=== PATIENT | male | born 1945 | race Hispanic/Latino ===

== ENCOUNTER 2020-10-09 15:27 | Observation (INO) | payer MEDICARE, OTHER ==
--- OUTSIDE RECORDS SUMMARY | 2020-10-09 15:30 | XMS REPORT | Continuity of Care Document ---
:1945 Author Organization [facility] t Address [address] [place] [address] Care Team Providers Name Role Phone Unavailable Unavailable Unavailable Problems This patient has no known problems. Allergies, Adverse Reactions, Alerts Allergy Allergy Status Severity Reaction(s) Onset Inactive Treating Comm ents Source Name Type Date Date Clinician Lisinopr Adverse Active Info Not [facility] Medications Ordered Filled Start Stop Current Ordering Indication Dosage Frequency Signature Comments Components Source Medication Medication Date Date Medication? Clinician (SIG) Name Name Pepcid Pepcid 2019-0 Yes Leandra [address] [facility] 9-04 [facility]: [facility] 00 [facility] Albuterol Albuterol 2019-0 Yes Leandra [address] [facility] Sulfate HFA Sulfate HFA 9-04 Millender needed [facility] - 00:[facility]: [facility] 00 [facility] Trulicity Trulicity 2019-0 2020- No Leandra one [facility] 9-04 01-02 Millender injection Luke s - 00:00: 00:00 Memoria 00 :00 [facility] Blood Blood 2020-0 Yes Leandra as [facility] Glucose Glucose 7-22 Millender directed [facility] - Monitor Monitor 00:00: [facility]oria System System [address] [facility] Lancets Lancets 2019-0 Yes Leandra as [facility] 7[facility]22 [facility]ender directed [facility] - 00:[facility]: [facility] 00 [facility] Glucose Glucose 2020-0 Yes Leandra as [facility] testing testing 4-23 Millender directed [facility] - strips strips 00:00: (dispense Mainor gracy 00 testing l strips for Outpati Contour ent Next) Clinics Contour Contour 2018-0 Yes Leandra n/s [facility] next next 9-27 [facility] - testing testing 00:00: Memoria strips strips 00 l Outpati ent Clinics Sertraline Sertraline Yes Leandra [address] [facility] HCl HCl [facility] Contour Contour Yes Leandra as [facility] Next Test Next Test [facility]ender directed [facility] Losartan Losartan Yes Leandra [address] Potassium Potassium [facility] Loratadine Loratadine Yes Leandra [address] [facility] Pantoprazol Pantoprazol Yes Leandra TOME ALEX [facility] e Sodium e Sodium Millender TABLETA [facility] Lyrica Lyrica Yes Leandra [facility] [address] [facility] Fluticasone Fluticasone Yes Leandra [address] [facility] Propionate Propionate Millender in each [facility] Lovastatin Lovastatin Yes Leandra [address] [facility] Millender with a [facility] Metformin Metformin Yes Leandra [address] [facility] HCl HCl Millender with a [facility] Flomax Flomax Yes Le[facility] Xanax Xanax Yes Leandra [address] [facility] Furosemide Furosemide Yes Leandra [address] [facility] Aspirin Aspirin Yes Leandra tome alex [facility] Millender tableta [facility] Fluticasone Fluticasone Yes Leandra [address] [facility] Propionate Propionate Millender each [facility] Aspirin 81 Aspirin 81 Yes Leandra [address] [facility]ender [facility] Aspirin Low Aspirin Low 2020- No Leandra [address] [facility] Dose Dose 06 Millender [facility] l [facility] ent [facility] Jardiance Jardiance 2020- No Leandra [address] [facility] 01-10 [facility] Anoro Anoro 2020- No Leandra [address] [facility] Ellipta Ellipta 01-10 Millender Madelyn es - 00:00 Memoria :00 l Outpati ent Clinics Immunizations Ordered Filled Immunization Date Status Comments [facility] e Immunization Name Name PCV13 PCV13 2018-03-[address] [facility]00 [facility] Procedures This patient has no known procedures. Encounters Start End Encounter Admission Attending Care Care Encounter Source Date/Time Date/Time Type Type Clinicians Facility Department ID 2020-08-03 2020-08-03 Outpatient [facility] [id number] 2020-07-26 2020-07-26 [facility] [id number] [facility] 2020-07-26 2020-07-26 [facility] [id number] [facility] 2020-07-12 2020-07-12 [facility] [id number] [facility] 2020-06-27 2020-06-27 Outpatient [facility] [id number] [facility] 2020-05-11 2020-05-11 Out[facility] [id number] [facility] 2020-04-18 2020-04-18 Outpatient [facility] [id number] [facility] 2020-04-14 2020-04-14 [facility] [id number] [facility] 10:20:00 10:20:00 [facility] Outpati ent Clinics 2020-04-08 2020-04-08 [facility] [id number] [facility] 16:38:00 16:38:00 t [employer] - Drive [facility] Outpati ent Clinics 2020-04-08 2020-04-08 [facility] [id number] [address] 16:36:00 16:36:00 t [employer] Drive [facility] Medicine Outpati ent Clinics 2020-04-08 2020-04-08 [facility] [id number] 10:50:00 10:50:00 t [facility] [employer] [facility] Medicine Outpati ent Clinics 2020-03-07 2020-03-07 [facility] [id number] [address] 14:47:00 14:47:00 t [facility] [employer] [place] [facility] Medicine Outpati ent Clinics 2020-01-26 2020-01-26 [facility] [id number] 14:20:00 14:20:00 t Specialty/U L[facility] kes - Specialty rology [facility] /Urology Clinic l Clinic Outpati ent Clinics 2020-01-19 2020-01-19 [facility] [id number] [address] 14:00:00 14:00:00 t Specialty/U [facility]ore[facility] kes - Specialty rology Mem[facility] a /Urology Clinic l Clinic Outpati ent Clinics 2020-01-18 2020-01-18 [facility] [id number] [address] 14:30:00 14:30:00 t Specialty/U Lorena kes - Specialty rology [facility] /Urology Clinic l Clinic Outpati ent Clinics 2020-01-11 2020-01-11 [facility] [id number] [address] 16:46:00 16:46:[address] [facility] Medicine Outpati ent Clinics 2019-12-28 2019-12-28 [facility] [id number] [facility] 14:00:00 14:00:00 t Specialty/U Lorena kes - Specialty rology Mem[facility] a /Urology Clinic l Clinic Outpati ent Clinics 2019-12-24 2019-12-24 [facility] [id number] [address] 15:13:00 15:13:00 t Specialty/U Lorena kes - Specialty rology [facility] a /Urology Clinic l Clinic Outpati ent Clinics 2019-12-14 2019-12-14 [facility] [id number] [address] 16:13:00 16:13:00 t [facility] Medicine Outpati ent Clinics 2019-12-03 2019-12-03 [facility] [id number] [address] 15:15:00 15:15:[address] [facility] Medicine Outpati ent Clinics 2019-09-11 2019-09-11 [facility] [id number] [facility] 17[facility]26:00 17:26:[address] [facility] Medicine Outpati ent Clinics 2019-08-11 2019-08-11 [facility] [id number] [address] 09:48:00 09:48:[address] [facility] Medicine Outpati ent Clinics 2019-07-02 2019-07-02 [facility] [id number] 15:20:00 15:20:[address] [facility] Medicine Outpati ent Clinics 2019-06-26 2019-06-26 [facility] [id number] [facility] 16:42:00 16:42:[address] [facility] Medicine Outpati ent Clinics 2019-06-23 2019-06-23 [facility] [id number] [facility] 09:21:00 09:21:[address] [facility] Medicine Outpati ent Clinics 2019-06-11 2019-06-11 [facility] [id number] 14:59:00 14:59:[address] [facility] Medicine Outpati ent Clinics 2019-06-08 2019-06-08 [facility] [id number] [facility] 16:45:00 16:45:[address] [facility] Medicine Outpati ent Clinics 2019-05-25 2019-05-25 [facility] [id number] [facility] 15:30:00 15:30:00 t Specialty/U Lorena kes - Specialty rology Memori a /Urology Clinic l Clinic Outpati ent Clinics 2019-05-06 2019-05-06 [facility] [id number] [facility] 13:24:00 13:24:[address] [facility] Medicine Outpati ent Clinics 2019-01-29 2019-01-29 [facility] [id number] [facility] 13:15:00 13:15:00 t Specialty/U Lorena kes - Specialty rology Memori a /Urology Clinic l Clinic Outpati ent Clinics 2019-01-16 2019-01-16 [facility] [id number] [address] 10:05:00 10:05:00 [facility] Outpati ent Clinics 2019-01-02 2019-01-02 Out[facility] [id number] 14:10:00 14:10:00 t [facility] Outpati ent Clinics 2018-11-07 2018-11-07 [facility] [id number] 10:27:00 10:27:00 t [facility] Outpati ent Clinics 2018-11-04 2018-11-04 [facility] [id number] [facility] 15:55:00 15:55:00 t Specialty/U Lorena kes - Specialty rology Memori a /Urology Clinic l Clinic Outpati ent Clinics 2018-11-04 2018-11-04 [facility] [id number] 14:15:00 14:15:00 t Specialty/U Lorena kes - Specialty rology Mem[facility] a /Urology Clinic l Clinic Outpati ent Clinics 2018-09-30 2018-09-30 [facility] [id number] [address] 15:30:00 15:30:00 t [facility] Outpati ent Clinics 2018-09-04 2018-09-04 [facility] [id number] 17:02:00 17:02:00 t [facility] Medicine Medicine Outpati ent Clinics 2018-09-03 2018-09-03 [facility] [id number] [address] 10:12:00 10:12:[address] [facility] Medicine Outpati ent Clinics 2018-08-15 2018-08-15 [facility] [id number] [facility] 14:31:00 14:31:00 t [facility] Medicine Medicine Outpati ent Clinics 2018-08-11 2018-08-11 [facility] [id number] [facility] 09:42:00 09:42:[address] [facility] Medicine Outpati ent Clinics 2018-07-23 2018-07-23 [facility] [id number] [address] 11:42:00 11:42:[address] [facility] Medicine Outpati ent Clinics 2018-05-29 2018-05-29 [facility] [id number] [facility] 12:09:00 12:09:00 t [facility] Medicine Medicine Outpati ent Clinics 2018-05-08 2018-05-08 [facility] [id number] [facility] 10:57:00 10:57:[address] [facility] Medicine Outpati ent Clinics 2018-04-01 2018-04-01 [facility] [id number] 15:34:00 15:34:00 t [facility] Medicine Medicine Outpati ent Clinics 2018-03-17 2018-03-17 [facility] [id number] 15:30:00 15:30:[address] [facility] Medicine Outpati ent Clinics 2018-01-30 2018-01-30 [facility] [id number] [facility] [address] 15:00:00 15:00:[address] [facility] Medicine Outpati ent Clinics 2018-01-22 2018-01-22 [facility] [id number] 10:00:00 10:00:00 t Specialty/U Lorena pinedas - Specialty rology Memori a /Urology Clinic l Clinic Outpati ent Clinics Results This patient has no known results.
[2020-10-09] MEDS ORDERED: NA CHLORIDE 0.9% 1,000 ML ONE (16:06)
[2020-10-09 16:42] LABS: Absolute Lymphocytes (CBC) 0.5 K/uL (0.7-4.9); Basophils % 0.4 % (0-1.3); Hematocrit 41.9 % (39.6-49.0); Lymphocytes % 8.4 % (15.3-44.8); MPV 8.3 fL (7.6-11.3); RBC Red Blood Cell Count 4.97 M/uL (4.33-5.43)
--- NOTE | 2020-10-09 16:42 | RAD REPORT ---
EXAM DESCRIPTION: Andrea Single View10/09/2020 4:35 pm CLINICAL HISTORY: Cough COMPARISON: 2016 FINDINGS: [id number] bilateral pulmonary opacities. The heart is normal size IMPRESSION: Mild to moderate bilateral pulmonary opacities probably pneumonia
[2020-10-09 16:44] LABS: Protime INR 1.02
[2020-10-09 16:59] LABS: ALT/SGPT 21 U/L (12-78); AST/SGOT 35 U/L (15-37); Albumin 2.9 g/dL (3.4-5.0); Alkaline Phosphatase 78 U/L (45-117); BUN Blood Urea Nitrogen 16 mg/dL (7-18); Bicarbonate 23 mmol/L (21-32); Bilirubin Direct 0.3 mg/dL (0-0.2); Bilirubin Total 0.7 mg/dL (0.2-1.0); Glucose Level 184 mg/dL (74-106); Lipase 293 U/L (73-393); Magnesium 1.8 mg/dL (1.8-2.4); NT PRO-BNP 479 pg/mL (<125); Potassium 4.4 mmol/L (3.5-5.1); Sodium Level 122 mmol/L (136-145); Troponin (Emerg Dept Use Only) < 0.02 ng/mL (0.0-0.045)
--- NOTE | 2020-10-09 17:13 | ER ---
Nurse's Notes [facility] Name: Chito Chavira Jr Age: 75 yrs Sex: Male : 1945 Arrival Date: 10/09/2020 Time: 15:29 Bed 20 Private MD: Diagnosis: Weakness;Hypo-osmolality and hyponatremia;Pneumonia, unspecified organism-bilateral . Covid 19 Positive;Dementia in other diseases classified elsewhere Presentation: 10/09 15:28 Chief complaint: EMS states: Generalized weakness, decreased appetite, fever, and body hb aches x 3 days. Coronavirus screen:. Ebola Screen: No symptoms or risks identified at this time. Initial Sepsis Screen: Does the patient meet any 2 criteria? No. Patient's initial sepsis screen is negative. Does the patient have a suspected source of infection? No. Patient's initial sepsis screen is negative. 15:28 Method Of Arrival: EMS: [facility] 15:28 Risk Assessment: Do you want to hurt yourself or someone else? Patient reports no hb desire to harm self or others. Onset of symptoms was October 06, 2020. 15:28 Acuity: TROY 3 hb Historical: - Allergies: 15:31 Seroquel; sv - PMHx: 15:31 High Cholesterol; Hypertension; Asthma; Dementia; Diabetes - NIDDM; GERD; indwelling sv catheter; - PSHx: 15:31 Knee surgery; Appendectomy; neck fusion; hip; left ear; sv - Immunization history:: Adult Immunizations up to date. - Social history:: Smoking status: Patient denies any tobacco usage or history of. Screenin:38 Abuse screen: Denies threats or abuse. Denies injuries from another. Nutritional hb screening: No deficits noted. Tuberculosis screening: No symptoms or risk factors identified. Fall Risk Total Aparicio Fall Scale indicates Low Risk Score (25-44 pts). Fall prevention measures have been instituted. Side Rails Up X 2 Placed close to Nursing Station Frequent Obs/Assesments occuring As available Patient and Family Educated on Fall Prevention Program and strategies. Assessment: 15:38 General: Appears in no apparent distress. Behavior is calm, cooperative. Pain: Pain hb currently is 5 out of 10 on a pain scale. Neuro: Level of Consciousness is awake, alert, obeys commands, Oriented to person, place, situation. Cardiovascular: Capillary refill < 3 seconds Patient's skin is warm and dry. Respiratory: Respiratory effort is even, unlabored, Respiratory pattern is regular, symmetrical. GI: Reports anorexia. : No signs and/or symptoms were reported regarding the genitourinary system. EENT: No signs and/or symptoms were reported regarding the EENT system. Derm: Skin is pink, warm \T\ dry. Musculoskeletal: Reports body aches. 16:51 Reassessment: Patient appears in no apparent distress at this time. Patient and/or hb family updated on plan of care and expected duration. Pain level reassessed. Patient is alert, oriented x 3, equal unlabored respirations, skin warm/dry/pink. 17:25 Reassessment: Pt to CT. hb 18:00 Reassessment: Pt returned from CT. NAD. VSS. hb 18:35 Reassessment: Patient appears in no apparent distress at this time. Patient and/or hb family updated on plan of care and expected duration. Pain level reassessed. Patient is alert, oriented x 3, equal unlabored respirations, skin warm/dry/pink. 19:15 Reassessment: Patient appears in no apparent distress at this time. Patient and/or jb4 family updated on plan of care and expected duration. Pain level reassessed. Patient is alert, oriented x 3, equal unlabored respirations, skin warm/dry/pink. Vital Signs: 15:30 BP 112 / 65; Pulse 64; Resp 16; Temp 97.7(O); Pulse Ox 97% on R/A; Pain 5/10; hb 16:45 BP 151 / 67; Pulse 76; Resp 16; Pulse Ox 95% on R/A; hb 18:00 BP 133 / 65; Pulse 67; Resp 17; Pulse Ox 95% on R/A; hb 19:00 BP 120 / 63; Pulse 61; Resp 16; Pulse Ox 93% on R/A; jb4 ED Course: 15:29 Patient arrived in ED. ds1 15:31 Arm band placed on. sv 15:31 Patient has correct armband on for positive identification. Bed in low position. Call sv light in reach. Side rails up X2. Pulse ox on. NIBP on. 15:35 Shelby Obrien, RN is Primary Nurse. hb 15:37 Triage completed. hb 15:38 Justin Altman MD is Attending Physician. nataly 16:26 Inserted saline lock: 22 gauge in left forearm, using aseptic technique. Blood hb collected. 16:35 XRAY Chest (1 view) In Process Unspecified. EDMS 16:54 Basic Metabolic Panel Sent. hb 16:54 CBC with Diff Sent. hb 16:54 Flu Sent. hb 17:10 Aki Redman MD is Hospitalizing Provider. nataly 17:39 CT Chest For PE Angio In Process Unspecified. EDMS 17:39 CT Abd/Pelvis - IV Contrast Only In Process Unspecified. EDMS 17:56 by ut, sent to lab. jp3 17:57 Osmolality, Serum Sent. jp3 17:59 Urine Dipstick--Ancillary (enter results) Sent. hb 19:00 No provider procedures requiring assistance completed. Patient admitted, IV remains in jb4 place. Administered Medications: 16:22 Drug: NS 0.9% 500 ml Route: IV; Rate: bolus; Site: left forearm; hb 16:51 Follow up: Response: No adverse reaction; IV Status: Completed infusion; IV Intake: hb 500ml 16:53 Drug: NS 0.9% 1000 ml Route: IV; Rate: 125 ml/hr; Site: left forearm; hb 17:59 Drug: Zosyn 3.375 grams Route: IVPB; Infused Over: 60 mins; Site: left forearm; hb 17:59 Drug: Pepcid 20 mg Route: IVP; Site: left forearm; hb 18:33 Follow up: Response: No adverse reaction hb 18:32 Drug: Decadron - Dexamethasone 10 mg Route: IVP; Site: right antecubital; hb 18:32 Drug: Lovenox 40 mg Route: Sub-Q; Site: abdomen; hb 18:32 Drug: Aspirin Chewable Tablet 162 mg Route: PO; hb Intake: 16:51 IV: 500ml; Total: 500ml. hb Outcome: 17:12 Decision to Hospitalize by Provider. [facility] 19:00 Admitted to Tele accompanied by [facility], via stretcher, room 404, with chart. jb4 19:00 Condition: stable 19:00 Discharge instructions given to patient, Instructed on the need for admit, Demonstrated understanding of instructions. 19:31 Patient left the ED. jb4 Signatures: Dispatcher [employer] Shani Pak RN Justin Tomas MD MD cha Sanford, Demi ds1 Shelby Obrien RN RN hb Thanh Santos RN RN jb4 Nestor Carney jp3 Corrections: (The following items were deleted from the chart) 15:37 15:30 Temp 97.7F Oral; kiley gale
--- NOTE | 2020-10-09 17:13 | EDPHYS ---
Physician Documentation [facility] Name: Chito Chavira Jr Age: 75 yrs Sex: Male : 1945 Arrival Date: 10/09/2020 Time: 15:29 Bed 20 Private MD: SOHAIL Physician Justin Altman HPI: 10/09 17:05 This 75 yrs old Male presents to ER via EMS with complaints of General nataly Weakness. 17:05 The patient presents with abdominal pain. Onset: The symptoms/episode began/occurred 4 nataly day(s) ago. The patient or guardian reports cough, difficulty breathing. Modifying factors: The symptoms are alleviated by nothing. the symptoms are aggravated by nothing. weakness, cough , abd pain. Associated signs and symptoms: Pertinent positives: nausea. Onset: The symptoms/episode began/occurred 3 day(s) ago. The symptoms do not radiate. Associated signs and symptoms: Pertinent positives: anorexia, fever, nausea, shortness of breath. Historical: - Allergies: 15:31 Seroquel; sv - PMHx: 15:31 High Cholesterol; Hypertension; Asthma; Dementia; Diabetes - NIDDM; GERD; indwelling sv catheter; - PSHx: 15:31 Knee surgery; Appendectomy; neck fusion; hip; left ear; sv - Immunization history:: Adult Immunizations up to date. - Social history:: Smoking status: Patient denies any tobacco usage or history of. ROS: 17:06 Eyes: Negative for injury, pain, redness, and discharge, ENT: Negative for injury, nataly pain, and discharge, Neck: Negative for injury, pain, and swelling, Cardiovascular: Negative for chest pain, palpitations, and edema, Back: Negative for injury and pain, : Negative for injury, bleeding, discharge, and swelling, MS/Extremity: Negative for injury and deformity, Skin: Negative for injury, rash, and discoloration, Neuro: Negative for headache, weakness, numbness, tingling, and seizure, Psych: Negative for depression, anxiety, suicide ideation, homicidal ideation, and hallucinations, Allergy/Immunology: Negative for hives, rash, and allergies, Endocrine: Negative for neck swelling, polydipsia, polyuria, polyphagia, and marked weight changes, Hematologic/Lymphatic: Negative for swollen nodes, abnormal bleeding, and unusual bruising. 17:06 Constitutional: Positive for body aches, chills, fatigue, fever, poor PO intake. 17:06 Respiratory: Positive for cough, with no reported sputum, shortness of breath. 17:06 Abdomen/GI: Positive for abdominal pain, anorexia, of the right upper quadrant, left upper quadrant, right lower quadrant and left lower quadrant. Exam: 17:06 Constitutional: This is a well developed, well nourished patient who is awake, alert, nataly and in no acute distress. Head/Face: Normocephalic, atraumatic. Eyes: Pupils equal round and reactive to light, extra-ocular motions intact. Lids and lashes normal. Conjunctiva and sclera are non-icteric and not injected. Cornea within normal limits. Periorbital areas with no swelling, redness, or edema. ENT: Nares patent. No nasal discharge, no septal abnormalities noted. Tympanic membranes are normal and external auditory canals are clear. Oropharynx with no redness, swelling, or masses, exudates, or evidence of obstruction, uvula midline. Mucous membranes moist. Neck: Trachea midline, no thyromegaly or masses palpated, and no cervical lymphadenopathy. Supple, full range of motion without nuchal rigidity, or vertebral point tenderness. No Meningismus. Chest/axilla: Normal chest wall appearance and motion. Nontender with no deformity. No lesions are appreciated. Cardiovascular: Regular rate and rhythm with a normal S1 and S2. No gallops, murmurs, or rubs. Normal PMI, no JVD. No pulse deficits. Back: No spinal tenderness. No costovertebral tenderness. Full range of motion. Male : Normal genitalia with no discharge or lesions. Skin: Warm, dry with normal turgor. Normal color with no rashes, no lesions, and no evidence of cellulitis. MS/ Extremity: Pulses equal, no cyanosis. Neurovascular intact. Full, normal range of motion. Neuro: Awake and alert, GCS 15, oriented to person, place, time, and situation. Cranial nerves II-XII grossly intact. Motor strength 5/5 in all extremities. Sensory grossly intact. Cerebellar exam normal. Normal gait. Psych: Awake, alert, with orientation to person, place and time. Behavior, mood, and affect are within normal limits. 17:06 Respiratory: the patient does not display signs of respiratory distress, Respirations: normal, Breath sounds: bronchial sounds, decreased breath sounds, rhonchi, that are moderate, are scattered, Respiratory rate: 16 17:09 ECG was reviewed by the Attending Physician. [facility] Vital Signs: 15:30 BP 112 / 65; Pulse 64; Resp 16; Temp 97.7(O); Pulse Ox 97% on R/A; Pain 5/10; hb 16:45 BP 151 / 67; Pulse 76; Resp 16; Pulse Ox 95% on R/A; hb 18:00 BP 133 / 65; Pulse 67; Resp 17; Pulse Ox 95% on R/A; hb 19:00 BP 120 / 63; Pulse 61; Resp 16; Pulse Ox 93% on R/A; jb4 MDM: 15:38 Patient medically screened. [facility] 17:08 Differential diagnosis: bronchitis, flu, bowel obstruction, coronary artery disease, nataly cholecystitis, Cholelithiasis, diverticulitis, gastritis, Hepatitis, Peptic Ulcer Disease, Peritonitis, Ureterolithiasis, urinary tract infection. Antibiotic administration: zithromax, zosyn. Differential Diagnosis sepsis. Data reviewed: vital signs, nurses notes, lab test result(s), EKG, radiologic studies, CT scan, plain films. Data interpreted: monitoring tech: rate is 76 beats/min, rhythm is regular, Pulse oximetry: on room air is 95 %. Test interpretation: by ED physician or midlevel provider: ECG, plain radiologic studies. Counseling: I had a detailed discussion with the patient and/or guardian regarding: the historical points, exam findings, and any diagnostic results supporting the discharge/admit diagnosis, lab results, radiology results, the need for further work-up and treatment in the hospital. 10/09 15:43 Order name: Basic Metabolic Panel [facility] 10/09 15:43 Order name: CBC with Diff [facility] 10/09 15:43 Order name: LFT's; Complete Time: 17:01 [facility] 10/09 15:43 Order name: Magnesium; Complete Time: 17:01 [facility] 10/09 15:43 Order name: NT PRO-BNP; Complete Time: 17: [facility] 10/09 15:43 Order name: PT-INR; Complete Time: 16:54 [facility] 10/09 15:43 Order name: Troponin (emerg Dept Use Only); Complete Time: 17:01 [facility] 10/09 15:43 Order name: Lipase; Complete Time: 17:01 [facility] 10/09 15:43 Order name: Blood Culture Adult (2) [facility] 10/09 15:43 Order name: Urine Culture [facility] 10/09 15:43 Order name: Lactate; Complete Time: 17:01 [facility] 10/09 15:43 Order name: Basic Metabolic Panel; Complete Time: 17:01 [facility] 10/09 15:43 Order name: CBC with Automated Diff; Complete Time: 16:54 [facility] 10/09 16:18 Order name: Flu 10/09 15:43 Order name: XRAY Chest (1 view); Complete Time: 16:54 [facility] 10/09 16:19 Order name: Influenza Screen (A [facility] 10/09 16:56 Order name: Urine Dipstick--Ancillary (enter results) 10/09 16:57 Order name: Urine Dipstick-Ancillary [facility] 10/09 16:59 Order name: CT Chest For PE Angio; Complete Time: 18:09 [facility] 10/09 17:01 Order name: CT Abd/Pelvis - IV Contrast Only; Complete Time: 18:09 [facility] 10/09 17:03 Order name: Osmolality, Serum [facility] 10/09 17:03 Order name: Urine Osmolality [facility] 10/09 17:03 Order name: Urine Sodium Random [facility] 10/09 17:03 Order name: Osmolality, Serum [facility] 10/09 17:03 Order name: Osmolality, Urine [facility] 10/09 17:03 Order name: UR SODIUM [facility] 10/09 18:08 Order name: COVID-19/FLU A+B; Complete Time: 18:09 [facility] 10/09 15:43 Order name: EKG; Complete Time: 15:44 [facility] 10/09 15:43 Order name: Cardiac monitoring; Complete Time: 16:53 [facility] 10/09 15:43 Order name: EKG - Nurse/Tech; Complete Time: 18:35 [facility] 10/09 15:43 Order name: IV Saline Lock; Complete Time: 16:54 [facility] 10/09 15:43 Order name: Labs collected and sent; Complete Time: 16:54 [facility] 10/09 15:43 Order name: O2 Per Protocol; Complete Time: 18:35 [facility] 10/09 15:43 Order name: O2 Sat Monitoring; Complete Time: 16:54 [facility] 10/09 15:43 Order name: Urine Dipstick-Ancillary (obtain specimen); Complete Time: 16:53 [facility] 10/09 18:07 Order name: CONS Physician Consult EDMS 10/09 18:07 Order name: Heart Healthy EDMS EC:09 Rate is 65 beats/min. Rhythm is regular. QRS [place] is Normal. MD interval is normal. QRS nataly interval is normal. QT interval is normal. No Q waves. T waves are Normal. No ST changes noted. Clinical impression: NSR w/ Non-specific ST/T Changes and No evidence of ischemia. Interpreted by me. Reviewed by me. Administered Medications: 16:22 Drug: NS 0.9% 500 ml Route: IV; Rate: bolus; Site: left forearm; hb 16:51 Follow up: Response: No adverse reaction; IV Status: Completed infusion; IV Intake: hb 500ml 16:53 Drug: NS 0.9% 1000 ml Route: IV; Rate: 125 ml/hr; Site: left forearm; hb 17:59 Drug: Zosyn 3.375 grams Route: IVPB; Infused Over: 60 mins; Site: left forearm; hb 17:59 Drug: Pepcid 20 mg Route: IVP; Site: left forearm; hb 18:33 Follow up: Response: No adverse reaction hb 18:32 Drug: Decadron - Dexamethasone 10 mg Route: IVP; Site: right antecubital; hb 18:32 Drug: Lovenox 40 mg Route: Sub-Q; Site: abdomen; hb 18:32 Drug: Aspirin Chewable Tablet 162 mg Route: PO; hb Disposition: 10/09/20 17:12 Hospitalization ordered by Aki Redman for Inpatient Admission. Preliminary diagnosis are Weakness, Hypo-osmolality and hyponatremia, Pneumonia, unspecified organism - bilateral . Covid 19 Positive, Dementia in other diseases classified elsewhere. - Bed requested for Telemetry/MedSurg (Inpatient). - Status is Inpatient Admission. jb4 - Condition is Fair. - Problem is new. - Symptoms have improved. Signatures: Dispatcher [employer] EDIL Shani Melton, Jsutin Tomas RN, MD MD cha Baxter, Heather, RN RN hb Bryson, James, RN RN jb4 Argelia Guerrero Corrections: (The following items were deleted from the chart) 17:11 16:19 CORONAVIRUS+MR.LAB.BRZ ordered. EDIL EDMS 18:10 17:12 Hospitalization Ordered by Aki Redman MD for Inpatient Admission. Preliminary nataly diagnosis is Weakness; Hypo-osmolality and hyponatremia; Pneumonia, unspecified organism - bilateral; Dementia in other diseases classified elsewhere. Bed requested for Telemetry/MedSurg (Inpatient). Status is Inpatient Admission. Condition is Fair. Problem is new. Symptoms have improved. nataly 18:25 18:10 10/09/2020 17:12 Hospitalization Ordered by Aki Redman MD for Inpatient eb Admission. Preliminary diagnosis is Weakness; Hypo-osmolality and hyponatremia; Pneumonia, unspecified organism - bilateral . Covid 19 Positive; Dementia in other diseases classified elsewhere. Bed requested for Telemetry/MedSurg (Inpatient). Status is Inpatient Admission. Condition is Fair. Problem is new. Symptoms have improved. nataly 19:31 18:25 10/09/2020 17:12 Hospitalization Ordered by Aki Redman MD for Inpatient jb4 Admission. Preliminary diagnosis is Weakness; Hypo-osmolality and hyponatremia; Pneumonia, unspecified organism - bilateral . Covid 19 Positive; Dementia in other diseases classified elsewhere. Bed requested for Telemetry/MedSurg (Inpatient). Status is Inpatient Admission. Condition is Fair. Problem is new. Symptoms have improved. eb
[2020-10-09] MEDS ORDERED: FAMOTIDINE 20 MG/2 ML VIAL IV ONE (17:32)
[2020-10-09] MEDS ORDERED: PIPER/TAZO/NS 3.375gm 3.375 GM/100 ML BAG ONE (17:32)
--- NOTE | 2020-10-09 17:57 | RAD REPORT ---
EXAM DESCRIPTION: CT - Chest For Pe Angio - 10/09/2020 5:39 pm CLINICAL HISTORY: cough COMPARISON: None. TECHNIQUE: Dynamically enhanced axial 3 mm thick images of the chest were obtained during administra tion of <100> mL Isovue 370 IV contrast. Coronal and oblique reconstruction images were generated and reviewed. Exam utilizes a protocol for optimal evaluation of pulmonary arterial tree. Maximum intensity projections 3D imaging was utilized All CT scans are performed using dose optimization technique as appropriate and may include automated exposure control or mA/KV adjustment according to patient size. FINDINGS: A pulmonary embolus is not seen. A thoracic aortic aneurysm is not noted. A pleural effusion is not seen. A pericardial effusion is not seen. Moderate right and [id number] left alveolar opacities IMPRESSION: Negative for a pulmonary embolism. Moderate right and [id number] left alveolar opacities likely pneumonia
[2020-10-09] MEDS ORDERED: ALBUTEROL 2.5 MG/3 ML NEB SOL NEB PRN (18:04)
[2020-10-09] MEDS ORDERED: IPRATROPIUM BROM 0.5MG/2.5ML NEB PRN (18:04)
[2020-10-09] MEDS ORDERED: ONDANSETRON 4 MG/2 ML VIAL IV PRN (18:04)
--- NOTE | 2020-10-09 18:07 | RAD REPORT ---
EXAM DESCRIPTION: CT - Abdomen Pelvis W Contrast - 10/09/2020 5:39 pm CLINICAL HISTORY: Abdominal pain COMPARISON: 2012 TECHNIQUE: Computed axial tomography of the abdomen pelvis was obtained. 100 cc Isovue-300 was admin istered intravenously. Oral contrast was not requested which limits evaluation of bowel. All CT scans are performed using dose optimization technique as appropriate and may include automated exposure control or mA/KV adjustment according to patient size. FINDINGS: Small splenic lesion unchanged is benign Small left renal cyst. Liver, pancreas, adrenals and right kidney appears unremarkable There is no evidence of diverticulitis. A Miller catheter has the balloon within the prostate gland Spondylolysis L5. Mild anterior subluxation L5 on S1 IMPRESSION: A Miller catheter has the balloon within the prostate gland .
[2020-10-09 18:08] LABS: SARS-COV-2 RT PCR POSITIVE (NEGATIVE)
[2020-10-09] MEDS ORDERED: ENOXAPARIN 40 MG/0.4 ML SQ ONE (18:42)
[2020-10-09] MEDS ORDERED: dexAMETHasone 10 MG/ML VIAL ONE (18:42)
[2020-10-09] MEDS ORDERED: ASPIRIN 81 MG CHEWABLE TABLET ONE (18:42)
[2020-10-09 20:14] LABS: Urine Blood 3+ (NEG); Urine Glucose NEGATIVE (NEG); Urine Protein 2+ (NEG); Urine Specific Gravity 1.015 (1.005-1.030)
[2020-10-09] MEDS: CEFTRIAXONE/SWI 1gm 1 GM/10 ML SYR IV SCH (20:47)
[2020-10-09] MEDS: NA CHLORIDE 0.9% 1,000 ML IV SCH (20:48)
[2020-10-09 20:50] VITALS: BMI 27.8
[2020-10-09] MEDS ORDERED: CEFTRIAXONE 1 GM/NS 50 ML 1 GM/50 ML BAG IV SCH (21:00)
[2020-10-10] MEDS: METHYLPREDNISOLONE 125 MG INJ IV SCH ×2 (00:48→06:08)
--- NOTE | 2020-10-10 00:49 | P.HP ---
Certification for Inpatient Patient admitted to: Inpatient With expected LOS: >2 Midnights Patient will require the following post-hospital care: None Practitioner: I am a practitioner with admitting privileges, knowledge of patient current condition, hospital course, and medical plan of care. Services: Services provided to patient in accordance with Admission requirements found in Title 42 Section 412.3 of the Code of Federal Regulations Patient History Date of Service: 10/09/20 Reason for admission: Hyponatremia and COVID-19 pneumonia History of Present Illness: Patient is a 75-year-old gentleman who has been having some cough and congestion for the last few days. Patient has not been feeling well and has been having fevers shakes and chills. He came into the emergency room for further evaluation where he was found to have a sodium of 122. At that time, it was decided to admit the patient to the hospital for further evaluation. Further studies revealed patient had bilateral pneumonia and patients COVID -19 test came back positive. Patient will be admitted to the hospital for further evaluation. We will start with IV steroids and cough medication as needed. Allergies quetiapine [From Seroquel] Allergy (Verified 10/10/20 00:30) Unknown Home Medications: ALPRAZolam [Xanax*] 0.5 mg PO TID PRN 10/14/13 Dexlansoprazole [Dexilant] 60 mg PO DAILY 10/14/13 Fluticasone [Flonase 50MCG Nasal [place]*] 1 puff BIJAN DAILY 10/14/13 Fluticasone/Salmeterol [Advair 250/50 Diskus*] 1 puff IH BID 10/14/13 Losartan Potassium [Cozaar*] 50 mg PO DAILY 10/14/13 Lovastatin 10 mg PO DAILY 10/14/13 Metformin HCl [Glucophage] 1,000 mg PO BID 10/14/13 Tiotropium [place] [Spiriva] 1 spray IH DAILY 10/14/13 Tramadol HCl [Ultram] 50 mg PO Q8HR PRN 10/14/13 - Past Medical/Surgical History Has patient received pneumonia vaccine in the past: Yes Diabetic: Yes -: HTN -: Hyperlipidemia -: Neurogenic bladder -: DDD/DJD of the spine -: Cervical spine stenosis -: COPD -: Allergic rhinitis -: GERD -: Anxiety -: Neck sx w/fusion 2007 - Family History Father Family History: Reviewed- Non-Contributory - Social History Smoking Status: Former smoker Alcohol use: No CD- Drugs: No Caffeine use: No Review of Systems 10-point ROS is otherwise unremarkable Physical Examination - Vital Signs Temperature: 97.8 F Blood Pressure: 164/74 Pulse: 76 Respirations: 16 Pulse Ox (%): 95 - Physical Exam General: Alert, In no apparent distress, Oriented x3 HEENT: Atraumatic, PERRLA, Mucous membr. moist/pink, EOMI, Sclerae nonicteric Neck: Supple, 2+ carotid pulse no bruit, No LAD, Without JVD or thyroid abnormality Respiratory: Clear to auscultation bilaterally, Normal air movement Cardiovascular: Regular rate/rhythm, Normal S1 S2, No murmurs Gastrointestinal: Normal bowel sounds, Soft and benign, Non-distended, No tenderness, No rebound, No guarding Musculoskeletal: No swelling, No tenderness Integumentary: No rashes Neurological: Normal speech, Normal strength at 5/5 x4 extr, Normal tone, Sensation intact, Cranial nerves 3-12 intact, Normal affect Lymphatics: No axilla or inguinal lymphadenopathy - Studies Laboratory Data (last 24 hrs) 10/09/20 16:28: PT 11.7, INR 1.02 10/09/20 16:28: WBC 5.90, Hgb 14.2, Hct 41.9, Plt Count 119 L 10/09/20 16:28: Sodium 122 L, Potassium 4.4, BUN 16, Creatinine 1.08, Glucose 184 H, Magnesium 1.8, Total Bilirubin 0.7, AST 35, ALT 21, Alkaline Phosphatase 78, Lipase 293 Assessment & Plan - Problems (Diagnosis) (1) Pneumonia due to COVID-19 virus Current Visit: Yes Status: Acute (2) Diabetes mellitus Current Visit: No Status: Acute (3) Hyperlipidemia Current Visit: No Status: Acute (4) Hypertensive disorder, systemic arterial Current Visit: No Status: Acute - Plan Plan: 1. IV steroids and IV antibiotic therapy; prone positioning 2. Repeat labs including ferritin, D-dimer, LDH, and CRP levels every 48 hours 3. Cough medication as needed 4. Respiratory isolation including droplet precautions 5. Albuterol inhaler therapy as needed 6. Anticoagulation 7. Repeat chest x-ray as needed 8. Monitor volume status 9. O2 per protocol including high flow oxygen if necessary. If BiPAP needed than place a negative pressure room 10. GI prophylaxis Discharge Plan: Home Plan to discharge in: Greater than 2 days - Advance Directives Does patient have a Living Will: No Does patient have a Durable POA for Healthcare: No - Code Status/Comfort Care Code Status Assessed: Yes Code Status: Full Code Critical Care: No Time Spent Managing PTS Care (In Minutes): 45
[2020-10-10 04:01] LABS: Absolute Lymphocytes (CBC) 0.3 K/uL (0.7-4.9); Basophils % 0.2 % (0-1.3); Hematocrit 42.3 % (39.6-49.0); Lymphocytes % 9.4 % (15.3-44.8); RBC Red Blood Cell Count 5.07 M/uL (4.33-5.43)
[2020-10-10 04:27] LABS: Albumin 2.9 g/dL (3.4-5.0); Bilirubin Total 0.5 mg/dL (0.2-1.0); Magnesium 2.3 mg/dL (1.8-2.4); Phosphorus 3.1 mg/dL (2.5-4.9); Protein, Total 7.3 g/dL (6.4-8.2)
[2020-10-10 05:54] LABS: Blood Morphology Comment NOTED (NOT SEEN); Burr Cells 2+; Platelet Estimate ADEQ
[2020-10-10] MEDS: NA CHLORIDE 0.9% 1,000 ML IV SCH (08:20)
[2020-10-10] MEDS: CEFTRIAXONE/SWI 1gm 1 GM/10 ML SYR IV SCH (08:54)
[2020-10-10] MEDS ORDERED: predniSONE 10 MG TAB PO SCH (09:00)
[2020-10-10] MEDS ORDERED: VITAMIN D 1000 UNIT TAB PO SCH (09:00)
[2020-10-10] MEDS ORDERED: ENOXAPARIN 40 MG/0.4 ML SQ SCH (09:00)
[2020-10-10] MEDS ORDERED: ZINC SULFATE 220 MG CAP PO SCH (09:00)
[2020-10-10] MEDS ORDERED: AZITHROMYCIN IV 500 MG in NA CHLORIDE 0.9% 250 ML IVPB SCH (09:00)
[2020-10-10] MEDS ORDERED: THIAMINE HCL 100 MG TABLET PO SCH (09:00)
[2020-10-10] MEDS ORDERED: INFLUENZA VACCINE (for 3y+) 0.5 ML DOSE IMVAC ONE (09:00)
[2020-10-10] MEDS: ASCORBIC ACID 500 MG TABLET PO SCH ×2 (09:02→14:00)
--- NOTE | 2020-10-10 11:46 | P.DS ---
Admission Date: 10/09/20 Discharge Date: 10/10/20 Primary Care Provider: unknown Disposition: ROUTINE DISCHARGE Reason for Admission: Hyponatremia and COVID-19 pneumonia Consultations: none Procedures: COVID: Positive CT Scan abdomen: FINDINGS: Small splenic lesion unchanged is benign Small left renal cyst. Liver, pancreas, adrenals and right kidney appears unremarkable There is no evidence of diverticulitis. A Dominguez catheter has the balloon within the prostate gland Spondylolysis L5. Mild anterior subluxation L5 on S1 IMPRESSION: A Dominguez catheter has the balloon within the prostate gland CT chest: FINDINGS: A pulmonary embolus is not seen. A thoracic aortic aneurysm is not noted. A pleural effusion is not seen. A pericardial effusion is not seen. Moderate right and [id number] left alveolar opacities IMPRESSION: Negative for a pulmonary embolism. Moderate right and [id number]-[id number] left alveolar opacities likely pneumonia Medical problem list: Hyponatremia likely hypovolemic Bilateral COVID 19 pneumonia Neurogenic bladder with Chronic dominguez catheter/BPH HTN DM Type 2 non insulin dependent Depression Brief History of Present Illness: 75-year-old male with history of COPD, hypertension, neurogenic bladder, and diabetes. Patient presented with cough, congestion over the past several days. He came to the ER for further evaluation. Sodium level was 122. Patient also found to be positive for COVID 19. Patient admitted for treatment. Hospital Course: Patient presented with cough, shortness of breath. Patient was found to have bilateral COVID [address] scan revealed no pulmonary embolism. Room-air saturations within normal range. Patient also found to be hypernatremic with a sodium level of 122. Patient was given IV fluids with improvement. Sodium level now 131. Patient without significant chest pain or shortness of breath. At discharge patient will continue with prednisone 10 mg 1 pill twice daily for 7 days then 1 pill once daily for 7 days. The patient will also continue with supplementation including vitamin-C 500 mg 3 times a day, vitamin-D 2000 units daily, thiamine 100 mg 1 pill twice daily, zinc 220 mg daily, and melatonin 3 mg at bedtime. Patient will follow up with PCP in 1 week to follow up this hospitalization. Recommend to monitor his oxygen level closely with pulse oximeter. Maintain oxygen above 93%. Recommend to recheck lab-BMP in 1 week to monitor his progress. Education on COVID 19 isolation and education will be provided. Patient will need to remain isolated for at least 10 days. Recommend to continue incentive spirometer. Patient with diabetes mellitus type 2. Patient will continue with metformin 1000 mg 1 pill twice daily. Recommend to maintain blood sugar less than 140 fasting and less than 200 after meals. Further adjustment in medication may be required. This can be done with the help of his PCP. Patient with hypertension. At discharge patient may continue with losartan 50 mg daily. Recommend to maintain blood pressure less than 130/80. Further adjustment can be done by his PCP. Patient with history of neurogenic bladder with chronic Dominguez catheter and BPH. Patient will continue with Dominguez catheter. New catheter will be placed. Recommend home health to change catheter every 30 days. Patient with COPD. At discharge patient will continue with Advair 1 puff twice daily. Recommend to continue ProAir 2 puffs 3 times a day as needed for shortness of breath. Patient with depression. At discharge patient will continue with Zoloft 50 mg daily. Vital Signs/Physical Exam: Temp Pulse Resp BP Pulse Ox 98.2 F 81 24 H 182/86 H 94 10/10/20 08:00 10/10/20 08:00 10/10/20 08:00 10/10/20 08:00 10/10/20 08:00 General: Alert, In no apparent distress, Oriented x3, Cooperative HEENT: Atraumatic Neck: Supple Respiratory: Clear to auscultation bilaterally, Normal air movement Cardiovascular: Normal pulses, Regular rate/rhythm Gastrointestinal: Normal bowel sounds, Soft and benign, Non-distended, No masses, No rebound, No guarding Neurological: Normal speech, Normal strength at 5/5 x4 extr, Normal tone, Normal affect Laboratory Data at Discharge: WBC 3.40 K/uL (4.3-10.9) L D 10/10/20 03:28 Hgb 14.7 g/dL (13.6-17.9) 10/10/20 03:28 Hct 42.3 % (39.6-49.0) 10/10/20 03:28 Plt Count 126 K/uL (152-406) L 10/10/20 03:28 PT 11.7 SECONDS (9.5-12.5) 10/09/20 16:28 INR 1.02 10/09/20 16:28 Sodium 131 mmol/L (136-145) L 10/10/20 03:28 Potassium 5.0 mmol/L (3.5-5.1) 10/10/20 03:28 BUN 13 mg/dL (7-18) 10/10/20 03:28 Creatinine 0.84 mg/dL (0.55-1.3) 10/10/20 03:28 Glucose 231 mg/dL (74-106) H 10/10/20 03:28 Phosphorus 3.1 mg/dL (2.5-4.9) 10/10/20 03:28 Magnesium 2.3 mg/dL (1.8-2.4) D 10/10/20 03:28 Total Bilirubin 0.5 mg/dL (0.2-1.0) 10/10/20 03:28 AST 34 U/L (15-37) 10/10/20 03:28 ALT 23 U/L (12-78) 10/10/20 03:28 Alkaline Phosphatase 78 U/L (45-117) 10/10/20 03:28 Triglycerides 141 mg/dL (<150) 10/10/20 03:28 Cholesterol 157 mg/dL (<200) 10/10/20 03:28 HDL Cholesterol 33 mg/dL (40-60) L 10/10/20 03:28 Cholesterol/HDL Ratio 4.76 10/10/20 03:28 Lipase 293 U/L (73-393) 10/09/20 16:28 Home Medications: Fluticasone/Salmeterol [Advair 250/50 Diskus*] 1 puff IH BID 10/14/13 Losartan Potassium [Cozaar*] 50 mg PO DAILY 10/14/13 Metformin HCl [Glucophage] 1,000 mg PO BID 10/14/13 Ascorbic Acid [Vitamin C*] 500 mg PO TID #90 tablet 10/10/20 Cholecalciferol (Vitamin D3) [Vitamin D 1000 Iu Tab*] 2,000 unit PO DAILY #60 tab 10/10/20 Melatonin [Melatonin*] 3 mg PO BEDTIME #30 tablet 10/10/20 Sertraline [Zoloft*] 50 mg PO DAILY 10/10/20 Thiamine HCl [Vitamin B-1*] 100 mg PO BID #60 tablet 10/10/20 Zinc Sulfate [Zinc Sulfate*] 220 mg PO DAILY #30 cap 10/10/20 predniSONE [Deltasone*] 10 mg PO SEECOM #21 tab 10/10/20 New Medications: predniSONE [Deltasone*] 10 mg PO SEECOM #21 tab Melatonin [Melatonin*] 3 mg PO BEDTIME #30 tablet Thiamine HCl [Vitamin B-1*] 100 mg PO BID #60 tablet Ascorbic Acid [Vitamin C*] 500 mg PO TID #90 tablet Cholecalciferol (Vitamin D3) [Vitamin D 1000 Iu Tab*] 2,000 unit PO DAILY #60 tab Zinc Sulfate [Zinc Sulfate*] 220 mg PO DAILY #30 cap Physician Discharge Instructions: Patient presented with cough, shortness of breath. Patient was found to have bilateral COVID [address] scan revealed no pulmonary embolism. Room-air saturations within normal range. Patient also found to be hypernatremic with a sodium level of 122. Patient was given IV fluids with improvement. Sodium level now 131. Patient without significant chest pain or shortness of breath. At discharge patient will continue with prednisone 10 mg 1 pill twice daily for 7 days then 1 pill once daily for 7 days. The patient will also continue with supplementation including vitamin-C 500 mg 3 times a day, vitamin-D 2000 units daily, thiamine 100 mg 1 pill twice daily, zinc 220 mg daily, and melatonin 3 mg at bedtime. Patient will follow up with PCP in 1 week to follow up this hospitalization. Recommend to monitor his oxygen level closely with pulse oximeter. Maintain oxygen above 93%. Recommend to recheck lab-BMP in 1 week to monitor his progress. Education on COVID 19 isolation and education will be provided. Patient will need to remain isolated for at least 10 days. Recommend to continue incentive spirometer. Patient with diabetes mellitus type 2. Patient will continue with metformin 1000 mg 1 pill twice daily. Recommend to maintain blood sugar less than 140 fasting and less than 200 after meals. Further adjustment in medication may be required. This can be done with the help of his PCP. Patient with hypertension. At discharge patient may continue with losartan 50 mg daily. Recommend to maintain blood pressure less than 130/80. Further adjustment can be done by his PCP. Patient with history of neurogenic bladder with chronic Dominguez catheter and BPH. Patient will continue with Dominguez catheter. New catheter will be placed. Recommend home health to change catheter every 30 days. Patient with COPD. At discharge patient will continue with Advair 1 puff twice daily. Recommend to continue ProAir 2 puffs 3 times a day as needed for shortness of breath. Patient with depression. At discharge patient will continue with Zoloft 50 mg daily. Diet: AHA Activity: Ad bernie Followup: FAISAL MALONE [Primary Care Provider] - Time spent managing pt's care (in minutes): 55
[2020-10-10 16:25] VITALS: BP 176/81; TEMP 97.6
[2020-10-10] MEDS ORDERED: METFORMIN HCL 500 MG TAB PO SCH (17:00)
--- NOTE | 2020-10-10 17:11 | EKG ---
Test Date: 2020-10-09 Test Time: 16:55:33 Manager Learning: BHARATHI MEASUREMENT RESULTS: Intervals: Rate: 65 LA: 156 QRSD: 82 QT: 420 QTc: 436 [place]: P: 50 LA: 156 QRS: 32 T: 59 INTERPRETIVE STATEMENTS: Normal sinus rhythm Normal ECG Compared to ECG 03/25/2012 17:25:49 No significant changes Electronically Signed On 10-10-20 17:06:25 [employer] by Ethan Guerra
[2020-10-10 18:09] VITALS: O2SAT 90
[2020-10-10] MEDS ORDERED: MELATONIN 3 MG TABLET PO SCH (21:00)
[2020-10-10] MEDS ORDERED: DISK DISK IH SCH (21:00)
[2020-10-10] MEDS ORDERED: FLUTICASONE IH SCH (21:00)
[2020-10-10] MEDS ORDERED: SALMETEROL IH SCH (21:00)
[2020-10-11] MEDS ORDERED: LOSARTAN POTASSIUM 50 MG TABLET PO SCH (09:00)
[2020-10-11] MEDS ORDERED: SERTRALINE HCL 50 MG TAB PO SCH (09:00)
== END 2020-10-10 18:37 | disposition home health service (06) ==
LOC: ER 15:27 → ERHOLD 18:11 → INTOOBSV 18:11 → 4TH 19:08
PROVIDERS: ADMIT Hospitalist; ATTEND Family Medicine
DX: U07.1 COVID-19 (principal); J12.82 Pneumonia due to coronavirus disease 2019; E87.1 Hypo-osmolality and hyponatremia; N31.9 Neuromuscular dysfunction of bladder, unspecified; N40.0 Benign prostatic hyperplasia without lower urinary tract symptoms; E11.9 Type 2 diabetes mellitus without complications; I10 Essential (primary) hypertension; R53.1 Weakness; J44.9 Chronic obstructive pulmonary disease, unspecified; J45.909 Unspecified asthma, uncomplicated; E78.5 Hyperlipidemia, unspecified; E78.00 Pure hypercholesterolemia, unspecified; K21.9 Gastro-esophageal reflux disease without esophagitis; F41.9 Anxiety disorder, unspecified; M48.02 Spinal stenosis, cervical region; M47.9 Spondylosis, unspecified; J30.9 Allergic rhinitis, unspecified; F03.90 Unspecified dementia, unspecified severity, without behavioral disturbance, psychotic disturbance, mood disturbance, and anxiety; F32.9 Major depressive disorder, single episode, unspecified; Z88.8 Allergy status to other drugs, medicaments and biological substances; Z87.891 Personal history of nicotine dependence
CPT/HCPCS: 93005; 87040 ×2; 87088; 85025 ×2; 87086; 80048; 36415; 83735 ×2; 84100; 85610; 80061; 82947 ×3; 80076; 83605; 87077 ×2; 87186 ×2; 81003; 84484; 83690; 80053; 83880 ×2; 0240U; 83930; 71275; 74177; 71045; 94010; 94760 ×3; 96372; 99285; Q9967; J0456; J1650 ×2; J2543; J1100; J0696 ×2; J7050; J7030 ×2; J2930 ×2; G0378; J7512

== ENCOUNTER 2021-03-02 17:08 | Emergency (ER) | payer MEDICARE ==
--- OUTSIDE RECORDS SUMMARY | 2021-03-02 17:12 | XMS REPORT | Continuity of Care Document ---
:1945 Author Organization [facility] t Address [address] [place] [address] Care Team Providers Name Role Phone Unavailable Unavailable Unavailable Problems This patient has no known problems. Allergies, Adverse Reactions, Alerts Allergy Allergy Status Severity Reaction(s) Onset Inactive Treating Comm ents Source Name Type Date Date Clinician Lisinopr Adverse Active Info Not [facility] Medications Ordered Filled Start Stop Current Ordering Indication Dosage Frequency Signature Comments Components Source Medication Medication Date Date Medication? Clinician (SIG) Name Name Pepcid Pepcid 0 Yes Leandra [address] [facility] 9[facility]04 [facility] Albuterol Albuterol 2019-0 Yes Leandra [address] [facility] Sulfate HFA Sulfate HFA 9-04 Millender needed [facility] Trulicity Trulicity 2019-0 2020- No Leandra one [facility] 9-04 01-02 Millender injection [facility] s - 00:00: 00:00 [facility] 00 :00 [facility] Blood Blood 2019-0 Yes Leandra as [facility] Glucose Glucose 7-22 Millender directed [facility] - Monitor Monitor 00:00: [facility] System System 00 l [facility] Lancets Lancets 2019-0 Yes Leandra as [facility]ender directed [facility] Glucose Glucose 2020-0 Yes Leandra as [facility] testing testing 4-23 Millender directed [facility] - strips strips 00:00: (dispense Mainor gracy 00 testing l strips for Outpati Contour ent Next) Clinics Contour Contour Yes Leandra n/s [facility] next next [...] St e Sodium e Sodium Millender TABLETA [facility] - TOS LOS Memoria D? l Outpati ent Clinics [...] Outpati ent Clinics Aspirin Low Aspirin Low 2021- No Leandra [address] [facility] Dose Dose 01-10 Millender [facility] Clinics Jardiance Jardiance Leandra [address] [facility] 01-10 [facility] ent [facility]ics Anoro Anoro Leandra [address] [facility] Ellipta Ellipta 01-10 Millender Madelyn es - 00:00 [facility] :00 l Outpati ent Clinics Immunizations Ordered Filled Immunization Date Status Comments [facility] Immunization Name Name PCV13 PCV13 2018-03-[address] [facility]00 [facility] Procedures This patient has no known procedures. Encounters Start End Encounter Admission Attending Care Care Encounter Source Date/Time Date/Time Type Type Clinicians Facility Department ID 2021-02-23 2021-02-23 Out[facility] [id number] [facility] 2021-01-25 2021-01-25 [facility] [id number] [facility] 2021-01-25 2021-01-25 [facility] [id number] [facility] 2021-01-05 2021-01-05 [facility] [id number] [facility] 2020-12-01 2020-12-01 [facility] [id number] [facility] 2020-10-31 2020-10-31 [facility] [id number] [facility] 2020-10-19 2020-10-19 [facility] [id number] [facility] 2020-08-03 2020-08-03 [facility] [id number] [facility] 2020-07-26 2020-07-26 Out[facility] [id number] [facility] 2020-07-26 2020-07-26 Out[facility] [id number] [facility] 2020-07-12 2020-07-12 Out[facility] [id number] [facility] 2020-06-27 2020-06-27 [facility] [id number] [facility] 2020-05-11 2020-05-11 Outpatient [facility] [id number] [facility] 2020-04-18 2020-04-18 [facility] [id number] [facility] 2020-04-14 2020-04-14 [facility] [id number] [facility] 10:20:00 10:20:00 t [facility] Medicine Outpati ent Clinics 2020-04-08 2020-04-08 [facility] [id number] [facility] 16:38:00 16:38:00 t [employer] [facility] Medicine Medicine Outpati ent Clinics 2020-04-08 2020-04-08 [facility] [id number] [facility] 16:36:00 16:36:00 t [employer] [facility] Medicine l Medicine Outpati ent Clinics 2020-04-08 2020-04-08 [facility] [id number] [facility] 10[facility]50:00 10:50:00 t [facility] Medicine Outpati ent Clinics 2020-03-07 2020-03-07 [facility] [id number] 14[facility]47:00 14:47:00 t [facility] Medicine l Medicine Outpati ent Clinics 2020-01-26 2020-01-26 [facility] [id number] 14:20:00 14:20:00 t Specialty/U L[facility] kes - Specialty rology [facility] /Urology Clinic l Clinic Outpati ent Clinics 2020-01-19 2020-01-19 [facility] [id number] [address] 14:00:00 14:00:00 t Specialty/U [facility] kes - Specialty rology [facility]Urology Clinic l Clinic Outpati ent Clinics 2020-01-18 2020-01-18 [facility] [id number] [address] 14:30:00 14:30:00 t Specialty/U [facility] kes - Specialty rology [facility]Urology Clinic l Clinic Outpati ent Clinics 2020-01-11 2020-01-11 [facility] [id number] 16:46:00 16:46:00 t [facility] Medicine l Medicine Outpati ent Clinics 2019-12-28 2019-12-28 [facility] [id number] 14:00:00 14:00:00 t Specialty/U [facility] kes - Specialty rology [facility] /Urology Clinic l Clinic Outpati ent Clinics 2019-12-24 2019-12-24 [facility] [id number] 15:13:00 15:13:00 t Specialty/U Lorena kes - Specialty rology [facility] /Urology Clinic l Clinic Outpati ent Clinics 2019-12-14 2019-12-14 [facility] [id number] 16:13:00 16:13:00 t [facility] Medicine Medicine Outpati ent Clinics 2019-12-03 2019-12-03 [facility] [id number] [facility] 15:15:00 15:15:00 [facility] Medicine Outpati ent Clinics 2019-09-11 2019-09-11 [facility] [id number] [facility] 17:26:00 17:26:00 t [facility] Medicine Outpati ent Clinics 2019-08-11 2019-08-11 [facility] [id number] [facility] 09:48:00 09:48:00 t [facility] Medicine Outpati ent Clinics 2019-07-02 2019-07-02 [facility] [id number] 15:20:00 15:20:00 t [facility] Medicine Outpati ent Clinics 2019-06-26 2019-06-26 [facility] [id number] 16:42:00 16:42:00 t [facility] Medicine Outpati ent Clinics 2019-06-23 2019-06-23 [facility] [id number] [facility] 09:21:00 09:21:00 t [facility] Medicine Outpati ent Clinics 2019-06-11 2019-06-11 Out[facility] [id number] 14:59:00 14:59:00 t [facility] Medicine Outpati ent Clinics 2019-06-08 2019-06-08 [facility] [id number] [facility] 16:45:00 16:45:00 t [facility] Medicine Outpati ent Clinics 2019-05-25 2019-05-25 [facility] [id number] [facility] 15:30:00 15:30:00 t Specialty/U Lorena kes - Specialty rology [facility] /Urology Clinic l Clinic Outpati ent Clinics 2019-05-06 2019-05-06 [facility] [id number] 13:24:00 13:24:00 t [facility] Medicine Outpati ent Clinics 2019-01-29 2019-01-29 [facility] [id number] [facility] 13:15:00 13:15:00 t Specialty/U Lorena kes - Specialty rology [facility] /Urology Clinic l Clinic Outpati ent Clinics 2019-01-16 2019-01-16 [facility] [id number] 10:05:00 10:05:00 t [facility] Medicine Medicine Outpati ent Clinics 2019-01-02 2019-01-02 [facility] [id number] [facility] 14:10:00 14:10:00 t [facility] Medicine Outpati ent Clinics 2018-11-07 2018-11-07 [facility] [id number] 10:27:00 10:27:00 t [facility] Medicine Medicine Outpati ent Clinics 2018-11-04 2018-11-04 [facility] [id number] [facility] 15:55:00 15:55:00 t Specialty/U Lorena kes - Specialty rology [facility] /Urology Clinic l Clinic Outpati ent Clinics 2018-11-04 2018-11-04 [facility] [id number] [facility] 14:15:00 14:15:00 t Specialty/U Lorena kes - Specialty rology [facility] /Urology Clinic l Clinic Outpati ent Clinics 2018-09-30 2018-09-30 [facility] [id number] [facility] 15:30:00 15:30:00 t [facility] Medicine Outpati ent Clinics 2018-09-04 2018-09-04 [facility] [id number] [facility] 17:02:00 17:02:00 t [facility] Medicine Outpati ent Clinics 2018-09-03 2018-09-03 [facility] [id number] [facility] 10:12:00 10:12:00 t [facility] Medicine l Medicine Outpati ent Clinics 2018-08-15 2018-08-15 [facility] [id number] [facility] 14:31:00 14:31:00 t [facility] Medicine Outpati ent Clinics 2018-08-11 2018-08-11 [facility] [id number] 09:42:00 09:42:00 t [facility] Medicine l Medicine Outpati ent Clinics 2018-07-23 2018-07-23 [facility] [id number] 11:42:00 11:42:00 t [facility] Medicine Outpati ent Clinics 2018-05-29 2018-05-29 [facility] [id number] 12:09:00 12:09:00 t [facility] Medicine Outpati ent Clinics 2018-05-08 2018-05-08 [facility] [id number] [facility] 10:57:00 10:57:00 t [facility] Medicine Outpati ent Clinics 2018-04-01 2018-04-01 [facility] [id number] [facility] 15:34:00 15:34:00 t [facility] Medicine Outpati ent Clinics 2018-03-17 2018-03-17 [facility] [id number] 15:30:00 15:30:00 t [facility] Medicine Outpati ent Clinics 2018-01-30 2018-01-30 [facility] [id number] [facility] 15:00:00 15:00:00 t [facility] Medicine Outpati ent Clinics 2018-01-22 2018-01-22 [facility] [id number] 10:00:00 10:00:00 t Specialty/U Lorena kes - Specialty rology [facility] a /Urology Clinic l Clinic Outpati ent Clinics Results This patient has no known results.
[2021-03-02 17:49] LABS: Absolute Lymphocytes (CBC) 1.8 K/uL (0.7-4.9); Basophils % 0.9 % (0-1.3); Hematocrit 41.7 % (39.6-49.0); Lymphocytes % 25.4 % (15.3-44.8); MPV 7.8 fL (7.6-11.3); RBC Red Blood Cell Count 4.81 M/uL (4.33-5.43)
--- NOTE | 2021-03-02 18:24 | RAD REPORT ---
EXAM DESCRIPTION: Andrea Single View03/02/2021 6:14 pm CLINICAL HISTORY: Chest pain COMPARISON: September 2020 FINDINGS: The lungs appear clear of acute infiltrate. The heart is normal size IMPRESSION: No acute abnormalities displayed
--- NOTE | 2021-03-02 18:27 | RAD REPORT ---
EXAM DESCRIPTION: RAD - Hip Right 2 View - 03/02/2021 6:14 pm CLINICAL HISTORY: Right hip pain FINDINGS: Pins and intramedullary satya affix an old right femoral fracture. Old right inferior pubic ramus fracture. Bones are osteoporotic. No acute fracture or dislocation seen
--- NOTE | 2021-03-02 18:29 | RAD REPORT ---
EXAM DESCRIPTION: RAD - Knee Right 3 View - 03/02/2021 6:14 pm CLINICAL HISTORY: Right knee pain status post injury FINDINGS: Intramedullary satya has been placed into the right femur. Screws and plate have been placed into proximal tibia. Bones are osteoporotic. No acute fracture or dislocation is seen
[2021-03-02 19:26] LABS: ALT/SGPT 18 U/L (12-78); AST/SGOT 11 U/L (15-37); Albumin 3.6 g/dL (3.4-5.0); Alkaline Phosphatase 74 U/L (45-117); BUN Blood Urea Nitrogen 19 mg/dL (7-18); Bicarbonate 24 mmol/L (21-32); Bilirubin Direct 0.1 mg/dL (0-0.2); Bilirubin Total 0.6 mg/dL (0.2-1.0); Glucose Level 131 mg/dL (74-106); Magnesium 2.3 mg/dL (1.8-2.4); NT PRO-BNP 180 pg/mL (<125); Potassium 4.2 mmol/L (3.5-5.1); Protein, Total 7.4 g/dL (6.4-8.2); Sodium Level 133 mmol/L (136-145); Troponin (Emerg Dept Use Only) < 0.02 ng/mL (0.0-0.045)
--- NOTE | 2021-03-02 20:05 | RAD REPORT ---
EXAM DESCRIPTION: CT - Head C Spine Mpr Wo Con - 03/02/2021 7:49 pm CLINICAL HISTORY: Head and neck injury status post fall. Head and neck pain COMPARISON: 2012 TECHNIQUE: Computed axial tomography of the head and cervical spine was obtained. Sagittal and coronal reconstruction was performed. All CT scans are performed using dose optimization technique as appropriate and may include automated exposure control or mA/KV adjustment according to patient size. FINDINGS: Plate and screws have been placed into occipital bone. Artifact from the hardware obscures evaluation portions of the posterior fossa. An intracranial bleed is not seen. The ventricles are normal in caliber. An extra-axial fluid collect ion is not noted.Fluid within the visualized sinuses and mastoids is not seen. Chronic opacification left mastoids. Fusion involves of the cervical spine. A kyphotic deformity involves the proximal to mid cervical spi ne which is unchanged from the prior exam. Extensive hardware throughout the cervical spine is unchan ged in appearance. No fracture is seen. No dislocation noted. Chronic widening of the predental space which measures 5 m illimeters. IMPRESSION: No acute intracranial abnormality is seen. A cervical fracture is not visualized.
--- NOTE | 2021-03-02 20:31 | EDPHYS ---
Physician Documentation [facility] Name: Chito Chavira Jr Age: 75 yrs Sex: Male : 1945 Arrival Date: 03/02/2021 Time: 17:20 Bed 8 Private MD: ED Physician Waylon Rivera HPI: 03/02 19:23 This 75 yrs old Male presents to ER via EMS with complaints of Hip Pain, Knee pkl Pain, Headache, Dizziness. 19:23 Details of fall: The patient fell from an upright position, while standing, while pkl walking, Fell using walker. Onset: The symptoms/episode began/occurred yesterday. 19:23 Associated injuries: The patient sustained injury to the head, neck injury, right hip, pkl right knee, contusion, painful injury. Historical: - Allergies: 17: Seroquel; sv - PMHx: 17:22 Dementia; GERD; Diabetes - NIDDM; High Cholesterol; Asthma; indwelling catheter; sv Hypertension; Arthritis; Anxiety; Chronic obstructive lung disease; prostate cancer; - Immunization history:: Client reports having NOT received the Covid vaccine. - Social history:: Smoking status: . ROS: 19:23 Eyes: Negative for injury, pain, redness, and discharge, ENT: Negative for injury, pkl pain, and discharge, Neck: Negative for injury, pain, and swelling, Cardiovascular: Negative for chest pain, palpitations, and edema, Respiratory: Negative for shortness of breath, cough, wheezing, and pleuritic chest pain, Abdomen/GI: Negative for abdominal pain, nausea, vomiting, diarrhea, and constipation, Back: Negative for injury and pain, : Negative for injury, bleeding, discharge, and swelling. 19:23 MS/extremity: Positive for pain, of the right knee and right hip. 19:23 Skin: Negative for rash. 19:23 Neuro: Positive for dizziness, headache. Exam: 19:23 Eyes: Pupils equal round and reactive to light, extra-ocular motions intact. Lids and pkl lashes normal. Conjunctiva and sclera are non-icteric and not injected. Cornea within normal limits. Periorbital areas with no swelling, redness, or edema. 19:23 Head/face: Noted is contusion, of the left parietal region. 19:23 ENT: Exam is negative for acute changes. 19:23 Neck: ROM/movement: pain, that is moderate, with any movement. 19:23 Chest/axilla: Exam negative for acute changes. 19:23 Cardiovascular: Rate: normal, Rhythm: regular. 19:23 Respiratory: the patient does not display signs of respiratory distress, Respirations: normal, Breath sounds: are clear throughout. 19:23 Abdomen/GI: Bowel sounds: normal, Palpation: abdomen is soft and non-tender, in all quadrants. 19:23 Back: Exam negative for acute changes. 19:23 : Exam negative for acute changes. 19:23 Musculoskeletal/extremity: Extremities: grossly normal except: noted in the right hip: pain, tenderness, noted in the right knee: contusion, pain, swelling, tenderness. 19:23 Skin: Exam negative for rash. 19:23 Neuro: Orientation: is normal, Mentation: is normal, Cranial nerves: grossly normal, Motor: moves all fours. Vital Signs: 17:20 BP 155 / 70; Pulse 63; Resp 16; Temp 97.3; Pulse Ox 96% ; sv 18:22 BP 145 / 64; Pulse 63; Pulse Ox 99% ; ll1 19:34 BP 125 / 60; Pulse 57; Resp 18; Pulse Ox 97% ; ea 20:20 BP 141 / 68; Pulse 59; Resp 18; Pulse Ox 98% ; ea MDM: 19:12 Patient medically screened. pkl 20:26 Data reviewed: vital signs, nurses notes, lab test result(s), EKG, radiologic studies, pkl CT scan, plain films. ED course: Discussed lab, EKG and imaging studies with patient. Advised to follow up with PCP in 1 to 2 days Patient understood instructions. Tylenol for pain. 03/02 17:28 Order name: Basic Metabolic Panel 03/02 17:28 Order name: CBC with Diff; Complete Time: 19:20 03/02 17:28 Order name: LFT's; Complete Time: 20:19 03/02 17:28 Order name: Magnesium; Complete Time: 20:19 03/02 17:28 Order name: NT PRO-BNP; Complete Time: 20:19 03/02 17:28 Order name: PT-INR; Complete Time: 19:20 03/02 17:28 Order name: Troponin (emerg Dept Use Only); Complete Time: 20:19 03/02 17:28 Order name: XRAY Chest (1 view); Complete Time: 19:20 ss 03/02 17:28 Order name: EKG; Complete Time: 17:29 ss 03/02 17:28 Order name: Basic Metabolic Panel; Complete Time: 20:19 EDMS 03/02 17:40 Order name: Knee Right 3 View XRAY; Complete Time: 19:20 sv 03/02 17:40 Order name: Hip Right 2 View XRAY; Complete Time: 19:20 sv 03/02 19:19 Order name: CT Head C Spine; Complete Time: 20:19 pkl 03/02 17:28 Order name: Cardiac monitoring; Complete Time: 17:36 ss 03/02 17:28 Order name: EKG - Nurse/Tech; Complete Time: 17:36 ss 03/02 17:28 Order name: IV Saline Lock; Complete Time: 17:36 ss 03/02 17:28 Order name: Labs collected and sent; Complete Time: 17:36 ss 03/02 17:28 Order name: O2 Per Protocol; Complete Time: 17:36 ss 03/02 17:28 Order name: O2 Sat Monitoring; Complete Time: 17:36 ss Administered Medications: 20:35 Drug: Tylenol 650 mg Route: PO; ea 20:36 Follow up: Response: Medication administered at discharge. ea Disposition Summary: 03/02/21 20:30 Discharge Ordered Location: Home pkl Problem: new pkl Symptoms: have improved pkl Condition: Stable pkl Diagnosis - Head injury. Neck strain. Contusions right hip and right knee pkl Followup: pkl - With: Private Physician - When: 1 - 2 days - Reason: Re-evaluation by your physician Forms: - Medication Reconciliation Form pkl - Thank You Letter pkl - Antibiotic Education pkl - Prescription Opioid Use pkl Signatures: Dispatcher [employer] Shani Pak RN RN sv Lam, Pin, MD MD pkl Viki Spann RN RN ss Antunez, Elena, RN RN ea
--- NOTE | 2021-03-02 20:31 | ER ---
Nurse's Notes [facility] Name: Chito Chavira Jr Age: 75 yrs Sex: Male : 1945 Arrival Date: 03/02/2021 Time: 17:20 Bed 8 Private MD: Diagnosis: Head injury. Neck strain. Contusions right hip and right knee Presentation: 03/02 17:20 Chief complaint: EMS states: s/p fall yesterday while walking with his walker, hit the sv left parietal side of head, right hip and right knee. c/o diffuse head pain, R knee pain/swelling, R hip pain, and dizziness since yesterday. BP 143/77 HR-62 97% RA 98.2 BS-130. Coronavirus screen: Client denies travel out of the [place] in the last 14 days. At this time, the client does not indicate any symptoms associated with coronavirus-19. Ebola Screen: No symptoms or risks identified at this time. Initial Sepsis Screen: Does the patient meet any 2 criteria? No. Patient's initial sepsis screen is negative. Does the patient have a suspected source of infection? No. Patient's initial sepsis screen is negative. Risk Assessment: Do you want to hurt yourself or someone else? Patient reports no desire to harm self or others. Onset of symptoms was March 01, 2021. 17:20 Method Of Arrival: EMS: [facility] 17:20 Acuity: TROY 3 sv Triage Assessment: 17:23 Headache History: The patient has had previous headaches. General: Appears in no sv apparent distress. uncomfortable, well developed, Behavior is calm, cooperative, appropriate for age. Pain: Complains of pain in face, scalp, right hip and right knee Pain currently is 5 out of 10 on a pain scale. Quality of pain is described as throbbing, Pain began 1 day ago. Is intermittent, Also complains of inability to perform activities of daily living. Neuro: Level of Consciousness is awake, alert, obeys commands, Oriented to person, place, time, situation, Moves all extremities. Full function Speech is normal, Reports dizziness, headache in entire. Cardiovascular: Rhythm is sinus rhythm. Respiratory: Airway is patent Respiratory effort is even, unlabored, Respiratory pattern is regular, symmetrical. : Miller in place to gravity drainage. Derm: Skin is normal. Musculoskeletal: Range of motion: limited in right knee Swelling present in right knee. Historical: - Allergies: 17:22 Seroquel; sv - PMHx: 17:22 Dementia; GERD; Diabetes - NIDDM; High Cholesterol; Asthma; indwelling catheter; sv Hypertension; Arthritis; Anxiety; Chronic obstructive lung disease; prostate cancer; - Immunization history:: Client reports having NOT received the Covid vaccine. - Social history:: Smoking status: . Screenin:25 Abuse screen: Denies threats or abuse. Denies injuries from another. Nutritional sv screening: No deficits noted. Tuberculosis screening: No symptoms or risk factors identified. Fall Risk Fall in past 12 months (25 points). Secondary diagnosis (15 points) dementia, IV access (20 points). Ambulatory Aid- None/Bed Rest/Nurse Assist (0 pts). Gait- Normal/Bed Rest/Wheelchair (0 pts) Mental Status- Oriented to own ability (0 pts). Total Aparicio Fall Scale indicates High Risk Score (45 or more points). Fall prevention measures have been instituted. Side Rails Up X 2 Frequent Obs/Assessments Occuring As available patient and family educated on Fall Prevention Program and Strategies. Assessment: 17:44 Reassessment: Patient appears in no apparent distress at this time. No changes from previously documented assessment. See triage assessment. 19:00 Reassessment: Patient appears in no apparent distress at this time. No changes from previously documented assessment. 19:55 Reassessment: Krzysztof (son) [id number]. ea 20:36 Reassessment: Patient and/or family updated on plan of care and expected duration. Pain ea level reassessed. Patient is alert, oriented x 3, equal unlabored respirations, skin warm/dry/pink. Discharge instruction given to patient verbalized the understanding of instruction. Pt left ED via wheelchair per family, tolerating well. Vital Signs: 17:20 BP 155 / 70; Pulse 63; Resp 16; Temp 97.3; Pulse Ox 96% ; sv 18:22 BP 145 / 64; Pulse 63; Pulse Ox 99% ; ll1 19:34 BP 125 / 60; Pulse 57; Resp 18; Pulse Ox 97% ; ea 20:20 BP 141 / 68; Pulse 59; Resp 18; Pulse Ox 98% ; ea ED Course: 17:20 Patient arrived in ED. sv 17:20 Geronimo, Shani, RN is Primary Nurse. sv 17:22 Triage completed. sv 17:23 Arm band placed on. sv 17:25 Awaiting ED provider evaluation. sv 17:25 Patient has correct armband on for positive identification. Bed in low position. Call sv light in reach. Side rails up X2. monitoring engineer on. Pulse ox on. NIBP on. Door closed. Head of bed elevated. 17:35 Inserted saline lock: 20 gauge in right wrist, using aseptic technique. Blood sv collected. Flushed right with 5 ml normal saline. 17:35 EKG done, by ED staff, reviewed by Justin Altman MD. sv 17:40 Basic Metabolic Panel Sent. sv 17:43 X-ray(s) taken. sv 17:52 Hip Right 2 View XRAY Sent. sv 17:52 Knee Right 3 View XRAY Sent. sv 17:52 XRAY Chest (1 view) Sent. sv 18:14 XRAY Chest (1 view) In Process Unspecified. EDMS 18:14 Knee Right 3 View XRAY In Process Unspecified. EDMS 18:14 Hip Right 2 View XRAY In Process Unspecified. EDMS 18:21 EKG done. mh5 18:31 Awaiting lab results, Awaiting ED provider evaluation. sv 19:08 Report given to Latrice TODD and Dalton RN. sv 19:09 Primary Nurse role handed off by Shani Melton RN sv 19:12 Waylon Rivera MD is Attending Physician. pkl 19:14 Dalton Soni, RN is Primary Nurse. em 19:49 CT Head C Spine In Process Unspecified. EDMS 20:36 No provider procedures requiring assistance completed. IV discontinued, intact, ea bleeding controlled, No redness/swelling at site. Pressure dressing applied. Administered Medications: 20:35 Drug: Tylenol 650 mg Route: PO; ea 20:36 Follow up: Response: Medication administered at discharge. ea Outcome: 20:30 Discharge ordered by . pkl 20:44 Discharged to home via wheelchair, with family. ea 20:44 Condition: stable 20:44 Discharge instructions given to patient, Instructed on discharge instructions, follow up and referral plans. Demonstrated understanding of instructions, follow-up care. 20:44 Patient left the ED. ea Signatures: Dispatcher [employer] Shani Pak RN RN sv Waylon Rivera MD MD pkl Munoz, Edgar, RN RN Adrienne Wooten [facility] Latrice Galvan, RN Oskar Treviño ea, RN RN ll1 Corrections: (The following items were deleted from the chart) 17:45 17:25 Abuse screen: Denies threats or abuse. Denies injuries from another. sv sv 17:45 17:25 Fall Risk Fall in past 12 months (25 points). No secondary diagnosis (0 pts). IV sv access (20 points). Ambulatory Aid- None/Bed Rest/Nurse Assist (0 pts). Gait- Normal/Bed Rest/Wheelchair (0 pts) Mental Status- Oriented to own ability (0 pts). Total Aparicio Fall Scale indicates High Risk Score (45 or more points). Fall prevention measures have been instituted. Side Rails Up X 2 Frequent Obs/Assessments Occuring As available patient and family educated on Fall Prevention Program and Strategies. sv
[2021-03-02] MEDS ORDERED: ACETAMINOPHEN 325 MG TABLET ONE (20:54)
[2021-03-02 20:58] VITALS: BP 141/68; O2SAT 98
[2021-03-02 21:11] VITALS: TEMP 97.3
== END 2021-03-02 20:44 | disposition home or self-care (01) ==
LOC: ER 17:08
DX: S16.1XXA Strain of muscle, fascia and tendon at neck level, initial encounter (principal); S70.01XA Contusion of right hip, initial encounter; S80.01XA Contusion of right knee, initial encounter; W19.XXXA Unspecified fall, initial encounter; Y93.01 Activity, walking, marching and hiking; Z88.5 Allergy status to narcotic agent; Z85.46 Personal history of malignant neoplasm of prostate; F03.90 Unspecified dementia, unspecified severity, without behavioral disturbance, psychotic disturbance, mood disturbance, and anxiety; I10 Essential (primary) hypertension
CPT/HCPCS: 36415; 70450; 71045; 72125; 80048; 80076; 83735; 83880; 84484; 85025; 85610; 93005; 99285

== ENCOUNTER 2022-08-23 23:51 | Inpatient (IN) | payer OTHER ==
--- OUTSIDE RECORDS SUMMARY | 2022-08-23 23:56 | XMS REPORT | Continuity of Care Document ---
:1945 Author Organization [facility] t Address [address] [place] [address] Care Team Providers Name Role Phone Prema Espinal Attending Clinician Unavailable LONNY TRIPP NATASHA Attending Clinician Unavailable Juan Trejo Attending Clinician Unavailable Leandra Weiner Attending Clinician Unavailable CRUZ VILLASENOR Attending Clinician Unavailable Peg Huerta Anavella Attending Clinician Unava ilable LONNY TRIPP NATASHA Admitting Clinician Unavailable DEBRA TSAI Admitting Clinician Unavailable Melissa Huerta Anav Admitting Clinician Unavailable Payers Payer Name Policy Type Policy Number Effective Date Expiration Date S sven [facility] [id number] [facility] [id number] 2021-01-10 Common Sp vianca ing Medicare 00:00:00 - [facility] C1 [id number] 2021-01-10 Common Sp vianca ing Medicare 00:00:00 - [facility] [id number] 2021-01-10 Common Sp vianca ing Medicare 00:00:00 - [facility] [id number] 2021-01-10 Common Sp vianca ing Medicare 00:00:00 - [facility] Cigna-HealthSpr C1 [id number] 2021-01-10 Common Sp vianca ing Medicare 00:00:00 - [facility] Cigna-Health[facility] C1 [id number] 2021-01-10 Common Sp vianca ing Medicare 00:00:00 [facility] [facility] [id number] 2021-01-10 Common Sp vianca ing Medicare 00:00:00 - [facility] Cigna-[facility] C1 [id number] 2021-01-10 Common Sp vianca ing Medicare 00:00:00 [facility] AARP Medicare C1 [id number] Common Spir it Complete [facility] Problems Condition Condition Condition Status Onset Resolution Last Treating Co mments Source Name Details Category Date Date Treatment Clinician Date Essential Essential Problem Active Com mon hypertensi hypertensi Sp vianca on on [facility] Adult Blood Problem Active Common health tests for [facility] examinatio routine - [facility] n general [facility] examinatio Medica n Center 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 Sp vianca [facility] Arthralgia Pain in Problem Active Comm on of the unspecifie Spirit lower leg d knee [facility] Pain in Pain in Problem Active Common both feet both feet Spir it [facility] [id number] Other Problem Active Common chronic Spirit pain [facility] Foot ulcer 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 [facility] Anxiety Anxiety Problem Active Common disorder disorder [facility] Malignant Malignant Problem Active Com mon tumor of neoplasm [facility] prostate of [facility] prostate [facility] History of History of Problem Active C ommon malignant prostate Spiri t neoplasm cancer - [facility] of prostate [facility] Dependence Wheelchair Problem Active C ommon on bound [facility] wheelchair [facility] [id number] Elevated Problem Active Comm on PSA [facility] [id number] Hypospadia Problem Active C ommon [id number] s, balanic [facility] Anxiety Anxiety Problem Active Common Spirit [facility] 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 [facility] [id number] Urinary Problem Active Commo n retention [facility] [id number] History of Problem Active Co mmon decubitus [facility] ulcer [facility] [id number] Uncontroll Problem Active Co mmon ed type 2 Spirit diabetes - [facility] mellitus [facility] hyperglyce [facility] Gastroesop GERD Problem Active Commo n hageal without Spirit reflux esophagiti - CHI disease s [facility] [id number] Seasonal Problem Active Comm on allergies [facility] [id number] Right-side Problem Active Co mmon d low back Spirit pain - [facility] without [facility] unspecifie [facility] chronicity Benign BPH Problem Active Common prostatic without Spirit hypertroph urinary - CHI y without obstructio [facility] obstructio Medica [facility] 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, Spiri t of lumbar lumbosacra - C HI region l region [facility] [id number] Indwelling Problem Active Co mmon urinary Spirit catheter - [facility]I present [facility] [id number] Reduced Problem Active Common mobility [facility] Allergies, Adverse Reactions, Alerts Allergy Allergy Status Severity Reaction(s) Onset Inactive Treating Comm ents Source Name Type Date Date Clinician NKA Allergy Active ENCCLR 02-15 12:28: 00 NKA Allergy Active ENCCLR 02-15 12:28: 00 lisinopr lisinopr Active Unknown Commo n il il [facility] Social History Social Habit Start Date Stop Date Quantity Comments Source Sex Assigned At Com mon Spirit [facility] Smoking Status Start Date Stop Date Source Unknown if ever smoked Common Sp vianca - [facility] Medications Ordered Filled Start Stop Current Ordering Indication Dosage Frequency Signature Comments Components Source Medication Medication Date Date Medication? Clinician (SIG) Name Name Pregabalin Pregabalin No Pregabalin 150 MG 150 MG 4-15 150 MG 00:00: 00 Nitrofurant Nitrofurant 2020- No BID Nitrofuran oin Monohyd oin Monohyd 01-05 toin Macro 100 Macro 100 00:00: 00:00 Monohyd MG MG 00 :00 Macro 100 MG Glucometer Glucometer 2020- No Glucometer n/s n/s 10-31 n/s 00:00: 00:00 00 :00 Albuterol Albuterol No 3{ml_as TID Albuterol Sulfate Sulfate 3-10 _needed Sulfate (2.5 (2.5 00:00: } (2.5 MG/3ML) MG/3ML) 00 MG/3ML) 0.083% 0.083% 0.083% Pepcid Pepcid Yes Leandra 1 tablet Comm on 04-15 [place] Spirit 00:00: - CHI [facility] Albuterol Albuterol Yes Leandra 2 puffs as Common Sulfate HFA Sulfate HFA 04-15 [place]ender needed Spirit 00:00: - CHI [facility] Trulicity Trulicity 2020- No Leandra one C ommon 04-15 [place]ender injection Spir it 00:00: 00:00 - CHI 00 :00 [facility] Blood Blood 2019-0 Yes Leandra as Common Glucose Glucose 7-22 Millender directed Spirit Monitor Monitor 00:00: - CHI System System 00 [facility] Lancets Lancets Yes Leandra as Common 7-22 Millender directed Spirit 00:00: - CHI [facility] Blood Blood 2019-0 No Blood Glucose Glucose 7-22 Glucose Monitor Monitor 00:00: Monitor System System 00 System w/Device w/Device w/Device Lancets - Lancets - 0 No Lancets - Common 7- Spirit 00:00: - CHI 00 [facility] Lancets - Lancets - 2020-0 No Lancets - Common 03-02 Spirit 00:00: - CHI 00 [facility] Lancets - Lancets - 2020-0 No Lancets - 7- 00:00: 00 Lancets - Lancets - 2020-0 No Lancets - 7- 00:00: 00 Lancets - Lancets - 2020-0 No Lancets - 7- 00:00: 00 Glucose Glucose 2020-0 Yes Leandra as Common testing testing 4- Millender directed Spirit strips strips 00:00: (dispense - CH I [address] strips for [facility] Glucose Glucose 2020-0 No Glucose Comm on testing testing 4- testing Spirit strips n/s strips n/s 00:00: strips n/s - CHI 00 [facility] Glucose Glucose 2020-0 No Glucose Comm on testing testing 4- testing Spirit strips n/s strips n/s 00:00: strips n/s - CHI 00 [facility] Glucose Glucose 2020-0 No Glucose testing testing 4-23 testing strips n/s strips n/s 00:00: strips n/s 00 Glucose Glucose 2020-0 No Glucose testing testing 4-23 testing strips n/s strips n/s 00:00: strips n/s 00 Glucose Glucose 2020-0 No Glucose testing testing 4-23 testing strips n/s strips n/s 00:00: strips n/s 00 Contour Contour 2018-0 Yes Leandra n/s Common next next 05-08 [place] Spirit testing testing 00:00: - CHI strips strips 00 [facility] Sertraline Sertraline Yes Leandra 1 tablet Common HCl HCl [facility] Contour Contour Yes Leandra as Common Next Test Next Test Millender directed Spirit [facility] Losartan Losartan Yes Leandra 1 tablet Co mmon Potassium Potassium [facility] Spirit [facility] Loratadine Loratadine Yes Leandra 1 tablet Common Millender Spirit [facility] Pantoprazol Pantoprazol Yes Leandra TOME ALEX Common e Sodium e Sodium Millender TABLETA Spirit TODOS LOS - CHI D? [facility] Lyrica Lyrica Yes Leandra 1 capsule Commo n Millender Spirit - [facility] Fluticasone Fluticasone Yes Leandra 2 sprays Common Propionate Propionate Millender in each [facility] Lovastatin Lovastatin Yes Leandra 1 tablet Common Millender with a [facility] Metformin Metformin Yes Leandra 1 tablet Common HCl HCl Millender with a [facility] Flomax Flomax Yes Leandra 1 capsule Commo n Millender [facility] Xanax Xanax Yes Leandra 1 tablet Common Millender [facility] Furosemide Furosemide Yes Leandra 1 tablet Common Millender [facility] Aspirin Aspirin Yes Leandra ibarra alex Comm on Millender tableta [facility] todos [facility] Fluticasone Fluticasone Yes Leandra 1 spray in Common Propionate Propionate Millender each [facility] Aspirin 81 Aspirin 81 Yes Leandra 1 tablet Common Millender [facility] Aspirin 81 Aspirin 81 No 1{table QD Aspirin 81 81 MG 81 MG t} 81 MG Fluticasone Fluticasone No Fluticason Propionate Propionate e 50 MCG/ACT 50 MCG/ACT Propionate 50 MCG/ACT Pantoprazol Pantoprazol No Pantoprazo e Sodium 40 e Sodium 40 le Sodium MG MG 40 MG Flomax 0.4 Flomax 0.4 No 1{capsu QD Flomax 0.4 Common MG MG le} MG [facility] Losartan Losartan No 1{table QD Losartan Common Potassium Potassium t} Potassium Spirit 50 MG 50 MG 50 MG [facility] Anoro Anoro No 1{puff} QD Anoro Common Ellipta Ellipta Ellipta Spirit 62.5mcg/25 62.5mcg/25 62.5mcg/25 - CHI mcg mcg [facility] Furosemide Furosemide No 1{table QD Furosemide Common 20 MG 20 MG t} 20 MG [facility] Albuterol Albuterol No 2{puffs Albuterol Common Sulfate HFA Sulfate HFA _as_nee Sulfate Spirit 108 (90 108 (90 ded} HFA 108 - CHI Base) Base) (90 Base) St MCG/ACT MCG/ACT MCG/ACT [facility] Trulicity Trulicity No Trulicity Common 1.5 1.5 1.5 Spirit MG/0.5ML MG/0.5ML MG/0.5ML - C HI [facility] Pantoprazol Pantoprazol No Pantoprazo Common e Sodium 40 e Sodium 40 le Sodium Spirit MG MG 40 MG [facility] Aspirin 81 Aspirin 81 No QD Aspirin 81 Common MG MG MG [facility] Jardiance Jardiance No 1{table QD Jardiance Common 25 mg 25 mg t} 25 mg [facility] Blood Blood No Blood Common Glucose Glucose Glucose Spirit Monitor Monitor Monitor [facility] System System System St w/Device w/Device w/Device [facility] Fluticasone Fluticasone No 2{spray QD Fluticason Common Propionate Propionate s_in_ea e Spirit 50 mcg/act 50 mcg/act ch_nost Propionate - CHI ril} 50 mcg/act [facility] metFORMIN metFORMIN No 1{table BID metFORMIN Common HCl 1000 MG HCl 1000 MG t_with_ HCl 1000 Spirit a_meal} [facility] Lovastatin Lovastatin No 1{table QD Lovastatin Common 10 MG 10 MG t_with_ 10 MG Spirit a_meal} [facility] hydrALAZINE hydrALAZINE No 1{table hydrALAZIN Common HCl 25 MG HCl 25 MG t_with_ E HCl 25 Spirit food} [facility] Loratadine Loratadine No 1{table QD Loratadine Common 10 MG 10 MG t} 10 MG [facility] Pepcid 20 Pepcid 20 No 1{table QD Pepcid 20 Common MG MG t} MG [facility] Lyrica 75 Lyrica 75 No 1{capsu Lyrica 75 Common MG MG le} MG [facility] Sertraline Sertraline No QD Sertraline Common HCl 50 MG HCl 50 MG HCl 50 MG [facility] Xanax 0.5 Xanax 0.5 No 1{table TID Xanax 0.5 Common MG MG t} MG [facility] Albuterol Albuterol No 3{ml_as TID Albuterol Common Sulfate Sulfate _needed Sulfate Spi rit (2.5 (2.5 } (2.5 - CHI MG/3ML) MG/3ML) MG/3ML) 0.083% 0.083% 0.083% [facility] Aspirin 81 Aspirin 81 No 1{table QD Aspirin 81 Common 81 MG 81 MG t} 81 MG Spirit [facility] Fluticasone Fluticasone No Fluticason Common Propionate Propionate e Spi rit 50 MCG/ACT 50 MCG/ACT Propionate - CHI 50 MCG/ACT [facility] Amoxicillin Amoxicillin No 1{capsu Amoxicilli Common 500 MG 500 MG le} n 500 MG [facility] Flomax 0.4 Flomax 0.4 No 1{capsu QD Flomax 0.4 Common MG MG le} MG [facility] Losartan Losartan No 1{table QD Losartan Common Potassium Potassium t} Potassium Spirit 50 MG 50 MG 50 MG [facility] Anoro Anoro No 1{puff} QD Anoro Common Ellipta Ellipta Ellipta Spirit 62.5mcg/25 62.5mcg/25 62.5mcg/25 - CHI mcg mcg [facility] Furosemide Furosemide No 1{table QD Furosemide Common 20 MG 20 MG t} 20 MG [facility] Albuterol Albuterol No 2{puffs Albuterol Common Sulfate HFA Sulfate HFA _as_nee Sulfate Spirit 108 (90 108 (90 ded} HFA 108 - CHI Base) Base) (90 Base) St MCG/ACT MCG/ACT MCG/ACT [facility] Trulicity Trulicity No Trulicity Common 1.5 1.5 1.5 Spirit MG/0.5ML MG/0.5ML MG/0.5ML - C HI [facility] Pantoprazol Pantoprazol No Pantoprazo Common e Sodium 40 e Sodium 40 le Sodium Spirit MG MG 40 MG [facility] Aspirin 81 Aspirin 81 No QD Aspirin 81 Common MG MG MG [facility] Jardiance Jardiance No 1{table QD Jardiance Common 25 mg 25 mg t} 25 mg [facility] Blood Blood No Blood Common Glucose Glucose Glucose Spirit Monitor Monitor Monitor [facility] System System System St w/Device w/Device w/Device [facility] Fluticasone Fluticasone No 2{spray QD Fluticason Common Propionate Propionate s_in_ea e Spirit 50 mcg/act 50 mcg/act ch_nost Propionate - CHI ril} 50 mcg/act [facility] metFORMIN metFORMIN No 1{table BID metFORMIN Common HCl 1000 MG HCl 1000 MG t_with_ HCl 1000 Spirit a_meal} MG [facility] Lovastatin Lovastatin No 1{table QD Lovastatin Common 10 MG 10 MG t_with_ 10 MG Spirit a_meal} [facility] hydrALAZINE hydrALAZINE No 1{table hydrALAZIN Common HCl 25 MG HCl 25 MG t_with_ E HCl 25 Spirit food} [facility] Loratadine Loratadine No 1{table QD Loratadine Common 10 MG 10 MG t} 10 MG [facility] Pepcid 20 Pepcid 20 No 1{table QD Pepcid 20 Common MG MG t} MG [facility] Lyrica 75 Lyrica 75 No 1{capsu Lyrica 75 Common MG MG le} MG [facility] Sertraline Sertraline No QD Sertraline Common HCl 50 MG HCl 50 MG HCl 50 MG [facility] Xanax 0.5 Xanax 0.5 No 1{table TID Xanax 0.5 Common MG MG t} MG [facility] Albuterol Albuterol No 3{ml_as TID Albuterol Common Sulfate Sulfate _needed Sulfate Spi rit (2.5 (2.5 } (2.5 - CHI MG/3ML) MG/3ML) MG/3ML) St 0.083% 0.083% 0.083% [facility] Aspirin 81 Aspirin 81 No 1{table QD Aspirin 81 Common 81 MG 81 MG t} 81 MG [facility] Fluticasone Fluticasone No Fluticason Common Propionate Propionate e Spi rit 50 MCG/ACT 50 MCG/ACT Propionate - CHI 50 MCG/ACT [facility] Amoxicillin Amoxicillin No 1{capsu Amoxicilli Common 500 MG 500 MG le} n 500 MG [facility] Flomax 0.4 Flomax 0.4 No 1{capsu QD Flomax 0.4 MG MG le} MG Losartan Losartan No 1{table QD Losartan Potassium Potassium t} Potassium 50 MG 50 MG 50 MG Anoro Anoro No 1{puff} QD Anoro Ellipta Ellipta Ellipta 62.5mcg/25 62.5mcg/25 62.5mcg/25 mcg mcg mcg Furosemide Furosemide No 1{table QD Furosemide 20 MG 20 MG t} 20 MG Albuterol Albuterol No 2{puffs Albuterol Sulfate HFA Sulfate HFA _as_nee Sulfate 108 (90 108 (90 ded} HFA 108 Base) Base) (90 Base) MCG/ACT MCG/ACT MCG/ACT Trulicity Trulicity No Trulicity 1.5 1.5 1.5 MG/0.5ML MG/0.5ML MG/0.5ML Pantoprazol Pantoprazol No Pantoprazo e Sodium 40 e Sodium 40 le Sodium MG MG 40 MG Aspirin 81 Aspirin 81 No QD Aspirin 81 MG MG MG Jardiance Jardiance No 1{table QD Jardiance 25 mg 25 mg t} 25 mg Blood Blood No Blood Glucose Glucose Glucose Monitor Monitor Monitor System System System w/Device w/Device w/Device Fluticasone Fluticasone No 2{spray QD Fluticason Propionate Propionate s_in_ea e 50 mcg/act 50 mcg/act ch_nost Propionate ril} 50 mcg/act metFORMIN metFORMIN No 1{table BID metFORMIN HCl 1000 MG HCl 1000 MG t_with_ HCl 1000 a_meal} MG Lovastatin Lovastatin No 1{table QD Lovastatin 10 MG 10 MG t_with_ 10 MG a_meal} hydrALAZINE hydrALAZINE No 1{table hydrALAZIN HCl 25 MG HCl 25 MG t_with_ E HCl 25 food} MG Loratadine Loratadine No 1{table QD Loratadine 10 MG 10 MG t} 10 MG Pepcid 20 Pepcid 20 No 1{table QD Pepcid 20 MG MG t} MG Lyrica 75 Lyrica 75 No 1{capsu Lyrica 75 MG MG le} MG Sertraline Sertraline No QD Sertraline HCl 50 MG HCl 50 MG HCl 50 MG Xanax 0.5 Xanax 0.5 No 1{table TID Xanax 0.5 MG MG t} MG Albuterol Albuterol No 3{ml_as TID Albuterol Sulfate Sulfate _needed Sulfate (2.5 (2.5 } (2.5 MG/3ML) MG/3ML) MG/3ML) 0.083% 0.083% 0.083% Aspirin 81 Aspirin 81 No 1{table QD Aspirin 81 81 MG 81 MG t} 81 MG Fluticasone Fluticasone No Fluticason Propionate Propionate e 50 MCG/ACT 50 MCG/ACT Propionate 50 MCG/ACT Amoxicillin Amoxicillin No 1{capsu Amoxicilli 500 MG 500 MG le} n 500 MG Flomax 0.4 Flomax 0.4 No 1{capsu QD Flomax 0.4 MG MG le} MG Losartan Losartan No 1{table QD Losartan Potassium Potassium t} Potassium 50 MG 50 MG 50 MG Anoro Anoro No 1{puff} QD Anoro Ellipta Ellipta Ellipta 62.5mcg/25 62.5mcg/25 62.5mcg/25 mcg mcg mcg Furosemide Furosemide No 1{table QD Furosemide 20 MG 20 MG t} 20 MG Albuterol Albuterol No 2{puffs Albuterol Sulfate HFA Sulfate HFA _as_nee Sulfate 108 (90 108 (90 ded} HFA 108 Base) Base) (90 Base) MCG/ACT MCG/ACT MCG/ACT Trulicity Trulicity No Trulicity 1.5 1.5 1.5 MG/0.5ML MG/0.5ML MG/0.5ML Pantoprazol Pantoprazol No Pantoprazo e Sodium 40 e Sodium 40 le Sodium MG MG 40 MG Aspirin 81 Aspirin 81 No QD Aspirin 81 MG MG MG Jardiance Jardiance No 1{table QD Jardiance 25 mg 25 mg t} 25 mg Blood Blood No Blood Glucose Glucose Glucose Monitor Monitor Monitor System System System w/Device w/Device w/Device Fluticasone Fluticasone No 2{spray QD Fluticason Propionate Propionate s_in_ea e 50 mcg/act 50 mcg/act ch_nost Propionate ril} 50 mcg/act metFORMIN metFORMIN No 1{table BID metFORMIN HCl 1000 MG HCl 1000 MG t_with_ HCl 1000 a_meal} MG Lovastatin Lovastatin No 1{table QD Lovastatin 10 MG 10 MG t_with_ 10 MG a_meal} hydrALAZINE hydrALAZINE No 1{table hydrALAZIN HCl 25 MG HCl 25 MG t_with_ E HCl 25 food} MG Loratadine Loratadine No 1{table QD Loratadine 10 MG 10 MG t} 10 MG Pepcid 20 Pepcid 20 No 1{table QD Pepcid 20 MG MG t} MG Lyrica 75 Lyrica 75 No 1{capsu Lyrica 75 MG MG le} MG Sertraline Sertraline No QD Sertraline HCl 50 MG HCl 50 MG HCl 50 MG Xanax 0.5 Xanax 0.5 No 1{table TID Xanax 0.5 MG MG t} MG Albuterol Albuterol No 3{ml_as TID Albuterol Sulfate Sulfate _needed Sulfate (2.5 (2.5 } (2.5 MG/3ML) MG/3ML) MG/3ML) 0.083% 0.083% 0.083% Aspirin 81 Aspirin 81 No 1{table QD Aspirin 81 81 MG 81 MG t} 81 MG Fluticasone Fluticasone No Fluticason Propionate Propionate e 50 MCG/ACT 50 MCG/ACT Propionate 50 MCG/ACT Amoxicillin Amoxicillin No 1{capsu Amoxicilli 500 MG 500 MG le} n 500 MG Sertraline Sertraline No QD Sertraline HCl 50 MG HCl 50 MG HCl 50 MG Lyrica 150 Lyrica 150 No 1{capsu BID Lyrica 150 MG MG le} MG Anoro Anoro No 1{puff} QD Anoro Ellipta Ellipta Ellipta 62.5mcg/25 62.5mcg/25 62.5mcg/25 mcg mcg mcg Jardiance Jardiance No 1{table QD Jardiance 25 mg 25 mg t} 25 mg Pepcid 20 Pepcid 20 No 1{table QD Pepcid 20 MG MG t} MG Albuterol Albuterol No 3{ml_as TID Albuterol Sulfate Sulfate _needed Sulfate (2.5 (2.5 } (2.5 MG/3ML) MG/3ML) MG/3ML) 0.083% 0.083% 0.083% Losartan Losartan No 1{table QD Losartan Potassium Potassium t} Potassium 100 MG 100 MG 100 MG Trulicity Trulicity No Trulicity 1.5 1.5 1.5 MG/0.5ML MG/0.5ML MG/0.5ML metFORMIN metFORMIN No 1{table BID metFORMIN HCl 1000 MG HCl 1000 MG t_with_ HCl 1000 a_meal} MG Fluticasone Fluticasone No 2{spray QD Fluticason Propionate Propionate s_in_ea e 50 mcg/act 50 mcg/act ch_nost Propionate ril} 50 mcg/act hydrALAZINE hydrALAZINE No 1{table hydrALAZIN HCl 25 MG HCl 25 MG t_with_ E HCl 25 food} MG Albuterol Albuterol No 2{puffs Albuterol Sulfate HFA Sulfate HFA _as_nee Sulfate 108 (90 108 (90 ded} HFA 108 Base) Base) (90 Base) MCG/ACT MCG/ACT MCG/ACT Sertraline Sertraline No QD Sertraline HCl 50 MG HCl 50 MG HCl 50 MG Lyrica 150 Lyrica 150 No 1{capsu BID Lyrica 150 MG MG le} MG Anoro Anoro No 1{puff} QD Anoro Ellipta Ellipta Ellipta 62.5mcg/25 62.5mcg/25 62.5mcg/25 mcg mcg mcg Jardiance Jardiance No 1{table QD Jardiance 25 mg 25 mg t} 25 mg Pepcid 20 Pepcid 20 No 1{table QD Pepcid 20 MG MG t} MG Albuterol Albuterol No 3{ml_as TID Albuterol Sulfate Sulfate _needed Sulfate (2.5 (2.5 } (2.5 MG/3ML) MG/3ML) MG/3ML) 0.083% 0.083% 0.083% Losartan Losartan No 1{table QD Losartan Potassium Potassium t} Potassium 100 MG 100 MG 100 MG Trulicity Trulicity No Trulicity 1.5 1.5 1.5 MG/0.5ML MG/0.5ML MG/0.5ML metFORMIN metFORMIN No 1{table BID metFORMIN HCl 1000 MG HCl 1000 MG t_with_ HCl 1000 a_meal} MG Fluticasone Fluticasone No 2{spray QD Fluticason Propionate Propionate s_in_ea e 50 mcg/act 50 mcg/act ch_nost Propionate ril} 50 mcg/act hydrALAZINE hydrALAZINE No 1{table hydrALAZIN HCl 25 MG HCl 25 MG t_with_ E HCl 25 food} MG Albuterol Albuterol No 2{puffs Albuterol Sulfate HFA Sulfate HFA _as_nee Sulfate 108 (90 108 (90 ded} HFA 108 Base) Base) (90 Base) MCG/ACT MCG/ACT MCG/ACT Sertraline Sertraline No QD Sertraline HCl 50 MG HCl 50 MG HCl 50 MG Lyrica 150 Lyrica 150 No 1{capsu BID Lyrica 150 MG MG le} MG Anoro Anoro No 1{puff} QD Anoro Ellipta Ellipta Ellipta 62.5mcg/25 62.5mcg/25 62.5mcg/25 mcg mcg mcg Jardiance Jardiance No 1{table QD Jardiance 25 mg 25 mg t} 25 mg Pepcid 20 Pepcid 20 No 1{table QD Pepcid 20 MG MG t} MG Albuterol Albuterol No 3{ml_as TID Albuterol Sulfate Sulfate _needed Sulfate (2.5 (2.5 } (2.5 MG/3ML) MG/3ML) MG/3ML) 0.083% 0.083% 0.083% Losartan Losartan No 1{table QD Losartan Potassium Potassium t} Potassium 100 MG 100 MG 100 MG Trulicity Trulicity No Trulicity 1.5 1.5 1.5 MG/0.5ML MG/0.5ML MG/0.5ML metFORMIN metFORMIN No 1{table BID metFORMIN HCl 1000 MG HCl 1000 MG t_with_ HCl 1000 a_meal} MG Fluticasone Fluticasone No 2{spray QD Fluticason Propionate Propionate s_in_ea e 50 mcg/act 50 mcg/act ch_nost Propionate ril} 50 mcg/act hydrALAZINE hydrALAZINE No 1{table hydrALAZIN HCl 25 MG HCl 25 MG t_with_ E HCl 25 food} MG Albuterol Albuterol No 2{puffs Albuterol Sulfate HFA Sulfate HFA _as_nee Sulfate 108 (90 108 (90 ded} HFA 108 Base) Base) (90 Base) MCG/ACT MCG/ACT MCG/ACT Sertraline Sertraline No QD Sertraline HCl 50 MG HCl 50 MG HCl 50 MG Lyrica 150 Lyrica 150 No 1{capsu BID Lyrica 150 MG MG le} MG Anoro Anoro No 1{puff} QD Anoro Ellipta Ellipta Ellipta 62.5mcg/25 62.5mcg/25 62.5mcg/25 mcg mcg mcg Jardiance Jardiance No 1{table QD Jardiance 25 mg 25 mg t} 25 mg Pepcid 20 Pepcid 20 No 1{table QD Pepcid 20 MG MG t} MG Albuterol Albuterol No 3{ml_as TID Albuterol Sulfate Sulfate _needed Sulfate (2.5 (2.5 } (2.5 MG/3ML) MG/3ML) MG/3ML) 0.083% 0.083% 0.083% Losartan Losartan No 1{table QD Losartan Potassium Potassium t} Potassium 100 MG 100 MG 100 MG Trulicity Trulicity No Trulicity 1.5 1.5 1.5 MG/0.5ML MG/0.5ML MG/0.5ML metFORMIN metFORMIN No 1{table BID metFORMIN HCl 1000 MG HCl 1000 MG t_with_ HCl 1000 a_meal} MG Fluticasone Fluticasone No 2{spray QD Fluticason Propionate Propionate s_in_ea e 50 mcg/act 50 mcg/act ch_nost Propionate ril} 50 mcg/act hydrALAZINE hydrALAZINE No 1{table hydrALAZIN HCl 25 MG HCl 25 MG t_with_ E HCl 25 food} MG Albuterol Albuterol No 2{puffs Albuterol Sulfate HFA Sulfate HFA _as_nee Sulfate 108 (90 108 (90 ded} HFA 108 Base) Base) (90 Base) MCG/ACT MCG/ACT MCG/ACT Famotidine Famotidine No Famotidine 20 MG 20 MG 20 MG Jardiance Jardiance No 1{table QD Jardiance 25 mg 25 mg t} 25 mg Anoro Anoro No 1{puff} QD Anoro Ellipta Ellipta Ellipta 62.5mcg/25 62.5mcg/25 62.5mcg/25 mcg mcg mcg Losartan Losartan No Losartan Potassium Potassium Potassium 100 MG 100 MG 100 MG Albuterol Albuterol No 2{puffs Albuterol Sulfate HFA Sulfate HFA _as_nee Sulfate 108 (90 108 (90 ded} HFA 108 Base) Base) (90 Base) MCG/ACT MCG/ACT MCG/ACT Albuterol Albuterol No 3{ml_as TID Albuterol Sulfate Sulfate _needed Sulfate (2.5 (2.5 } (2.5 MG/3ML) MG/3ML) MG/3ML) 0.083% 0.083% 0.083% Lyrica 150 Lyrica 150 No 1{capsu BID Lyrica 150 MG MG le} MG Sertraline Sertraline No QD Sertraline HCl 50 MG HCl 50 MG HCl 50 MG metFORMIN metFORMIN No 1{table BID metFORMIN HCl 1000 MG HCl 1000 MG t_with_ HCl 1000 a_meal} MG Fluticasone Fluticasone No Fluticason Propionate Propionate e 50 MCG/ACT 50 MCG/ACT Propionate 50 MCG/ACT Trulicity Trulicity No Trulicity 1.5 1.5 1.5 MG/0.5ML MG/0.5ML MG/0.5ML hydrALAZINE hydrALAZINE No hydrALAZIN HCl 25 MG HCl 25 MG E HCl 25 MG Famotidine Famotidine No Famotidine 20 MG 20 MG 20 MG Jardiance Jardiance No 1{table QD Jardiance 25 mg 25 mg t} 25 mg Anoro Anoro No 1{puff} QD Anoro Ellipta Ellipta Ellipta 62.5mcg/25 62.5mcg/25 62.5mcg/25 mcg mcg mcg Losartan Losartan No Losartan Potassium Potassium Potassium 100 MG 100 MG 100 MG Albuterol Albuterol No 2{puffs Albuterol Sulfate HFA Sulfate HFA _as_nee Sulfate 108 (90 108 (90 ded} HFA 108 Base) Base) (90 Base) MCG/ACT MCG/ACT MCG/ACT Albuterol Albuterol No 3{ml_as TID Albuterol Sulfate Sulfate _needed Sulfate (2.5 (2.5 } (2.5 MG/3ML) MG/3ML) MG/3ML) 0.083% 0.083% 0.083% Lyrica 150 Lyrica 150 No 1{capsu BID Lyrica 150 MG MG le} MG Sertraline Sertraline No QD Sertraline HCl 50 MG HCl 50 MG HCl 50 MG metFORMIN metFORMIN No 1{table BID metFORMIN HCl 1000 MG HCl 1000 MG t_with_ HCl 1000 a_meal} MG Fluticasone Fluticasone No Fluticason Propionate Propionate e 50 MCG/ACT 50 MCG/ACT Propionate 50 MCG/ACT Trulicity Trulicity No Trulicity 1.5 1.5 1.5 MG/0.5ML MG/0.5ML MG/0.5ML hydrALAZINE hydrALAZINE No hydrALAZIN HCl 25 MG HCl 25 MG E HCl 25 MG Jardiance Jardiance No 1{table QD Jardiance 25 mg 25 mg t} 25 mg Sertraline Sertraline No QD Sertraline HCl 50 MG HCl 50 MG HCl 50 MG hydrALAZINE hydrALAZINE No hydrALAZIN HCl 25 MG HCl 25 MG E HCl 25 MG Losartan Losartan No Losartan Potassium Potassium Potassium 100 MG 100 MG 100 MG Famotidine Famotidine No Famotidine 20 MG 20 MG 20 MG Anoro Anoro No 1{puff} QD Anoro Ellipta Ellipta Ellipta 62.5mcg/25 62.5mcg/25 62.5mcg/25 mcg mcg mcg metFORMIN metFORMIN No 1{table BID metFORMIN HCl 1000 MG HCl 1000 MG t_with_ HCl 1000 a_meal} MG Fluticasone Fluticasone No Fluticason Propionate Propionate e 50 MCG/ACT 50 MCG/ACT Propionate 50 MCG/ACT Xanax 0.5 Xanax 0.5 No 1{table TID Xanax 0.5 MG MG t} MG Lyrica 75 Lyrica 75 No 1{capsu Lyrica 75 MG MG le} MG Losartan Losartan No 1{table QD Losartan Potassium Potassium t} Potassium 50 MG 50 MG 50 MG Furosemide Furosemide No 1{table QD Furosemide 20 MG 20 MG t} 20 MG Loratadine Loratadine No 1{table QD Loratadine 10 MG 10 MG t} 10 MG Pepcid 20 Pepcid 20 No 1{table QD Pepcid 20 MG MG t} MG Sertraline Sertraline No QD Sertraline HCl 50 MG HCl 50 MG HCl 50 MG Metformin Metformin No 1{table BID Metformin HCl 1000 MG HCl 1000 MG t_with_ HCl 1000 a_meal} MG Albuterol Albuterol No 2{puffs Albuterol Sulfate HFA Sulfate HFA _as_nee Sulfate 108 (90 108 (90 ded} HFA 108 Base) Base) (90 Base) MCG/ACT MCG/ACT MCG/ACT Amoxicillin Amoxicillin No 1{capsu Amoxicilli 500 MG 500 MG le} n 500 MG Anoro Anoro No 1{puff} QD Anoro Ellipta Ellipta Ellipta 62.5mcg/25 62.5mcg/25 62.5mcg/25 mcg mcg mcg Aspirin 81 Aspirin 81 No QD Aspirin 81 MG MG MG Fluticasone Fluticasone No 2{spray QD Fluticason Propionate Propionate s_in_ea e 50 mcg/act 50 mcg/act ch_nost Propionate ril} 50 mcg/act Lovastatin Lovastatin No 1{table QD Lovastatin 10 MG 10 MG t_with_ 10 MG a_meal} Flomax 0.4 Flomax 0.4 No 1{capsu QD Flomax 0.4 MG MG le} MG Jardiance Jardiance No 1{table QD Jardiance 25 mg 25 mg t} 25 mg Trulicity Trulicity No Trulicity 1.5 1.5 1.5 MG/0.5ML MG/0.5ML MG/0.5ML Aspirin Low Aspirin Low 2020- No Leandra 1 tablet Common Dose Dose 01-10 [facility]00 [facility] Jardiance Jardiance 2020- No Leandra 1 tablet Common 01-10 [facility] 00:[facility] - [facility]00 [facility] Anoro Anoro 2020- No Leandra 1 puff Common Ellipta Ellipta 01-10 [facility] 00:[facility] - [facility]00 [facility] Immunizations Ordered Immunization Filled Immunization Date Status Commen ts Source Name Name Prevnar 13 (PCV13) Prevnar 13 (PCV13) 2020-06-27 [facility]pleted [facility] Prevnar 13 (PCV13) Prevnar 13 (PCV13) 2020-06-27 [facility]pleted [facility] 10:51:00 - [facility] Prevnar 13 (PCV13) Prevnar 13 (PCV13) 2020-06-27 [facility]pleted [facility] 10:51:00 - [facility] Prevnar 13 (PCV13) Prevnar 13 (PCV13) 2020-06-27 [facility]pleted [facility] 10:51:00 - [facility] Prevnar 13 (PCV13) Prevnar 13 (PCV13) 2020-06-27 [facility]pleted [facility] 10:51:00 - [facility] Prevnar 13 (PCV13) Prevnar 13 (PCV13) 2020-06-27 [facility]pleted [facility] 10:51:00 - [facility] Prevnar 13 (PCV13) Prevnar 13 (PCV13) 2020-06-27 [facility]pleted [facility] 10:51:00 - [facility] Prevnar 13 (PCV13) Prevnar 13 (PCV13) 2020-06-27 [facility]pleted [facility] 10:51:00 - [facility] Prevnar 13 (PCV13) Prevnar 13 (PCV13) 2020-06-27 [facility]pleted [facility] 10:51:00 - [facility] Prevnar 13 (PCV13) Prevnar 13 (PCV13) 2020-06-27 [facility]pleted [facility] 10:51:00 - [facility] Prevnar 13 (PCV13) Prevnar 13 (PCV13) 2020-06-27 [facility]pleted [facility] 10:51:00 - [facility] Prevnar 13 (PCV13) Prevnar 13 (PCV13) 2020-06-27 [facility]pleted [facility] 10[facility]51:00 - [facility] FLUZONE HIGH DOSE FLUZONE HIGH DOSE 2020-06-27 Completed [facility] OVER 65 OVER 65 10:50:00 - [facility] FLUZONE HIGH DOSE FLUZONE HIGH DOSE 2020-06-27 Completed [facility] OVER 65 OVER 65 10:50:00 - [facility] FLUZONE HIGH DOSE FLUZONE HIGH DOSE 2020-06-27 Completed [facility] OVER 65 OVER 65 10:50:00 - [facility] FLUZONE HIGH DOSE FLUZONE HIGH DOSE 2020-06-27 Completed [facility] OVER 65 OVER 65 10:50:00 [facility] FLUZONE HIGH DOSE FLUZONE HIGH DOSE 2020-06-27 Completed [facility] OVER 65 OVER 65 10:50:00 - [facility] FLUZONE HIGH DOSE FLUZONE HIGH DOSE 2020-06-27 Completed [facility] OVER 65 OVER 65 10:50:00 [facility] FLUZONE HIGH DOSE FLUZONE HIGH DOSE 2020-06-27 Completed [facility] OVER 65 OVER 65 10:50:00 - [facility] FLUZONE HIGH DOSE FLUZONE HIGH DOSE 2020-06-27 Completed [facility] OVER 65 OVER 65 10:50:00 [facility] FLUZONE HIGH DOSE FLUZONE HIGH DOSE 2020-06-27 Completed [facility] OVER 65 OVER 65 10:50:00 - [facility] FLUZONE HIGH DOSE FLUZONE HIGH DOSE 2020-06-27 Completed [facility] OVER 65 OVER 65 10:50:00 - [facility] FLUZONE HIGH DOSE FLUZONE HIGH DOSE 2020-06-27 Completed [facility] OVER 65 OVER 65 10:50:00 - [facility] FLUZONE HIGH DOSE FLUZONE HIGH DOSE 2020-06-27 Completed [facility] OVER 65 OVER 65 10:50:00 [facility] Prevnar 13 (PCV13) Prevnar 13 (PCV13) 2018-03-17 Completed [facility] 16:12:00 [facility] Prevnar 13 (PCV13) Prevnar 13 (PCV13) 2018-03-17 [facility]pleted [facility] 16:12:00 [facility] Prevnar 13 (PCV13) Prevnar 13 (PCV13) 2018-03-17 [facility]pleted [facility] 16:12:00 [facility] Prevnar 13 (PCV13) Prevnar 13 (PCV13) 2018-03-17 [facility]pleted [facility] 16:12:00 [facility] Prevnar 13 (PCV13) Prevnar 13 (PCV13) 2018-03-17 [facility]pleted [facility] 16:12:00 [facility] Prevnar 13 (PCV13) Prevnar 13 (PCV13) 2018-03-17 [facility]pleted [facility] 16:12:00 [facility] Prevnar 13 (PCV13) Prevnar 13 (PCV13) 2018-03-17 [facility]pleted [facility] 16:12:00 [facility] Prevnar 13 (PCV13) Prevnar 13 (PCV13) 2018-03-17 Completed [facility] 16:12:00 - [facility] Prevnar 13 (PCV13) Prevnar 13 (PCV13) 2018-03-17 Completed [facility] 16:12:00 - [facility] Prevnar 13 (PCV13) Prevnar 13 (PCV13) 2018-03-17 Completed [facility] 16:12:00 - [facility] Prevnar 13 (PCV13) Prevnar 13 (PCV13) 2018-03-17 Completed [facility] 16:12:00 - [facility] Prevnar 13 (PCV13) Prevnar 13 (PCV13) 2018-03-17 Completed [facility] 16:12:00 [facility] PCV13 PCV13 2018-03-17 Completed [facility] 00:00:00 [facility] Vital Signs Vital Name Observation Time Observation Value Comments Source height 2021-12-14 14:30:00 67 [in_i] [facility] weight 2021-12-14 14:30:00 182 [lb_av] [facility] temperature 2021-12-14 14:30:00 97.6 [degF] [facility] bmi 2021-12-14 14:30:00 28.5 kg/m2 [facility] oximetry 2021-12-14 14:30:00 99 % [facility] respiratory rate 2021-12-14 14:30:00 16 /min Comm on [facility] blood pressure 2021-12-14 14:30:00 130 mm[Hg] [facility] - systolic [facility] blood pressure 2021-12-14 14:30:00 60 mm[Hg] [facility] diastolic [facility] Procedures This patient has no known procedures. Encounters Start End Encounter Admission Attending Care Care Encounter Source Date/Time Date/Time Type Type Clinicians Facility Department ID 2022-02-[address] [facility] [id number] Common 13:21:00 [id number] [facility] 2022-01-23 Outpatient 3 ANASTASIA TRIPP JOHN [id number] [facility] 08:14:53 LONNY 0614 [facility] itation [place] 2021-10-27 Outpatient Espinal, Na STLMLC STLMLC [id number] Common 09:37:01 [id number] [facility] 2021-09-06 Outpatient Espinal, Na STLMLC STLMLC [id number] Common 14:00:39 [id number] [facility] 2021-09-06 Outpatient Espinal, Na STLMLC STLMLC [id number] Common 13:36:43 [id number] [facility] 2021-09-06 Outpatient Espinal, Na STLMLC STLMLC [id number] Common 13:14:46 [id number] [facility] 2021-09-06 Outpatient Espinal, Na STLMLC STLMLC [id number] Common 13:14:19 [id number] [facility] 2021-09-06 Outpatient Espinal, Na STLMLC STLMLC [id number] Common 12:38:22 [id number] [facility] 2021-09-06 Outpatient Espinal, Na STLMLC STLMLC [id number] Common 12:37:04 [id number] [facility] 2021-09-06 Outpatient Espinal, Na STLMLC STLMLC [id number] Common 12:32:00 [id number] [facility] 2021-09-06 Outpatient Espinal, Na STLMLC STLMLC [id number] Common 12:31:32 [id number] [facility] 2021-09-06 Outpatient Espinal, Na STLMLC STLMLC [id number] Common 12:17:07 [id number] [facility] 2021-09-06 Outpatient Trejo, Kin STLMLC STLMLC [id number] Common 12:04:40 [id number] [facility] 2021-09-06 Outpatient Trejo, Kin STLMLC STLMLC [id number] Common 12:00:30 [id number] [facility] 2021-09-06 Outpatient Millender, STLMLC STLMLC [id number] Common 11:55:17 Leandra [id number] [facility] 2021-09-06 Outpatient Millender, STLMLC STLMLC [id number] Common 11:53:43 Leandra [id number] [facility] 2021-09-06 Outpatient Millender, STLMLC STLMLC [id number] Common 11:43:25 Leandra [id number] [facility] 2021-09-06 Outpatient Millender, STLMLC STLMLC [id number] Common 11:42:20 Leandra [id number] [facility] 2021-09-06 Outpatient Millender, STLMLC STLMLC [id number] Common 11:21:57 Leandra [id number] [facility] 2021-09-06 Outpatient Millender, STLMLC STLMLC [id number] Common 11:12:44 Leandra [id number] [facility] 2021-09-06 Outpatient Millender, STLMLC STLMLC [id number] Common 11:12:25 Leandra [id number] [facility] 2021-09-06 Outpatient Millender, STLMLC STLMLC [id number] Common 11:08:59 Leandra [id number] [facility] 2021-09-06 Outpatient Millender, STLMLC STLMLC [id number] Common 11:08:51 Leandra [id number] [facility] 2022-02-15 2022-02-15 Outpatient RECERTIFIC HAMILTON ENCCLR ENCCLR [id number] ENCCLR 00:00:00 00:00:00 ATION CRUZ 2022-02-15 2022-02-15 Outpatient READMIKATALINA VILLASENOR ENCCLR ENCCLR [id number] ENCCLR 00:00:00 00:00:00 N CRUZ 2022-01-24 2022-02-14 Inpatient 3 [facility] ENCPL JOHN [id number] [facility] 12:18:00 16:16:00 amanda 06Helen leal [facility] itation [place] 2021-12-14 2021-12-14 OFFICE STLMLC STLMLC [id number] Co mmon 00:00:00 00:00:00 VISIT EST Spir it PT LEVEL 3 [facility] 2021-09-04 2021-09-04 (TEL) STLMLC STLMLC [id number] Co mmon 00:00:00 00:00:00 [facility] 2021-09-04 2021-09-04 (TEL) STLMLC STLMLC [id number] Co mmon 00:00:00 00:00:00 [facility] 2021-04-14 2021-04-14 (TEL) STLMLC STLMLC [id number] [facility] m[facility] 00:00:00 00:00:00 [facility] 2021-04-10 2021-04-10 (TEL) STLMLC STLMLC [id number] Co mmon 00:00:00 00:00:00 [facility] 2021-04-06 2021-04-06 (TEL) STLMLC STLMLC [id number] Co mmon 00:00:00 00:00:00 [facility] 2021-03-22 2021-03-22 OFFICE STLMLC STLMLC [id number] Co mmon 00:00:00 00:00:00 VISIT EST Spir it PT LEVEL 3 [facility] 2021-03-09 2021-03-09 (TEL) STLMLC STLMLC [id number] Co mmon 00:00:00 00:00:00 [facility] 2021-02-23 2021-02-23 (TEL) STLMLC STLMLC [id number] Co mmon 00:00:00 00:00:00 [facility] 2021-01-25 2021-01-25 (TEL) STLMLC STLMLC [id number] Co mmon 00:00:00 00:00:00 [facility] 2021-01-25 2021-01-25 OFFICE STLMLC STLMLC [id number] Co mmon 00:00:00 00:00:00 VISIT Spirit ESTAB PT - [facility] LEVEL 4 [facility] 2021-01-05 2021-01-05 (TEL) STLMLC STLMLC [id number] Co mmon 00:00:00 00:00:00 [facility] 2020-12-01 2020-12-01 Outpatient STLMLC STLMLC [id number] Common 00:00:00 00:00:00 [facility] 2020-10-31 2020-10-31 Outpatient STLMLC STLMLC [id number] Common 00:00:00 00:00:00 [facility] 2020-10-19 2020-10-19 Outpatient STLMLC STLMLC [id number] Common 00:00:00 00:00:00 [facility] 2020-08-03 2020-08-03 Outpatient STLMLC STLMLC [id number] Common 00:00:00 00:00:00 [facility] 2020-07-26 2020-07-26 Outpatient STLMLC STLMLC [id number] Common 00:00:00 00:00:00 [facility] 2020-07-26 2020-07-26 Outpatient STLMLC STLMLC [id number] Common 00:00:00 00:00:00 [facility] 2020-07-12 2020-07-12 Outpatient STLMLC STLMLC [id number] Common 00:00:00 00:00:00 [facility] 2020-06-27 2020-06-27 Outpatient STLMLC STLMLC [id number] Common 00:00:00 00:00:00 [facility] 2020-05-11 2020-05-11 Outpatient STLMLC STLMLC [id number] Common 00:00:00 00:00:00 [facility] 2020-04-18 2020-04-18 Outpatient STLMLC STLMLC [id number] Common 00:00:00 00:00:00 [facility] 2020-04-14 2020-04-14 [facility] [id number] Common 10:20:00 10:20:[address] [facility] [address] [facility] 2020-04-08 2020-04-08 [facility] [id number] Common 16:38:00 16:38:[address] [facility] 2020-04-08 2020-04-08 [facility] [id number] Common 16:36:00 16:36:[address] [facility] 2020-04-08 2020-04-08 [facility] [id number] Common 10:50:00 10:50:[address] [facility] [address] [facility] 2020-03-07 2020-03-07 [facility] [id number] Common 14:47:00 14:47:[address] [facility] [address] [facility] 2020-01-26 2020-01-26 [facility] [id number] Common 14:20:00 14:20:00 t Specialty/U Sp vianca Specialty rology - [facility] 2020-01-19 2020-01-19 [facility] [id number] Common 14:00:00 14:00:00 t Specialty/U Sp vianca Specialty rology - [facility] 2020-01-18 2020-01-18 [facility] [id number] Common 14:30:00 14:30:00 t Specialty/U Sp vianca Specialty rology - [facility] 2020-01-11 2020-01-11 [facility] [id number] Common 16:46:00 16:46:[address] [facility] [address] [facility] 2019-12-28 2019-12-28 [facility] [id number] Common 14:00:00 14:00:00 t Specialty/U Sp vianca Specialty rology - [facility] 2019-12-24 2019-12-24 [facility] [id number] Common 15:13:00 15:13:00 t Specialty/U Sp vianca Specialty rology - [facility] 2019-12-14 2019-12-14 [facility] [id number] Common 16:13:00 16:13:[address] [facility] [address] [facility] 2019-12-03 2019-12-03 [facility] [id number] Common 15:15:00 15:15:[address] [facility] 2019-09-11 2019-09-11 [facility] [id number] Common 17:26:00 17:26:[address] [facility] 2019-08-11 2019-08-11 Out[facility] [id number] Common 09:48:00 09:48:[address] [facility] 2019-07-02 2019-07-02 Out[facility] [id number] Common 15:20:00 15:20:[address] [facility] 2019-06-26 2019-06-26 [facility] [id number] Common 16:42:00 16:42:[address] [facility] 2019-06-23 2019-06-23 Out[facility] [id number] Common 09:21:00 09:21:[address] [facility] 2019-06-11 2019-06-11 Out[facility] [id number] Common 14:59:00 14:59:[address] [facility] 2019-06-08 2019-06-08 Outpatient [facility] [id number] Common 16:45:00 16:45:[address] [facility] 2019-05-25 2019-05-25 [facility] [id number] Common 15:30:00 15:30:00 t Specialty/U Sp vianca Specialty rology - [facility] 2019-05-06 2019-05-06 Outpatient [facility] [id number] Common 13:24:00 13:24:[address] [facility] 2019-01-29 2019-01-29 Out[facility] [id number] Common 13:15:00 13:15:00 t Specialty/U Sp vianca Specialty rology - [facility] 2019-01-16 2019-01-16 [facility] [id number] Common 10:05:00 10:05:[address] [facility] [address] [facility] 2019-01-02 2019-01-02 Out[facility] [id number] Common 14:10:00 14:10:[address] [facility] 2018-11-07 2018-11-07 Outpatient [facility] [id number] Common 10:27:00 10:27:[address] [facility] [address] [facility] 2018-11-04 2018-11-04 Out[facility] [id number] Common 15:55:00 15:55:00 t Specialty/U Sp vianca Specialty rology - [facility] 2018-11-04 2018-11-04 Outpatient [facility] [id number] Common 14:15:00 14:15:00 t Specialty/U Sp vianca Specialty rology - [facility] 2018-09-30 2018-09-30 Out[facility] [id number] Common 15:30:00 15:30:[address] [facility] [address] [facility] 2018-09-04 2018-09-04 Out[facility] [id number] Common 17:02:00 17:02:[address] [facility] [address] [facility] 2018-09-03 2018-09-03 Outpatient [facility] [id number] Common 10:12:00 10:12:[address] [facility] [address] [facility] 2018-08-15 2018-08-15 Outpatient [facility] [id number] Common 14:31:00 14:31:[address] [facility] [address] [facility] 2018-08-11 2018-08-11 Outpatient [facility] [id number] Common 09:42:00 09:42:[address] [facility] 2018-07-23 2018-07-23 Outpatient [facility] [id number] Common 11:42:00 11:42:[address] [facility] 2018-05-29 2018-05-29 Outpatient [facility] [id number] Common 12:09:00 12:09:[address] [facility] 2018-05-08 2018-05-08 Outpatient [facility] [id number] Common 10:57:00 10:57:[address] [facility] 2018-04-01 2018-04-01 Outpatient [facility] [id number] Common 15:34:00 15:34:[address] [facility] 2018-03-17 2018-03-17 Outpatient [facility] [id number] Common 15:30:00 15:30:[address] [facility] 2018-01-30 2018-01-30 Out[facility] [id number] Common 15:00:00 15:00:[address] [facility] 2018-01-22 2018-01-22 Out[facility] [id number] Common 10:00:00 10:00:00 t Specialty/U Sp vianca Specialty rology - [facility] Results This patient has no known results.
[2022-08-24 00:40] LABS: Urine Blood 3+ (Negative); Urine Glucose 2+ (Negative); Urine Protein 2+ (Negative); Urine Specific Gravity 1.015 (1.005-1.030)
[2022-08-24] MEDS ORDERED: NA CHLORIDE 0.9% 1,000 ML ONE ×2 (00:55→09:59)
[2022-08-24 01:10] LABS: Urine Bacteria <20 /HPF (<20)
[2022-08-24 01:19] LABS: Absolute Lymphocytes (CBC) 2.1 K/uL (0.7-4.9); Hematocrit 48.2 % (39.6-49.0); Lymphocytes % 16.1 % (15.3-44.8); MCV 86.2 fL (80-100); MPV 7.9 fL (7.6-11.3); RBC Red Blood Cell Count 5.59 M/uL (4.33-5.43)
[2022-08-24 01:35] LABS: Magnesium 1.9 mg/dL (1.6-2.4); Potassium 4.1 mmol/L (3.5-5.1); Troponin High Sensitivity 49.9 pg/mL (<58.9)
[2022-08-24] MEDS ORDERED: ONDANSETRON 4 MG/2 ML VIAL ONE (02:10)
--- NOTE | 2022-08-24 02:31 | ER ---
Nurse's Notes [facility] Name: Chito Chavira Jr Age: 76 yrs Sex: Male : 1945 Arrival Date: 08/24/2022 Time: 00:05 Bed 7 Private MD: Diagnosis: UTI/ Urinary tract infection, site not specified;Severe sepsis with septic shock Presentation: 08/24 00:05 Chief complaint: EMS states: Pt has had a catheter in place since August 01 and is kd3 now complaining to suprapubic pain. 00:05 Coronavirus screen: Vaccine status: Patient reports being unvaccinated. Ebola Screen: kd3 No symptoms or risks identified at this time. Initial Sepsis Screen: Does the patient meet any 2 criteria? No. Patient's initial sepsis screen is negative. Does the patient have a suspected source of infection? No. Patient's initial sepsis screen is negative. Risk Assessment: Do you want to hurt yourself or someone else? Patient reports no desire to harm self or others. Onset of symptoms was August 24, 2022. 00:05 Method Of Arrival: EMS: [facility] kd3 00:05 Acuity: TROY 3 kd3 Triage Assessment: 00:09 General: Appears uncomfortable, Behavior is calm, cooperative. Pain: Complains of pain kd3 in suprapubic area. Neuro: Level of Consciousness is awake, alert, obeys commands, Oriented to person, place, time, situation. Cardiovascular: Patient's skin is warm and dry. Respiratory: Airway is patent Trachea midline Respiratory effort is even, unlabored, Respiratory pattern is regular, symmetrical. Historical: - Allergies: 00:09 Seroquel; kd3 - Home Meds: 00:53 albuterol sulfate 90 mcg/actuation Inhl HFAA 2 puffs as needed [Active]; kd3 - PMHx: 00:09 Anxiety; Asthma; GERD; High Cholesterol; Diabetes - NIDDM; Dementia; Chronic kd3 obstructive lung disease; Arthritis; Hypertension; indwelling catheter; Prostate Cancer; - Immunization history:: Adult Immunizations up to date. - Social history:: Smoking status: unknown. Screenin:11 [facility] ED Fall Risk Assessment (Adult) History of falling in the last 3 months, kd3 including since admission No falls in past 3 months (0 pts) Confusion or Disorientation No (0 pts) Intoxicated or Sedated No (0 pts) Impaired Gait Yes (1 pt) Mobility Assist Device Used No (0 pt) Altered Elimination No (0 pt) Score/Fall Risk Level 0 - 2 = Low Risk. Abuse screen: Denies threats or abuse. Denies injuries from another. Nutritional screening: No deficits noted. Tuberculosis screening: No symptoms or risk factors identified. Assessment: 00:29 General: No urine was draining from the cath. Patient expressed severe pain and tw5 pressure in his suprapubic area. . : to gravity drainage Cath removed. White discharged saw at the tip of cath clogging the tube. Patient began urinating upon removal of the cath. New cath replaced and is now draining appropriately. Patient expresses relief. 01:12 Respiratory: Airway is patent Trachea midline Respiratory effort is even, unlabored. tw5 02:07 GI: Reports nausea. tw5 06:15 Neuro: Level of Consciousness is awake, alert, obeys commands, Oriented to person, kd3 place, time, situation. Respiratory: Airway is patent Trachea midline Respiratory effort is even, unlabored, Respiratory pattern is regular, symmetrical. : to gravity drainage Urine is blood tinged. 13:11 Reassessment: [facility]: MARKUS MEDINA [phone]. bp Vital Signs: 00:05 BP 153 / 95; Pulse 97; Resp 17; Temp 97.9; Pulse Ox 100% on R/A; Weight 83.91 kg; kd3 Height 5 ft. 4 in. (162.56 cm); Pain 10/10; 00:53 BP 75 / 63; Pulse 94; Resp 18; Pulse Ox 96% on R/A; tw5 01:12 BP 73 / 49; Pulse 97; Resp 18; Pulse Ox 97% on R/A; tw5 02:09 BP 89 / 76; Pulse 81; Resp 18; Pulse Ox 97% on R/A; tw5 03:38 BP 97 / 44; Pulse 88; Resp 18; Pulse Ox 98% on R/A; kd3 04:13 BP 106 / 41; Pulse 91; Resp 18; Pulse Ox 95% on R/A; tw5 04:48 Temp 98.3(O); kd3 05:26 BP 113 / 57; Pulse 80; Resp 17; Pulse Ox 98% on R/A; kd3 06:10 Temp 98.1(O); kd3 06:15 BP 97 / 57; Pulse 88; Resp 20; Pulse Ox 98% on R/A; kd3 00:05 Body Mass Index 31.75 (83.91 kg, 162.56 cm) kd3 ED Course: 00:05 Patient arrived in ED. wm 00:07 Justin Boyle PA is PHCP. cp 00:07 Shani Urbina MD is Attending Physician. cp 00:08 Nat Anthony, PEYTON is Primary Nurse. kd3 00:09 Triage completed. kd3 00:11 Arm band placed on right wrist. kd3 00:27 Dominguez cath removed intact, balloon deflated, white discharge seen clogging the dominguez tw5 cath tube. 00:29 Patient has correct armband on for positive identification. Bed in low position. Call tw5 light in reach. Side rails up X 1. Pulse ox on. NIBP on. Door closed. Noise minimized. Moved to private room. Warm blanket given. 00:29 Dominguez cath inserted, using sterile technique, 16 Fr., by president and chief operating officer, balloon inflated, to tw5 gravity drainage, urine specimen collected. returned cloudy urine. Patient tolerated well. 01:12 Warm blanket given. tw5 01:12 Basic Metabolic Panel Sent. tw5 01:12 CBC with Diff Sent. tw5 01:12 Troponin HS Sent. tw5 01:12 NT PRO-BNP Sent. tw5 01:12 Magnesium Sent. tw5 01:12 Lactate w/ 2H reflex if indic. Sent. tw5 01:14 Urine Culture Sent. tw5 01:47 XRAY Chest (1 view) In Process Unspecified. EDMS 02:30 Aki Redman MD is Hospitalizing Provider. cp 03:29 Abdomen In Process Unspecified. EDMS 03:38 Blood Culture Adult (2) Sent. kd3 04:33 No provider procedures requiring assistance completed. Patient admitted, IV remains in tw5 place. Administered Medications: 01:11 Drug: NS 0.9% 1000 ml Route: IV; Rate: 1000 ml; Site: left forearm; tw5 04:09 Follow up: Response: No adverse reaction; IV Status: Completed infusion; IV Intake: kd3 1000ml 02:07 Drug: NS 0.9% 500 ml Route: IV; Rate: bolus; Site: left forearm; tw5 04:08 Follow up: IV Status: Completed infusion; IV Intake: 500ml kd3 02:09 Drug: Zofran (Ondansetron) 4 mg Route: IVP; Site: left forearm; tw5 04:09 Follow up: Response: No adverse reaction; Nausea is decreased kd3 02:54 CANCELLED (Physician Discretion): Rocephin (cefTRIAXone) 1 grams IV at calculated rate cp once; Given slow IV push per pharmacy instructions 03:38 Drug: NS 0.9% (30 ml/kg) 30 ml/kg Route: IV; Rate: bolus; Site: left forearm; kd3 03:38 Drug: Meropenem 1 grams Route: IV; Rate: calculated rate; Site: left forearm; kd3 04:08 Follow up: IV Status: Completed infusion; IV Intake: 100ml kd3 Medication: 00:29 VIS not applicable for this client. tw5 Intake: 04:08 IV: 100ml; Total: 100ml. kd3 04:08 IV: 500ml; Total: 600ml. kd3 04:09 IV: 1000ml; Total: 1600ml. kd3 Outcome: 02:31 Decision to Hospitalize by Provider. cp 04:33 Admitted to ER Hold. Please see [facility] for further documentation. tw5 04:33 Condition: stable 04:33 Discharge instructions given to patient, Instructed on the need for admit. 14:33 Patient left the ED. bp Signatures: Dispatcher [employer] EDMS Justin Boyle PA PA cp Peltier, Brian, RN RN bp Marsh, Wendy wm Wood, Tiffany tw5 Nat Anthony RN RN kd3
--- NOTE | 2022-08-24 02:31 | EDPHYS ---
Physician Documentation [facility] Name: Chito Chavira Jr Age: 76 yrs Sex: Male : 1945 Arrival Date: 08/24/2022 Time: 00:05 Bed 7 Private MD: ED Physician Shani Urbina HPI: 08/24 00:10 This 76 yrs old Male presents to ER via EMS with complaints of Problem With cp Urinary Catheter. 00:10 The patient presents with a Miller catheter problem, is not draining. Onset: The cp symptoms/episode began/occurred today. Associated signs and symptoms: Pertinent positives: abdominal pain, Pertinent negatives: constipation, diarrhea, fever, vomiting. 00:10 Severity of symptoms: in the emergency department the symptoms are unchanged, despite cp EMS interventions. Historical: - Allergies: 00:09 Seroquel; kd3 - Home Meds: 00:53 albuterol sulfate 90 mcg/actuation Inhl HFAA 2 puffs as needed [Active]; kd3 - PMHx: 00:09 Anxiety; Asthma; GERD; High Cholesterol; Diabetes - NIDDM; Dementia; Chronic kd3 obstructive lung disease; Arthritis; Hypertension; indwelling catheter; Prostate Cancer; - Immunization history:: Adult Immunizations up to date. - Social history:: Smoking status: unknown. ROS: 00:15 Constitutional: Negative for body aches, chills, fever, poor PO intake. cp 00:15 Respiratory: Negative for cough, shortness of breath, wheezing. cp 00:15 Abdomen/GI: Positive for abdominal pain, of the suprapubic area, Negative for vomiting, diarrhea, constipation. 00:15 Eyes: Negative for injury, pain, redness, and discharge. cp 00:15 ENT: Negative for drainage from ear(s), ear pain, sore throat, difficulty swallowing, cp difficulty handling secretions. 00:15 Cardiovascular: Negative for chest pain, edema. 00:15 Back: Negative for pain at rest, pain with movement. 00:15 Neuro: Negative for altered mental status, dizziness, headache, weakness. 00:15 All other systems are negative. Exam: 00:20 Constitutional: The patient appears in no acute distress, alert, awake, cp non-diaphoretic, non-toxic, well developed, well nourished, uncomfortable. 00:20 Head/Face: Normocephalic, atraumatic. cp 00:20 Eyes: Periorbital structures: appear normal, Conjunctiva: normal, no exudate, no injection, Sclera: no appreciated abnormality, Lids and lashes: appear normal, bilaterally. 00:20 ENT: External ear(s): are unremarkable, Nose: is normal, Mouth: Lips: moist, Oral mucosa: moist, Posterior pharynx: Airway: no evidence of obstruction, patent, erythema, is not appreciated, exudate, is not appreciated. 00:20 Chest/axilla: Inspection: normal. 00:20 Cardiovascular: Rate: normal, Rhythm: regular, Edema: is not appreciated, JVD: is not appreciated. 00:20 Respiratory: the patient does not display signs of respiratory distress, Respirations: normal, no use of accessory muscles, no retractions, labored breathing, is not present, Breath sounds: are clear throughout, no decreased breath sounds, no stridor, no wheezing. 00:20 Abdomen/GI: Inspection: abdomen appears normal, Bowel sounds: active, all quadrants, Palpation: soft, in all quadrants, moderate abdominal tenderness, in the suprapubic area, rebound tenderness, is not appreciated, voluntary guarding, is elicited in the suprapubic area. 00:20 Back: pain, is absent. 00:20 Skin: cellulitis, is not appreciated, no rash present. 00:20 Neuro: Orientation: is normal, Mentation: is normal, Sensation: no obvious gross deficits. 01:08 ECG was reviewed by the Attending Physician. cp Vital Signs: 00:05 BP 153 / 95; Pulse 97; Resp 17; Temp 97.9; Pulse Ox 100% on R/A; Weight 83.91 kg; kd3 Height 5 ft. 4 in. (162.56 cm); Pain 10/10; 00:53 BP 75 / 63; Pulse 94; Resp 18; Pulse Ox 96% on R/A; tw5 01:12 BP 73 / 49; Pulse 97; Resp 18; Pulse Ox 97% on R/A; tw5 02:09 BP 89 / 76; Pulse 81; Resp 18; Pulse Ox 97% on R/A; tw5 03:38 BP 97 / 44; Pulse 88; Resp 18; Pulse Ox 98% on R/A; kd3 04:13 BP 106 / 41; Pulse 91; Resp 18; Pulse Ox 95% on R/A; tw5 04:48 Temp 98.3(O); kd3 05:26 BP 113 / 57; Pulse 80; Resp 17; Pulse Ox 98% on R/A; kd3 06:10 Temp 98.1(O); kd3 06:15 BP 97 / 57; Pulse 88; Resp 20; Pulse Ox 98% on R/A; kd3 00:05 Body Mass Index 31.75 (83.91 kg, 162.56 cm) kd3 MDM: 00:08 Patient medically screened. cp 02:30 ED course: Patient qualifies for severe sepsis. A) Source of infection is urine. B) cp SIRS criteria: WBC > 12, HR > 90. C) Lactate > 2. Also \T\ recorded systolic BP < 90. 02:35 Data reviewed: vital signs, nurses notes, lab test result(s), EKG, radiologic studies, cp plain films. 02:35 Consideration of Admission/Observation Patient was admitted/placed on observation. cp Management of patient was discussed with the following: Hospitalist: Leidy Villeda NP. I considered the following discharge prescriptions or medication management in the emergency department Medications were administered in the Emergency Department. See MAR. Test considered but Not performed: Other Details CT abdomen/pelvis. Care significantly affected by the following chronic conditions: Diabetes, Hypertension, Dementia. Counseling: I had a detailed discussion with the patient and/or guardian regarding: the historical points, exam findings, and any diagnostic results supporting the discharge/admit diagnosis, lab results, radiology results, the need for further work-up and treatment in the hospital. Response to treatment: the patient's symptoms have mildly improved after treatment. 08/24 00:08 Order name: Urine Microscopic Only; Complete Time: 01:32 cp 08/24 01:32 Interpretation: Normal except: UWBC 10-20; URBC 11-20. cp 08/24 00:40 Order name: Urine Dipstick-Ancillary; Complete Time: 00:48 EDMS 08/24 00:48 Interpretation: Normal except: UGLUC 2+; UBLD 3+; UPROT 2+; UESTR 1+. cp 08/24 00:50 Order name: Basic Metabolic Panel; Complete Time: 02:01 cp 08/24 02:01 Interpretation: Normal except: GLUC 199; BUN 19; CRE 1.43; GFR 51. 08/24 00:50 Order name: CBC with Diff; Complete Time: 01:32 08/24 01:33 Interpretation: Normal except: WBC 12.90; RBC 5.59; JOHN% 75.2; NEUT A 9.7. 08/24 00:50 Order name: Magnesium; Complete Time: 02:01 08/24 00:50 Order name: NT PRO-BNP; Complete Time: 02:01 08/24 02:01 Interpretation: Abnormal: NT PRO-BNP 286. 08/24 00:50 Order name: Troponin HS; Complete Time: 02:01 08/24 00:50 Order name: Lactate w/ 2H reflex if indic.; Complete Time: 02:01 08/24 02:01 Interpretation: Abnormal: LAC 2.2. 08/24 01:14 Order name: Urine Culture EDDE 08/24 02:27 Order name: Blood Culture Adult (2) 08/24 02:28 Order name: SARS RAPID; Complete Time: 04:02 08/24 04:42 Order name: Lactate Sepsis 2 HR Follow-up EDDE 08/24 06:31 Order name: Lactate w/ 2H reflex if indic. EDDE 08/24 08:15 Order name: Glucose, Ancillary Testing EDDE 08/24 00:08 Order name: Urine Dipstick-Ancillary (obtain specimen); Complete Time: 00:52 08/24 00:08 Order name: Bladder Scanner; Complete Time: 10:13 08/24 00:50 Order name: XRAY Chest (1 view) 08/24 00:50 Order name: EKG; Complete Time: 00:51 08/24 00:50 Order name: Cardiac monitoring; Complete Time: 01:12 08/24 00:50 Order name: EKG - Nurse/Tech; Complete Time: 01:12 08/24 00:50 Order name: IV Saline Lock; Complete Time: 01:12 08/24 02:54 Order name: CT Abd/Pelvis - IV Contrast Only 08/24 02:58 Order name: Abdomen EDDE 08/24 12:31 Order name: Glucose, Ancillary Testing EDDE 08/24 00:50 Order name: Labs collected and sent; Complete Time: 01:12 08/24 00:50 Order name: O2 Per Protocol; Complete Time: : cp 08/24 00:50 Order name: O2 Sat Monitoring; Complete Time: : cp EC:08 Rate is 94 beats/min. Rhythm is regular. AR interval is normal. QRS interval is normal. cp QT interval is normal. T waves are Inverted in lead aVR. Interpreted by me. Reviewed by me. Administered Medications: 01:11 Drug: NS 0.9% 1000 ml Route: IV; Rate: 1000 ml; Site: left forearm; tw5 04:09 Follow up: Response: No adverse reaction; IV Status: Completed infusion; IV Intake: kd3 1000ml 02:07 Drug: NS 0.9% 500 ml Route: IV; Rate: bolus; Site: left forearm; tw5 04:08 Follow up: IV Status: Completed infusion; IV Intake: 500ml kd3 02:09 Drug: Zofran (Ondansetron) 4 mg Route: IVP; Site: left forearm; tw5 04:09 Follow up: Response: No adverse reaction; Nausea is decreased kd3 02:54 CANCELLED (Physician Discretion): Rocephin (cefTRIAXone) 1 grams IV at calculated rate cp once; Given slow IV push per pharmacy instructions 03:38 Drug: NS 0.9% (30 ml/kg) 30 ml/kg Route: IV; Rate: bolus; Site: left forearm; kd3 03:38 Drug: Meropenem 1 grams Route: IV; Rate: calculated rate; Site: left forearm; kd3 04:08 Follow up: IV Status: Completed infusion; IV Intake: 100ml kd3 Disposition Summary: 08/24/22 02:31 Hospitalization Ordered Hospitalization Status: Inpatient Admission cp Provider: Aki Redman cp Condition: Fair cp Problem: new cp Symptoms: have improved cp Bed/Room Type: Standard cp Location: Telemetry/MedSurg (Inpatient)(08/24/22 13:13) dw Room Assignment: [facility] [place] 2](08/24/22 13:13) dw Diagnosis - UTI/ Urinary tract infection, site not specified cp - Severe sepsis with septic shock cp Forms: - Medication Reconciliation Form cp - SBAR form cp Signatures: Dispatcher [employer] Kim Mathur RN RN dw Ballard, Brenda, RN RN bb Page, Corey, PA PA cp Wood, Tiffany tw5 Nat Anthony, RN RN kd3 Kinza Villeda PAJaylyn PA-C sb4 Corrections: (The following items were deleted from the chart) 02:31 Telemetry/MedSurg (Inpatient) [facility] 02:34 02:31 bb 02:54 02:27 Rocephin (cefTRIAXone) 1 grams IV at calculated rate once; Given slow IV push per cp pharmacy instructions ordered. 13: 02:34 [facility] ER HOLD bb dw : 02:34 ERHOLD- dw
[2022-08-24 02:52] LABS: SARS-CoV-2 Antigen Rapid Res Negative (Negative)
[2022-08-24] MEDS ORDERED: NA CHLORIDE 0.9% 500 ML ONE (02:58)
[2022-08-24] MEDS ORDERED: NA CHLORIDE 0.9% 2,000 ML ONE (02:58)
[2022-08-24] MEDS ORDERED: Meropenem 1000 MG/VIAL IV ONE ×3 (02:58→19:51)
[2022-08-24] MEDS ORDERED: NA CHLORIDE 0.9% 100 ML IV ONE ×2 (02:59→09:59)
--- NOTE | 2022-08-24 03:54 | P.HP ---
Certification for Inpatient Patient admitted to: Inpatient With expected LOS: >2 Midnights Patient will require the following post-hospital care: None Practitioner: I am a practitioner with admitting privileges, knowledge of patient current condition, hospital course, and medical plan of care. Services: Services provided to patient in accordance with Admission requirements found in Title 42 Section 412.3 of the Code of Federal Regulations Patient History Date of Service: 08/24/22 Reason for admission: UTI with Septic Shock History of Present Illness: Patient is a 76 year old male with past medical history of hypertension, non- insulin dependent type 2 diabetes, COPD, and neurogenic bladder with indwelling dominguez catheter who presented to the emergency department with complaints of suprapubic pain. Catheter was placed August 01. No urine was draining for the catheter as there was some discharge clogging it so it was replaced in the emergency department and patient had urine drainage and relief in symptoms. As expected, urine positive for UTI with LE and WBC. Per chart review, his urine culture has previously grown morganelli with sensitivity only to meropenem. Other labs significant for WBC 12.9, lactate 2.2. BP was in the 70s systolic. Sepsis fluids bolus initiated. CT abdomen pelvis negative. He is admitted for further management. Allergies quetiapine [From [employer]] Allergy (Verified 10/10/20 00:30) Unknown Home medications list reviewed: Yes Home Medications: Losartan Potassium [Cozaar*] 100 mg PO DAILY 10/14/13 Metformin HCl [Glucophage] 1,000 mg PO BID 10/14/13 Sertraline [Zoloft*] 50 mg PO DAILY 10/10/20 Empagliflozin [Jardiance] 25 mg PO DAILY 06/06/21 Hydralazine [Apresoline] 25 mg PO BID 06/06/21 Nitrofurantoin Macrocrystal [Nitrofurantoin] 100 mg PO Q12H 06/06/21 Pregabalin 150 mg PO BID 06/06/21 - Past Medical/Surgical History Diabetic: Yes -: HTN -: Hyperlipidemia -: Neurogenic bladder with indwelling dominguez catheter -: DDD/DJD of the spine -: Cervical spine stenosis -: COPD -: Allergic rhinitis -: GERD -: Anxiety -: Neck sx w/fusion 2007 Psychosocial/ Personal History: Patient lives at home with his family. He is bed bound and has a home health nurse. - Family History Family History: Reviewed- Non-Contributory - Social History Smoking Status: Never smoker Alcohol use: No CD- Drugs: No Caffeine use: No Place of Residence: Home Review of Systems Genitourinary: As per HPI Physical Examination - Vital Signs Temperature: 97.9 F Blood Pressure: 106/41 Pulse: 91 Respirations: 18 Pulse Ox (%): 95 - Physical Exam General: Alert, In no apparent distress, Confused HEENT: Atraumatic, PERRLA Neck: Supple, 2+ carotid pulse no bruit Respiratory: Clear to auscultation bilaterally, Normal air movement Cardiovascular: Regular rate/rhythm, Normal S1 S2 Gastrointestinal: Normal bowel sounds, No tenderness Musculoskeletal: No tenderness Integumentary: No rashes Neurological: Normal speech, Sensation intact Urinary: Dominguez catheter - Studies Laboratory Data (last 24 hrs) 08/24/22 01:01: WBC 12.90 H, Hgb 15.9, Hct 48.2, Plt Count 205 08/24/22 01:01: Sodium 136, Potassium 4.1, BUN 19 H, Creatinine 1.43 H, Glucose 199 H, Magnesium 1.9 Assessment and Plan - Problems (Diagnosis) (1) UTI (urinary tract infection) Current Visit: Yes Status: Acute Qualifiers: Urinary tract infection type: catheter-associated UTI Indwelling urinary catheter type: indwelling urethral catheter Encounter type: initial encounter Qualified Code(s): T83.511A - Infection and inflammatory reaction due to indwelling urethral catheter, initial encounter; N39.0 - Urinary tract infection, site not specified (2) Septic shock Current Visit: Yes Status: Acute (3) Hyperlipidemia Current Visit: Yes Status: Chronic (4) Hypertension Current Visit: Yes Status: Chronic Qualifiers: Hypertension type: primary hypertension Qualified Code(s): I10 - Essential (primary) hypertension (5) COPD (chronic obstructive pulmonary disease) Current Visit: Yes Status: Chronic Qualifiers: COPD type: unspecified COPD Qualified Code(s): J44.9 - Chronic obstructive pulmonary disease, unspecified (6) Type 2 diabetes mellitus Current Visit: Yes Status: Chronic Qualifiers: Diabetes mellitus in home nanny insulin use: without [facility] use Diabetes mellitus complication status: with hyperglycemia Qualified Code(s): E11.65 - Type 2 diabetes mellitus with hyperglycemia - Plan Patient is admitted for further management of UTI with septic shock. Septic shock criteria met at 0112 with HR > 90, WBC > 12, UTI, lactate > 2, and 2 SBP < 90. Continue meropenem. Previous culture grew morganella morganii with sensitivity only to meropenem. Blood and urine cultures obtained prior to antibiotics. Monitor BP closely. Consider vasopressor therapy if BP does not adequately respond to IV fluids. ID consult given history of multi drug resistant UTIs. Monitor and replete electrolytes per protocol. Reconcile and continue home medications. Lovenox for VTE prophylaxis. Full code. Discharge Plan: Home Plan to discharge in: Greater than 2 days - Advance Directives Does patient have a Living Will: No Does patient have a Durable POA for Healthcare: No - Code Status/Comfort Care Code Status Assessed: Yes Code Status: Full Code Physician Review: Patient Assessed, Agree with Above Assessment and Plan Critical Care: No Time Spent Managing Pts Care (In Minutes): 50
--- NOTE | 2022-08-24 04:39 | P.INFCA ---
Sepsis Focused Assessment - Focused Assessment Complete? Sepsis Focused Assessment Completed?: Yes - Sepsis Screen Result Severe Sepsis: Positive Septic Shock: Negative - Evaluation Current stage of sepsis: Severe sepsis - Vital Signs Reviewed: Yes Temperature: 98.3 F Heart rate: 85 Blood Pressure: 112/46 Respiratory Rate: 14 O2 Sat by Pulse Oximetry: 95
[2022-08-24] MEDS: INSULIN -REGULAR HUMAN 50 UNIT/0.5 ML ML SQ SCH ×4 (07:34→21:00)
[2022-08-24] MEDS ORDERED: ONDANSETRON 4 MG/2 ML VIAL IV PRN (07:34)
[2022-08-24] MEDS: NA CHLORIDE 0.9% 1,000 ML IV SCH ×2 (07:34→22:56)
[2022-08-24] MEDS ORDERED: ACETAMINOPHEN 500 MG TAB PO PRN (07:34)
[2022-08-24 08:11] VITALS: BMI 31.7
[2022-08-24] MEDS: Meropenem 1,000 MG in NA CHLORIDE 0.9% 100 ML IV SCH ×2 (09:00→20:12)
--- NOTE | 2022-08-24 10:47 | EKG ---
Test Date: 2022-08-24 Test Time: 01:01:46 [facility]: MEASUREMENT RESULTS: Intervals: Rate: 94 GA: 140 QRSD: 84 QT: 368 QTc: 460 Celina: P: 56 GA: 140 QRS: 31 T: 44 INTERPRETIVE STATEMENTS: Normal sinus rhythm Normal ECG Compared to ECG 03/02/2021 17:33:47 No significant changes Electronically Signed On 08-24-22 10:46:27 FLUME WORKER by Ethan Guerra
--- NOTE | 2022-08-24 12:37 | RAD REPORT ---
EXAM DESCRIPTION: XR Chest, 1 View CLINICAL HISTORY: Hypotension TECHNIQUE: Frontal view of the chest. COMPARISON: No relevant prior studies available. FINDINGS: Lungs: Coarsened interstitial markings. No focal consolidation. Pleural space: Unremarkable. No pneumothorax. Heart: The cardiac silhouette is mildly enlarged, in part accentuated by portable technique. Mediastinum: Unremarkable. Bones/joints: Cervical fusion hardware. Multilevel spondylosis. Vasculature: Thoracic aortic atherosclerosis. IMPRESSION: No acute disease. Electronically signed by: Abby Goldstein MD 08/24/2022 2:22 AM [employer] Due to temporary technical issues with the PACS/Fluency reporting system, reports are being signed by the in house radiologists without review as a courtesy to insure prompt reporting. The interpreting radiologist is fully responsible for the content of the report.
--- NOTE | 2022-08-24 12:38 | RAD REPORT ---
EXAM DESCRIPTION: CT Abdomen and Pelvis With Intravenous Contrast CLINICAL HISTORY: The patient is 76 years old and is Male; abdominal pain TECHNIQUE: Axial computed tomography images of the abdomen and pelvis with intravenous contrast. S agittal and coronal reformatted images were created and reviewed. This CT exam was performed using one or more of the following dose reduction techniques: automated exposure control, adjustment of t he mA and/or kV according to patient size, and/or use of iterative reconstruction technique. COMPARISON: CT abdomen pelvis October 09, 2020 FINDINGS: LUNG BASES: There is mild subsegmental atelectasis and/or scarring in bilateral lung bas es. ABDOMEN: LIVER: A few hepatic granuloma are present. GALLBLADDER AND BILE DUCTS: No calcified stones. No ductal dilation. PANCREAS: No ductal dilation. No mass. SPLEEN: Several splenic granuloma are present. ADRENALS: Unremarkable. No mass. KIDNEYS AND URETERS: Exophytic left renal cysts are present. No follow-up imaging is recommended . The kidneys enhance symmetrically. Bilateral nonspecific perinephric stranding is present. There is no hydronephrosis or hydroureter of either kidney. No obstructing renal or ureteral calculus is seen . STOMACH AND BOWEL: Stomach is distended with food contents and air. The small bowel is normal in caliber. Stool is present throughout colon. There is no mucosal thickening or evidence of obstructio n. PELVIS: APPENDIX: No findings to suggest acute appendicitis. BLADDER: The bladder is decompressed with a Miller catheter present. REPRODUCTIVE: The prostate is minimally prominent and heterogeneous. ABDOMEN and PELVIS: INTRAPERITONEAL SPACE: Unremarkable. No free air. No significant fluid collection. BONES/JOINTS: Postsurgical change of the proximal right femur is present. The bones are osteopen ic. Bilateral pars defects are present at L5 with grade 1 anterolisthesis. There is no acute fracture . SOFT TISSUES: The soft tissues are normal. VASCULATURE: Atherosclerosis of the vasculature is present. The vessels are normal in caliber. No abdominal aortic aneurysm. LYMPH NODES: Unremarkable. No enlarged lymph nodes. IMPRESSION: No acute findings on this contrasted CT of the abdomen and pelvis to explain the patient 's symptoms. Electronically signed by: Lynne Nolasco MD 08/24/2022 4:00 AM ELECTRICIAN THIRD Due to temporary technical issues with the PACS/Fluency reporting system, reports are being signed by the in house radiologists without review as a courtesy to insure prompt reporting. The interpreting radiologist is fully responsible for the content of the report.
[2022-08-24 15:13] VITALS: O2SAT 98
[2022-08-24] MEDS ORDERED: NA CHLORIDE 0.9% 100 ML ONE (19:53)
--- NOTE | 2022-08-24 20:48 | CON ---
History Of Present Illness: This is a 76-year-old male I was consulted for urosepsis. Patient was b rought in with past medical history of hypertension, non-insulin diabetes mellitus, COPD, neurogenic bladder with history of prostate cancer and indwelling Miller catheter complains of suprapubic and abd ominal pain. Patient is feeling much better today. Denies any chest pain or back pain. Patient's i nitial urine test was positive. Cultures are pending. Past Medical History: As per HPI. Social History: Nonsmoker, nondrinker. Family History: Noncontributory. Medications: Patient is currently on meropenem. See MAR for other medications. Allergies: . Review of Systems: 10-point review was performed. Physical Examination: General: This is a 76-year-old male lying in the emergency room bed, not in any acute cardiopulmonar y distress. Vital Signs: Temperature 98.3, pulse 75, respirations 14, blood pressure 115/56. HEENT: Unremarkable. Neck: Supple. Lungs: Basal crackles. Heart: S1, S2. Regular. Abdomen: Soft, nontender. Bowel sounds present. Extremities: No edema. Laboratory Data: WBC 12.9, hemoglobin 15.9, platelets are 205. Chemistry shows BUN of 19, creatinin e 1.4, glucose of 199. CT abdomen and pelvis shows no acute finding of CT abdomen and pelvis. Urine cultures and blood cultures are pending. UA: 10-20 wbc's. Patient's Miller catheter has blood ting ed urine in at. Assessment And Plan: Urosepsis with leukocytosis with history of prostate cancer and neurogenic blad nasima and indwelling Miller catheter. We will continue meropenem, pending culture results and follow th e patient closely. Thank you Dr. Gabbi Redman, for consult. NF/MODL Voice ID: [id number] Report ID: [id number]
[2022-08-25 03:05] LABS: Hematocrit 39.1 % (39.6-49.0); Lymphocytes % 29.2 % (15.3-44.8); MCV 86.8 fL (80-100); MPV 7.9 fL (7.6-11.3); RBC Red Blood Cell Count 4.51 M/uL (4.33-5.43)
[2022-08-25 03:23] LABS: Albumin 2.8 g/dL (3.4-5.0); Bilirubin Total 0.7 mg/dL (0.2-1.0); Magnesium 1.9 mg/dL (1.6-2.4); Protein, Total 5.9 g/dL (6.4-8.2)
[2022-08-25] MEDS: HYDRALAZINE HCL 20 MG/ML VIAL IV PRN ×2 (05:17→20:32)
[2022-08-25] MEDS: INSULIN -REGULAR HUMAN 50 UNIT/0.5 ML ML SQ SCH ×4 (07:30→20:09)
[2022-08-25] MEDS ORDERED: Meropenem 1000 MG/VIAL IV ONE ×2 (07:45→20:23)
[2022-08-25] MEDS ORDERED: NA CHLORIDE 0.9% 100 ML ONE ×2 (08:09→20:15)
[2022-08-25] MEDS ORDERED: FLUTICASONE 50MCG NASAL SPRAY NAS PRN (08:16)
[2022-08-25] MEDS: Meropenem 1,000 MG in NA CHLORIDE 0.9% 100 ML IV SCH ×2 (08:17→20:32)
[2022-08-25] MEDS: NA CHLORIDE 0.9% 1,000 ML IV SCH (15:53)
--- NOTE | 2022-08-25 17:50 | PN ---
Subjective: Patient lying in bed. No new acute event. Chart reviewed. Objective: Vital Signs: Temperature 97, pulse 70, respirations 16, blood pressure 163/88. Lungs: Basal crackles. Heart: S1, S2. Regular. Abdomen: Soft, nontender. Bowel sounds present. Extremities: No edema. Laboratory Data: WBC 7, down from 12.9; hemoglobin 13; platelets 164. Chemistry shows BUN of 11, cr eatinine 0.7, albumin level of 2.8. Micro data; urine cultures are growing gram-negative rods. Assessment And Plan: Urosepsis. Leukocytosis has resolved. History of prostate cancer. The patien t is asymptomatic and improving. Currently on meropenem, pending culture results. Continue antibiot ic for 5 to 7 days depending on culture results. We will follow the patient. Can be discharged on o ral antibiotic if cultures show sensitivity to oral antibiotic. NF/MODL Voice ID: [id number] Report ID: [id number]
--- NOTE | 2022-08-25 18:40 | P.PN ---
Subjective Date of Service: 08/25/22 Subjective: No new changes, No C/O voiced, Improving PLAN TO DISCHARGE PATIENT HOME; WILL GET CULTURE RESULTS PRIOR TO DC. Review of Systems 10-point ROS is otherwise unremarkable Physical Examination - Vital Signs Temperature: 97.1 F Blood Pressure: 163/88 Pulse: 70 Respirations: 16 Pulse Ox (%): 97 - Physical Exam General: Alert, In no apparent distress, Oriented x3 Respiratory: Clear to auscultation bilaterally, Normal air movement Cardiovascular: Regular rate/rhythm, Normal S1 S2, No murmurs Gastrointestinal: Normal bowel sounds, Soft and benign, Non-distended, No te nderness Musculoskeletal: No clubbing, No swelling, No tenderness Neurological: Sensation intact, Cranial nerves 3-12 intact - Studies Microbiology Data (last 24 hrs): 08/24/22 02:50 Blood - Blood Anaerobic Blood Culture - Final Medications List Reviewed: Yes Assessment & Plan - Problems (Diagnosis) (1) UTI (urinary tract infection) Current Visit: Yes Status: Acute Qualifiers: Urinary tract infection type: catheter-associated UTI Indwelling urinary catheter type: indwelling urethral catheter Encounter type: initial encounter Qualified Code(s): T83.511A - Infection and inflammatory reaction due to indwelling urethral catheter, initial encounter; N39.0 - Urinary tract infection, site not specified (2) COPD (chronic obstructive pulmonary disease) Current Visit: Yes Status: Chronic Qualifiers: COPD type: unspecified COPD Qualified Code(s): J44.9 - Chronic obstructive pulmonary disease, unspecified (3) Hyperlipidemia Current Visit: Yes Status: Chronic (4) Hypertension Current Visit: Yes Status: Chronic Qualifiers: Hypertension type: primary hypertension Qualified Code(s): I10 - Essential (primary) hypertension (5) Type 2 diabetes mellitus Current Visit: Yes Status: Chronic Qualifiers: Diabetes mellitus senior care insulin use: without petroleum terminal plant operator use Diabetes mellitus complication status: with hyperglycemia Qualified Code(s): E11.65 - Type 2 diabetes mellitus with hyperglycemia (6) Depression Current Visit: No Status: Acute (7) Gastroesophageal reflux disease Current Visit: No Status: Acute (8) History of right hip replacement Current Visit: No Status: Acute (9) Kidney failure Current Visit: No Status: Acute (10) Osteoarthritis Current Visit: No Status: Acute Discharge Plan: Home Plan to discharge in: Greater than 2 days - Advance Directives Does patient have a Living Will: No Does patient have a Durable POA for Healthcare: No - Code Status/Comfort Care Code Status: Full Code Physician Review: Patient Assessed, Agree with Above Assessment and Plan Critical Care: No Time Spent Managing PTS Care (In Minutes): 35
[2022-08-25] MEDS: GABAPENTIN 300 MG CAP PO SCH (20:32)
[2022-08-25] MEDS: METFORMIN HCL 500 MG TAB PO SCH (20:32)
[2022-08-25] MEDS: PREGABALIN 150 MG CAP PO SCH (20:32)
[2022-08-25] MEDS ORDERED: MELATONIN 5 MG TABLET PO PRN (20:42)
[2022-08-25] MEDS: SERTRALINE HCL 50 MG TAB PO SCH (20:58)
[2022-08-26 03:12] LABS: Absolute Lymphocytes (CBC) 1.6 K/uL (0.7-4.9); Hematocrit 39.9 % (39.6-49.0); Lymphocytes % 21.4 % (15.3-44.8); MPV 8.2 fL (7.6-11.3); RBC Red Blood Cell Count 4.64 M/uL (4.33-5.43)
[2022-08-26 03:34] LABS: Bilirubin Total 0.8 mg/dL (0.2-1.0); Magnesium 1.9 mg/dL (1.6-2.4); Phosphorus 2.1 mg/dL (2.5-4.9); Potassium 3.8 mmol/L (3.5-5.1); Protein, Total 6.3 g/dL (6.4-8.2)
[2022-08-26] MEDS: NA CHLORIDE 0.9% 1,000 ML IV SCH (04:55)
[2022-08-26] MEDS: INSULIN -REGULAR HUMAN 50 UNIT/0.5 ML ML SQ SCH (07:30)
[2022-08-26 07:44] VITALS: BP 150/68; TEMP 97.5
[2022-08-26] MEDS ORDERED: POTASS/SODIUM PHOSPHATE 1 PKT POWD.PACK PO SCH (08:00)
[2022-08-26] MEDS ORDERED: Meropenem 1000 MG/VIAL IV ONE (08:41)
[2022-08-26] MEDS ORDERED: NA CHLORIDE 0.9% 100 ML ONE (08:42)
[2022-08-26] MEDS ORDERED: POTASSIUM CL SA 10 MEQ TAB PO ONE (09:00)
[2022-08-26] MEDS ORDERED: FAMOTIDINE 20 MG TAB PO SCH (09:00)
[2022-08-26] MEDS: Meropenem 1,000 MG in NA CHLORIDE 0.9% 100 ML IV SCH (09:18)
[2022-08-26] MEDS: POTASS/SODIUM PHOSPHATE 1 PKT POWD.PACK PO SCH ×2 (09:18→10:07)
[2022-08-26] MEDS: METFORMIN HCL 500 MG TAB PO SCH (09:20)
[2022-08-26] MEDS: GABAPENTIN 300 MG CAP PO SCH (09:20)
[2022-08-26] MEDS: PREGABALIN 150 MG CAP PO SCH (09:20)
[2022-08-26] MEDS: SERTRALINE HCL 50 MG TAB PO SCH (09:21)
== END 2022-08-26 11:17 | disposition home or self-care (01) | DRG 698 ==
LOC: ER 23:51 → ERHOLD 08-24 03:07 → 2ND 08-24 13:29
PROVIDERS: ADMIT Hospitalist; ATTEND Hospitalist
DX: T83.511A Infection and inflammatory reaction due to indwelling urethral catheter, initial encounter (principal); A41.9 Sepsis, unspecified organism; R65.21 Severe sepsis with septic shock; Z16.24 Resistance to multiple antibiotics; N17.9 Acute kidney failure, unspecified; N39.0 Urinary tract infection, site not specified; I10 Essential (primary) hypertension; E78.5 Hyperlipidemia, unspecified; F32.A Depression, unspecified; M19.90 Unspecified osteoarthritis, unspecified site; K21.9 Gastro-esophageal reflux disease without esophagitis; E11.65 Type 2 diabetes mellitus with hyperglycemia; J44.9 Chronic obstructive pulmonary disease, unspecified; Z88.8 Allergy status to other drugs, medicaments and biological substances; Z85.46 Personal history of malignant neoplasm of prostate; Z79.84 Long term (current) use of oral hypoglycemic drugs; Z74.01 Bed confinement status; Z79.899 Other long term (current) drug therapy; Z96.641 Presence of right artificial hip joint; Z20.822 Contact with and (suspected) exposure to COVID-19
CPT/HCPCS: 36415; 51702; 71045; 74177; 80048; 80053; 81003; 81015; 82947; 83605; 83735; 83880; 84100; 84145; 84484; 85025; 87040; 87077; 87086; 87088; 87186; 87811; 93005; 96361; 96365; 96375; 99285; J0360; J2185; J2405; J7030; J7040; Q9967

== ENCOUNTER 2022-12-25 11:18 | Day surgery (SDC) | payer OTHER ==
[2022-12-20 16:36] LABS: Absolute Lymphocytes (CBC) 1.7 K/uL (0.7-4.9); Hematocrit 41.8 % (39.6-49.0); Lymphocytes % 28.1 % (15.3-44.8); MCV 86.2 fL (80-100); MPV 8.4 fL (7.6-11.3); RBC Red Blood Cell Count 4.84 M/uL (4.33-5.43)
[2022-12-20 16:47] LABS: Potassium 4.5 mEq/L (3.5-5.1)
[2022-12-25] MEDS ORDERED: CIPROFLOXACIN HCL 500 MG TAB ONE (11:42)
[2022-12-25] MEDS ORDERED: NA CHLORIDE 0.9% 1,000 ML ONE (11:49)
[2022-12-25] MEDS ORDERED: FENTANYL CITR 100 MCG/2 ML ONE (13:43)
[2022-12-25] MEDS ORDERED: propofoL 200 MG/20 ML VIAL IV ONE (13:44)
[2022-12-25] MEDS ORDERED: MIDAZOLAM HCL 2 MG/2 ML INJ ONE (13:45)
[2022-12-25] MEDS ORDERED: ONDANSETRON 4 MG/2 ML VIAL ONE (13:46)
[2022-12-25] MEDS ORDERED: LIDOCAINE 1% MPF 5 ML VIAL ONE (13:46)
[2022-12-25] MEDS ORDERED: BUPIVACAINE 0.5% PF 10 ML VIAL ONE (13:52)
[2022-12-25] MEDS ORDERED: EPHEDRINE SULF 50 MG/ML VIAL ONE (14:23)
[2022-12-25] MEDS ORDERED: KETOROLAC 30 MG/ML INJ ONE (15:00)
--- NOTE | 2022-12-25 15:50 | OP ---
Surgeon: VANESA RAMAN Preoperative Diagnoses: 1.Urinary retention. 2.Detrusor dysfunction. 3.Traumatic hypospadias. Postoperative Diagnoses: 1.Urinary retention. 2.Detrusor dysfunction. 3.Traumatic hypospadias. Principal Procedures: 1.Cystoscopy. 2.Suprapubic cystotomy/suprapubic catheter placement. 3.Urethral Miller catheter replacement. Indication For Procedure: Mr. 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 He had developed a traumatic hypospadias down into the mid shaft, and as a result, after evaluation I recommended a suprapubic cystotomy with suprapubic tube be placed instead. Procedure In Detail: The patient was consented in the preoperative holding area with his family arou nd also assisting with some Liberian interpretation while his Monegasque was adequate. He was then trans ferred to the operative suite where general anesthesia was induced. He was given a dose of ciproflox acin oral antimicrobial prophylaxis at least 1 hour prior to the procedure. Pneumo boots were provid ed for DVT prophylaxis. He was placed in the low lithotomy position, padded and secured to the table appropriately, and his suprapubic region was shaved using an electric shaver before it was prepped w ith Betadine along with his genitalia and draped in standard fashion. A 22-Singaporean rigid cystoscope w as used to traverse the urethra and into the bladder with ease and the bladder was decompressed of fl uid and urine. I then retrograde filled the bladder with saline again before decompressing again to irrigate of any indwelling bacteria that may not have shown on culture. I then distended the bladder and placed the patient in steep Trendelenburg position before identifying an area in the suprapubic region just about 2 fingerbreadths above the umbilicus at the level of the lower abdominal crease. 0 .25% Marcaine was instilled subcutaneously and in the space of Retzius down to the level of the bladd er and then an incision was made in the Angel line approximately 1 cm in diameter using the provided knife. I then utilized the suprapubic cystotomy kit to pass a bladed [place] loop catheter via the sup rapubic incision directly under vision with the cystoscope in place into the dome anterior portion of the bladder. Once appropriately intravesical and location, the suprapubic catheter was coiled withi n the bladder using the [place] loop technology, and this was then secured in place using a 2-0 nylon lloyd ture at the skin. I then removed the cystoscope and placed an 18-Singaporean urethral Miller catheter into his bladder with ease placing 10 cc of sterile water in the balloon, and I ran the remainder of the cystoscopy normal saline irrigant fluid through the suprapubic catheter draining out the urethral Fol ey catheter as a form of CBI just to prevent any potential clots from the slight degree of heme that was collecting within the bladder associated with the suprapubic catheter placement. The suprapubic catheter was secured in place to the anterior abdomen, infraumbilical and the urethral Miller was conn ected to a floor bag. He was then taken out of the lithotomy position, awakened from general anesthe terry, transferred to a stretcher, and then transferred to the recovery room in good condition. Complications: None. Discharge Disposition: He should follow up in the Urology Clinic in 6-8 weeks' time for suprapubic c atheter exchange to a Miller catheter placed in the suprapubic region. We will likely try to upsize i t to a 16-Singaporean at the time of that visit. DESIREE/ALETHEA Voice ID: [id number] Report ID: [id number]
[2022-12-25 15:54] VITALS: BP 117/54; TEMP 97.9; O2SAT 92
== END 2022-12-25 16:48 | disposition home or self-care (01) ==
LOC: OR 11:18
PROVIDERS: ATTEND Urology
PROC: 0T9B30Z Drainage of Bladder with Drainage Device, Percutaneous Approach (ICD-10-PCS; principal; 2022-12-25 13:30)
DX: R33.9 Retention of urine, unspecified (principal); N31.9 Neuromuscular dysfunction of bladder, unspecified; Q54.9 Hypospadias, unspecified
CPT/HCPCS: 51040; 87088; 85025; 87086; 80048; 36415; 82947 ×2; J2704; J2001; J2250; J3010; J2405; J7030

== ENCOUNTER 2023-06-16 23:41 | Emergency (ER) | payer OTHER ==
--- OUTSIDE RECORDS SUMMARY | 2023-06-16 23:45 | XMS REPORT | Continuity of Care Document ---
:1945 Author Organization [facility] t Address [address] [place] [address] [address] [place] [address] Care Team Providers Name Role Phone Prema FREITAS Attending Clinician Unavailable LONNY TRIPP NATASHA Attending Clinician Unavailable Juan Treoj Attending Clinician Unavailable Leandra Weiner Attending Clinician Unavailable CRUZ VILLASENOR Attending Clinician Unavailable Peg Huerta Anavella Attending Clinician Unava ilable LONNY TRIPP NATASHA Admitting Clinician Unavailable DEBRA TSAI Admitting Clinician Unavailable Melissa Huerta Anav Admitting Clinician Unavailable Payers Payer Name Policy Type Policy Number Effective Date Expiration Date S sven [facility] [id number] [facility] [id number] 2021-01-10 Common Sp vianca ing Medicare 00:00:00 - [facility] [id number] 2021-01-10 Common Sp vianca ing [id number] 2021-01-10 Common Sp vianca ing Medicare [facility] [id number] 2021-01-10 Common Sp vianca ing Medicare 00:00:00 - [facility] Cigna-HealthSpr C1 [id number] 2021-01-10 Common Sp vianca ing Medicare 00:00:00 - [facility] Cigna-HealthSpr C1 [id number] 2021-01-10 Common Sp vianca ing Medicare 00:00:00 [facility] [facility] [id number] 2021-01-10 Common Sp vianca ing Medicare 00:00:00 [facility] Cigna-HealthSpr C1 [id number] 2021-01-10 Common Sp vianca ing Medicare 00:00:00 [facility] AARP Medicare C1 [id number] Common Spir it Complete [facility] Problems Condition Condition Condition Status Onset Resolution Last Treating Co mments Source Name Details Category Date Date Treatment Clinician Date Essential Essential Problem Active Com mon hypertensi hypertensi Sp vianca on on [facility] Adult Blood Problem Active Common health tests for [facility] examinatio routine - [facility] n general [facility] examinatio Medica n Center 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 Sp vianca [facility] Arthralgia Pain in Problem Active Comm on of the unspecifie Spirit lower leg d knee [facility] Pain in Pain in Problem Active Common both feet both feet Spir it [facility] [id number] Other Problem Active Common chronic Spirit pain [facility] Foot ulcer 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 [facility] Anxiety Anxiety Problem Active Common disorder disorder [facility] Malignant Malignant Problem Active Com mon tumor of neoplasm [facility] prostate of [facility] prostate [facility] History of History of Problem Active C ommon malignant prostate Spiri t neoplasm cancer - [facility] of prostate [facility] Dependence Wheelchair Problem Active C ommon on bound [facility] wheelchair [facility] [id number] Elevated Problem Active Comm on PSA [facility] [id number] Hypospadia Problem Active C ommon 125[address] s, balanic [facility] Anxiety Anxiety Problem Active Common Spirit [facility] 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 - CHI itis itis of [facility] COPD - COPD Problem Active Common Chronic (chronic Spirit obstructiv obstructiv - [facility] e e pulmonary [facility] s disease disease) [facility] [place] Prostate Prostate Problem Active Commo n cancer cancer [facility] Hyperlipid Hyperlipid Problem Active C ommon emia emia [facility] [id number] Chronic Problem Active Commo n pain Spirit syndrome [facility] At risk At risk Problem Active Common for falls for falls Spir it [facility] Neurogenic Neurogenic Problem Active C ommon bladder bladder [facility] [id number] Urinary Problem Active Commo n retention [facility] [id number] History of Problem Active Co mmon decubitus [facility] ulcer [facility] [id number] Uncontroll Problem Active Co mmon ed type 2 Spirit diabetes - CHI mellitus [facility] hyperglyce Medica l 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, Spiri t of lumbar lumbosacra - C HI region l region [facility] [id number] Indwelling Problem Active Co mmon urinary Spirit catheter - CHI present [facility] [id number] Reduced Problem Active Common mobility [facility] Allergies, Adverse Reactions, Alerts Allergy Allergy Status Severity Reaction(s) Onset Inactive Treating Comm ents Source Name Type Date Date Clinician NKA Allergy Active ENCCLR 02-15 12:28: 00 NKA Allergy Active ENCCLR 02-15 12:28: 00 NKA Allergy Active ENCCLR 02-15 12:28: 00 lisinopr lisinopr Active Unknown Commo n il il [facility] Social History Social Habit Start Date Stop Date Quantity Comments Source Sex Assigned At Com mon [facility] Smoking Status Start Date Stop Date Source Unknown if ever smoked Common Sp vianca [facility] Medications Ordered Filled Start Stop Current Ordering Indication Dosage Frequency Signature Comments Components Source Medication Medication Date Date Medication? Clinician (SIG) Name Name Pregabalin Pregabalin No Pregabalin 150 MG 150 MG 4-15 150 MG 00:00: 00 Nitrofurant Nitrofurant 2020- No BID Nitrofuran oin Monohyd oin Monohyd - 06-10 toin Macro 100 Macro 100 00:00: 00:00 Monohyd MG MG 00 :00 Macro 100 MG Glucometer Glucometer 2020- No Glucometer n/s n/s 3 06-20 n/s 00:00: 00:00 00 :00 Albuterol Albuterol No 3{ml_as TID Albuterol Sulfate Sulfate 3-10 _needed Sulfate (2.5 (2.5 00:00: } (2.5 MG/3ML) MG/3ML) 00 MG/3ML) 0.083% 0.083% 0.083% Pepcid Pepcid Yes Leandra 1 tablet Comm on 04-15 Millender Spirit 00:00: - CHI [facility] Albuterol Albuterol 2019-0 Yes Leandra 2 puffs as Common Sulfate HFA Sulfate HFA 04-15 Millender needed Spirit 00:00: - CHI [facility] Trulicity Trulicity 0 2020- No Leandra one C ommon 04-15 01 Millender injection Spir it 00:00: 00:00 - CHI 00 :00 [facility] Blood Blood 2019-0 Yes Leandra as Common Glucose Glucose - Millender directed Spirit Monitor Monitor 00:00: - CHI System System 00 [facility] Lancets Lancets Yes Leandra as Common - Millender directed Spirit 00:00: - CHI [facility] Blood Blood 2019-0 No Blood Glucose Glucose 7 Glucose Monitor Monitor 00:00: Monitor System System 00 System w/Device w/Device w/Device Lancets - Lancets - 2020-0 No Lancets - Common 03-02 Spirit 00:00: - CHI 00 [facility] Lancets - Lancets - 2020-0 No Lancets - Common 03-02 Spirit 00:00: - CHI 00 [facility] Lancets - Lancets - 2020-0 No Lancets - 7- 00:00: 00 Lancets - Lancets - 2020-0 No Lancets - 7- 00:00: 00 Lancets - Lancets - 2020-0 No Lancets - 7- 00:00: 00 Glucose Glucose 2020-0 Yes Leandra as Common testing testing - Millender directed Spirit strips strips 00:00: (dispense - CH I [address] [facility] Glucose Glucose 2020-0 No Glucose Comm on testing testing - testing Spirit strips n/s strips n/s 00:00: strips n/s - CHI 00 [facility] Glucose Glucose 2020-0 No Glucose Comm on testing testing 4- testing Spirit strips n/s strips n/s 00:00: strips n/s - CHI 00 [facility] Glucose Glucose 2020-0 No Glucose testing testing 4-23 testing strips n/s strips n/s 00:00: strips n/s 00 Glucose Glucose 2020-0 No Glucose testing testing 4-23 testing strips n/s strips n/s 00:00: strips n/s 00 Glucose Glucose 2020-0 No Glucose testing testing 4-23 testing strips n/s strips n/s 00:00: strips n/s 00 Contour Contour 2017- Yes Leandra n/s Common next next 05-08 Millender Spirit testing testing 00:00: - CHI strips strips 00 [facility] Sertraline Sertraline Yes Leandra 1 tablet Common [facility] Contour Contour Yes Leandra as Common Next Test Next Test Millender directed [facility] Losartan Losartan Yes Leandra 1 tablet Co mmon Potassium Potassium [facility] Loratadine Loratadine Yes Leandra 1 tablet Common [facility] Pantoprazol Pantoprazol Yes Leandra TOME ALEX Common e Sodium e Sodium Millender TABLETA Spirit TODOS LOS - CHI D? [facility] Lyrica Lyrica Yes Leandra 1 capsule Commo n Millender [facility] Fluticasone Fluticasone Yes Leandra 2 sprays Common Propionate Propionate Millender in each [facility] Lovastatin Lovastatin Yes Leandra 1 tablet Common Millender with a [facility] meal [facility] Metformin Metformin Yes Leandra 1 tablet Common HCl HCl Millender with a [facility] Flomax Flomax Yes Leandra 1 capsule Commo n Millender [facility] Xanax Xanax Yes Leandra 1 tablet Common Millender [facility] Furosemide Furosemide Yes Leandra 1 tablet Common Millender [facility] Aspirin Aspirin Yes Leandra tome alex Comm on Millender tableta Spirit todos [facility] Fluticasone Fluticasone Yes Leandra 1 spray in Common Propionate Propionate Millender each [facility] Aspirin 81 Aspirin 81 Yes Leandra 1 tablet Common Millender [facility] Aspirin 81 Aspirin 81 No 1{table QD Aspirin 81 81 MG 81 MG t} 81 MG Fluticasone Fluticasone No Fluticason Propionate Propionate e 50 MCG/ACT 50 MCG/ACT Propionate 50 MCG/ACT Pantoprazol Pantoprazol No Pantoprazo e Sodium 40 e Sodium 40 le Sodium MG MG 40 MG Flomax 0.4 Flomax 0.4 No 1{capsu QD Flomax 0.4 Common MG MG le} MG [facility] Losartan Losartan No 1{table QD Losartan Common Potassium Potassium t} Potassium Spirit 50 MG 50 MG 50 MG [facility] Anoro Anoro No 1{puff} QD Anoro Common Ellipta Ellipta Ellipta Spirit 62.5mcg/25 62.5mcg/25 62.5mcg/25 - CHI mcg [facility] Furosemide Furosemide No 1{table QD Furosemide Common 20 MG 20 MG t} 20 MG [facility] Albuterol Albuterol No 2{puffs Albuterol Common Sulfate HFA Sulfate HFA _as_nee Sulfate Spirit 108 (90 108 (90 ded} HFA 108 - CHI Base) Base) (90 Base) St MCG/ACT MCG/ACT MCG/ACT [facility] Trulicity Trulicity No Trulicity Common 1.5 1.5 1.5 Spirit MG/0.5ML MG/0.5ML MG/0.5ML - C HI [facility] Pantoprazol Pantoprazol No Pantoprazo Common e Sodium 40 e Sodium 40 le Sodium Spirit MG MG 40 MG [facility] Aspirin 81 Aspirin 81 No QD Aspirin 81 Common MG MG MG [facility] Jardiance Jardiance No 1{table QD Jardiance Common 25 mg 25 mg t} 25 mg [facility] Blood Blood No Blood Common Glucose Glucose Glucose [facility] Monitor Monitor [facility] System System System St w/Device w/Device w/Device [facility] Fluticasone Fluticasone No 2{spray QD Fluticason Common Propionate Propionate s_in_ea e Spirit 50 mcg/act 50 mcg/act ch_nost Propionate - [facility] ril} 50 mcg/act [facility] metFORMIN metFORMIN No 1{table BID metFORMIN Common HCl 1000 MG HCl 1000 MG t_with_ HCl 1000 Spirit a_meal} [facility] Lovastatin Lovastatin No 1{table QD Lovastatin Common 10 MG 10 MG t_with_ 10 MG [facility] hydr[facility]INE hydrALAZINE No 1{table hydrALAZIN Common HCl 25 MG HCl 25 MG t_with_ E HCl 25 Spirit food} [facility] Loratadine Loratadine No 1{table QD Loratadine Common 10 MG 10 MG t} 10 MG [facility] Pepcid 20 Pepcid 20 No 1{table QD Pepcid 20 Common MG MG t} MG [facility] Lyrica 75 Lyrica 75 No 1{capsu Lyrica 75 Common MG MG le} MG [facility] Sertraline Sertraline No QD Sertraline Common HCl 50 MG HCl 50 MG HCl 50 MG [facility] Xanax 0.5 Xanax 0.5 No 1{table TID Xanax 0.5 Common MG MG t} MG [facility] Albuterol Albuterol No 3{ml_as TID Albuterol Common Sulfate Sulfate _needed Sulfate Spi rit (2.5 (2.5 } (2.5 - CHI MG/3ML) MG/3ML) MG/3ML) St 0.083% 0.083% 0.083% [facility] Aspirin 81 Aspirin 81 No 1{table QD Aspirin 81 Common 81 MG 81 MG t} 81 MG [facility] Fluticasone Fluticasone No Fluticason Common Propionate Propionate e Spi rit 50 MCG/ACT 50 MCG/ACT Propionate - CHI 50 MCG/ACT [facility] Amoxicillin Amoxicillin No 1{capsu Amoxicilli Common 500 MG 500 MG le} n 500 MG [facility] Flomax 0.4 Flomax 0.4 No 1{capsu QD Flomax 0.4 Common MG MG le} MG [facility] Losartan Losartan No 1{table QD Losartan Common Potassium Potassium t} Potassium Spirit 50 MG 50 MG 50 MG [facility] Anoro Anoro No 1{puff} QD Anoro Common Ellipta Ellipta Ellipta Spirit 62.5mcg/25 62.5mcg/25 62.5mcg/25 - CHI mcg [facility] Furosemide Furosemide No 1{table QD Furosemide Common 20 MG 20 MG t} 20 MG [facility] Albuterol Albuterol No 2{puffs Albuterol Common Sulfate HFA Sulfate HFA _as_nee Sulfate Spirit 108 (90 108 (90 ded} HFA 108 - CHI Base) Base) (90 Base) St MCG/ACT MCG/ACT MCG/ACT [facility] Trulicity Trulicity No Trulicity Common 1.5 1.5 1.5 Spirit MG/0.5ML MG/0.5ML MG/0.5ML - C HI [facility] Pantoprazol Pantoprazol No Pantoprazo Common e Sodium 40 e Sodium 40 le Sodium Spirit MG MG 40 MG [facility] Aspirin 81 Aspirin 81 No QD Aspirin 81 Common MG MG MG [facility] Jardiance Jardiance No 1{table QD Jardiance Common 25 mg 25 mg t} 25 mg [facility] Blood Blood No Blood Common Glucose Glucose Glucose [facility] Monitor Monitor Monitor [facility] System System System St w/Device w/Device w/Device [facility] Fluticasone Fluticasone No 2{spray QD Fluticason Common Propionate Propionate s_in_ea e Spirit 50 mcg/act 50 mcg/act ch_nost Propionate - CHI ril} 50 mcg/act [facility] metFORMIN metFORMIN No 1{table BID metFORMIN Common HCl 1000 MG HCl 1000 MG t_with_ HCl 1000 Spirit a_meal} MG [facility] Lovastatin Lovastatin No 1{table QD Lovastatin Common 10 MG 10 MG t_with_ 10 MG Spirit a_meal} [facility] hydrALAZINE hydrALAZINE No 1{table hydrALAZIN Common HCl 25 MG HCl 25 MG t_with_ E HCl 25 Spirit food} [facility] Loratadine Loratadine No 1{table QD Loratadine Common 10 MG 10 MG t} 10 MG [facility] Pepcid 20 Pepcid 20 No 1{table QD Pepcid 20 Common MG MG t} MG [facility] Lyrica 75 Lyrica 75 No 1{capsu Lyrica 75 Common MG MG le} MG [facility] Sertraline Sertraline No QD Sertraline Common HCl 50 MG HCl 50 MG HCl 50 MG [facility] Xanax 0.5 Xanax 0.5 No 1{table TID Xanax 0.5 Common MG MG t} MG [facility] Albuterol Albuterol No 3{ml_as TID Albuterol Common Sulfate Sulfate _needed Sulfate Spi rit (2.5 (2.5 } (2.5 - CHI MG/3ML) MG/3ML) MG/3ML) St 0.083% 0.083% 0.083% [facility] Aspirin 81 Aspirin 81 No 1{table QD Aspirin 81 Common 81 MG 81 MG t} 81 MG [facility] Fluticasone Fluticasone No Fluticason Common Propionate Propionate e Spi rit 50 MCG/ACT 50 MCG/ACT Propionate - CHI 50 MCG/ACT [facility] Amoxicillin Amoxicillin No 1{capsu Amoxicilli Common 500 MG 500 MG le} n 500 MG Spirit - CHI [facility] Flomax 0.4 Flomax 0.4 No [...] 01-10 [facility] Spirit 00:00 - CHI :00 [facility] Jardiance Jardiance 2020- No Leandra 1 tablet Common 01-10 [facility] Spirit 00:00 - CHI :00 [facility] Anoro Anoro 2020- No Leandra 1 puff Common Ellipta Ellipta 01-10 Millender Spi rit 00:00 - CHI :00 [facility] Vital Signs Vital Name Observation Time Observation Value Comments Source height 2021-12-14 14:30:00 67 [in_i] Common S [facility] weight 2021-12-14 14:30:00 182 [lb_av] Common S pirit [facility] temperature 2021-12-14 14:30:00 97.6 [degF] Common [facility] bmi 2021-12-14 14:30:00 28.5 kg/m2 Common [facility] oximetry 2021-12-14 14:30:00 99 % Common [facility] respiratory rate 2021-12-14 14:30:00 16 /min Comm on [facility] blood pressure 2021-12-14 14:30:00 130 mm[Hg] Common [facility] - systolic [facility] blood pressure 2021-12-14 14:30:00 60 mm[Hg] Common [facility] - diastolic [facility] Procedures This patient has no known procedures. Encounters Start End Encounter Admission Attending Care Care Encounter Source Date/Time Date/Time Type Type Clinicians Facility Department ID 2023-04-09 Outpatient STLMLC STLMLC [id number] Common 08:26:00 [id number] [facility] 2023-03-28 Outpatient FREITAS, Na STLMLC STLMLC [id number] 2 Common 14:37:00 [id number] [facility] 2022-12-06 Outpatient FREITAS, Na STLMLC STLMLC [id number] 2 Common 15:16:01 [id number] [facility] 2022-02-21 Outpatient Freitas, Na STLMLC STLMLC [id number] 2 Common 13:21:00 [id number] [facility] 2022-01-23 Outpatient 3 JOSEE, ENCPL JOHN [id number] [facility] 08:14:53 LONNY 0614 [facility] [place] 2021-10-27 Outpatient [place], Na STLMLC STLMLC [id number] 2 Common 09:37:01 [facility] 2021-09-06 Outpatient [place], Na STLMLC STLMLC [id number] 2 Common 14:00:39 [id number] [facility] 2021-09-06 Outpatient [place], Na STLMLC STLMLC [id number] 2 Common 13:36:43 [id number] [facility] 2021-09-06 Outpatient [place], Na STLMLC STLMLC [id number] 2 Common 13:14:46 [id number] [facility] 2021-09-06 Outpatient [place], Na STLMLC STLMLC [id number] 2 Common 13:14:19 [id number] [facility] 2021-09-06 Outpatient [place], Na STLMLC STLMLC [id number] 2 Common 12:38:22 [id number] [facility] 2021-09-06 Outpatient [place], Na STLMLC STLMLC [id number] 2 Common 12:37:04 [id number] [facility] 2021-09-06 Outpatient [place], Na STLMLC STLMLC [id number] 2 Common 12:32:00 [id number] [facility] 2021-09-06 Outpatient [place], Na STLMLC STLMLC [id number] 2 Common 12:31:32 [id number] [facility] 2021-09-06 Outpatient [place], Na STLMLC STLMLC [id number] 2 Common 12:17:07 [id number] [facility] 2021-09-06 Outpatient Neil, Kin STLMLC STLMLC [id number] Common 12:04:40 [id number] [facility] 2021-09-06 Outpatient Neil, Kin STLMLC STLMLC [id number] Common 12:00:30 [id number] [facility] 2021-09-06 Outpatient Millender, STLMLC STLMLC [id number] Common 11:55:17 Leandra [id number] [facility] 2021-09-06 Outpatient Millender, STLMLC STLMLC [id number] Common 11:53:43 Leandra [id number] [facility] 2021-09-06 Outpatient Millender, STLMLC STLMLC [id number] Common 11:43:25 Leandra [id number] [facility] 2021-09-06 Outpatient Millender, STLMLC STLMLC [id number] Common 11:42:20 Leandra [id number] [facility] 2021-09-06 Outpatient Millender, STLMLC STLMLC [id number] Common 11:21:57 Leandra [id number] [facility] 2021-09-06 Outpatient Millender, STLMLC STLMLC [id number] Common 11:12:44 Leandra [id number] [facility] 2021-09-06 Outpatient Millender, STLMLC STLMLC [id number] Common 11:12:25 Leandra [id number] [facility] 2021-09-06 Outpatient Millender, STLMLC STLMLC [id number] Common 11:08:59 Leandra [id number] [facility] 2021-09-06 Outpatient Millender, STLMLC STLMLC [id number] Common 11:08:51 Leandra [id number] [facility] 2022-02-15 2022-08-22 Outpatient RECERTIFIC HAMILTON, ENCCLR ENCCLR [id number] ENCCLR 00:00:00 00:00:00 [facility] 2022-02-15 2022-02-15 Outpatient RECERTIFIC HAMILTON ENCCLR ENCCLR [id number] ENCCLR 00:00:00 00:00:00 [facility] 2022-02-15 2022-02-15 Outpatient READMIKATALINA VILLASENOR, ENCCLR ENCCLR [id number] ENCCLR 00:00:00 00:00:00 N CRUZ 2022-01-24 2022-02-14 Inpatient 3 [facility] ENCPL JOHN [id number] [facility] 12:18:00 16:16:00 amanda, [facility]15 [facility] [place] 2021-12-14 2021-12-14 OFFICE STLMLC STLMLC [id number] Co mmon 00:00:00 00:00:00 VISIT EST Spir it PT LEVEL 3 [facility] 2021-09-04 2021-09-04 (TEL) STLMLC STLMLC [id number] Co mmon 00:00:00 00:00:00 [facility] 2021-09-04 2021-09-04 (TEL) STLMLC STLMLC [id number] Co mmon 00:00:00 00:00:00 [facility] 2021-04-14 2021-04-14 (TEL) STLMLC STLMLC [id number] Co mmon 00:00:00 00:00:00 [facility] 2021-04-10 2021-04-10 (TEL) STLMLC STLMLC [id number] Co mmon 00:00:00 00:00:00 [facility] 2021-04-06 2021-04-06 (TEL) STLMLC STLMLC [id number] Co mmon 00:00:00 00:00:00 [facility] 2021-03-22 2021-03-22 OFFICE STLMLC STLMLC [id number] Co mmon 00:00:00 00:00:00 VISIT EST Spir it PT LEVEL 3 [facility] 2021-03-09 2021-03-09 (TEL) STLMLC STLMLC [id number] Co mmon 00:00:00 00:00:00 [facility] 2021-02-23 2021-02-23 (TEL) STLMLC STLMLC [id number] Co mmon 00:00:00 00:00:00 [facility] 2021-01-25 2021-01-25 (TEL) STLMLC STLMLC [id number] Co mmon 00:00:00 00:00:00 [facility] 2021-01-25 2021-01-25 OFFICE STLMLC STLMLC [id number] Co mmon 00:00:00 00:00:00 VISIT Spirit ESTAB PT - [facility] LEVEL 4 [facility] 2021-01-05 2021-01-05 (TEL) STLMLC STLMLC [id number] Co mmon 00:00:00 00:00:00 [facility] 2020-12-01 2020-12-01 Outpatient STLMLC STLMLC [id number] Common 00:00:00 00:00:00 [facility] 2020-10-31 2020-10-31 Outpatient STLMLC STLMLC [id number] Common 00:00:00 00:00:00 [facility] 2020-10-19 2020-10-19 Outpatient STLMLC STLMLC [id number] Common 00:00:00 00:00:00 [facility] 2020-08-03 2020-08-03 Outpatient STLMLC STLMLC [id number] Common 00:00:00 00:00:00 [facility] 2020-07-26 2020-07-26 Outpatient STLMLC STLMLC [id number] Common 00:00:00 00:00:00 [facility] 2020-07-26 2020-07-26 Outpatient STLMLC STLMLC [id number] Common 00:00:00 00:00:00 [facility] 2020-07-12 2020-07-12 Outpatient STLMLC STLMLC [id number] Common 00:00:00 00:00:00 [facility] 2020-06-27 2020-06-27 Outpatient STLMLC STLMLC [id number] Common 00:00:00 00:00:00 [facility] 2020-05-11 2020-05-11 Outpatient STLMLC STLMLC [id number] Common 00:00:00 00:00:00 [facility] 2020-04-18 2020-04-18 Outpatient [facility] STL[facility]C [id number] Common 00:00:00 00:00:00 [facility] 2020-04-14 2020-04-14 [facility] [id number] Common 10:20:00 10:20:[address] [facility] 2020-04-08 2020-04-08 [facility] [id number] Common 16:38:00 16:38:[address] [facility] 2020-04-08 2020-04-08 [facility] [id number] Common 16:36:00 16:36:[address] [facility] 2020-04-08 2020-04-08 [facility] [id number] Common 10:50:00 10:50:[address] [facility] 2020-03-07 2020-03-07 [facility] [id number] Common 14:47:00 14:47:00 t [facility] it Road [facility] 2020-01-26 2020-01-26 [facility] [id number] Common 14:20:00 14:20:00 t Specialty/U Sp vianca Specialty rology - [facility] 2020-01-19 2020-01-19 [facility] [id number] Common 14:00:00 14:00:00 t Specialty/U Sp vianca Specialty rology - [facility] 2020-01-18 2020-01-18 [facility] [id number] Common 14:30:00 14:30:00 t Specialty/U Sp vianca Specialty rology - [facility] 2020-01-11 2020-01-11 [facility] [id number] Common 16:46:00 16:46:00 t [facility] it [facility] 2019-12-28 2019-12-28 [facility] [id number] Common 14:00:00 14:00:00 t Specialty/U Sp vianca Specialty rology - [facility] /[facility] 2019-12-24 2019-12-24 [facility] [id number] Common 15:13:00 15:13:00 t Specialty/U Sp vianca Specialty rology - [facility] 2019-12-14 2019-12-14 [facility] [id number] Common 16:13:00 16:13:00 t [facility] it Road [facility] 2019-12-03 2019-12-03 [facility] [id number] Common 15:15:00 15:15:00 t [facility] it Road [facility] 2019-09-11 2019-09-11 [facility] [id number] Common 17:26:00 17:26:00 t [facility] it Road [facility] 2019-08-11 2019-08-11 [facility] [id number] Common 09:48:00 09:48:[address] [facility] 2019-07-02 2019-07-02 [facility] [id number] Common 15:20:00 15:20:[address] [facility] 2019-06-26 2019-06-26 [facility] [id number] Common 16:42:00 16:42:[address] [facility] 2019-06-23 2019-06-23 [facility] [place] [id number] Common 09:21:00 09:21:[address] [facility] 2019-06-11 2019-06-11 [facility] [id number] Common 14:59:00 14:59:[address] [facility] 2019-06-08 2019-06-08 [facility] [id number] Common 16:45:00 16:45:[address] [facility] 2019-05-25 2019-05-25 [facility] [id number] Common 15:30:00 15:30:00 t Specialty/U Sp vianca Specialty rology - [facility] 2019-05-06 2019-05-06 [facility] [id number] Common 13:24:00 13:24:[address] [facility] 2019-01-29 2019-01-29 [facility] [id number] Common 13:15:00 13:15:00 t Specialty/U Sp vianca Specialty rology - [facility] 2019-01-16 2019-01-16 [facility] [id number] Common 10:05:00 10:05:[address] [facility] 2019-01-02 2019-01-02 [facility] [id number] Common 14:10:00 14:10:[address] [facility] 2018-11-07 2018-11-07 [facility] [id number] Common 10:27:00 10:27:[address] [facility] 2018-11-04 2018-11-04 [facility] [id number] Common 15:55:00 15:55:00 t Specialty/U Sp vianca Specialty rology - [facility] /[facility] 2018-11-04 2018-11-04 [facility] [id number] Common 14:15:00 14:15:00 t Specialty/U Sp vianca Specialty rology - [facility] /[facility] 2018-09-30 2018-09-30 [facility] [id number] Common 15:30:00 15:30:[address] [facility] 2018-09-04 2018-09-04 [facility] [id number] Common 17:02:00 17:02:[address] [facility] 2018-09-03 2018-09-03 [facility] [id number] Common 10:12:00 10:12:[address] [facility] 2018-08-15 2018-08-15 [facility] [id number] Common 14:31:00 14:31:[address] [facility] 2018-08-11 2018-08-11 [facility] [id number] Common 09:42:00 09:42:[address] [facility] 2018-07-23 2018-07-23 [facility] [id number] Common 11:42:00 11:42:[address] [facility] 2018-05-29 2018-05-29 [facility] [id number] Common 12:09:00 12:09:[address] [facility] [address] [facility] 2018-05-08 2018-05-08 [facility] [id number] Common 10:57:00 10:57:[address] [facility] [address] [facility] 2018-04-01 2018-04-01 [facility] [id number] Common 15:34:00 15:34:[address] [facility] [address] [facility] 2018-03-17 2018-03-17 [facility] [id number] Common 15:30:00 15:30:[address] [facility] [address] [facility] 2018-01-30 2018-01-30 [facility] [id number] Common 15:00:00 15:00:[address] [facility] [address] [facility] 2018-01-22 2018-01-22 [facility] [id number] Common 10:00:00 10:00:00 t Specialty/U Sp vianca Specialty rology - [facility] Results This patient has no known results.
--- NOTE | 2023-06-17 00:20 | EDPHYS ---
Physician Documentation [facility] Name: Chito Chavira Jr Age: 77 yrs Sex: Male : 1945 Arrival Date: 06/16/2023 Time: 23:41 Bed 8 Private MD: ED Physician Dale Obrien HPI: 06/17 00:06 This 77 yrs old Male presents to ER via EMS with complaints of General sp4 complaint . 03:18 77-year-old male presents with acute onset of abdominal pain swelling and obstruction sp4 of indwelling suprapubic catheter. Patient reports moderate to severe abdominal bladder pain and nondraining suprapubic catheter for the past 24 hours. Patient presents with EMS from home. . Historical: - Allergies: 06/16 23:53 Seroquel; km8 - Home Meds: 23:53 albuterol sulfate 90 mcg/actuation Inhl HFAA 2 puffs as needed [Active]; alprazolam 0.5 km8 mg Oral tab 1 tab 3 times per day [Active]; glipizide 10 mg Oral tab 1 tab once daily [Active]; Lasix 20 mg Oral tab 1 tab once daily [Active]; losartan 50 mg Oral tab 1 tab once daily [Active]; lovastatin 10 mg Oral tab 1 tab once daily [Active]; metformin 1 Oral tab 1 tab 2 times per day [Active]; pantoprazole 40 mg Oral TbEC 1 tab once daily [Active]; tamsulosin 0.4 mg Oral cp24 1 cap once daily [Active]; tramadol 50 mg Oral tab 1 tab three times a day [Active]; - PMHx: 23:53 Anxiety; Arthritis; Asthma; Chronic obstructive lung disease; Dementia; Diabetes - km8 NIDDM; GERD; High Cholesterol; Hypertension; indwelling catheter; Prostate Cancer; - Immunization history:: Adult Immunizations up to date. - Social history:: Smoking status: Patient/guardian denies using tobacco, but has a distant history of tobacco abuse, Patient/guardian denies using alcohol, street drugs. - Family history:: not pertinent. ROS: 06/17 03:19 Constitutional: Negative for fever, chills, and weight loss, positive for obstructed sp4 indwelling suprapubic catheter associated with abdominal pain and bladder swelling All other systems are negative, Exam: 03:19 Constitutional: This is a well developed, well nourished patient who is awake, alert, sp4 patient is moderately deconditioned male bedbound nonambulatory, signs of diffuse muscular atrophy, indwelling suprapubic catheter was distended urinary bladder signs of Miller catheter obstruction. Patient is also in significant distress secondary to pain. Suprapubic catheter was exchanged on exam with significant amount of urine output. Head/Face: Normocephalic, atraumatic. Eyes: Pupils equal round and reactive to light, extra-ocular motions intact. Lids and lashes normal. Conjunctiva and sclera are not injected. Cornea within normal limits. Periorbital areas with no swelling, redness, or edema. ENT: Nares patent. No nasal discharge, no septal abnormalities noted. Tympanic membranes are normal and external auditory canals are clear. Oropharynx with no redness, swelling, or masses, exudates, or evidence of obstruction, uvula midline. Mucous membranes moist. Neck: Trachea midline, no thyromegaly or masses palpated, and no cervical lymphadenopathy. Supple, full range of motion without nuchal rigidity, or vertebral point tenderness. Chest/axilla: Normal chest wall appearance and motion. Nontender with no deformity. No lesions are appreciated. Cardiovascular: Regular rate and rhythm with a normal S1 and S2. No gallops, murmurs, or rubs. Normal PMI, no JVD. No pulse deficits. Respiratory: Lungs have equal breath sounds bilaterally, clear to auscultation and percussion. No rales, rhonchi or wheezes noted. No increased work of breathing, no retractions or nasal flaring. Abdomen/GI: Soft, non-tender, with normal bowel sounds. No distension or tympany. No guarding or rebound. Positive indwelling suprapubic catheter with a distended urinary bladder and abdominal tenderness also urinated bladder tenderness Back: No spinal tenderness. No costovertebral tenderness. Male : Normal genitalia with no discharge or lesions. Indwelling suprapubic urinary catheter was exchanged on examination with instant urine leak from the stoma from pressurized urinary bladder. Newly inserted 18 Serbian urinary catheter is properly draining the urine. Skin: Warm, dry with normal turgor. Normal color with no rashes, no lesions, and no evidence of cellulitis. MS/ Extremity: Pulses equal, no cyanosis. Neurovascular intact. Bilateral lower extremity contractures from immobility with muscular atrophy diffusely Neuro: Awake and alert, GCS 15, oriented to person, place, time, and situation. Cranial nerves II-XII grossly intact. Exam is limited secondary to immobility. No new neurologic deficits reported Psych: Awake, alert, with orientation to person, place and time. Behavior, mood, and affect are within normal limits Vital Signs: 06/16 23:49 BP 115 / 82; Pulse 126; Resp 18; Temp 98.1(O); Pulse Ox 98% on R/A; Weight 127.91 kg km8 (R); Height 5 ft. 9 in. (R); Pain 10/10; 06/17 00:00 BP 128 / 83; Pulse 109; Resp 16 S; Pulse Ox 96% on R/A; km8 06/16 23:49 Body Mass Index 41.64 (127.91 kg, 175.26 cm) [facility] 06/16 23:49 Pain Scale: Adult km Adalberto Coma Score: 06/16 23:57 Eye Response: spontaneous(4). Motor Response: obeys commands(6). Verbal Response: km oriented(5). Total: 15. Procedures: 06/17 03:19 Miller cath inserted by myself - 18 Fr. Returned clear yellow urine. Urine output = 1000 sp4 ml's. Miller cath balloon deflated, Old indwelling suprapubic catheter removed and new lead inserted without problem through the suprapubic stoma. . Patient tolerated well. MDM: 00:20 Patient medically screened. sp4 03:19 Differential Diagnosis altered mental status, sepsis, flu. Data reviewed: vital signs, sp4 nurses notes, EMS record, old medical records. Consideration of Admission/Observation Escalation of care including admission/observation considered. ED course: Newly inserted suprapubic catheter is properly draining. Patient feels much better after the urinary bladder decompressed. Patient is stable for discharge back home with EMS transport. . Administered Medications: No medications were administered Disposition Summary: 06/17/23 00:20 Discharge Ordered Notes: We recommend catheter exchange in 2 weeks Location: Home sp4 Problem: new sp4 Symptoms: have improved sp4 Condition: Stable sp4 Diagnosis - Mechanical complication of urinary (indwelling) catheter sp4 - Obstruction of suprapubic catheter, urinary bladder distention sp4 Followup: sp4 - With: Private Physician - When: 7 - 10 days - Reason: Recheck today's complaints Discharge Instructions: - Discharge Summary Sheet sp4 - Indwelling Urinary Catheter Insertion, Care After sp4 Forms: - Patient Portal Instructions sp4 Signatures: Dale Obrien MD MD sp4 Barbara Lundberg RN RN km8
--- NOTE | 2023-06-17 00:20 | ER ---
Nurse's Notes [facility] Name: Chito Chavira Jr Age: 77 yrs Sex: Male : 1945 Arrival Date: 06/16/2023 Time: 23:41 Bed 8 Private MD: Diagnosis: Mechanical complication of urinary (indwelling) catheter;Obstruction of suprapubic catheter, urinary bladder distention Presentation: 06/16 23:49 Chief complaint: Patient states: his suprapubic catheter hasn't has any output today km8 but is leaking around the insertion site; pt reports pain in ABD and penis. Coronavirus screen: Client denies travel out of the [place] in the last 14 days. At this time, the client does not indicate any symptoms associated with coronavirus-19. Ebola Screen: No symptoms or risks identified at this time. Initial Sepsis Screen: Does the patient meet any 2 criteria? HR > 90 bpm. Does the patient have a suspected source of infection? No. Patient's initial sepsis screen is negative. Risk Assessment: Do you want to hurt yourself or someone else? Patient reports no desire to harm self or others. Onset of symptoms was June 16, 2023. 23:49 Method Of Arrival: EMS km8 23:49 Acuity: TROY 3 km8 Triage Assessment: 23:53 General: Appears uncomfortable, Behavior is calm, cooperative, appropriate for age. km8 Pain: Complains of pain in suprapubic area Pain currently is 10 out of 10 on a pain scale. EENT: No signs and/or symptoms were reported regarding the EENT system. Neuro: Collins Agitation-Sedation Scale (RASS): 0 - Alert and Calm Level of Consciousness is awake, alert, obeys commands, Oriented to person, place, time, situation. Cardiovascular: Denies chest pain, shortness of breath, Capillary refill < 3 seconds Patient's skin is warm and dry. Respiratory: Airway is patent Respiratory effort is even, unlabored, Respiratory pattern is regular, symmetrical. GI: Abdomen is distended. : suprapubic catheter in place not draining; leaking around site Reports inability to void, pain in suprapubic area. Derm: Skin is intact, Skin is clammy, Skin is normal, Skin temperature is warm. Musculoskeletal: No signs and/or symptoms reported regarding the musculoskeletal system. Range of motion: limited in BLE. Historical: - Allergies: 23:53 Seroquel; 8 - Home Meds: 23:53 albuterol sulfate 90 mcg/actuation Inhl HFAA 2 puffs as needed [Active]; alprazolam 0.5 km8 mg Oral tab 1 tab 3 times per day [Active]; glipizide 10 mg Oral tab 1 tab once daily [Active]; Lasix 20 mg Oral tab 1 tab once daily [Active]; losartan 50 mg Oral tab 1 tab once daily [Active]; lovastatin 10 mg Oral tab 1 tab once daily [Active]; metformin 1 Oral tab 1 tab 2 times per day [Active]; pantoprazole 40 mg Oral TbEC 1 tab once daily [Active]; tamsulosin 0.4 mg Oral cp24 1 cap once daily [Active]; tramadol 50 mg Oral tab 1 tab three times a day [Active]; - PMHx: 23:53 Anxiety; Arthritis; Asthma; Chronic obstructive lung disease; Dementia; Diabetes - NIDDM; GERD; High Cholesterol; Hypertension; indwelling catheter; Prostate Cancer; - Immunization history:: Adult Immunizations up to date. - Social history:: Smoking status: Patient/guardian denies using tobacco, but has a distant history of tobacco abuse, Patient/guardian denies using alcohol, street drugs. - Family history:: not pertinent. Screenin:57 [facility] ED Fall Risk Assessment (Adult) History of falling in the last 3 months, [facility] including since admission No falls in past 3 months (0 pts) Confusion or Disorientation No (0 pts) Intoxicated or Sedated No (0 pts) Impaired Gait No (0 pts) Mobility Assist Device Used No (0 pt) Altered Elimination No (0 pt) Score/Fall Risk Level 0 - 2 = Low Risk Oriented to surroundings, Maintained a safe environment, Educated pt \T\ family on fall prevention, incl call for assistance when getting out of bed, Assessed \T\ reinforced patient's understanding of fall precautions. Abuse screen: Denies threats or abuse. Denies injuries from another. Nutritional screening: No deficits noted. Tuberculosis screening: No symptoms or risk factors identified. Assessment: 23:57 General: see triage notes/assessment. [facility] 06/17 00:18 : suprapubic catheter in place to gravity drainage. km8 00:32 General: pt waiting on family to pick him up; family en route to hospital. km8 Vital Signs: 06/16 23:49 BP 115 / 82; Pulse 126; Resp 18; Temp 98.1(O); Pulse Ox 98% on R/A; Weight 127.91 kg km8 (R); Height 5 ft. 9 in. (R); Pain 10/10; 06/17 00:00 BP 128 / 83; Pulse 109; Resp 16 S; Pulse Ox 96% on R/A; km8 11 23:49 Body Mass Index 41.64 (127.91 kg, 175.26 cm) km8 06/16 23:49 Pain Scale: Adult km8 Adalberto Coma Score: 06/16 23:57 Eye Response: spontaneous(4). Motor Response: obeys commands(6). Verbal Response: km8 oriented(5). Total: 15. ED Course: 23:45 Patient arrived in ED. rv1 23:48 Barbara Lundberg, RN is Primary Nurse. km8 23:52 Triage completed. km8 23:53 Arm band placed on right wrist. km8 23:57 Patient has correct armband on for positive identification. Placed in gown. Bed in low km8 position. Call light in reach. Side rails up X2. Client placed on continuous cardiac and pulse oximetry monitoring. NIBP monitoring applied. foamite mixer on. Door closed. Noise minimized. Warm blanket given. 23:57 Patient maintains SpO2 saturation greater than 95% on room air. km8 06/17 00:06 Dale Obrien MD is Attending Physician. sp4 00:17 suprapubic catheter exchange. km8 00:18 Provided Education on: d/c teaching. km8 00:31 Warm blanket given. Cleaned of incontinence. Linen changed. km8 00:31 Patient did not have IV access during this emergency room visit. km8 Administered Medications: No medications were administered Medication: 00:18 VIS not applicable for this client. km8 Outcome: 00:20 Discharge ordered by . sp4 00:31 Condition: good km8 00:31 Discharge instructions given to patient, family, Instructed on discharge instructions, follow up and referral plans. Demonstrated understanding of instructions, follow-up care, 01:33 Discharged to home via ambulance, km8 01:34 Patient left the ED. km8 Signatures: Kasey Marshall rv1 Dale Obrien MD MD sp4 Barbara Lundberg RN RN km8 Corrections: (The following items were deleted from the chart) 01:34 00:32 General: pt waiting on family to pick him up; family en route to hospital. km8 km8 :35 00:31 Discharged to home via wheelchair, with family, 8 km8 :35 00:31 Discharge instructions given to patient, family, Instructed on discharge km8 instructions, follow up and referral plans. Demonstrated understanding of instructions, follow-up care, km8
[2023-06-17 01:49] VITALS: TEMP 98.1
[2023-06-17 01:51] VITALS: BP 128/83; O2SAT 96
== END 2023-06-17 01:34 | disposition home or self-care (01) ==
LOC: ER 23:41
PROC: 0T9B70Z Drainage of Bladder with Drainage Device, Via Natural or Artificial Opening (ICD-10-PCS; principal; 2023-06-17)
DX: T83.098A Other mechanical complication of other urinary catheter, initial encounter (principal); Z88.8 Allergy status to other drugs, medicaments and biological substances
CPT/HCPCS: 51702; 99285

== ENCOUNTER 2023-06-18 09:13 | Inpatient (IN) | payer OTHER ==
--- OUTSIDE RECORDS SUMMARY | 2023-06-18 09:17 | XMS REPORT | Continuity of Care Document ---
:[address] [facility] t Address [address] [place] [address] [address] [place] [address] Care Team Providers Name Role Phone Prema [...] Number Effective Date Expiration Date S sven [facility] [id number] [facility] [address] [id number] 2021-01-10 Common Sp vianca ing Medicare 00:00:00 - [facility] [id number] 2021-01-10 Common [id number] 2021-01-10 Common Sp [facility] ing [id number] 2021-01-10 Common Sp vianca ing Medicare 00:00:00 - [facility] Cigna-HealthSpr C1 [id number] 2021-01-10 Common Sp vianca ing Medicare 00:00:00 - [facility] [employer]-HealthSpr C1 [id number] 2021-01-10 Common Sp vianca ing Medicare 00:00:00 [facility] [id number] 2021-01-10 Common Sp vianca ing Medicare 00:00:00 [facility] [employer]-HealthSpr C1 [id number] 2021-01-10 Common Sp vianca ing Medicare 00:00:00 [facility] AARP Medicare C1 [id number] Common Spir it Complete [facility] Problems Condition Condition Condition Status Onset Resolution Last Treating Co mments Source Name Details Category Date Date Treatment Clinician Date Essential Essential Problem Active Com mon hypertensi hypertensi Sp vianca on on [facility] Adult Blood Problem Active Common health tests for [facility] examinatio routine - [facility] n general [facility] examinatio Medica n Center 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 Sp vianca [facility] Arthralgia Pain in Problem Active Comm on of the unspecifie Spirit lower leg d knee [facility] Pain in Pain in Problem Active Common both feet both feet Spir it [facility] [id number] Other Problem Active Common chronic Spirit pain [facility] Foot ulcer 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 [facility] Anxiety Anxiety Problem Active Common disorder disorder [facility] Malignant Malignant Problem Active Com mon tumor of neoplasm [facility] prostate of [facility] prostate [facility] History of History of Problem Active C ommon malignant prostate Spiri t neoplasm cancer - [facility] of prostate [facility] Dependence Wheelchair Problem Active C ommon on bound [facility] wheelchair [facility] [id number] Elevated Problem Active Comm on PSA [facility] [id number] Hypospadia Problem Active C ommon [address] s, balanic [facility] Anxiety Anxiety Problem Active Common Spirit [facility] 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 - [facility]I itis itis of [facility] COPD - COPD Problem Active Common Chronic (chronic Spirit obstructiv obstructiv - [facility] e e pulmonary [facility] s disease disease) [facility] [place] Prostate Prostate Problem Active Commo n cancer cancer [facility] Hyperlipid Hyperlipid Problem Active C ommon emia emia [facility] [id number] Chronic Problem Active Commo n pain Spirit syndrome [facility] At risk At risk Problem Active Common for falls for falls Spir it [facility] 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, Spiri t of lumbar lumbosacra - C HI region l region [facility] [id number] Indwelling Problem Active Co mmon urinary Spirit catheter - CHI present [facility] [id number] Reduced Problem Active Common mobility [facility] Allergies, Adverse Reactions, Alerts Allergy Allergy Status Severity Reaction(s) Onset Inactive Treating Comm ents Source Name Type Date Date Clinician NKA Allergy Active ENCCLR 02-15 12:28: 00 NKA Allergy Active ENCCLR 02-15 12:28: 00 NKA Allergy Active ENCCLR 02-15 12:28: 00 lisinopr lisinopr Active Unknown Commo n il il [facility] Social History Social Habit Start Date Stop Date Quantity Comments Source Sex Assigned At Com mon [facility] Smoking Status Start Date Stop Date Source Unknown if ever smoked Common Sp vianca [facility] Medications Ordered Filled Start Stop Current [...] on 04-15 Millender Spirit 00:00: - CHI [facility] Albuterol Albuterol 2019-0 Yes Leandra 2 puffs as Common Sulfate HFA Sulfate HFA 04-15 Millender needed Spirit 00:00: - CHI [facility] Trulicity Trulicity 0 2020- No Leandra one C ommon 04-15 01 Millender injection Spir it 00:00: 00:00 - CHI 00 :00 [facility] Blood Blood 2019-0 Yes Leandra as Common Glucose Glucose - Millender directed Spirit Monitor Monitor 00:00: - CHI System System 00 [facility] Lancets Lancets Yes Leandra as Common - Millender directed Spirit 00:00: - CHI [facility] Blood Blood 2019-0 No Blood Glucose Glucose 7 Glucose Monitor Monitor 00:00: Monitor System System 00 System w/Device w/Device w/Device Lancets - Lancets - 2020-0 No Lancets - Common 03-02 Spirit 00:00: - CHI 00 [facility] Lancets - Lancets - 2020-0 No Lancets - Common 03-02 Spirit 00:00: - CHI 00 [facility] Lancets - Lancets - 2020-0 No Lancets - 7- 00:00: 00 Lancets - Lancets - 2020-0 No Lancets - 7- 00:00: 00 Lancets - Lancets - 2020-0 No Lancets - 7- 00:00: 00 Glucose Glucose 2020-0 Yes Leandra as Common testing testing - Millender directed Spirit strips strips 00:00: (dispense - CH I [address] strips [facility] Glucose Glucose 2020-0 No Glucose Comm on testing testing - testing Spirit strips n/s strips n/s 00:00: strips n/s - CHI 00 [facility] Glucose Glucose 2020-0 No Glucose Comm on testing testing 4- testing Spirit strips n/s strips n/s 00:00: strips n/s - CHI 00 [facility] Glucose Glucose 2020-0 No Glucose testing [...] testing 00:00: - CHI strips strips 00 [facility] Sertraline Sertraline Yes Leandra 1 tablet Common [facility] Contour Contour Yes Leandra as Common Next Test Next Test Millender directed [facility] Losartan Losartan Yes Leandra 1 tablet Co mmon Potassium Potassium [facility] Loratadine Loratadine Yes Leandra 1 tablet [facility] Pantoprazol Pantoprazol Yes Leandra TOME ALEX Common e Sodium e Sodium Millender TABLETA Spirit TODOS LOS - CHI D? [facility] Lyrica Lyrica Yes Leandra 1 capsule Commo n Millender [facility] Fluticasone Fluticasone Yes Leandra 2 sprays Common Propionate Propionate Millender in each [facility] Lovastatin Lovastatin Yes Leandra 1 tablet Common Millender with a [facility] meal [facility] Metformin Metformin Yes Leandra 1 tablet Common HCl HCl Millender with a [facility] Flomax Flomax Yes Leandra 1 capsule Commo n Millender [facility] Xanax Xanax Yes Leandra 1 tablet Common Millender [facility] Furosemide Furosemide Yes Leandra 1 tablet Common Millender [facility] Aspirin Aspirin Yes Leandra tome alex Comm on Millender tableta Spirit todos [facility] Fluticasone Fluticasone Yes Leandra 1 spray in Common Propionate Propionate Millender each [facility] Aspirin 81 Aspirin 81 Yes Leandra 1 tablet Common Millender [facility] Aspirin 81 Aspirin 81 No 1{table QD Aspirin 81 81 MG 81 MG t} 81 MG Fluticasone Fluticasone No Fluticason Propionate Propionate e 50 MCG/ACT 50 MCG/ACT Propionate 50 MCG/ACT Pantoprazol Pantoprazol No Pantoprazo e Sodium 40 e Sodium 40 le Sodium MG MG 40 MG Flomax 0.4 Flomax 0.4 No 1{capsu QD Flomax 0.4 Common MG MG le} MG [facility] Losartan Losartan No 1{table QD Losartan Common Potassium Potassium t} Potassium Spirit 50 MG 50 MG 50 MG [facility] Anoro Anoro No 1{puff} QD Anoro Common Ellipta Ellipta Ellipta Spirit 62.5mcg/25 62.5mcg/25 62.5mcg/25 - CHI mcg [facility] Furosemide Furosemide No 1{table QD Furosemide Common 20 MG 20 MG t} 20 MG [facility] Albuterol Albuterol No 2{puffs Albuterol Common Sulfate HFA Sulfate HFA _as_nee Sulfate Spirit 108 (90 108 (90 ded} HFA 108 - CHI Base) Base) (90 Base) St MCG/ACT MCG/ACT MCG/ACT [facility] Trulicity Trulicity No Trulicity Common 1.5 1.5 1.5 Spirit MG/0.5ML MG/0.5ML MG/0.5ML - C HI [facility] Pantoprazol Pantoprazol No Pantoprazo Common e Sodium 40 e Sodium 40 le Sodium Spirit MG MG 40 MG [facility] Aspirin 81 Aspirin 81 No QD Aspirin 81 Common MG MG MG [facility] Jardiance Jardiance No 1{table QD Jardiance Common 25 mg 25 mg t} 25 mg [facility] Blood Blood No Blood Common Glucose Glucose Glucose [facility] Monitor Monitor [facility] System System System St w/Device w/Device w/Device [facility] Fluticasone Fluticasone No 2{spray QD Fluticason Common Propionate Propionate s_in_ea e Spirit 50 mcg/act 50 mcg/act ch_nost Propionate - [facility] ril} 50 mcg/act [facility] metFORMIN metFORMIN No 1{table BID metFORMIN Common HCl 1000 MG HCl 1000 MG t_with_ HCl 1000 Spirit a_meal} [facility] Lovastatin Lovastatin No 1{table QD Lovastatin Common 10 MG 10 MG t_with_ 10 MG [facility] hydrALAZINE hydrALAZINE No 1{table hydrALAZIN Common HCl 25 MG HCl 25 MG t_with_ E HCl 25 Spirit food} [facility] Loratadine Loratadine No 1{table QD Loratadine Common 10 MG 10 MG t} 10 MG [facility] Pepcid 20 Pepcid 20 No 1{table QD Pepcid 20 Common MG MG t} MG [facility] Lyrica 75 Lyrica 75 No 1{capsu Lyrica 75 Common MG MG le} MG [facility] Sertraline Sertraline No QD Sertraline Common HCl 50 MG HCl 50 MG HCl 50 MG [facility] Xanax 0.5 Xanax 0.5 No 1{table TID Xanax 0.5 Common MG MG t} MG [facility] Albuterol Albuterol No 3{ml_as TID Albuterol Common Sulfate Sulfate _needed Sulfate Spi rit (2.5 (2.5 } (2.5 - CHI MG/3ML) MG/3ML) MG/3ML) St 0.083% 0.083% 0.083% [facility] Aspirin 81 Aspirin 81 No 1{table QD Aspirin 81 Common 81 MG 81 MG t} 81 MG [facility] Fluticasone Fluticasone No Fluticason Common Propionate Propionate e Spi rit 50 MCG/ACT 50 MCG/ACT Propionate - CHI 50 MCG/ACT [facility] Amoxicillin Amoxicillin No 1{capsu Amoxicilli Common 500 MG 500 MG le} n 500 MG [facility] Flomax 0.4 Flomax 0.4 No 1{capsu QD Flomax 0.4 Common MG MG le} MG [facility] Losartan Losartan No 1{table QD Losartan Common Potassium Potassium t} Potassium Spirit 50 MG 50 MG 50 MG [facility] Anoro Anoro No 1{puff} QD Anoro Common Ellipta Ellipta Ellipta Spirit 62.5mcg/25 62.5mcg/25 62.5mcg/25 - CHI mcg [facility] Furosemide Furosemide No 1{table QD Furosemide Common 20 MG 20 MG t} 20 MG [facility] Albuterol Albuterol No 2{puffs Albuterol Common Sulfate HFA Sulfate HFA _as_nee Sulfate Spirit 108 (90 108 (90 ded} HFA 108 - CHI Base) Base) (90 Base) St MCG/ACT MCG/ACT MCG/ACT [facility] Trulicity Trulicity No Trulicity Common 1.5 1.5 1.5 Spirit MG/0.5ML MG/0.5ML MG/0.5ML - C HI [facility] Pantoprazol Pantoprazol No Pantoprazo Common e Sodium 40 e Sodium 40 le Sodium Spirit MG MG 40 MG [facility] Aspirin 81 Aspirin 81 No QD Aspirin 81 Common MG MG MG [facility] Jardiance Jardiance No 1{table QD Jardiance Common 25 mg 25 mg t} 25 mg [facility] Blood Blood No Blood Common Glucose Glucose Glucose [facility] Monitor Monitor Monitor [facility] System System System St w/Device w/Device w/Device [facility] Fluticasone Fluticasone No 2{spray QD Fluticason Common Propionate Propionate s_in_ea e Spirit 50 mcg/act 50 mcg/act ch_nost Propionate - CHI ril} 50 mcg/act [facility] metFORMIN metFORMIN No 1{table BID metFORMIN Common HCl 1000 MG HCl 1000 MG t_with_ HCl 1000 Spirit a_meal} MG [facility] Lovastatin Lovastatin No 1{table QD Lovastatin Common 10 MG 10 MG t_with_ 10 MG Spirit a_meal} [facility] hydrALAZINE hydrALAZINE No 1{table hydrALAZIN Common HCl 25 MG HCl 25 MG t_with_ E HCl 25 Spirit food} [facility] Loratadine Loratadine No 1{table QD Loratadine Common 10 MG 10 MG t} 10 MG [facility] Pepcid 20 Pepcid 20 No 1{table QD Pepcid 20 Common MG MG t} MG [facility] Lyrica 75 Lyrica 75 No 1{capsu Lyrica 75 Common MG MG le} MG [facility] Sertraline Sertraline No QD Sertraline Common HCl 50 MG HCl 50 MG HCl 50 MG [facility] Xanax 0.5 Xanax 0.5 No 1{table TID Xanax 0.5 Common MG MG t} MG [facility] Albuterol Albuterol No 3{ml_as TID Albuterol Common Sulfate Sulfate _needed Sulfate Spi rit (2.5 (2.5 } (2.5 - CHI MG/3ML) MG/3ML) MG/3ML) St 0.083% 0.083% 0.083% [facility] Aspirin 81 Aspirin 81 No 1{table QD Aspirin 81 Common 81 MG 81 MG t} 81 MG [facility] Fluticasone Fluticasone No Fluticason Common Propionate Propionate e Spi rit 50 MCG/ACT 50 MCG/ACT Propionate - CHI 50 MCG/ACT [facility] Amoxicillin Amoxicillin No 1{capsu Amoxicilli Common 500 MG 500 MG le} n 500 MG Spirit - CHI [facility] Flomax 0.4 Flomax 0.4 No 1{capsu [...] 01-10 Millender Spirit 00:00 - CHI :00 [facility] Jardiance Jardiance 2020- No Leandra 1 tablet Common 01-10 Millender Spirit 00:00 - CHI :00 [facility] Anoro Anoro 2020- No Leandra 1 puff Common Ellipta Ellipta 01-10 Millender Spi rit 00:00 - CHI :00 [facility] Vital Signs Vital Name Observation Time Observation Value Comments Source height 2021-12-14 14:30:00 67 [in_i] Common S [facility] weight 2021-12-14 14:30:00 182 [lb_av] Common S pirit [facility] temperature 2021-12-14 14:30:00 97.6 [degF] Common [facility] bmi 2021-12-14 14:30:00 28.5 kg/m2 Common [facility] oximetry 2021-12-14 14:30:00 99 % Common [facility] respiratory rate 2021-12-14 14:30:00 16 /min Comm on [facility] blood pressure 2021-12-14 14:30:00 130 mm[Hg] Common [facility] - systolic [facility] blood pressure 2021-12-14 14:30:00 60 mm[Hg] Common [facility] - diastolic [facility] Procedures This patient has no known procedures. Encounters Start End Encounter Admission Attending Care Care Encounter Source Date/Time Date/Time Type Type Clinicians Facility Department ID 2023-04-09 Outpatient STLMLC STLMLC [id number] Common 08:26:00 [id number] [facility] 2023-03-28 Outpatient FREITAS, Na STLMLC STLMLC [id number] Common 14:37:00 [id number] [facility] 2022-12-06 Outpatient FREITAS, Na STLMLC STLMLC [id number] Common 15:16:01 [id number] [facility] 2022-02-21 Outpatient Freitas, Na STLMLC STLMLC [id number] Common 13:21:00 [id number] [facility] 2022-01-23 Outpatient 3 JOSEE, ENCPL JOHN [id number] [facility] 08:14:53 LONNY [facility] [place] 2021-10-27 Outpatient [place], Na STLMLC STLMLC [id number] Common 09:37:01 [facility] 2021-09-06 Outpatient [place], Na STLMLC STLMLC [id number] Common 14:00:39 44125 [facility] 2021-09-06 Outpatient [place], Na STLMLC STLMLC [id number] Common 13:36:43 [id number] [facility] 2021-09-06 Outpatient [place], Na STLMLC STLMLC [id number] 2 Common 13:14:46 66428 [facility] 2021-09-06 Outpatient [place], Na STLMLC STLMLC [id number] Common 13:14:19 12619 [facility] 2021-09-06 Outpatient [place], Na STLMLC STLMLC [id number] Common 12:38:22 06070 [facility] 2021-09-06 Outpatient [place], Na STLMLC STLMLC [id number] Common 12:37:04 [id number] [facility] 2021-09-06 Outpatient [place], Na STLMLC STLMLC [id number] Common 12:32:00 [id number] [facility] 2021-09-06 Outpatient [place], Na STLMLC STLMLC [id number] 2 Common 12:31:32 76456 [facility] 2021-09-06 Outpatient [place], Na STLMLC STLMLC [id number] 2 Common 12:17:07 97405 [facility] 2021-09-06 Outpatient Neil, Kin STLMLC STLMLC [id number] Common 12:04:40 63954 [facility] 2021-09-06 Outpatient Neil, Kin STLMLC STLMLC [id number] Common 12:00:30 65615 [facility] 2021-09-06 Outpatient Millender, STLMLC STLMLC [id number] Common 11:55:17 Leandra 43277 [facility] 2021-09-06 Outpatient Millender, STLMLC STLMLC [id number] Common 11:53:43 Leandra 48825 [facility] 2021-09-06 Outpatient Millender, STLMLC STLMLC [id number] Common 11:43:25 Leandra 23733 [facility] 2021-09-06 Outpatient Millender, STLMLC STLMLC [id number] Common 11:42:20 Leandra 33647 [facility] 2021-09-06 Outpatient Millender, STLMLC STLMLC [id number] Common 11:21:57 Leandra 55961 [facility] 2021-09-06 Outpatient Millender, STLMLC STLMLC [id number] Common 11:12:44 Leandra 90203 [facility] 2021-09-06 Outpatient Millender, STLMLC STLMLC [id number] Common 11:12:25 Leandra 42126 [facility] 2021-09-06 Outpatient Millender, STLMLC STLMLC [id number] Common 11:08:59 Leandra 71670 [facility] 2021-09-06 Outpatient Millender, STLMLC STLMLC [id number] Common 11:08:51 Leandra 21073 [facility] 2022-02-15 2022-08-22 Outpatient RECERTIFIC HAMILTON, ENCCLR ENCCLR [id number] ENCCLR 00:00:00 00:00:00 [facility] 2022-02-15 2022-02-15 Outpatient RECERTIFIC HAMILTON ENCCLR ENCCLR [id number] ENCCLR 00:00:00 00:00:00 [facility] 2022-02-15 2022-02-15 Outpatient READMIKATALINA VILLASENOR, ENCCLR ENCCLR [id number] ENCCLR 00:00:00 00:00:00 N CRUZ 2022-01-24 2022-02-14 Inpatient 3 [facility] ENCPL JOHN [id number] [facility] 12:18:00 16:16:00 amanda, 0615 [facility] 2021-12-14 2021-12-14 OFFICE STLMLC STLMLC [id number] Co mmon 00:00:00 00:00:00 VISIT EST Spir it PT LEVEL 3 [facility] 2021-09-04 2021-09-04 (TEL) STLMLC STLMLC [id number] Co mmon 00:00:00 00:00:00 [facility] 2021-09-04 2021-09-04 (TEL) STLMLC STLMLC [id number] Co mmon 00:00:00 00:00:00 [facility] 2021-04-14 2021-04-14 (TEL) STLMLC STLMLC [id number] Co mmon 00:00:00 00:00:00 [facility] 2021-04-10 2021-04-10 (TEL) STLMLC STLMLC [id number] Co mmon 00:00:00 00:00:00 [facility] 2021-04-06 2021-04-06 (TEL) STLMLC STLMLC [id number] Co mmon 00:00:00 00:00:00 [facility] 2021-03-22 2021-03-22 OFFICE STLMLC STLMLC [id number] Co mmon 00:00:00 00:00:00 VISIT EST Spir it PT LEVEL 3 [facility] 2021-03-09 2021-03-09 (TEL) STLMLC STLMLC [id number] Co mmon 00:00:00 00:00:00 [facility] 2021-02-23 2021-02-23 (TEL) STLMLC STLMLC [id number] Co mmon 00:00:00 00:00:00 [facility] 2021-01-25 2021-01-25 (TEL) STLMLC STLMLC [id number] Co mmon 00:00:00 00:00:00 [facility] 2021-01-25 2021-01-25 OFFICE STLMLC STLMLC [id number] Co mmon 00:00:00 00:00:00 VISIT Spirit ESTAB PT - [facility] LEVEL 4 [facility] 2021-01-05 2021-01-05 (TEL) STLMLC STLMLC [id number] Co mmon 00:00:00 00:00:00 [facility] 2020-12-01 2020-12-01 Outpatient STLMLC STLMLC [id number] Common 00:00:00 00:00:00 [facility] 2020-10-31 2020-10-31 Outpatient STLMLC STLMLC [id number] Common 00:00:00 00:00:00 [facility] 2020-10-19 2020-10-19 Outpatient STLMLC STLMLC [id number] Common 00:00:00 00:00:00 [facility] 2020-08-03 2020-08-03 Outpatient STLMLC STLMLC [id number] Common 00:00:00 00:00:00 [facility] 2020-07-26 2020-07-26 Outpatient STLMLC STLMLC [id number] Common 00:00:00 00:00:00 [facility] 2020-07-26 2020-07-26 Outpatient STLMLC STLMLC [id number] Common 00:00:00 00:00:00 [facility] 2020-07-12 2020-07-12 Outpatient STLMLC STLMLC [id number] Common 00:00:00 00:00:00 [facility] 2020-06-27 2020-06-27 Outpatient STLMLC STLMLC [id number] Common 00:00:00 00:00:00 [facility] 2020-05-11 2020-05-11 Outpatient STLMLC STLMLC [id number] Common 00:00:00 00:00:00 [facility] 2020-04-18 2020-04-18 Outpatient STLMLC STLMLC [id number] Common 00:00:00 00:00:00 [facility] 2020-04-14 2020-04-14 [facility] [id number] Common 10:20:00 10:20:[address] [facility] 2020-04-08 2020-04-08 Out[facility] [id number] Common 16:38:00 16:38:00 [place] [address] Sp[address] [facility] 2020-04-08 2020-04-08 [facility] [id number] Common 16:36:00 16:36:00 t [place] [address] Sp[address] [facility] 2020-04-08 2020-04-08 Out[facility] [id number] Common 10:50:00 10:50:[address] [facility] 2020-03-07 2020-03-07 [facility] [id number] Common 14:47:00 14:47:00 [facility] it Road [facility] 2020-01-26 2020-01-26 [facility] [id number] Common 14:20:00 14:20:00 t Specialty/U Sp vianca Specialty rology - CHI /Urology Clinic [facility] 2020-01-19 2020-01-19 [facility] [id number] Common 14:00:00 14:00:00 t Specialty/U Sp vianca Specialty rology - CHI /[facility]rology Clinic [facility] 2020-01-18 2020-01-18 Outpatient [facility] [id number] Common 14:30:00 14:30:00 t Specialty/U Sp vainca Specialty rology - CHI /[facility]rology Clinic [facility] 2020-01-11 2020-01-11 Out[facility] [id number] Common 16:46:00 16:46:00 t [facility] it [facility] 2019-12-28 2019-12-28 [facility] [id number] Common 14:00:00 14:00:00 t Specialty/U Sp vianca Specialty rology - [facility] /Urology Clinic [facility] 2019-12-24 2019-12-24 [facility] [id number] Common 15:13:00 15:13:00 t Specialty/U Sp [facility] Specialty rology - [facility] 2019-12-14 2019-12-14 [facility] [id number] Common 16:13:00 16:13:00 t [facility] [address] [facility] 2019-12-03 2019-12-03 [facility] [id number] Common 15:15:00 15:15:00 t [facility] 2019-09-11 2019-09-11 [facility] [id number] Common 17:26:00 17:26:00 t [facility] [address] [facility] 2019-08-11 2019-08-11 [facility] [id number] Common 09:48:00 09:48:[address] [facility] 2019-07-02 2019-07-02 [facility] [id number] Common 15:20:00 15:20:[address] [facility] 2019-06-26 2019-06-26 [facility] [id number] Common 16:42:00 16:42:[address] [facility] 2019-06-23 2019-06-23 [facility] [id number] Common 09:21:00 09:21:[address] [facility] 2019-06-11 2019-06-11 [facility] [id number] Common 14:59:00 14:59:[address] [facility] 2019-06-08 2019-06-08 [facility] [id number] Common 16:45:00 16:45:[address] [facility] 2019-05-25 2019-05-25 [facility] [id number] Common 15:30:00 15:30:00 t Specialty/U Sp [facility]ca Specialty rology - [facility] 2019-05-06 2019-05-06 [facility] [id number] Common 13:24:00 13:24:[address] [facility] 2019-01-29 2019-01-29 [facility] [id number] Common 13:15:00 13:15:00 t Specialty/U Sp vianca Specialty rology - [facility] 2019-01-16 2019-01-16 [facility] [id number] Common 10:05:00 10:05:[address] [facility] 2019-01-02 2019-01-02 [facility] [id number] Common 14:10:00 14:10:[address] [facility] 2018-11-07 2018-11-07 [facility] [id number] Common 10:27:00 10:27:[address] [facility] 2018-11-04 2018-11-04 [facility] [id number] Common 15:55:00 15:55:00 t Specialty/U Sp vianca Specialty rology - [facility] /Urology Clinic [facility] 2018-11-04 2018-11-04 [facility] [id number] Common 14:15:00 14:15:00 t Specialty/U Sp vianca Specialty rology - [facility] /Urology Clinic [facility] 2018-09-30 2018-09-30 [facility] [id number] Common 15:30:00 15:30:[address] [facility] 2018-09-04 2018-09-04 [facility] [id number] Common 17:02:00 17:02:[address] [facility] 2018-09-03 2018-09-03 [facility] [id number] Common 10:12:00 10:12:[address] [facility] 2018-08-15 2018-08-15 [facility] [id number] Common 14:31:00 14:31:[address] [facility] 2018-08-11 2018-08-11 [facility] [id number] Common 09:42:00 09:42:[address] [facility] 2018-07-23 2018-07-23 [facility] [id number] Common 11:42:00 11:42:[address] [facility] 2018-05-29 2018-05-29 [facility] [id number] Common 12:09:00 12:09:00 t [facility] [address] [facility] 2018-05-08 2018-05-08 [facility] [id number] Common 10:57:00 10:57:00 t [facility] [address] [facility] 2018-04-01 2018-04-01 [facility] [id number] Common 15:34:00 15:34:00 t [facility] [address] [facility] 2018-03-17 2018-03-17 [facility] [id number] Common 15:30:00 15:30:00 t [facility] [address] [facility] 2018-01-30 2018-01-30 [facility] [id number] Common 15:00:00 15:00:00 t [facility] [address] [facility] 2018-01-22 2018-01-22 [facility] [id number] Common 10:00:00 10:00:00 t Specialty/U Sp vianca Specialty rology - [facility] Results This patient has no known results.
--- NOTE | 2023-06-18 10:10 | RAD REPORT ---
EXAM DESCRIPTION: Andrea Single View06/18/2023 9:46 am CLINICAL HISTORY: Fever COMPARISON: August 2022 FINDINGS: The lungs appear clear of acute infiltrate. The heart is normal size IMPRESSION: No acute abnormalities displayed
[2023-06-18] MEDS ORDERED: KETOROLAC 30 MG/ML INJ ONE (10:36)
[2023-06-18 10:40] LABS: Specific Gravity 1.017 (1.005-1.030); Urine Bacteria >50 /HPF (<20); Urine Bilirubin NEGATIVE (Negative); Urine Blood 1+ (Negative); Urine Clarity Extremely Turbid (Clear); Urine Color Light-Orange (Yellow); Urine Glucose 4+ (Over) (Negative); Urine Mucus Slight /HPF (None Seen); Urine Protein 1+ (Negative); Urine RBC 21-50 /HPF (None Seen); Urine Urobilinogen Normal (Normal); Urine WBC Clump Few /HPF (None Seen); Urine pH 8.5 (5.0-7.0)
[2023-06-18 10:47] LABS: Protime INR 1.22
[2023-06-18 10:59] LABS: Absolute Lymphocytes (CBC) 1.3 K/uL (0.7-4.9); Hematocrit 40.1 % (39.6-49.0); Lymphocytes % 9.6 % (15.3-44.8); MPV 7.8 fL (7.6-11.3); Platelets 153 thou/uL (152-406); RBC Red Blood Cell Count 4.67 M/uL (4.33-5.43)
[2023-06-18 11:19] LABS: Albumin 3.6 g/dL (3.4-5.0); Bilirubin Direct 0.4 mg/dL (0-0.2); Bilirubin Indirect, Calculated 1.1 mg/dL (0.2-0.8); Bilirubin Total 1.5 mg/dL (0.2-1.0); Magnesium 1.5 mg/dL (1.6-2.4); Potassium 4.7 mEq/L (3.5-5.1); Protein, Total 7.4 g/dL (6.4-8.2); Troponin High Sensitivity 17.6 pg/mL (<58.9)
[2023-06-18] MEDS ORDERED: NA CHLORIDE 0.9% 1,000 ML ONE ×2 (11:24→13:36)
--- NOTE | 2023-06-18 11:39 | RAD REPORT ---
EXAM DESCRIPTION: CT - Head Brain Wo Cont - 06/18/2023 11:19 am CLINICAL HISTORY: Headache COMPARISON: 2007 TECHNIQUE: Computed axial tomography of the head was obtained. IV contrast was not requested. All CT scans are performed using dose optimization technique as appropriate and may include automated exposure control or mA/KV adjustment according to patient size. FINDINGS: An intracranial bleed is not seen The ventricles are normal in caliber No extra-axial fluid collection is noted. Moderate cerebral atrophy Fluid within the sinuses/ mastoids is not seen. IMPRESSION: No acute intracranial abnormality is seen If patient's symptoms persist MRI of the brain would be recommended
--- NOTE | 2023-06-18 11:42 | RAD REPORT ---
EXAM DESCRIPTION: CT - Abdomen Pelvis Wo Contrast - 06/18/2023 11:22 am CLINICAL HISTORY: Abdominal pain COMPARISON: November 2022 TECHNIQUE: Computed axial tomography of the abdomen and pelvis was obtained. IV and oral contrast we re not requested. All CT scans are performed using dose optimization technique as appropriate and may include automated exposure control or mA/KV adjustment according to patient size. FINDINGS: The evaluation of solid organs, vessels and bowel is limited secondary to the lack of con trast administration. The liver, spleen, pancreas, adrenals and right kidney appear grossly normal. Small left renal cyst. Atherosclerosis. A moderate amount of stool within the colon. No evidence of diverticulitis Prostate gland is mildly to moderately enlarged. Miller catheter is present within a collapsed bladder. Mild anterior subluxation L5 on S1. Spondylolysis L5. Small umbilical hernia Cholecystectomy IMPRESSION: Moderate amount stool within the colon
--- NOTE | 2023-06-18 11:53 | ER ---
Nurse's Notes [facility] Name: Chito Chavira Jr Age: 77 yrs Sex: Male : 1945 Arrival Date: 06/18/2023 Time: 09:13 Bed 11 Private MD: Diagnosis: Urosepsis, ALEXI Presentation: 06/18 09:19 Chief complaint: EMS states: toned out by home health nurse for low BP, and "pain all eh3 over". EMS reports pt here with sepsis yesterday. EMS reports BP of 87/56, HR 102, temp 99.7, SpO2 97% on RA. Pt states he hasn't eaten any food since Saturday. Coronavirus screen: Vaccine status: Patient reports receiving the 2nd dose of the covid vaccine. Ebola Screen: No symptoms or risks identified at this time. Initial Sepsis Screen: Does the patient meet any 2 criteria? No. Patient's initial sepsis screen is negative. Does the patient have a suspected source of infection? Yes: Acute abdominal pain. Risk Assessment: Do you want to hurt yourself or someone else? Patient reports no desire to harm self or others. Onset of symptoms was June 18, 2023. 09:19 Method Of Arrival: EMS: [facility] 3 09:19 Acuity: TROY 3 eh3 Triage Assessment: 09:21 General: Appears in no apparent distress. uncomfortable, Behavior is calm, cooperative, eh3 appropriate for age. Pain: Complains of pain in head, abdomen, right leg and left leg. Neuro: Level of Consciousness is awake, alert, obeys commands, Oriented to person, place, time, situation. Cardiovascular: Capillary refill < 3 seconds Patient's skin is warm and dry. Respiratory: Airway is patent Respiratory effort is even, unlabored, Respiratory pattern is regular, symmetrical. GI: Abdomen is round Abd is soft X 4 quads Abdomen is tender to palpation in right lower quadrant and left lower quadrant. Derm: Skin is pink, warm \\T\\ dry. Musculoskeletal: Circulation, motion, and sensation intact. Historical: - Allergies: 09:21 Seroquel; eh3 09:21 Benadryl; eh3 - Home Meds: 09:21 albuterol sulfate 90 mcg/actuation Inhl HFAA 2 puffs as needed [Active]; alprazolam 0.5 eh3 mg Oral tab 1 tab 3 times per day [Active]; glipizide 10 mg Oral tab 1 tab once daily [Active]; Lasix 20 mg Oral tab 1 tab once daily [Active]; losartan 50 mg Oral tab 1 tab once daily [Active]; lovastatin 10 mg Oral tab 1 tab once daily [Active]; metformin 1 Oral tab 1 tab 2 times per day [Active]; pantoprazole 40 mg Oral TbEC 1 tab once daily [Active]; tamsulosin 0.4 mg Oral cp24 1 cap once daily [Active]; tramadol 50 mg Oral tab 1 tab three times a day [Active]; - PMHx: 09:21 Anxiety; Arthritis; Asthma; Chronic obstructive lung disease; Dementia; Diabetes - eh3 NIDDM; GERD; High Cholesterol; Hypertension; indwelling catheter; Prostate Cancer; - Immunization history:: Adult Immunizations up to date. - Social history:: Smoking status: unknown. Screenin:24 [facility] ED Fall Risk Assessment (Adult) Score/Fall Risk Level 0 - 2 = Low Risk. Abuse eh3 screen: Denies threats or abuse. Denies injuries from another. Nutritional screening: No deficits noted. Tuberculosis screening: No symptoms or risk factors identified. Assessment: 09:23 Reassessment: No changes from previously documented assessment. See triage assessment. eh3 GI: Abdomen is round Bowel sounds hypoactive in right upper quadrant, left upper quadrant, right lower quadrant and left lower quadrant Abd is soft X 4 quads Abdomen is tender to palpation in right lower quadrant and left lower quadrant. 10:00 Reassessment: Dr. Angeles notified of 81/48 BP, no new orders received at this time. jl7 10:30 Reassessment: Patient and/or family updated on plan of care and expected duration. Pain eh3 level reassessed. Patient is alert, oriented x 3, equal unlabored respirations, skin warm/dry/pink. 11:03 Reassessment: PEYTON Galvez informed Dr. Angeles of low BP, Dr. Angeles requested to verify jl7 that the pressure is accurate. This nurse obtained a manual BP which was 80/60, Dr. Angeles notified and this nurse requested fluids for pt. See [facility] for orders. 11:30 Reassessment: Patient appears in no apparent distress at this time. No changes from tm6 previously documented assessment. 12:31 Reassessment: Patient appears in no apparent distress at this time. Patient and/or tm6 family updated on plan of care and expected duration. Pain level reassessed. 13:50 Reassessment: Patient appears in no apparent distress at this time. Patient and/or tm6 family updated on plan of care and expected duration. Pain level reassessed. Vital Signs: 09:19 BP 91 / 56; Pulse 94; Resp 20; Temp 98.2(O); Pulse Ox 95% on R/A; Weight 82.55 kg; eh3 Height 5 ft. 9 in. ; 10:00 BP 81 / 48; Pulse 88; Resp 19; Pulse Ox 97% on R/A; jl7 10:30 BP 89 / 53; Pulse 85; Resp 20; Pulse Ox 98% on R/A; eh3 10:40 BP 75 / 49; Pulse 79; Pulse Ox 99% on R/A; tm6 11:03 BP 81 / 51; tm6 11:03 BP 80 / 60 (man/); tm6 11:29 BP 109 / 62; Pulse 85; Resp 20; Pulse Ox 97% on R/A; tm6 12:31 BP 112 / 56; Pulse 71; Resp 19; Pulse Ox 95% on R/A; tm6 13:49 BP 120 / 53; Pulse 78; Resp 24; Pulse Ox 94% on R/A; tm6 09:19 Body Mass Index 26.88 (82.55 kg, 175.26 cm) eh3 ED Course: 09:17 Patient arrived in ED. kj1 09:19 Yaima Ashraf, RN is Primary Nurse. eh3 09:21 Triage completed. eh3 09:21 Arm band placed on. eh3 09:22 Marlen Angeles MD is Attending Physician. sp3 09:24 Patient has correct armband on for positive identification. Bed in low position. Call eh3 light in reach. Side rails up X2. Provided Education on: use of call soto. Client placed on continuous cardiac and pulse oximetry monitoring. NIBP monitoring applied. 09:[address] on arrival and draining to gravity. eh3 09:48 XRAY Chest (1 view) In Process Unspecified. EDMS 10:39 Inserted saline lock: 24 gauge in right forearm, using aseptic technique. Blood ds4 collected. 11:03 Notified ED physician of vital signs. tm6 11:21 CT Head Brain wo Cont In Process Unspecified. EDMS 11:23 Abdomen In Process Unspecified. EDMS 11:51 Chidi Meadows MD is Hospitalizing Provider. sp3 16:10 No provider procedures requiring assistance completed. Patient admitted, IV remains in tm6 place. Administered Medications: 10:30 Drug: Ketorolac IVP 15 mg IVP once Route: IVP; Site: right forearm; eh3 11:00 Follow up: Response: No adverse reaction jl7 11:14 Drug: NS 0.9% IV 1000 ml IV at 1 bolus Per protocol; 1000 mL bolus Route: IV; Rate: 1 tm6 bolus; Site: right forearm; 12:15 Follow up: Response: No adverse reaction; IV Status: Completed infusion; IV Intake: jl7 1000ml 12:50 Follow up: Response: No adverse reaction; IV Status: Completed infusion; IV Intake: jl7 1000ml 12:31 Drug: Cefepime IVPB 1 grams IVPB at 200 ml/hr once over 30 mins; (mix in NS 100 mL) tm6 Route: IVPB; Rate: 200 ml/hr; Infused Over: 30 mins; Site: right antecubital; 13:01 Follow up: Response: No adverse reaction; IV Status: Completed infusion jl7 12:31 Drug: NS 0.9% IV (30 ml/kg) 30 ml/kg IV at bolus once; Give total of 30cc/kg ivf Route: tm6 IV; Rate: bolus; Site: right antecubital; 16:00 Follow up: Response: No adverse reaction; IV Status: Infusion continued upon admission; jl7 IV Intake: 500ml Medication: 11:06 VIS not applicable for this client. jl7 Intake: 12:50 IV: 1000ml; Total: 1000ml. jl7 16:00 IV: 500ml; Total: 1500ml. jl7 Outcome: 11:52 Decision to Hospitalize by Provider. sp3 16:08 Admitted to ICU accompanied by nurse, via stretcher, room 3, tm6 16:08 Condition: stable 16:08 Instructed on the need for admit, 16:09 Admitted to ICU Report called to Joyce TODD tm6 16:18 Patient left the ED. tm6 Signatures: Dispatcher [employer] EDAdam Dunlap ds4 Rodrigo Mayen, RN RN jl7 Estella Chavira kj1 Marlen Angeles MD MD sp3 Yaiam Ashraf, RN RN 3 Lenny Ellison RN RN tm6 Corrections: (The following items were deleted from the chart) 09:24 09:19 Chief complaint: EMS states: toned out by home health nurse for low BP, and "pain eh3 all over". EMS reports pt here with sepsis yesterday. EMS reports BP of 87/56, HR 102, temp 99.7, SpO2 97% on RA eh3 09:25 09:23 GI: Bowel sounds hypoactive in right upper quadrant, left upper quadrant, right eh3 lower quadrant and left lower quadrant eh3 09:35 09:19 BP 91 / 56; Pulse 94bpm; Resp 20bpm; Pulse Ox 95% RA; Temp 98.2F Oral; eh3 eh3 13:45 10:00 BP 81 / 48; Pulse 88bpm; Resp 80bpm; Pulse Ox 97% RA; 3 jl7 06/19 08:57 11 12:15 Response: No adverse reaction; IV Status: Completed infusion; IV Intake: jl7 1000ml jl7
--- NOTE | 2023-06-18 11:53 | EDPHYS ---
Physician Documentation [facility] Name: Chito Chavira Jr Age: 77 yrs Sex: Male : 1945 Arrival Date: 06/18/2023 Time: 09:13 Bed 11 Private MD: ED Physician Marlen Angeles HPI: 06/18 10:12 This 77 yrs old Male presents to ER via EMS with complaints of Abdominal Pain, sp3 Headache. 10:12 77-year-old male with extensive past medical history including prior prostate cancer sp3 with chronic indwelling suprapubic catheter, diabetes, COPD, anxiety now presents to the ED with chief complaint abdominal pain and headache both that started over the last 48 hours slowly without any inciting event. Headache is mild and diffuse in nature. Abdominal pain is in the lower abdomen bilaterally and patient states that his urine and penis area has a foul odor. Patient does not make any urine whatsoever through his penis. He denies any chest pain, shortness of breath, fever, back pain, upper abdominal pain, vomiting or diarrhea, rash, or any other signs or symptoms at this time.. Historical: - Allergies: 09:21 Seroquel; eh3 09:21 Benadryl; eh3 - Home Meds: 09:21 albuterol sulfate 90 mcg/actuation Inhl HFAA 2 puffs as needed [Active]; alprazolam 0.5 eh3 mg Oral tab 1 tab 3 times per day [Active]; glipizide 10 mg Oral tab 1 tab once daily [Active]; Lasix 20 mg Oral tab 1 tab once daily [Active]; losartan 50 mg Oral tab 1 tab once daily [Active]; lovastatin 10 mg Oral tab 1 tab once daily [Active]; metformin 1 Oral tab 1 tab 2 times per day [Active]; pantoprazole 40 mg Oral TbEC 1 tab once daily [Active]; tamsulosin 0.4 mg Oral cp24 1 cap once daily [Active]; tramadol 50 mg Oral tab 1 tab three times a day [Active]; - PMHx: 09:21 Anxiety; Arthritis; Asthma; Chronic obstructive lung disease; Dementia; Diabetes - eh3 NIDDM; GERD; High Cholesterol; Hypertension; indwelling catheter; Prostate Cancer; - Immunization history:: Adult Immunizations up to date. - Social history:: Smoking status: unknown. ROS: 10:13 Constitutional: Negative for fever, chills, and weight loss, Eyes: Negative for injury, sp3 pain, redness, and discharge, ENT: Negative for injury, pain, and discharge, Neck: Negative for injury, pain, and swelling, Cardiovascular: Negative for chest pain, palpitations, and edema, Respiratory: Negative for shortness of breath, cough, wheezing, and pleuritic chest pain, Back: Negative for injury and pain, MS/Extremity: Negative for injury and deformity, Skin: Negative for injury, rash, and discoloration, Psych: Negative for depression, anxiety, suicide ideation, homicidal ideation, and hallucinations, Allergy/Immunology: Negative for hives, rash, and allergies, Endocrine: Negative for neck swelling, polydipsia, polyuria, polyphagia, and marked weight changes, Hematologic/Lymphatic: Negative for swollen nodes, abnormal bleeding, and unusual bruising, 10:13 All other systems are negative, Exam: 10:13 Constitutional: This is a well developed, well nourished patient who is awake, alert, sp3 and in no acute distress. Head/Face: Normocephalic, atraumatic. Eyes: Pupils equal round and reactive to light, extra-ocular motions intact. Lids and lashes normal. Conjunctiva and sclera are non-icteric and not injected. Cornea within normal limits. Periorbital areas with no swelling, redness, or edema. ENT: Nares patent. No nasal discharge, no septal abnormalities noted. External auditory canals are clear. Oropharynx with no redness, swelling, or masses, exudates, or evidence of obstruction, uvula midline. Mucous membranes moist. Neck: Trachea midline, no thyromegaly or masses palpated, and no cervical lymphadenopathy. Supple, full range of motion without nuchal rigidity, or vertebral point tenderness. No Meningismus. Chest/axilla: Normal chest wall appearance and motion. Nontender with no deformity. No lesions are appreciated. Cardiovascular: Regular rate and rhythm with a normal S1 and S2. No gallops, murmurs, or rubs. Normal PMI, no JVD. No pulse deficits. Respiratory: Lungs have equal breath sounds bilaterally, clear to auscultation and percussion. No rales, rhonchi or wheezes noted. No increased work of breathing, no retractions or nasal flaring. Back: No spinal tenderness. No costovertebral tenderness. Full range of motion. MS/ Extremity: Pulses equal, no cyanosis. Neurovascular intact. Full, normal range of motion. Neuro: Awake and alert, GCS 15, oriented to person, place, time, and situation. Cranial nerves II-XII grossly intact. Motor strength 5/5 in all extremities. Sensory grossly intact. Cerebellar exam normal. Normal gait. Psych: Awake, alert, with orientation to person, place and time. Behavior, mood, and affect are within normal limits. 10:13 Abdomen/GI: Patient has pain to palpation on the lower abdomen bilaterally. Supra pubic catheter site entrance area appears without erythema or signs of infection. Penis exam demonstrates a foul odor however no lesions or rash noted., 10:15 ECG was reviewed by the Attending Physician. EKG demonstrates normal sinus rhythm at 94 sp3 bpm with normal intervals, normal QRS, normal axis, nonspecific diffuse ST/T changes without evidence of acute ischemia. Vital Signs: 09:19 BP 91 / 56; Pulse 94; Resp 20; Temp 98.2(O); Pulse Ox 95% on R/A; Weight 82.55 kg; eh3 Height 5 ft. 9 in. ; 10:00 BP 81 / 48; Pulse 88; Resp 19; Pulse Ox 97% on R/A; jl7 10:30 BP 89 / 53; Pulse 85; Resp 20; Pulse Ox 98% on R/A; eh3 10:40 BP 75 / 49; Pulse 79; Pulse Ox 99% on R/A; tm6 11:03 BP 81 / 51; tm6 11:03 BP 80 / 60 (man/); tm6 11:29 BP 109 / 62; Pulse 85; Resp 20; Pulse Ox 97% on R/A; tm6 12:31 BP 112 / 56; Pulse 71; Resp 19; Pulse Ox 95% on R/A; tm6 13:49 BP 120 / 53; Pulse 78; Resp 24; Pulse Ox 94% on R/A; tm6 09:19 Body Mass Index 26.88 (82.55 kg, 175.26 cm) 3 MDM: 09:35 Patient medically screened. sp3 10:14 Data reviewed: vital signs, nurses notes, old medical records, lab test result(s), EKG, sp3 radiologic studies. ED course: 77-year-old male with lower abdominal pain, probable UTI and mild headache. Patient is not septic and I do not believe has acute coronary syndrome, vascular pathology or any other critical process at this time. Work-up includes CT scan of the head, CT scan of the abdomen pelvis, laboratory values and urine analysis with further pharmaceutical intervention as indicated. Disposition pending work-up and patient course with probable discharge.. 06/18 09:34 Order name: Basic Metabolic Panel; Complete Time: 11:47 sp3 06/18 09:34 Order name: CBC with Diff; Complete Time: 11:03 sp3 06/18 09:34 Order name: LFT's; Complete Time: 11:47 sp3 06/18 09:34 Order name: Magnesium; Complete Time: 11:47 sp3 06/18 09:34 Order name: NT PRO-BNP; Complete Time: 11:47 sp3 06/18 09:34 Order name: PT-INR; Complete Time: 11:03 sp3 06/18 09:34 Order name: Troponin HS; Complete Time: 11:47 sp3 06/18 09:34 Order name: UAM; Complete Time: 11:03 sp3 06/18 10:54 Order name: Urine Culture EDMS 06/18 12:04 Order name: Blood Culture Adult (2) la1 06/18 12:04 Order name: Lactate w/ 2H reflex if indic. la1 06/18 12:54 Order name: Urinalysis w/ reflexes EDMS 06/18 12:54 Order name: Basic Metabolic Panel EDMS 06/18 12:54 Order name: Basic Metabolic Panel EDMS 06/18 12:54 Order name: Basic Metabolic Panel EDMS 06/18 12:54 Order name: Basic Metabolic Panel EDMS 06/18 12:54 Order name: CBC with Automated Diff EDMS 06/18 12:54 Order name: CBC with Automated Diff EDMS 06/18 12:54 Order name: CBC with Automated Diff EDMS 06/18 12:54 Order name: CBC with Automated Diff EDMS 06/18 12:54 Order name: Magnesium EDMS 06/18 12:54 Order name: Magnesium EDMS 06/18 12:54 Order name: Magnesium EDMS 06/18 12:54 Order name: Magnesium EDMS 06/18 09:34 Order name: XRAY Chest (1 view); Complete Time: 11:03 sp3 06/18 10:05 Order name: CT Head Brain wo Cont; Complete Time: 11:47 sp3 06/18 11:23 Order name: Abdomen ; Complete Time: 11:47 EDMS 06/18 12:54 Order name: Renal Ultrasound-Complete EDMS 06/18 09:34 Order name: EKG; Complete Time: 09:35 sp3 06/18 09:34 Order name: Cardiac monitoring; Complete Time: 09:35 sp3 06/18 09:34 Order name: EKG - Nurse/Tech; Complete Time: 09:35 sp3 06/18 09:34 Order name: IV Saline Lock; Complete Time: 10:35 sp3 06/18 09:34 Order name: Labs collected and sent; Complete Time: 10:09 sp3 06/18 09:34 Order name: O2 Per Protocol; Complete Time: 09:35 sp3 06/18 09:34 Order name: O2 Sat Monitoring; Complete Time: 09:35 sp3 06/18 09:34 Order name: Cath: Cath UA if pt cannot give sample in 20 minutes; Complete Time: 09:40 sp3 06/18 10:15 Order name: Labs - recollect needed: recollect green, lavender and blue; Complete Time: bd 10:33 06/18 10:48 Order name: Labs - recollect needed: recollect green and lavender top; Complete Time: bd 10:57 Administered Medications: 10:30 Drug: Ketorolac IVP 15 mg IVP once Route: IVP; Site: right forearm; [facility] 11:00 Follow up: Response: No adverse reaction jl 11:14 Drug: NS 0.9% IV 1000 ml IV at 1 bolus Per protocol; 1000 mL bolus Route: IV; Rate: 1 tm6 bolus; Site: right forearm; 12:15 Follow up: Response: No adverse reaction; IV Status: Completed infusion; IV Intake: jl7 1000ml 12:50 Follow up: Response: No adverse reaction; IV Status: Completed infusion; IV Intake: jl7 1000ml 12:31 Drug: Cefepime IVPB 1 grams IVPB at 200 ml/hr once over 30 mins; (mix in NS 100 mL) tm6 Route: IVPB; Rate: 200 ml/hr; Infused Over: 30 mins; Site: right antecubital; 13:01 Follow up: Response: No adverse reaction; IV Status: Completed infusion jl7 12:31 Drug: NS 0.9% IV (30 ml/kg) 30 ml/kg IV at bolus once; Give total of 30cc/kg ivf Route: tm6 IV; Rate: bolus; Site: right antecubital; 16:00 Follow up: Response: No adverse reaction; IV Status: Infusion continued upon admission; jl7 IV Intake: 500ml Disposition Summary: 06/18/23 11:52 Hospitalization Ordered Notes: Hospitalization Status: Inpatient Admission sp3 Provider: Chidi Meadows sp3 Condition: Stable sp3 Problem: an acute exacerbation sp3 Symptoms: have worsened sp3 Bed/Room Type: Standard sp3 Location: Intensive Care Unit(06/18/23 15:23) dw Room Assignment: 1-(06/18/23 15:23) dw Diagnosis - Urosepsis, ALEXI sp3 Forms: - Medication Reconciliation Form sp3 - SBAR form sp3 - Leadership Thank You Letter sp3 Signatures: Dispatcher [employer] EDMS Ana Luisa Powell Diana, RN RN dw Daniel Sanchez, SUPERVISOR [employer]PER[employer]OR [employer]1 Marlen Angeles MD MD sp3 Yaima Ashraf RN RN 3 Lenny Ellison RN RN tm6 Rodrigo Mayen RN jl7 Corrections: (The following items were deleted from the chart) 11 09:35 Abdomen Pelvis W Con+CT.RAD.BRZ ordered. EDNV EDNV 15: 11:52 Telemetry/MedSurg (Inpatient) sp3 dw 15: 11:52 sp3 dw
[2023-06-18] MEDS ORDERED: NA CHLORIDE 0.9% 100 ML ONE (12:33)
[2023-06-18] MEDS ORDERED: CEFEPIME 1 GM/VIAL ONE (12:34)
[2023-06-18] MEDS ORDERED: ONDANSETRON 4 MG/2 ML VIAL IV PRN (12:52)
[2023-06-18] MEDS: NA CHLORIDE 0.9% 1,000 ML IV SCH ×2 (13:00→19:26)
--- NOTE | 2023-06-18 13:46 | P.HP ---
Certification for Inpatient Patient admitted to: Inpatient With expected LOS: >2 Midnights Patient will require the following post-hospital care: None Practitioner: I am a practitioner with admitting privileges, knowledge of patient current condition, hospital course, and medical plan of care. Services: Services provided to patient in accordance with Admission requirements found in Title 42 Section 412.3 of the Code of Federal Regulations Patient History Date of Service: 06/18/23 Reason for admission: Septic shock, UTI History of Present Illness: 77-year-old male with history of COPD, dementia, diabetes mellitus, hypertension, hyperlipidemia, chronic indwelling catheter presents to the emergency department with chief complaint of low blood pressure, fever/chills. He reports feeling unwell the past 2 days at home, his home health nurse checked his blood pressure and found it to be very low today in the 70s systolic. He was seen in the emergency department on 06/16/2023 and had a suprapubic catheter placed as he was having urinary retention. He does have a history of multidrug- resistant urinary tract infections, he has had a chronic indwelling Dominguez catheter for the last 19 years, this was changed to a suprapubic catheter in November of this year secondary to a wound on his penis. He was evaluated in the emergency department his labs are significant for a white blood cell count of 13.2, sodium 130 creatinine 2.02 urinalysis concerning for UTI CT abdomen pelvis showed no acute findings CT head also negative for acute findings and chest x-ray negative for acute findings. He had multiple blood pressure readings below 90 systolic during his stay in the emergency department as well as an elevated white blood cell count and heart rate greater than 90 being criteria for septic shock. Blood cultures/lactate as well as 30 cc/kg IV fluid bolus ordered. Allergies quetiapine [From Seroquel] Allergy (Verified 12/20/22 15:35) Hallucinates Home Medications: Metformin HCl [Glucophage] 1,000 mg PO BID 10/14/13 Sertraline [Zoloft*] 50 mg PO DAILY 10/10/20 Gabapentin 300 mg PO BID 08/25/22 Empagliflozin [Jardiance] 25 mg PO DAILY 11/20/22 Fluticasone Propionate [Flovent Diskus] 2 spray IH DAILY 11/20/22 Umeclidinium Brm/Vilanterol Tr [Anoro Ellipta 62.5-25 Mcg INH] 1 puff IH DAILY 11/20/22 Aspirin [Adult Aspirin Regimen] 81 mg PO DAILY 12/20/22 Famotidine [Pepcid*] 20 mg PO DAILY 12/20/22 Hydralazine HCl 25 mg PO DAILY 12/20/22 Losartan Potassium [Cozaar] 100 mg PO DAILY 12/20/22 Pregabalin [Lyrica*] 75 mg PO BID 12/20/22 Codeine/APAP [Tylenol W/Codeine #3 tab] 1 tab PO Q6HP PRN #15 tab 12/25/22 - Past Medical/Surgical History Diabetic: Yes -: HTN -: Hyperlipidemia -: Neurogenic bladder with indwelling dominguez catheter -: DDD/DJD of the spine -: Cervical spine stenosis -: COPD -: Allergic rhinitis -: GERD -: Anxiety -: Diabetes -: Neck sx w/fusion 2007 -: R hip -: R knee replacement with screws Psychosocial/ Personal History: Patient lives at home with his family. He is bed bound and has a home health nurse. - Family History Mother -: Diabetes - Social History Smoking Status: Never smoker Alcohol use: No CD- Drugs: No Caffeine use: Yes Place of Residence: Home Review of Systems 10-point ROS is otherwise unremarkable General: Fever, Chills Physical Examination - Physical Exam General: Alert, In no apparent distress, Oriented x3 HEENT: Atraumatic, Mucous membr. moist/pink Neck: Supple Respiratory: Clear to auscultation bilaterally, Normal air movement Cardiovascular: Regular rate/rhythm, Normal S1 S2 Gastrointestinal: Normal bowel sounds, No tenderness Musculoskeletal: No tenderness Integumentary: No rashes Neurological: Normal speech, Normal strength at 5/5 x4 extr, Normal affect Urinary: Suprapubic catheter (in place, changed 2 days ago) - Studies Laboratory Data (last 24 hrs) 06/18/23 06/18/23 06/18/23 10:53 10:53 10:30 WBC 13.20 H Hgb 13.3 L Hct 40.1 Plt Count 153 PT 13.4 H INR 1.22 Sodium 130 L Potassium 4.7 BUN 30 H Creatinine 2.02 H Glucose 167 H Magnesium 1.5 L Total Bilirubin 1.5 H AST 16 ALT 17 Alkaline Phosphatase 64 Assessment and Plan - Plan Assessment: Septic shock secondary to complicated UTI-chronic indwelling suprapubic catheter/history of MDR UTI Acute kidney injury secondary to septic shock Diabetes mellitus type 2 Hypertension Hyperlipidemia Dementia Plan: Septic shock secondary to complicated UTI-chronic indwelling suprapubic catheter/history of MDR UTI Obtain blood and urine cultures, follow results history of MDR UTI, Continue meropenem for now ID consult Suprapubic catheter exchanged on 06/16/2023 in ED Acute kidney injury secondary to septic shock Obtain renal ultrasound, nephrology consult, continue IV fluids Daily BMP Diabetes mellitus type 2 ACHS Accu-Chek, SSI Hypertension Hyperlipidemia Dementia Continue home medication, hold DO/ARB given ALEXI DVT PPX: lovenox Code status: Full Discharge Plan: Home Plan to discharge in: Greater than 2 days - Advance Directives Does patient have a Living Will: No Does patient have a Durable POA for Healthcare: No - Code Status/Comfort Care Code Status Assessed: Yes (Full code) Critical Care: No Time Spent Managing Pts Care (In Minutes): 55
[2023-06-18] MEDS ORDERED: D50W 25 GM/50 ML SYRINGE IV PRN (13:48)
[2023-06-18] MEDS ORDERED: GLUCAGON 1 MG/VIAL IM PRN (13:48)
[2023-06-18] MEDS ORDERED: D10W 125 ML IV PRN (13:53)
--- NOTE | 2023-06-18 13:57 | RAD REPORT ---
EXAM DESCRIPTION: US - Renal Ultrasound-Complete - 06/18/2023 1:26 pm CLINICAL HISTORY: acute renal failure Flank pain COMPARISON: ABDOMINAL EXAM COMPLETE dated 12/29/2009 FINDINGS: Both kidneys are normal in size, shape and echotexture. The right kidney measures 11.1 x 5.8 x 5.2 cm. No hydronephrosis, focal mass or perinephric fluid. The left kidney measures 9.1 x 5.1 x 4.3 cm. No hydronephrosis, focal mass or perinephric fluid. 2.5 x 2.0 cm cyst is present superiorly with thin septum, likely benign. The urinary bladder is incompletely distended without gross abnormality seen. IMPRESSION: Benign 2.5 cm cyst superior left kidney. Otherwise, negative study.
[2023-06-18] MEDS: INSULIN REGULAR (HUMAN) 100 UNIT/ML SQ SCH ×2 (16:30→20:44)
[2023-06-18] MEDS ORDERED: Magnesium Sulfate 2gm IVPB 2 G/50 ML BAG IV ONE (20:34)
[2023-06-18] MEDS: Meropenem 1,000 MG in NA CHLORIDE 0.9% 100 ML IV SCH (20:47)
[2023-06-18] MEDS: HEPARIN 5000 UNIT/ML 1 ML VIAL SQ SCH (20:47)
[2023-06-18] MEDS: ACETAMINOPHEN 500 MG TAB PO PRN (21:00)
[2023-06-19 04:34] LABS: Absolute Lymphocytes (CBC) 0.6 K/uL (0.7-4.9); Hematocrit 35.4 % (39.6-49.0); Lymphocytes % 7.3 % (15.3-44.8); MCV 85.1 fL (80-100); MPV 7.9 fL (7.6-11.3); Platelets 124 thou/uL (152-406); RBC Red Blood Cell Count 4.16 M/uL (4.33-5.43)
[2023-06-19 04:52] LABS: Magnesium 2.6 mg/dL (1.6-2.4); Potassium 4.2 mEq/L (3.5-5.1)
[2023-06-19 05:01] LABS: Blood Morphology Comment NOT SEEN (NOT SEEN); Platelet Estimate ADEQ
[2023-06-19] MEDS: INSULIN REGULAR (HUMAN) 100 UNIT/ML SQ SCH ×4 (07:21→20:15)
--- NOTE | 2023-06-19 08:50 | P.CNS ---
Date of Consult: 06/19/23 Reason for Consult: septic shock, MDR UTI Chief Complaint: Septic shock, UTI History of Present Illness: Patient is a 77 yo male with a PMH of COPD, diabetes mellitus, hypertension, hyperlipidemia and dementia who presented to the ED due to complaints of fever, chills and low blood pressure. Patient was admitted for septic shock secondary to complicated urinary tract infection. He has a history of ESBL, and was started on Meropenem. Infectious disease was consulted. Allergies quetiapine [From Seroquel] Allergy (Verified 12/20/22 15:35) Hallucinates Home Medications: Metformin HCl [Glucophage] 1,000 mg PO BID 10/14/13 Sertraline [Zoloft*] 50 mg PO DAILY 10/10/20 Gabapentin 300 mg PO BID 08/25/22 Empagliflozin [Jardiance] 25 mg PO DAILY 11/20/22 Fluticasone Propionate [Flovent Diskus] 2 spray IH DAILY 11/20/22 Umeclidinium Brm/Vilanterol Tr [Anoro Ellipta 62.5-25 Mcg INH] 1 puff IH DAILY 11/20/22 Aspirin [Adult Aspirin Regimen] 81 mg PO DAILY 12/20/22 Famotidine [Pepcid*] 20 mg PO DAILY 12/20/22 Hydralazine HCl 25 mg PO DAILY 12/20/22 Losartan Potassium [Cozaar] 100 mg PO DAILY 12/20/22 Pregabalin [Lyrica*] 75 mg PO BID 12/20/22 - Past Medical/Surgical History Diabetic: Yes -: HTN -: Hyperlipidemia -: Neurogenic bladder with indwelling dominguez catheter -: DDD/DJD of the spine -: Cervical spine stenosis -: COPD -: Allergic rhinitis -: GERD -: Anxiety -: Diabetes -: Neck sx w/fusion 2007 -: R hip -: R knee replacement with screws Psychosocial/ Personal History: Patient lives at home with his family. He is bed bound and has a home health nurse. - Family History Mother Medical History: Diabetes - Social History Smoking Status: Unknown if ever smoked Alcohol use: No CD- Drugs: No Caffeine use: Yes Place of Residence: Home Physical Examination Temp Pulse Resp BP Pulse Ox 99.2 F 78 21 H 149/68 H 97 06/19/23 06:00 06/19/23 06:00 06/19/23 06:00 06/19/23 06:00 06/19/23 06:00 General: Alert, In no apparent distress HEENT: Atraumatic, Sclerae nonicteric Respiratory: Clear to auscultation bilaterally, Normal air movement (on room air) Cardiovascular: No edema, Regular rate/rhythm Gastrointestinal: Normal bowel sounds, Soft and benign Integumentary: No rashes Urinary: Suprapubic catheter Laboratory Data - Reviewed Microbiology Data - Reviewed Imagings Data: - Reviewed Conclusions/Impression: Problem List Septic shock secondary to complicated UTI Acute Kidney Injury Diabetes Mellitus type II Hypertension Hyperlipidemia Dementia Hyponatremia Hypocalcemia Septic shock secondary to complicated urinary tract infection - Patient has suprapubic catheter since November. Prior to suprapubic cath, patient had chronic indwelling dominguez catheter for 10+ years; however due to penile wound from dominguez catheter, a suprapubic catheter was placed. - Penile wound culture 06/12: Klebsiella pneumoniae and Staphylococcus aureus - UA suggestive of UTI. - Renal ultrasound 06/18: "Benign 2.5 cm cyst superior left kidney. Otherwise, negative study." History of proteus mirabilis ESBL UTI; therefore patient was started on empiric Meropenem IV on 06/18. - Urine cultures 06/18: Pending - Blood cultures 06/18: Pending - Suprapubic catheter exchanged on 06/16 Leukocytosis resolved. Afebrile Recommendations - Complicated UTI: Continue antibiotic therapy for 10 days. - Continue Meropenem for now. Awaiting final urine culture results. Will adjust antibiotics as appropriate. - Monitor WBC and fever trends. -ALEXI: renally dose medications. Nephrology also following - Pressure offloading measures Case discussed with Meg Chatman who is in agreement with plan.
[2023-06-19] MEDS: NA CHLORIDE 0.9% 1,000 ML IV SCH ×2 (08:51→19:10)
[2023-06-19] MEDS: Meropenem 1,000 MG in NA CHLORIDE 0.9% 100 ML IV SCH ×2 (08:59→20:13)
[2023-06-19] MEDS: HEPARIN 5000 UNIT/ML 1 ML VIAL SQ SCH ×2 (09:00→20:13)
--- NOTE | 2023-06-19 10:07 | P.PN ---
Date of Service: 06/19/23 Subjective: Feeling a little better, no chills overnight, denies pain ROS: 10 point ROS as noted above, otherwise negative Physical exam GEN: Alert, oriented, NAD HEENT: Normal conjunctiva, sclera anicteric CV: Regular rate and rhythm, no edema Pulm: Nonlabored respirations on room air ABD: Soft, nontender, nondistended MSK: No joint tenderness Integumentary: No rashes Neuro: Normal speech, normal affect : suprapubic catheter in place Vitals reviewed Problem List Septic shock secondary to complicated UTI-chronic indwelling suprapubic catheter/history of MDR UTI Acute kidney injury secondary to septic shock Diabetes mellitus type 2 Hypertension Hyperlipidemia Dementia Plan: Septic shock secondary to complicated UTI-chronic indwelling suprapubic catheter/history of MDR UTI Obtain blood and urine cultures, follow results-still pending history of MDR UTI, Continue meropenem for now ID consult has seen patient, amador gera Suprapubic catheter exchanged on 06/16/2023 in ED Acute kidney injury secondary to septic shock renal function improving with IV fluids daily chemistry, nephrology consult Diabetes mellitus type 2 ACHS Accu-Chek, SSI Hypertension Hyperlipidemia Dementia Continue home medication, hold DO/ARB given ALEXI VTE: Heparin subq Code: Full Dispo: Home 2-3 days Time Spent Managing Pts Care (In Minutes): 35 <Daniel Sanchez - Last Filed: 06/19/23 10:05> Patient seen and examined on rounds this morning. Plan of care discussed with ROLLER G[employer] LEAF Laura as noted above. f/u cultures 06/12 cultures obtained by urology grew staph and klebsiella ID consulted continue empiric merrem given prior MDR bacteria renal fxn improving continue daily labs overall improving downgrade from ICU today <Chidi Meadows - Last Filed: 06/19/23 22:03>
--- NOTE | 2023-06-19 13:43 | CON ---
Date of Consultation: 06/19/2023 Reason For Consultation: Elevated BUN and creatinine, fluid management, electrolyte imbalance. History Of Present Illness: This is a pleasant 77-year-old gentleman with significant past medical h istory of prostate CA, status post prostatectomy and local radiation by Dr. Clinton. After that, he is the Miller dependent, then switched to suprapubic starting November by Dr. Lima. Diabetes since 2004 , complicated with neuropathy and retinopathy; hyperlipidemia; hypertension. Patient came to the [facility] complaining of weakness, found to have UTI with urosepsis shock. Upon arrival to the hospital, patient's blood pressure was down to the 70. Patient had cloudy discharge from the urethra. Patien t was started on antibiotic, started on fluid resuscitation. Blood pressure stabilized. Reviewing t he record for the patient, patient upon arrival, creatinine in the 2. Patient's baseline creatinine is 1.0 as of December 29, 2022, with normal GFR of 67. Today, creatinine down to 1.6 and GFR 44. Patient denied taking any nonsteroidal. No IV contrast. Patient has been on metformin and losartan. Past Medical History: Includes: 1.Diabetes complicated with neuropathy and retinopathy. 2.Hyperlipidemia. 3.Neurogenic bladder. Miller dependent and suprapubic by Dr. Lima since November 2022. 4.COPD. 5.GERD. 6.Prostate cancer, status post local radiation. Past Surgical History: Include: 1.TURP. 2.Knee replacement. 3.Neck surgery back in 2007. 4.Suprapubic catheter placement. Family History: Positive for diabetes. Social History: Denied smoking. Denied drinking. Denied drugs abuse. Allergies: QUETIAPINE. Home Medications: Include metformin, Zoloft, gabapentin, Jardiance, flucytosine, aspirin, Pepcid, hy dralazine, losartan, Lyrica, and codeine. Review of Systems: Head and Neck: No red eye. No ear pain. GI: No nausea, no vomiting. : Has suprapubic catheter. Has urethral penis discharge. EXCEL DEVELOPER: Not applicable. Respiratory: No shortness of breath. Cardiovascular: Has low blood pressure. Has dizziness. Musculoskeletal: Generalized weakness. Neuro: Has dizziness. Physical Examination: Vital Signs: When I saw the patient, blood pressure 142/62, pulse of 88. Chest: Clear to auscultation. Heart: S1, S2. Regular. Abdomen: Soft nontender. Suprapubic catheter in place. Extremities: No edema. Neuro: Alert. No focality. Laboratory Data: Sodium 130, potassium 4.7, bicarb 23, BUN 30, creatinine 2. GFR of 34. Today lab data: Sodium 131, potassium 4.2, bicarb 21, BUN 32, creatinine 1.6. GFR of 44. Calcium of 8. Magn esium of 2.6. Albumin is 3.6. BNP 1500. Lab data back in December 2022: Creatinine 1.09. GFR of 71. WBC 6, hemoglobin 13.7. Today, WBC 7.8, hemoglobin 12, platelet 124. Current Medications: The patient is on include: 1.Aspirin. 2.Meropenem. 3.Tylenol. 4.Zoloft. 5.Pepcid. 6.Flucytosine. Assessment And Plan: 1.Acute kidney injury, multifactorial, secondary to poor perfusion acute tubular necrosis secondary to low blood pressure. 2.Toxic acute tubular necrosis secondary to urosepsis. 3.Superimposed with losartan use and metformin, nonoliguric. No hyperkalemia. No major acidosis. Looked to me, patient is still on the dry side. I am going to go ahead and bolus the patient with an other 500 of normal saline, then we will maintain on IV fluid normal saline and we will follow up the patient. 4.Obstructive uropathy has been ruled out. Patient will send for uric acid and CK. 5.Renal cyst, simple. We will monitor. 6.Hyponatremia, depletional. Continue IV hydration. Hold losartan. Send for cortisol and TSH to r ule out other causes. 7.Urosepsis with septic shock and hypovolemic shock. Discontinue metformin, discontinue losartan, d iscontinue all blood pressure medications. Continue fluid resuscitation and hydration. We will ezekiel tor the patient closely. We will continue current antibiotic. Follow up with ID. 8.Hyponatremia, depletional. Continue IV hydration. 9.Obstructive uropathy. Keep his suprapubic catheter. We will follow up. Time spent examining the patient [id number], reviewing data, lab and radiology, placing order, disc ussing the case with the patient, discussing the case with the manufacturing team member including hospitalist and nursing staff more than 75 minutes. CHRISTIANNE Voice ID: [id number] Report ID: [id number]
[2023-06-19 13:51] LABS: Specific Gravity 1.011 (1.005-1.030); Urine Bacteria <20 /HPF (<20); Urine Bilirubin NEGATIVE (Negative); Urine Blood 1+ (Negative); Urine Clarity Turbid (Clear); Urine Color Light-Yellow (Yellow); Urine Glucose 4+ (Over) (Negative); Urine Mucus Slight /HPF (None Seen); Urine Protein TRACE (Negative); Urine Urobilinogen 1+ (Normal); Urine WBC Clump Rare /HPF (None Seen); Urine pH 6.5 (5.0-7.0)
[2023-06-19 13:54] LABS: UR PROTEIN 28.8 mg/dL (<11.9)
[2023-06-19 14:01] LABS: UR CREAT < 18.0 mg/dL (20-370)
[2023-06-19] MEDS: ACETAMINOPHEN 500 MG TAB PO PRN (17:00)
[2023-06-19] MEDS ORDERED: NA CHLORIDE 0.9% 100 ML ONE (20:00)
[2023-06-20 04:33] LABS: Absolute Lymphocytes (CBC) 0.8 K/uL (0.7-4.9); Hematocrit 29.5 % (39.6-49.0); Lymphocytes % 17.4 % (15.3-44.8); MCV 85.7 fL (80-100); MPV 8.4 fL (7.6-11.3); Platelets 107 thou/uL (152-406); RBC Red Blood Cell Count 3.44 M/uL (4.33-5.43)
[2023-06-20] MEDS: NA CHLORIDE 0.9% 1,000 ML IV SCH ×3 (05:00→20:54)
[2023-06-20 05:10] LABS: Magnesium 2.2 mg/dL (1.6-2.4); Phosphorus 2.5 mg/dL (2.5-4.9); Potassium 4.8 mEq/L (3.5-5.1); Thyroid Stimulating Hormone 1.63 uIU/mL (0.358-3.740); Uric Acid 4.6 mg/dL (3.5-7.2)
[2023-06-20] MEDS ORDERED: SODIUM CHLORIDE 0.9% 10ML INJ IV PRN (07:12)
[2023-06-20] MEDS ORDERED: NA CHLORIDE 0.9% 500 ML IV ONE (07:12)
[2023-06-20] MEDS: INSULIN REGULAR (HUMAN) 100 UNIT/ML SQ SCH ×4 (07:30→20:55)
[2023-06-20] MEDS: SERTRALINE HCL 50 MG TAB PO SCH (07:53)
[2023-06-20] MEDS: HOME MED 1 EA UNK (Fluticasone Propionate [Flovent Diskus] 50 MCG Blst.W.Dev) IH SCH (07:59)
[2023-06-20] MEDS: PANTOPRAZOLE 40 MG INJ IVP SCH ×2 (07:59→08:01)
--- NOTE | 2023-06-20 08:06 | RAD REPORT ---
EXAM DESCRIPTION: CT - Abdomen Pelvis W Contrast - 06/20/2023 7:44 am CLINICAL HISTORY: Abdominal pain COMPARISON: none. TECHNIQUE: Computed axial tomography of the abdomen pelvis was obtained. 100 cc Isovue-300 was admin istered intravenously. Oral contrast was not requested which limits evaluation of bowel and appendix All CT scans are performed using dose optimization technique as appropriate and may include automated exposure control or mA/KV adjustment according to patient size. FINDINGS: The liver, spleen, pancreas, adrenals and right kidney appear grossly normal. Small left renal cyst. Atherosclerosis. No evidence of diverticulitis Prostate gland is mildly to moderately enlarged. Miller catheter is present within a collapsed bladder. Mild anterior subluxation L5 on S1. Spondylolysis L5. Small umbilical hernia Cholecystectomy IMPRESSION: No acute abnormality is displayed.
[2023-06-20] MEDS ORDERED: NA CHLORIDE 0.9% 100 ML ONE (08:08)
--- NOTE | 2023-06-20 08:26 | P.PN ---
Date of Service: 06/20/23 Chief Complaint: Septic shock, UTI Subjective: Patient had bloody stools overnight, GI consulted, pending EGD. Patient denies any complaints at this time, he states he wants to go home. Physical Examination Temp Pulse Resp BP Pulse Ox 97.4 F 90 20 102/59 L 100 06/20/23 06:00 06/20/23 06:00 06/20/23 06:00 06/20/23 06:00 06/20/23 06:00 General: In no apparent distress. Oriented x2-3. Intermittent confusion. HEENT: Atraumatic, normocephalic. Respiratory: Clear to auscultation bilaterally, Normal air movement. Breathing comfortably on room air. Cardiovascular: No edema, Regular rate/rhythm Gastrointestinal: Normal bowel sounds. Soft and benign Integumentary: No rashes : Suprapubic catheter. Penile discharge. Laboratory Data - Reviewed Microbiology Data - Reviewed Imagings Data: - Reviewed Medications List: Reviewed Assessment and Plan Problem List Septic shock secondary to complicated UTI Acute Kidney Injury Diabetes Mellitus type II Hypertension Hyperlipidemia Dementia Hyponatremia Hypocalcemia Septic shock secondary to complicated urinary tract infection - Patient has suprapubic catheter since November. Prior to suprapubic cath, patient had chronic indwelling dominguez catheter for 10+ years; however due to penile wound from dominguez catheter, a suprapubic catheter was placed. - Penile wound culture 06/12: Klebsiella pneumoniae and Staphylococcus aureus - UA suggestive of UTI. - Renal ultrasound 06/18: "Benign 2.5 cm cyst superior left kidney. Otherwise, negative study." History of proteus mirabilis ESBL UTI; therefore patient was started on empiric Meropenem IV on 06/18. - Urine cultures 06/18: 4+ gram negative rods - Blood cultures 06/18: no growth to date - Suprapubic catheter exchanged on 06/16 Leukocytosis resolved. Afebrile Recommendations - Complicated UTI: Continue antibiotic therapy for 10 days. - Preliminary urine culture with 4+ gram negative rods. Continue Meropenem for now. Awaiting final urine culture results. Will adjust antibiotics as appropriate. - Monitor WBC and fever trends. - ALEXI: renally dose medications. Nephrology also following - Pressure offloading measures Case discussed with Meg Chatman who is in agreement with plan.
[2023-06-20] MEDS ORDERED: ASPIRIN 81 MG CHEWABLE TABLET PO SCH (09:00)
[2023-06-20] MEDS ORDERED: FAMOTIDINE 20 MG TAB PO SCH (09:00)
[2023-06-20] MEDS: Meropenem 1,000 MG in NA CHLORIDE 0.9% 100 ML IV SCH ×2 (09:41→17:00)
--- NOTE | 2023-06-20 13:16 | P.PN ---
Date of Service: 06/20/23 Subjective: C/O abd pain, diarrhea overnight, now with episode of melena ROS: 10 point ROS as noted above, otherwise negative Physical exam GEN: Alert, oriented, NAD HEENT: Normal conjunctiva, sclera anicteric CV: Regular rate and rhythm, no edema Pulm: Nonlabored respirations on room air ABD: Soft, mild upper abd tenderness , nondistended MSK: No joint tenderness Integumentary: No rashes Neuro: Normal speech, normal affect : suprapubic catheter in place Vitals reviewed Problem List Acute blood loss anemia secondary to suspected upper GI bleed Septic shock secondary to complicated UTI-chronic indwelling suprapubic catheter/history of MDR UTI Acute kidney injury secondary to septic shock Diabetes mellitus type 2 Hypertension Hyperlipidemia Dementia Plan: Acute blood loss anemia secondary to suspected upper GI bleed Discussed with GI, plan for EGD Hemoglobin dropped from 12-9.9 this morning Blood pressures on the low side Continue IV PPI, octreotide Repeat H&H pending Does report history of GI bleed during previous hospitalization Septic shock secondary to complicated UTI-chronic indwelling suprapubic catheter/history of MDR UTI Obtain blood and urine cultures, follow results-still pending history of MDR UTI, Continue meropenem for now ID consult has seen patientamador Suprapubic catheter exchanged on 06/16/2023 in ED Acute kidney injury secondary to septic shock renal function improving with IV fluids daily chemistry, nephrology consult Diabetes mellitus type 2 ACHS Accu-Chek, SSI Hypertension Hyperlipidemia Dementia Continue home medication, hold DO/ARB given ALEXI VTE: SCDs given GI bleed Code: Full Dispo: Home 2-3 days Time Spent Managing Pts Care (In Minutes): 35
[2023-06-20 13:28] LABS: Hematocrit 22.1 % (39.6-49.0)
[2023-06-20] MEDS: SODIUM BICARB 325 MG TAB PO SCH ×2 (14:00→20:54)
[2023-06-20] MEDS ORDERED: NA CHLORIDE 0.9% 250 ML IV SCH (14:00)
[2023-06-20] MEDS ORDERED: propofoL 200 MG/20 ML VIAL IV ONE (14:02)
[2023-06-20] MEDS ORDERED: LIDOCAINE 1% MPF 5 ML VIAL ONE (14:02)
[2023-06-20] MEDS ORDERED: EPINEPHRINE/PF 1 MG/ML AMP ONE (14:19)
[2023-06-20] MEDS ORDERED: Phenylephrine HCl 10 MG/ML 1 ML VIAL ONE (14:31)
[2023-06-20] MEDS ORDERED: NA CHLORIDE 0.9% 250 ML ONE (16:05)
[2023-06-20] MEDS: OCTREOTIDE 500 MCG in NA CHLORIDE 0.9% 500 ML IV SCH (16:15)
[2023-06-20] MEDS: PANTOPRAZOLE INJ 80 MG in NA CHLORIDE 0.9% 250 ML IV SCH (16:15)
--- NOTE | 2023-06-20 16:25 | PN ---
Date of Progress Note: 06/20/2023 Subjective: Patient was admitted to the hospital with acute kidney injury multifactorial secondary t o metformin, losartan, poor perfusion, ATN secondary to septic shock. The patient was treated. Kidn ey function started being improving. Objective: Vital Signs: Blood pressure of 91/57, pulse of 86, afebrile. Chest: Clear to auscultation. Heart: S1, S2. Systolic murmur. Abdomen: Soft, nontender. Extremities: Trace edema. Neurologic: Alert. No focality. Laboratory Data: WBC 4.7, hemoglobin 9.9, sodium 137, potassium 4.8, bicarb 18, BUN 54, creatinine 1 , GFR of 75, phosphorus 2.5. Magnesium 2.2, albumin of 2, corrected calcium is 9.1. Current Medications: The patient on, include: 1.Meropenem. 2.Zofran. 3.Pantoprazole. 4.Octreotide. Assessment And Plan: 1.Acute kidney injury secondary to poor perfusion ATN, toxic ATN, superimposed metformin and losarta n. Continue to improve, resolved. The patient looked to me as a normal volume. We will continue to monitor. 2.Acidosis secondary to renal failure superimposed with metformin. I am going to keep holding metfo rmin. Start the patient on sodium bicarb. 3.Septic shock. Continue supportive treatment. 4.Renal cyst, simple. No need for intervention for the time being. CHRISTIANNE Voice ID: [id number] Report ID: [id number]
[2023-06-20] MEDS: SUCRALFATE 1GM/10ML UCUP FT SCH (20:54)
[2023-06-20 21:48] LABS: Hematocrit 25.7 % (39.6-49.0)
[2023-06-21] MEDS ORDERED: NA CHLORIDE 0.9% 100 ML ONE ×3 (01:26→21:05)
[2023-06-21] MEDS ORDERED: Meropenem 1000 MG/VIAL IV ONE (01:26)
[2023-06-21] MEDS: Meropenem 1,000 MG in NA CHLORIDE 0.9% 100 ML IV SCH (01:28)
[2023-06-21] MEDS: PANTOPRAZOLE INJ 80 MG in NA CHLORIDE 0.9% 250 ML IV SCH ×3 (01:54→21:27)
[2023-06-21] MEDS: OCTREOTIDE 500 MCG in NA CHLORIDE 0.9% 500 ML IV SCH ×3 (04:20→16:12)
[2023-06-21 04:56] LABS: Lymphocytes % 21.7 % (15.3-44.8); MCV 85.6 fL (80-100); MPV 7.7 fL (7.6-11.3); Platelets 131 thou/uL (152-406); RBC Red Blood Cell Count 2.69 M/uL (4.33-5.43)
[2023-06-21 05:06] LABS: Albumin 2.1 g/dL (3.4-5.0); Magnesium 2.2 mg/dL (1.6-2.4); Phosphorus 3.4 mg/dL (2.5-4.9); Potassium 4.9 mEq/L (3.5-5.1)
[2023-06-21] MEDS: INSULIN REGULAR (HUMAN) 100 UNIT/ML SQ SCH ×4 (07:30→20:45)
[2023-06-21] MEDS: NA CHLORIDE 0.9% 1,000 ML IV SCH ×2 (07:35→20:59)
[2023-06-21] MEDS: CEFEPIME 1 GM in NA CHLORIDE 0.9% 100 ML IV SCH ×2 (07:35→21:27)
[2023-06-21] MEDS: SUCRALFATE 1GM/10ML UCUP FT SCH ×4 (07:36→21:27)
[2023-06-21] MEDS ORDERED: CEFEPIME 1 GM/VIAL ONE ×2 (07:44→21:05)
--- NOTE | 2023-06-21 08:45 | P.PN ---
Date of Service: 06/21/23 Chief Complaint: Septic shock, UTI Subjective: Patient seen and examined at bedside. In no apparent distress. Patient denies any new or worsening complaints. Reports feeling better today. Physical Examination Temp Pulse Resp BP Pulse Ox 97.7 F 74 20 114/52 L 99 06/21/23 08:00 06/21/23 08:00 06/21/23 08:00 06/21/23 08:00 06/21/23 07:00 General: In no apparent distress. Oriented x2-3. Intermittent confusion. HEENT: Atraumatic, normocephalic. Respiratory: Clear to auscultation bilaterally, Normal air movement. Breathing comfortably on room air. Cardiovascular: No edema, Regular rate/rhythm Gastrointestinal: Normal bowel sounds. Soft and benign Integumentary: No rashes : Suprapubic catheter. Penile discharge. Laboratory Data - Reviewed Microbiology Data - Reviewed Imagings Data: - Reviewed Medications List: Reviewed Assessment and Plan Problem List Septic shock secondary to complicated UTI Acute Kidney Injury Diabetes Mellitus type II Hypertension Hyperlipidemia Dementia Acute Blood Loss Anemia secondary to Upper GI Bleed Septic shock secondary to complicated urinary tract infection - Patient has suprapubic catheter since November. Prior to suprapubic cath, patient had chronic indwelling dominguez catheter for 10+ years; however due to penile wound from dominguez catheter, a suprapubic catheter was placed. - Blood cultures 06/18: no growth to date - Renal ultrasound 06/18: "Benign 2.5 cm cyst superior left kidney. Otherwise, negative study." - Penile wound culture 06/12: Klebsiella pneumoniae and Staphylococcus aureus History of proteus mirabilis ESBL UTI; therefore patient was started on empiric Meropenem IV on 06/18. -> Switched to Cefepime following urine culture sensitivity results - Urine cultures 06/18: Proteus mirabilis ESBL - Suprapubic catheter exchanged on 06/16 - Leukocytosis resolved. Afebrile Acute Blood Loss Anemia secondary to Upper GI Bleed - GI following - s/p EGD on 06/20 with findings of duodenal ulcers - tissue sent for pathology, pending results Recommendations - Complicated UTI: Continue antibiotic therapy for 10 days. - Proteus ESBL resistant to Meropenem -> switched to Cefepime 06/21 - Monitor WBC and fever trends. - ALEXI: renally dose medications. Nephrology also following - Pressure offloading measures Case discussed with Meg Chatman who is in agreement with plan.
[2023-06-21] MEDS: HOME MED 1 EA UNK (Fluticasone Propionate [Flovent Diskus] 50 MCG Blst.W.Dev) IH SCH (09:00)
--- NOTE | 2023-06-21 09:07 | P.PN ---
Date of Service: 06/21/23 Subjective: Abd pain improving, had one episode maroon stool this morning ROS: 10 point ROS as noted above, otherwise negative Physical exam GEN: Alert, oriented, NAD HEENT: Normal conjunctiva, sclera anicteric CV: Regular rate and rhythm, no edema Pulm: Nonlabored respirations on room air ABD: Soft, mild upper abd tenderness , nondistended MSK: No joint tenderness Integumentary: No rashes Neuro: Normal speech, normal affect : suprapubic catheter in place Vitals reviewed Problem List Acute blood loss anemia secondary to upper GI bleed Septic shock secondary to complicated UTI-chronic indwelling suprapubic catheter- Proteus Miribilis ESBL Acute kidney injury secondary to septic shock Diabetes mellitus type 2 Hypertension Hyperlipidemia Dementia Plan: Acute blood loss anemia secondary to upper GI bleed EGD 06/20 with mild diffuse superficial gastritis, multiple erosions showing stigmata of bleeding, multiple cratered acute benign ulcers, moderate diffuse duodenitis, multiple cratered deep ulcers in the duodenal bulb Hemoglobin d7.7 this morning getting a unit of blood now, trend H/H Blood pressures on the low side Continue IV PPI, octreotide, add carafate elixir qac/qhs Septic shock secondary to complicated UTI-chronic indwelling suprapubic catheter- Proteus Miribilis ESBL Urine culture with Proteus Miribilis ESBL sensitive to cefepime, started 06/21 ID consult has seen patient, amador gera Suprapubic catheter exchanged on 06/16/2023 in ED Acute kidney injury secondary to septic shock renal function improving with IV fluids daily chemistry, nephrology consult Diabetes mellitus type 2 ACHS Accu-Chek, SSI Hypertension Hyperlipidemia Dementia Continue home medication, hold DO/ARB given ALEXI VTE: SCDs given GI bleed Code: Full Dispo: Home 2-3 days Time Spent Managing Pts Care (In Minutes): 35
[2023-06-21] MEDS: SODIUM BICARB 325 MG TAB PO SCH ×3 (09:25→21:28)
[2023-06-21] MEDS: SERTRALINE HCL 50 MG TAB PO SCH (09:25)
[2023-06-21 13:26] VITALS: BMI 27.7
--- NOTE | 2023-06-21 14:16 | P.PN ---
Subjective Date of Service: 06/21/23 Chief Complaint: Septic shock, UTI Subjective: Other (Bedbound.) Physical Examination - Vital Signs Temperature: 97.2 F Blood Pressure: 110/54 Pulse: 81 Respirations: 25 Pulse Ox (%): 98 - Physical Exam General: Other (chronically ill-appearing) HEENT: Atraumatic, Normocephalic Neck: Supple Respiratory: Other (symmetric chest expansion) Cardiovascular: No rubs, No murmurs Gastrointestinal: Soft and benign Musculoskeletal: No clubbing Integumentary: No warmth Neurological: Normal tone Urinary: Other (no bladder distention) External genitalia: Deferred Rectal: Deferred - Studies Microbiology Data (last 24 hrs): 06/18/23 09:40 Clean Catch Urine [place] Count - Final >100,000 CFU/ML. 06/18/23 09:40 Clean Catch Urine - Final Proteus Mirabilis Esbl Assessment And Plan - Plan 1. Acute kidney injury secondary to poor perfusion ATN, toxic ATN. Improved. SCr improved to 1.0. PO fluid intake as able. 2. Acidosis secondary to renal failure superimposed with metformin. Hold metformin. Bicitra ordered for today. 3. Septic shock. Has suprapubic cath d/t chronic urinary retention. Suprapubic cath replaced a few days ago. Abx per other services. 4. Renal cyst, simple. No need for intervention for the time being. 5. Anemia. pRBC transfusion received on 06/21.
[2023-06-21] MEDS: NA CIT/CITRIC AC 30 ML ORAL UDC PO SCH ×2 (16:12→21:02)
[2023-06-21 16:23] LABS: Hematocrit 26.8 % (39.6-49.0)
--- NOTE | 2023-06-21 17:06 | P.PN ---
Subjective Date of Service: 06/21/23 Chief Complaint: GI bleed, melena, septic shock, UTI Subjective: Improving (Less melena. Hgb down to 7.7 but up to 8.9 now. On IV Protonix.) Physical Examination - Vital Signs Temperature: 98.2 F Blood Pressure: 159/74 Pulse: 72 Respirations: 20 Pulse Ox (%): 99 - Studies Microbiology Data (last 24 hrs): 06/18/23 09:40 Clean Catch Urine [place] Count - Final >100,000 CFU/ML. 06/18/23 09:40 Clean Catch Urine - Final Proteus Mirabilis Esbl Assessment And Plan - Current Problems (Diagnosis) (1) Melena Current Visit: Yes Status: Acute (2) GI bleed Current Visit: Yes Status: Acute (3) Ulcer, gastric, acute Current Visit: Yes Status: Acute (4) Ulcer duodenal hemorrhage Current Visit: Yes Status: Acute (5) Gastric erosions Current Visit: Yes Status: Acute (6) Gastritis Current Visit: Yes Status: Acute - Plan REC: 1) continue IV Protonix 2) Carafate elixir 1g po qac/qhs 3) await EGD pathology
[2023-06-21 20:27] LABS: Hematocrit 26.1 % (39.6-49.0)
[2023-06-21] MEDS ORDERED: NA CIT/CITRIC AC 30 ML ORAL UDC ONE (21:53)
[2023-06-22] MEDS: NA CIT/CITRIC AC 30 ML ORAL UDC PO SCH (00:49)
[2023-06-22 05:20] LABS: Hematocrit 24.8 % (39.6-49.0); MCV 86.5 fL (80-100); Platelets 132 thou/uL (152-406); RBC Red Blood Cell Count 2.86 M/uL (4.33-5.43)
[2023-06-22 05:38] LABS: Albumin 2.3 g/dL (3.4-5.0); Phosphorus 2.2 mg/dL (2.5-4.9); Potassium 4.2 mEq/L (3.5-5.1)
[2023-06-22] MEDS: OCTREOTIDE 500 MCG in NA CHLORIDE 0.9% 500 ML IV SCH ×3 (05:46→21:45)
[2023-06-22] MEDS: INSULIN REGULAR (HUMAN) 100 UNIT/ML SQ SCH ×4 (07:30→20:56)
[2023-06-22] MEDS: SODIUM BICARB 325 MG TAB PO SCH ×3 (08:22→20:55)
[2023-06-22] MEDS: HOME MED 1 EA UNK (Fluticasone Propionate [Flovent Diskus] 50 MCG Blst.W.Dev) IH SCH (08:23)
[2023-06-22] MEDS: SERTRALINE HCL 50 MG TAB PO SCH (08:23)
[2023-06-22] MEDS: SUCRALFATE 1GM/10ML UCUP FT SCH ×4 (08:23→20:55)
[2023-06-22] MEDS: PANTOPRAZOLE INJ 80 MG in NA CHLORIDE 0.9% 250 ML IV SCH ×3 (08:23→21:45)
[2023-06-22] MEDS: NA CHLORIDE 0.9% 1,000 ML IV SCH ×2 (08:23→19:28)
--- NOTE | 2023-06-22 09:20 | P.PN ---
Date of Service: 06/22/23 Subjective: Abd pain improved had small amout melena overnight, decreasing feeling better today no acute events overnight ROS: 10 point ROS as noted above, otherwise negative Physical exam GEN: Alert, oriented, NAD HEENT: Normal conjunctiva, sclera anicteric CV: Regular rate and rhythm, no edema Pulm: Nonlabored respirations on room air ABD: Soft, nondistended MSK: No joint tenderness Integumentary: No rashes Neuro: Normal speech, normal affect : suprapubic catheter in place Vitals reviewed Problem List Acute blood loss anemia secondary to upper GI bleed Septic shock secondary to complicated UTI-chronic indwelling suprapubic catheter- Proteus Miribilis ESBL Acute kidney injury secondary to septic shock Diabetes mellitus type 2 Hypertension Hyperlipidemia Dementia Plan: Acute blood loss anemia secondary to upper GI bleed EGD 06/20 with mild diffuse superficial gastritis, multiple erosions showing stigmata of bleeding, multiple cratered acute benign ulcers, moderate diffuse duodenitis, multiple cratered deep ulcers in the duodenal bulb Trend H/H Blood pressures improved today Continue IV PPI, octreotide, add carafate elixir qac/qhs Clear liquids for now GI following Septic shock secondary to complicated UTI-chronic indwelling suprapubic catheter- Proteus Miribilis ESBL Urine culture with Proteus Miribilis ESBL sensitive to cefepime, started 06/21 ID consult has seen patientamador Suprapubic catheter exchanged on 06/16/2023 in ED Acute kidney injury secondary to septic shock renal function improving with IV fluids daily chemistry, nephrology consult Diabetes mellitus type 2 ACHS Accu-Chek, SSI Hypertension Hyperlipidemia Dementia Continue home medication, hold DO/ARB given ALEXI VTE: SCDs given GI bleed Code: Full Dispo: Home 2-3 days Time Spent Managing Pts Care (In Minutes): 35 <Daniel Sanchez - Last Filed: 06/22/23 09:16> Patient seen and examined on rounds this morning. Plan of care discussed with QUALITY LAB TECHNICIAN Laura. Agree with plan as noted above with the following additions/corrections: Patient reports doing better Nursing staff reports improving bloody bowel movements, more brown, less red Afebrile, vitals stable Continue cefepime Continue clear liquid diet, PPI Clear to auscultation bilaterally at bases, no edema <Chidi Meadows - Last Filed: 06/22/23 13:44>
[2023-06-22] MEDS: CEFEPIME 1 GM in NA CHLORIDE 0.9% 100 ML IV SCH ×2 (09:44→20:55)
[2023-06-22 13:15] LABS: Hematocrit 25.5 % (39.6-49.0)
--- NOTE | 2023-06-22 14:27 | EKG ---
Test Date: 2023-06-18 Test Time: 10:32:40 Metal Furniture Repairer: ANA MEASUREMENT RESULTS: Intervals: Rate: 94 CA: 134 QRSD: 78 QT: 352 QTc: 440 Lorena: P: 52 CA: 134 QRS: 16 T: 62 INTERPRETIVE STATEMENTS: Normal sinus rhythm Low voltage QRS Borderline ECG Compared to ECG 08/24/2022 01:01:46 Low QRS voltage now present Electronically Signed On 06-22-23 14:15:10 [employer]IN [employer]RAKEM[employer] by Reynold Barreto
--- NOTE | 2023-06-22 16:33 | P.PN ---
Subjective Date of Service: 06/23/23 Chief Complaint: Melena, septic shock, UTI Subjective: Improving (No melena overnight. Hgb stabilizing in the 8-9 range. Tolerating clear liquid diet.) Review of Systems 10-point ROS is otherwise unremarkable General: Weakness (Improved. ) Physical Examination - Vital Signs Temperature: 97.6 F Blood Pressure: 172/39 Pulse: 73 Respirations: 18 Pulse Ox (%): 97 - Physical Exam General: Alert, In no apparent distress, Oriented x3, Cooperative HEENT: Atraumatic, Normocephalic, PERRLA, EOMI Neck: Supple Respiratory: Normal air movement Cardiovascular: Normal pulses Gastrointestinal: Soft and benign, No tenderness, No rebound, No guarding Neurological: Normal speech, Normal strength at 5/5 x4 extr Assessment And Plan - Current Problems (Diagnosis) (1) Melena Current Visit: Yes Status: Acute (2) GI bleed Current Visit: Yes Status: Acute (3) Ulcer, gastric, acute Current Visit: Yes Status: Acute (4) Ulcer duodenal hemorrhage Current Visit: Yes Status: Acute (5) Gastric erosions Current Visit: Yes Status: Acute (6) Gastritis Current Visit: Yes Status: Acute - Plan REC: 1) continue IV Protonix 2) Carafate elixir 1g po qac/qhs 3) await EGD pathology
--- NOTE | 2023-06-23 01:01 | PN ---
Date of Progress Note: 06/22/2023 Chief Complaint: Septic shock, urinary tract infection, acute kidney injury. Review of Systems: Patient denies chest pain, palpitation. Physical Examination: Lungs: Diminished breath sounds in the bases. Heart: S1, S2. Abdomen: Soft. Extremities: No edema. Impression And Plan: 1.Acute kidney injury secondary to poor perfusion resulted in acute tubular necrosis, toxic ATN. Se rum creatinine level improved to baseline. Patient is tolerating p.o. intake. Continue adequate hyd ration. 2.Acidosis secondary to renal failure superimposed with metformin. Metformin is on hold. The patie nt was started on Bicitra. Monitor renal panel and adjust medication as needed according to lab resu lts. 3.Septic shock. The patient has suprapubic catheter due to chronic urinary retention. Suprapubic c atheter was replaced a few days ago. Continue antibiotic therapy for urinary tract infection. 4.Renal cyst, simple. No need for intervention at this time. 5.Anemia, status post packed red blood cell transfusion on June 21. HERB/ALETHEA Voice ID: [id number] Report ID: [id number]
[2023-06-23] MEDS: PANTOPRAZOLE INJ 80 MG in NA CHLORIDE 0.9% 250 ML IV SCH ×3 (03:35→17:45)
[2023-06-23 04:55] LABS: Hematocrit 25.5 % (39.6-49.0); MCV 85.9 fL (80-100); MPV 7.2 fL (7.6-11.3); Platelets 118 thou/uL (152-406); RBC Red Blood Cell Count 2.97 M/uL (4.33-5.43)
[2023-06-23 05:13] LABS: Albumin 2.3 g/dL (3.4-5.0); Phosphorus 1.9 mg/dL (2.5-4.9); Potassium 3.9 mEq/L (3.5-5.1)
[2023-06-23] MEDS: HYDRALAZINE HCL 20 MG/ML VIAL IV PRN ×3 (06:09→21:03)
[2023-06-23] MEDS ORDERED: HYDRALAZINE HCL 20 MG/ML VIAL ONE (06:21)
[2023-06-23] MEDS: INSULIN REGULAR (HUMAN) 100 UNIT/ML SQ SCH ×4 (07:30→21:04)
[2023-06-23] MEDS: ACETAMINOPHEN 500 MG TAB PO PRN (07:48)
[2023-06-23] MEDS: HOME MED 1 EA UNK (Fluticasone Propionate [Flovent Diskus] 50 MCG Blst.W.Dev) IH SCH (07:49)
[2023-06-23] MEDS: SODIUM BICARB 325 MG TAB PO SCH ×3 (07:49→20:50)
[2023-06-23] MEDS: CEFEPIME 1 GM in NA CHLORIDE 0.9% 100 ML IV SCH ×2 (07:49→20:50)
[2023-06-23] MEDS: HYDRALAZINE HCL 25 MG TABLET PO SCH (07:49)
[2023-06-23] MEDS: LOSARTAN POTASSIUM 50 MG TABLET PO SCH (07:49)
[2023-06-23] MEDS: OCTREOTIDE 500 MCG in NA CHLORIDE 0.9% 500 ML IV SCH (07:50)
[2023-06-23] MEDS: SUCRALFATE 1GM/10ML UCUP FT SCH ×4 (07:51→20:50)
[2023-06-23] MEDS: SERTRALINE HCL 50 MG TAB PO SCH (07:54)
[2023-06-23] MEDS ORDERED: POTASS/SODIUM PHOSPHATE 1 PKT POWD.PACK PO SCH (09:00)
--- NOTE | 2023-06-23 09:04 | P.PN ---
Date of Service: 06/23/23 Subjective: Abd pain improved No melena overnight C/O RUE swelling overnight Anxious to get home working with PT ROS: 10 point ROS as noted above, otherwise negative Physical exam GEN: Alert, oriented, NAD HEENT: Normal conjunctiva, sclera anicteric CV: Regular rate and rhythm, no edema Pulm: Nonlabored respirations on room air ABD: Soft, nondistended MSK: RUE swelling Integumentary: No rashes Neuro: Normal speech, normal affect : suprapubic catheter in place Vitals reviewed Problem List Acute blood loss anemia secondary to upper GI bleed Septic shock secondary to complicated UTI-chronic indwelling suprapubic catheter- Proteus Miribilis ESBL Acute kidney injury secondary to septic shock Diabetes mellitus type 2 Hypertension Hyperlipidemia Dementia Plan: Acute blood loss anemia secondary to upper GI bleed EGD 06/20 with mild diffuse superficial gastritis, multiple erosions showing stigmata of bleeding, multiple cratered acute benign ulcers, moderate diffuse duodenitis, multiple cratered deep ulcers in the duodenal bulb H/H stable in the 8s the past 24 hours Blood pressures increasing, started on BP meds overnight Continue IV PPI and carafate elixir qac/qhs Clear liquids for now GI following Septic shock secondary to complicated UTI-chronic indwelling suprapubic catheter- Proteus Miribilis ESBL Urine culture with Proteus Miribilis ESBL sensitive to cefepime, started 06/21 ID consult has seen patient, amador boss Suprapubic catheter exchanged on 06/16/2023 in ED Acute kidney injury secondary to septic shock renal function improving with IV fluids daily chemistry, Nephrology following Diabetes mellitus type 2 ACHS Accu-Chek, SSI Hypertension Home meds continued Hyperlipidemia Dementia Continue home medication, hold DO/ARB given ALEXI VTE: SCDs given GI bleed Code: Full Dispo: Home 2-3 days Time Spent Managing Pts Care (In Minutes): 35 <Daniel Sanchez - Last Filed: 06/23/23 09:02> Patient seen and examined on rounds this morning. Plan of care discussed with CANDLE MOLDER MACHINE Laura. Agree with plan as noted above with the following additions/corrections: Hemoglobin stable, patient without any new/worsening symptoms. Tolerating liquid diet Continue on IV PPI, Carafate Blood pressure increased, restart home medications and titrate as appropriate DC IV fluids Continue cefepime for complicated UTI. Suspect 10-14-day course We will discuss with ID regarding recommendations of duration, patient will likely need PICC line Physical therapy ordered [place] out of ICU today <Chidi Meadows - Last Filed: 06/23/23 11:05>
--- NOTE | 2023-06-23 09:39 | P.PN ---
Subjective Date of Service: 06/23/23 Chief Complaint: Melena, septic shock, UTI Subjective: Improving (No further GI bleeding / melena noted. Tolerating CL diet. Being transferred from ICU to floor today.) Review of Systems Unremarkable Physical Examination - Vital Signs Temperature: 97.6 F Blood Pressure: 172/39 Pulse: 73 Respirations: 18 Pulse Ox (%): 97 - Physical Exam General: Alert, In no apparent distress, Oriented x3, Cooperative HEENT: Atraumatic, Normocephalic, PERRLA, EOMI Neck: Supple Cardiovascular: Normal pulses Neurological: Normal speech, Normal strength at 5/5 x4 extr Assessment And Plan - Current Problems (Diagnosis) (1) Melena Current Visit: Yes Status: Acute Comment: Improved. (2) GI bleed Current Visit: Yes Status: Acute (3) Ulcer, gastric, acute Current Visit: Yes Status: Acute (4) Ulcer duodenal hemorrhage Current Visit: Yes Status: Acute (5) Gastric erosions Current Visit: Yes Status: Acute (6) Gastritis Current Visit: Yes Status: Acute - Plan REC: 1) continue IV Protonix 2) Carafate elixir 1g po qac/qhs 3) await EGD pathology
--- NOTE | 2023-06-23 10:26 | RAD REPORT ---
EXAM DESCRIPTION: US - UPPER EXTREMITY VENOUS UNILATE - 06/23/2023 8:25 am CLINICAL HISTORY: Right upper extremity swelling COMPARISON: None. FINDINGS: The right internal jugular, subclavian, brachial, axillary, cephalic, basilic, radial and ulnar veins demonstrate phasic signal. The veins are generally compressible. Doppler demonstrates good flow Grayscale, color and spectral analysis performed on all vessels IMPRESSION: No evidence of thrombus involving the right upper extremity
[2023-06-23] MEDS ORDERED: ALBUTEROL 2.5 MG/3 ML NEB SOL NEB PRN (11:19)
[2023-06-23] MEDS: NA CHLORIDE 0.9% 1,000 ML IV SCH ×2 (14:56→22:01)
--- NOTE | 2023-06-23 23:13 | PN ---
Date of Progress Note: 06/23/2023 Chief Complaint: Septic shock, urinary tract infection, acute kidney injury. Review of Systems: Patient denies complaints. Denies chest pain, palpitation. Physical Examination: Lungs: Clear to auscultation bilaterally. Heart: S1, S2. Abdomen: Soft. Extremities: No edema. Impression And Plan: 1. Acute kidney injury secondary to poor perfusion resulted in acute tubular necrosis, toxic ATN. Serum creatinine level improved to baseline. Patient is tolerating p.o. intake. Continue adequate hydration. 2. Acidosis secondary to renal failure, superimposed with metformin. Metformin is on hold. Patient is not a candidate for metformin. Monitor electrolytes and adjust treatment with Bicitra, sodium bicarbonate, tablets as needed. 3. Septic shock. The patient has a suprapubic catheter due to chronic urinary retention. Suprapubic catheter was replaced few days ago. Continue antibiotic therapy for urinary tract infection. 4. Renal cyst, No need for intervention at this time. 5. Anemia status post packed red blood cells transfusion on June 21. Monitor H and H. EB/MODL Voice ID: [id number] Report ID: [id number] MTDD
[2023-06-24] MEDS: PANTOPRAZOLE INJ 80 MG in NA CHLORIDE 0.9% 250 ML IV SCH (03:28)
[2023-06-24] MEDS: HYDRALAZINE HCL 20 MG/ML VIAL IV PRN ×3 (05:12→16:13)
[2023-06-24 05:38] LABS: Hematocrit 25.1 % (39.6-49.0); MCV 85.5 fL (80-100); MPV 7.5 fL (7.6-11.3); Platelets 142 thou/uL (152-406); RBC Red Blood Cell Count 2.94 M/uL (4.33-5.43)
[2023-06-24 05:46] LABS: Albumin 2.4 g/dL (3.4-5.0); Phosphorus 1.7 mg/dL (2.5-4.9); Potassium 3.7 mEq/L (3.5-5.1)
[2023-06-24] MEDS: INSULIN REGULAR (HUMAN) 100 UNIT/ML SQ SCH ×4 (07:30→19:50)
[2023-06-24] MEDS: SUCRALFATE 1GM/10ML UCUP FT SCH ×4 (08:19→19:50)
[2023-06-24] MEDS: SODIUM BICARB 325 MG TAB PO SCH ×3 (08:19→19:50)
[2023-06-24] MEDS: LOSARTAN POTASSIUM 50 MG TABLET PO SCH (08:20)
[2023-06-24] MEDS: POTASS/SODIUM PHOSPHATE 1 PKT POWD.PACK PO SCH ×3 (08:20→10:44)
[2023-06-24] MEDS: SERTRALINE HCL 50 MG TAB PO SCH (08:20)
[2023-06-24] MEDS: HYDRALAZINE HCL 25 MG TABLET PO SCH (08:21)
[2023-06-24] MEDS: CEFEPIME 1 GM in NA CHLORIDE 0.9% 100 ML IV SCH ×2 (08:21→19:50)
[2023-06-24] MEDS: NA CHLORIDE 0.9% 1,000 ML IV SCH ×2 (08:22→18:01)
[2023-06-24] MEDS: HOME MED 1 EA UNK (Fluticasone Propionate [Flovent Diskus] 50 MCG Blst.W.Dev) IH SCH (08:23)
[2023-06-24] MEDS ORDERED: SODIUM CHLORIDE 0.9% 10ML INJ IV PRN (08:42)
[2023-06-24] MEDS: PANTOPRAZOLE 40 MG INJ IVP SCH ×2 (09:00→19:51)
[2023-06-24] MEDS ORDERED: POTASSIUM CL SA 10 MEQ TAB PO ONE (09:00)
--- NOTE | 2023-06-24 09:05 | P.PN ---
Date of Service: 06/24/23 Chief Complaint: Septic shock, UTI Subjective: Patient seen and examined at bedside. He denies any nausea, vomiting, diarrhea or abdominal pain. No new or worsening complaints. States feels good and is wanting to go home. Physical Examination Temp Pulse Resp BP Pulse Ox 98.3 F 68 16 147/62 H 98 06/24/23 08:00 06/24/23 08:00 06/24/23 08:00 06/24/23 08:00 06/24/23 08:00 General: In no apparent distress. Oriented x2-3. HEENT: Atraumatic, normocephalic. Respiratory: Clear to auscultation bilaterally, Normal air movement. Breathing comfortably on room air. Cardiovascular: No edema, Regular rate/rhythm Gastrointestinal: Normal bowel sounds. Soft and benign Integumentary: No rashes : Suprapubic catheter. Laboratory Data - Reviewed Microbiology Data - Reviewed Imagings Data: - Reviewed Medications List: Reviewed Assessment and Plan Problem List Septic shock secondary to complicated UTI Acute Kidney Injury Diabetes Mellitus type II Hypertension Hyperlipidemia Dementia Acute Blood Loss Anemia secondary to Upper GI Bleed Septic shock secondary to complicated urinary tract infection - Patient has suprapubic catheter since November. Prior to suprapubic cath, patient had chronic indwelling dominguez catheter for 10+ years; however due to penile wound from dominguez catheter, a suprapubic catheter was placed. - Renal ultrasound 06/18: "Benign 2.5 cm cyst superior left kidney. Otherwise, negative study." - History of proteus mirabilis ESBL UTI; therefore patient was started on empiric Meropenem IV on 06/18. - Blood cultures 06/18: no growth to date - Urine cultures 06/18: Proteus mirabilis ESBL - Proteus ESBL resistant to Meropenem -> switched to Cefepime 06/21-> Switched to Cefepime following urine culture sensitivity results - Leukocytosis resolved. Afebrile Acute Blood Loss Anemia secondary to Upper GI Bleed - GI following - s/p EGD on 06/20 with findings of duodenal ulcers - tissue sent for pathology: no H.pylori Recommendations - Complicated UTI: Continue Cefepime for 10 days (06/21-07/01) - Pending midline placement - Monitor WBC and fever trends. H&H. - Upper GI bleed: see GI note for further recommendations - ALEXI: renally dose medications. Nephrology also following - Pressure offloading measures Case discussed with Meg Chatman who is in agreement with plan.
--- NOTE | 2023-06-24 10:26 | P.PN ---
Date of Service: 06/24/23 Subjective: Abd pain improved No melena overnight RUE swelling improved Anxious to get home working with PT ROS: 10 point ROS as noted above, otherwise negative Physical exam GEN: Alert, oriented, NAD HEENT: Normal conjunctiva, sclera anicteric CV: Regular rate and rhythm, no edema Pulm: Nonlabored respirations on room air ABD: Soft, nondistended MSK: RUE swelling Integumentary: No rashes Neuro: Normal speech, normal affect : suprapubic catheter in place Vitals reviewed Problem List Acute blood loss anemia secondary to upper GI bleed Septic shock secondary to complicated UTI-chronic indwelling suprapubic catheter- Proteus Miribilis ESBL Acute kidney injury secondary to septic shock Diabetes mellitus type 2 Hypertension Hyperlipidemia Dementia Plan: Acute blood loss anemia secondary to upper GI bleed EGD 06/20 with mild diffuse superficial gastritis, multiple erosions showing stigmata of bleeding, multiple cratered acute benign ulcers, moderate diffuse duodenitis, multiple cratered deep ulcers in the duodenal bulb H/H stable in the 8s the past 48 hours Increased to Full liquid>GI soft if tolerated Gastin level ordered this AM Blood pressures increasing, started on BP meds Continue IV PPI BID and carafate elixir qac/qhs GI following Septic shock secondary to complicated UTI-chronic indwelling suprapubic catheter- Proteus Miribilis ESBL Urine culture with Proteus Miribilis ESBL sensitive to cefepime, started 06/21 Will need cefepime for 10 days ending 07/01 once cleared for DC by GI ID consult has seen patient Suprapubic catheter exchanged on 06/16/2023 in ED Acute kidney injury secondary to septic shock renal function improved, back to baseline daily chemistry, Nephrology following Diabetes mellitus type 2 ACHS Accu-Chek, SSI Hypertension Home meds continued Hyperlipidemia Dementia Continue home medication, hold DO/ARB given ALEXI VTE: SCDs given GI bleed Code: Full Dispo: Home 1-2 days Needs PICC/midline, Clearance from GI, IV abx at home at dc Time Spent Managing Pts Care (In Minutes): 35 <Daniel Sanchez - Last Filed: 06/24/23 10:23> Patient seen an examined on rounds this morning. improving. tolerating diet BMs improving continue cefepime suprapubic cath in place tolerating diet <Chidi Meadows - Last Filed: 06/24/23 20:54>
[2023-06-24 10:42] VITALS: O2SAT 97
--- NOTE | 2023-06-25 02:01 | PN ---
Date of Progress Note: 06/24/2023 Chief Complaint: Septic shock, urinary tract infection, acute kidney injury. Review of Systems: Patient denies chest pain, palpitation. Physical Examination: Lungs: Clear to auscultation bilaterally. Heart: S1, S2. Abdomen: Soft. Extremities: Slight edema. Impression And Plan: 1.Acute kidney injury secondary to poor perfusion, resulted in acute tubular necrosis and toxic ATN. Serum creatinine level improved to baseline. Patient is tolerating p.o. intake. Continue adequate hydration. 2.Acidosis secondary to renal failure, superimposed with metformin. Metformin is on hold. The baljeet ent is not a candidate to resume metformin. Monitor electrolytes and adjust treatment with Bicitra, sodium bicarbonate tablets as needed. 3.Septic shock. The patient has suprapubic catheter due to chronic urinary retention. Suprapubic c atheter was replaced a few days ago. The patient will continue antibiotics for urinary tract infecti on. Follow up with urologist for neurogenic bladder. 4.Renal cyst. No need for intervention at this time. 5.Anemia. The patient received packed red blood cell transfusion on June 21. Monitor H and H. EB/MODL Voice ID: [id number] Report ID: [id number]
[2023-06-25 04:41] LABS: Hematocrit 24.9 % (39.6-49.0); MCV 85.1 fL (80-100); Platelets 185 thou/uL (152-406); RBC Red Blood Cell Count 2.93 M/uL (4.33-5.43)
[2023-06-25 04:56] LABS: Magnesium 1.7 mg/dL (1.6-2.4); Potassium 3.5 mEq/L (3.5-5.1)
[2023-06-25] MEDS ORDERED: MAGNESIUM SULFATE 1 gm IVPB 1 GM/100 ML BAG IV ONE (06:00)
[2023-06-25] MEDS: INSULIN REGULAR (HUMAN) 100 UNIT/ML SQ SCH ×4 (07:30→20:35)
--- NOTE | 2023-06-25 08:00 | P.PN ---
Date of Service: 06/25/23 Chief Complaint: Septic shock, UTI Subjective: Patient seen and examined at bedside. No new chaneges. No acute events reported overnight. In no apparent distress. Patient denies any new or worsening complaints. Physical Examination Temp Pulse Resp BP Pulse Ox 98 F 77 18 160/81 H 98 06/25/23 04:00 06/25/23 04:00 06/25/23 04:00 06/25/23 04:00 06/25/23 04:00 General: In no apparent distress. Oriented x3. HEENT: Atraumatic, normocephalic. Respiratory: Clear to auscultation bilaterally, Normal air movement. Breathing comfortably on room air. Cardiovascular: No edema, Regular rate/rhythm Gastrointestinal: Normal bowel sounds. Soft and benign Integumentary: No rashes : Suprapubic catheter. Laboratory Data - Reviewed Microbiology Data - Reviewed Imagings Data: - Reviewed Medications List: Reviewed Assessment and Plan Problem List Septic shock secondary to complicated UTI Acute Kidney Injury Diabetes Mellitus type II Hypertension Hyperlipidemia Dementia Acute Blood Loss Anemia secondary to Upper GI Bleed Septic shock secondary to complicated urinary tract infection - Patient has suprapubic catheter since November. Prior to suprapubic cath, patient had chronic indwelling dominguez catheter for 10+ years; however due to penile wound from dominguez catheter, a suprapubic catheter was placed. - Renal ultrasound 06/18: "Benign 2.5 cm cyst superior left kidney. Otherwise, negative study." - History of proteus mirabilis ESBL UTI; therefore patient was started on empiric Meropenem IV on 06/18. - Blood cultures 06/18: no growth to date - Urine cultures 06/18: Proteus mirabilis ESBL - Proteus ESBL resistant to Meropenem -> switched to Cefepime 06/21-> Switched to Cefepime following urine culture sensitivity results - Leukocytosis resolved. Afebrile Acute Blood Loss Anemia secondary to Upper GI Bleed - GI following - s/p EGD on 06/20 with findings of duodenal ulcers - tissue sent for pathology: no H.pylori Recommendations - Complicated UTI: Continue Cefepime for 10 days (06/21-07/01) - Pending midline placement - Monitor WBC and fever trends. H&H. - Upper GI bleed: see GI note for further recommendations - ALEXI: renally dose medications. Nephrology also following - Pressure offloading measures Case discussed with Dr. Herrera N
[2023-06-25] MEDS: POTASS/SODIUM PHOSPHATE 1 PKT POWD.PACK PO SCH ×3 (08:48→11:38)
[2023-06-25] MEDS: HYDRALAZINE HCL 25 MG TABLET PO SCH ×3 (08:48→20:36)
[2023-06-25] MEDS: SERTRALINE HCL 50 MG TAB PO SCH (08:48)
[2023-06-25] MEDS: SUCRALFATE 1GM/10ML UCUP FT SCH ×4 (08:49→20:36)
[2023-06-25] MEDS: SODIUM BICARB 325 MG TAB PO SCH ×3 (08:49→20:36)
[2023-06-25] MEDS: LOSARTAN POTASSIUM 50 MG TABLET PO SCH (08:49)
[2023-06-25] MEDS: PANTOPRAZOLE 40 MG INJ IVP SCH ×2 (08:49→20:35)
[2023-06-25] MEDS: CEFEPIME 1 GM in NA CHLORIDE 0.9% 100 ML IV SCH ×2 (08:50→20:35)
[2023-06-25] MEDS: HOME MED 1 EA UNK (Fluticasone Propionate [Flovent Diskus] 50 MCG Blst.W.Dev) IH SCH (09:00)
[2023-06-25] MEDS ORDERED: POTASSIUM CL SA 10 MEQ TAB PO ONE (09:00)
[2023-06-25] MEDS: NA CHLORIDE 0.9% 1,000 ML IV SCH (14:01)
[2023-06-25] MEDS ORDERED: POTASSIUM PHOS 30 MM in NA CHLORIDE 0.9% 500 ML IV ONE (14:30)
--- NOTE | 2023-06-25 15:28 | P.PN ---
Subjective Date of Service: 06/25/23 Chief Complaint: Melena, septic shock, UTI Subjective: No new changes 06/25: Chito is awake this morning, states he is feeling ok. Will need the midline placed prior to discharge for home antibiotic therapy. H/H stable at 8.5/24.9. <Adele Conner - Last Filed: 06/25/23 15:50> Date of Service: 06/25/23 <aleksey cardenas - Last Filed: 06/25/23 16:33> Review of Systems 10-point ROS is otherwise unremarkable <Adele Conner - Last Filed: 06/25/23 15:50> Physical Examination - Vital Signs Temperature: 97.9 F Blood Pressure: 176/86 Pulse: 66 Respirations: 17 Pulse Ox (%): 87 <Adele Conner - Last Filed: 06/25/23 15:50> Assessment And Plan - Plan Physical exam GEN: Alert, oriented, NAD HEENT: Normal conjunctiva, sclera anicteric CV: Regular rate and rhythm, no edema Pulm: Nonlabored respirations on room air ABD: Soft, nondistended MSK: RUE swelling Integumentary: No rashes Neuro: Normal speech, normal affect : suprapubic catheter in place Vitals reviewed Problem List Acute blood loss anemia secondary to upper GI bleed Septic shock secondary to complicated UTI-chronic indwelling suprapubic catheter- Proteus Miribilis ESBL Acute kidney injury secondary to septic shock Diabetes mellitus type 2 Hypertension Hyperlipidemia Dementia Plan: Acute blood loss anemia secondary to upper GI bleed EGD 06/20 with mild diffuse superficial gastritis, multiple erosions showing stigmata of bleeding, multiple cratered acute benign ulcers, moderate diffuse duodenitis, multiple cratered deep ulcers in the duodenal bulb H/H stable in the 8s the past 48 hours Increased to Full liquid>GI soft if tolerated Gastin level pending Blood pressures increasing, started on BP meds Continue IV PPI BID and carafate elixir qac/qhs GI following- awaiting GI pathology Septic shock secondary to complicated UTI-chronic indwelling suprapubic catheter- Proteus Miribilis ESBL Urine culture with Proteus Miribilis ESBL sensitive to cefepime, started 06/21 Will need cefepime for 10 days ending 07/01 once cleared for DC by GI ID consult has seen patient Suprapubic catheter exchanged on 06/16/2023 in ED Acute kidney injury secondary to septic shock renal function improved, back to baseline daily chemistry, Nephrology following Diabetes mellitus type 2 ACHS Accu-Chek, SSI Hypertension Home meds continued Hyperlipidemia Dementia Continue home medication, hold DO/ARB given ALEXI VTE: SCDs given GI bleed Code: Full Dispo: Home 1-2 days Needs PICC/midline, Clearance from GI, IV abx at home at dc Time Spent Managing PTS Care (In Minutes): 35 <Adele Conner - Last Filed: 06/25/23 15:50> - Plan Patient seen and examined. Plan of care discussed with Ms. Conner. Patient is currently tolerating full liquid diet. Continue full liquid diet Continue IV Protonix Continue IV cefepime Social service consulted for outpatient IV cefepime. Midline for outpatient IV cefepime requested. <aleksey cardenas - Last Filed: 06/25/23 16:33>
[2023-06-25] MEDS: Mupirocin NASAL 2 APPL/1 GM TUBE NAS SCH (20:36)
[2023-06-26] MEDS: HYDRALAZINE HCL 20 MG/ML VIAL IV PRN (00:57)
[2023-06-26 05:06] LABS: Hematocrit 24.6 % (39.6-49.0); MCV 84.6 fL (80-100); Platelets 234 thou/uL (152-406); RBC Red Blood Cell Count 2.91 M/uL (4.33-5.43)
[2023-06-26 05:23] LABS: Magnesium 1.8 mg/dL (1.6-2.4); Phosphorus 2.7 mg/dL (2.5-4.9); Potassium 3.5 mEq/L (3.5-5.1)
[2023-06-26] MEDS ORDERED: MAGNESIUM SULFATE 1 gm IVPB 1 GM/100 ML BAG IV ONE (06:00)
[2023-06-26] MEDS: INSULIN REGULAR (HUMAN) 100 UNIT/ML SQ SCH ×3 (07:30→15:31)
[2023-06-26] MEDS: HOME MED 1 EA UNK (Fluticasone Propionate [Flovent Diskus] 50 MCG Blst.W.Dev) IH SCH (09:00)
[2023-06-26] MEDS: Mupirocin NASAL 2 APPL/1 GM TUBE NAS SCH (09:00)
[2023-06-26] MEDS ORDERED: POTASSIUM CL SA 10 MEQ TAB PO ONE (09:00)
[2023-06-26] MEDS: LOSARTAN POTASSIUM 50 MG TABLET PO SCH (09:03)
[2023-06-26] MEDS: SODIUM BICARB 325 MG TAB PO SCH (09:03)
[2023-06-26] MEDS: PANTOPRAZOLE 40 MG INJ IVP SCH (09:03)
[2023-06-26] MEDS: HYDRALAZINE HCL 25 MG TABLET PO SCH ×2 (09:03→14:23)
[2023-06-26] MEDS: SERTRALINE HCL 50 MG TAB PO SCH (09:03)
[2023-06-26] MEDS: SUCRALFATE 1GM/10ML UCUP FT SCH ×3 (09:03→16:00)
[2023-06-26] MEDS: CEFEPIME 1 GM in NA CHLORIDE 0.9% 100 ML IV SCH (09:04)
--- NOTE | 2023-06-26 09:19 | P.PN ---
Date of Service: 06/26/23 Chief Complaint: Septic shock, UTI Subjective: Improving. No acute events reported overnight. Patient denies any new or worsening complaints. Pending discharge home with home health today. Physical Examination Temp Pulse Resp BP Pulse Ox 97.9 F 72 14 154/72 H 96 06/26/23 08:00 06/26/23 08:00 06/26/23 08:00 06/26/23 08:00 06/26/23 08:00 General: In no apparent distress. Oriented x3. HEENT: Atraumatic, normocephalic. Respiratory: Clear to auscultation bilaterally, Normal air movement. Breathing comfortably on room air. Cardiovascular: No edema, Regular rate/rhythm Gastrointestinal: Normal bowel sounds. Soft and benign Integumentary: No rashes : Suprapubic catheter. Laboratory Data - Reviewed Microbiology Data - Reviewed Imagings Data: - Reviewed Medications List: Reviewed Assessment and Plan Problem List Septic shock secondary to complicated UTI Acute Kidney Injury Diabetes Mellitus type II Hypertension Hyperlipidemia Dementia Acute Blood Loss Anemia secondary to Upper GI Bleed Septic shock secondary to complicated urinary tract infection - Patient has suprapubic catheter since November. Prior to suprapubic cath, patient had chronic indwelling dominguez catheter for 10+ years; however due to penile wound from dominguez catheter, a suprapubic catheter was placed. - Renal ultrasound 06/18: "Benign 2.5 cm cyst superior left kidney. Otherwise, negative study." - History of proteus mirabilis ESBL UTI; therefore patient was started on empir ic Meropenem IV on 06/18. - Blood cultures 06/18: no growth to date - Urine cultures 06/18: Proteus mirabilis ESBL - Proteus ESBL resistant to Meropenem -> switched to Cefepime 06/21-> Switched to Cefepime following urine culture sensitivity results - Leukocytosis resolved. Afebrile Acute Blood Loss Anemia secondary to Upper GI Bleed - GI following - s/p EGD on 06/20 with findings of duodenal ulcers - tissue sent for pathology: no H.pylori Recommendations - Complicated UTI: Continue Cefepime for 10 days (06/21-07/01) - Monitor WBC and fever trends. H&H. - Upper GI bleed: see GI note for further recommendations - ALEXI: renally dose medications. Nephrology also following - Pressure offloading measures Case discussed with Dr. Herrera N
--- NOTE | 2023-06-26 13:04 | P.DS ---
Admission Date: 06/18/23 Discharge Date: 06/26/23 Reason for Admission: Melena, septic shock, UTI Hospital Course: Chtio is a pleasant 77-year-old male with a past medical history significant for COPD, dementia, diabetes mellitus, hypertension, hyperlipidemia, chronic indwelling catheter who was admitted to the [facility] on 06/18/23 for Septic shock secondary to complicated UTI-chronic indwelling suprapubic catheter/history of MDR UTI. Chito presented to the ED with chief complaint of low blood pressure, fever/chills. He reported feeling unwell for the past 2 days prior to admission, his home health nurse checked his blood pressure and found it to be very low in the 70s systolic. He had his suprapubic catheter placed on 06/16/2023 during a visit to the ED. He has tolerated IV antibiotics and will discharge home with antibiotic therapy. During this admission Chito was found to have a low H&H and Dr. Cassidy was consulted. On Dr. Cassidy's evaluation he found melena, GI bleed, gastric ulcer, duodenal hemorrhage, gastric erosions, and gastritis. He has tolerated full liquid diet and can continue to advance his diet at home. On 06/26/23, Chito was seen on morning rounds and deemed medically stable for discharge. Chito was discharged with instructions to schedule follow-up appointments with Dr. Cassidy and PCP. Chito was provided prescriptions for Protonix, and sucralfate. The patient and family members were given the opport unity to ask questions and reported no further questions. Furthermore, all questions were answered to the best of my ability. A copy of this discharge summary will be sent to the above providers to f acilitate continuity of care. Today, I personally spent 55 minutes with Chito, of which greater than 50% of the time was spent in patient education, counseling, and coordination of care as described above. Physical exam GEN: Alert, oriented, NAD HEENT: Normal conjunctiva, sclera anicteric CV: Regular rate and rhythm, no edema Pulm: Nonlabored respirations on room air ABD: Soft, nondistended MSK: RUE swelling Integumentary: No rashes Neuro: Normal speech, normal affect : suprapubic catheter in place <Adele Conner - Last Filed: 06/26/23 17:41> Admission Date: 06/18/23 Discharge Date: 06/26/23 Brief History of Present Illness: Diagnosis Acute blood loss anemia secondary to upper GI bleed Septic shock secondary to complicated UTI-chronic indwelling suprapubic catheter- Proteus Miribilis ESBL Acute kidney injury secondary to septic shock Diabetes mellitus type 2 Hypertension Hyperlipidemia Dementia <aleksey cardenas - Last Filed: 06/26/23 18:04> Disposition: ROUTINE DISCHARGE Discharge Condition: FAIR Vital Signs/Physical Exam: Temp Pulse Resp BP Pulse Ox 97.6 F 70 16 174/75 H 99 06/26/23 12:00 06/26/23 12:00 06/26/23 12:00 06/26/23 12:00 06/26/23 12:00 Laboratory Data at Discharge: WBC 6.70 thou/uL (4.3-10.9) 06/26/23 04:52 Hgb 8.3 g/dL (13.6-17.9) L 06/26/23 04:52 Hct 24.6 % (39.6-49.0) L 06/26/23 04:52 Plt Count 234 thou/uL (152-406) D 06/26/23 04:52 PT 13.4 SECONDS (9.5-12.5) H 06/18/23 10:30 INR 1.22 06/18/23 10:30 Sodium 139 mEq/L (136-145) 06/26/23 04:52 Potassium 3.5 mEq/L (3.5-5.1) 06/26/23 04:52 BUN 5 mg/dL (7-18) L 06/26/23 04:52 Creatinine 0.59 mg/dL (0.70-1.30) L 06/26/23 04:52 Glucose 177 mg/dL (74-106) H 06/26/23 04:52 Uric Acid 4.6 mg/dL (3.5-7.2) 06/20/23 04:16 Phosphorus 2.7 mg/dL (2.5-4.9) 06/26/23 04:52 Magnesium 1.8 mg/dL (1.6-2.4) 06/26/23 04:52 Total Bilirubin 1.5 mg/dL (0.2-1.0) H 06/18/23 10:53 AST 16 U/L (15-37) 06/18/23 10:53 ALT 17 U/L (16-61) 06/18/23 10:53 Alkaline Phosphatase 64 U/L (45-117) 06/18/23 10:53 <Adele Conner - Last Filed: 06/26/23 17:41> Vital Signs/Physical Exam: Temp Pulse Resp BP Pulse Ox 98.0 F 73 14 161/79 H 96 06/26/23 15:44 06/26/23 15:44 06/26/23 15:44 06/26/23 15:44 06/26/23 15:44 Laboratory Data at Discharge: WBC 6.70 thou/uL (4.3-10.9) 06/26/23 04:52 Hgb 8.3 g/dL (13.6-17.9) L 06/26/23 04:52 Hct 24.6 % (39.6-49.0) L 06/26/23 04:52 Plt Count 234 thou/uL (152-406) D 06/26/23 04:52 PT 13.4 SECONDS (9.5-12.5) H 06/18/23 10:30 INR 1.22 06/18/23 10:30 Sodium 139 mEq/L (136-145) 06/26/23 04:52 Potassium 3.5 mEq/L (3.5-5.1) 06/26/23 04:52 BUN 5 mg/dL (7-18) L 06/26/23 04:52 Creatinine 0.59 mg/dL (0.70-1.30) L 06/26/23 04:52 Glucose 177 mg/dL (74-106) H 06/26/23 04:52 Uric Acid 4.6 mg/dL (3.5-7.2) 06/20/23 04:16 Phosphorus 2.7 mg/dL (2.5-4.9) 06/26/23 04:52 Magnesium 1.8 mg/dL (1.6-2.4) 06/26/23 04:52 Total Bilirubin 1.5 mg/dL (0.2-1.0) H 06/18/23 10:53 AST 16 U/L (15-37) 06/18/23 10:53 ALT 17 U/L (16-61) 06/18/23 10:53 Alkaline Phosphatase 64 U/L (45-117) 06/18/23 10:53 <aleksey cardenas - Last Filed: 06/26/23 18:04> Diet: Renal Activity: Fall precautions Time spent managing pt's care (in minutes): 55 <Adele Conner - Last Filed: 06/26/23 17:41> <aleksey cardenas - Last Filed: 06/26/23 18:04> Home Medications: Sertraline [Zoloft*] 50 mg PO DAILY 10/10/20 Gabapentin 300 mg PO BID 08/25/22 Empagliflozin [Jardiance] 25 mg PO DAILY 11/20/22 Fluticasone Propionate [Flovent Diskus] 2 spray IH DAILY 11/20/22 Umeclidinium Brm/Vilanterol Tr [Anoro Ellipta 62.5-25 Mcg INH] 1 puff IH DAILY 11/20/22 Hydralazine HCl 25 mg PO DAILY 12/20/22 Losartan Potassium [Cozaar] 100 mg PO DAILY 12/20/22 Pregabalin [Lyrica*] 75 mg PO BID 12/20/22 Pantoprazole Sodium [Protonix] 40 mg PO BID #60 tab 06/26/23 Sucralfate 10 ml PO TIDWM #430 ml 06/26/23 New Medications: Pantoprazole Sodium [Protonix] 40 mg PO BID #60 tab Sucralfate 10 ml PO TIDWM #430 ml Physician Discharge Instructions: 1. follow up with PCP in 1 to 2 weeks for medication management 2. Follow-up with Dr. Cassidy in 1 week for EGD pathology and management for GI bleed 3. Follow-up with nephrology Dr. Wells in 1 to 2 weeks 4. Stay hydrated, drink plenty of water 5. Return to ED if symptoms worsen 6. No new medications this admission Followup: Le Chang MD [COURTESY - CAN ADMIT] - NONE,NONE [Primary Care Provider] - Fam Javier MD [ASSOCIATE-ACTIVE - CAN ADMIT] - 1-2 Weeks
--- NOTE | 2023-06-26 14:49 | PN ---
Date of Progress Note: 06/26/2023 Subjective: Patient was admitted with acute kidney injury secondary to prerenal. The patient was hy drated. Kidney function normalized. The patient feeling well. Objective: Vital Signs: Blood pressure 154/72, pulse of 72, afebrile. Chest: Clear to auscultation. Heart: S1, S2. Regular. Abdomen: Soft, nontender. Extremities: No edema. Neurologic: Alert. No focality. Laboratory Data: Hemoglobin 8.3, sodium 139, potassium 3.5, bicarb 29, BUN 5, creatinine 0.5, calciu m 8, phosphorus 2.7. Current Medications: The patient on, it includes: 1.Cefepime. 2.Hydralazine 25 t.i.d. 3.Losartan 100 daily. 4.Zoloft. 5.Sodium bicarb 650 t.i.d. 6.Zofran. 7.Carafate. 8.Pantoprazole. Assessment And Plan: 1.Acute kidney injury secondary to prerenal, recovered, resolved. 2.Acidosis secondary to renal failure superimposed with metformin, resolved. I am going to go ahead and discontinue sodium bicarb. 3.Septic shock. Continue current treatment. Follow up with the primary. 4.Simple renal cyst. No need for further workup. DANIELA/ALETHEA Voice ID: [id number] Report ID: [id number]
[2023-06-26 15:46] VITALS: BP 161/79; TEMP 98
== END 2023-06-26 17:05 | disposition home health service (06) | DRG 698 ==
LOC: ER 09:13 → ERHOLD 12:20 → 3RD-ICU 16:08 → 4TH 06-23 14:36
PROVIDERS: ADMIT Hospitalist; ATTEND Internal Medicine
PROC: 0DB78ZX Excision of Stomach, Pylorus, Via Natural or Artificial Opening Endoscopic, Diagnostic (ICD-10-PCS; 2023-06-20)
PROC: 30233N1 Transfusion of Nonautologous Red Blood Cells into Peripheral Vein, Percutaneous Approach (ICD-10-PCS; 2023-06-20)
PROC: 0DB68ZX Excision of Stomach, Via Natural or Artificial Opening Endoscopic, Diagnostic (ICD-10-PCS; principal; 2023-06-20 13:45)
DX: T83.511A Infection and inflammatory reaction due to indwelling urethral catheter, initial encounter (principal); A41.59 Other Gram-negative sepsis; R65.21 Severe sepsis with septic shock; N17.0 Acute kidney failure with tubular necrosis; K26.0 Acute duodenal ulcer with hemorrhage; E87.1 Hypo-osmolality and hyponatremia; D62 Acute posthemorrhagic anemia; Z16.12 Extended spectrum beta lactamase (ESBL) resistance; Z16.29 Resistance to other single specified antibiotic; K25.3 Acute gastric ulcer without hemorrhage or perforation; N39.0 Urinary tract infection, site not specified; I10 Essential (primary) hypertension; E11.9 Type 2 diabetes mellitus without complications; E78.00 Pure hypercholesterolemia, unspecified; E83.51 Hypocalcemia; J30.9 Allergic rhinitis, unspecified; N28.1 Cyst of kidney, acquired; K25.9 Gastric ulcer, unspecified as acute or chronic, without hemorrhage or perforation; K29.70 Gastritis, unspecified, without bleeding; K21.9 Gastro-esophageal reflux disease without esophagitis; J44.9 Chronic obstructive pulmonary disease, unspecified; F03.90 Unspecified dementia, unspecified severity, without behavioral disturbance, psychotic disturbance, mood disturbance, and anxiety; Z88.8 Allergy status to other drugs, medicaments and biological substances; Z79.84 Long term (current) use of oral hypoglycemic drugs; Z79.82 Long term (current) use of aspirin; Z85.46 Personal history of malignant neoplasm of prostate; Z74.01 Bed confinement status; Z79.899 Other long term (current) drug therapy; Z96.651 Presence of right artificial knee joint
CPT/HCPCS: 36415; 51702; 70450; 71045; 74176; 74177; 76770; 80048; 80069; 80076; 81001; 82533; 82550; 82570; 82941; 82947; 83605; 83735; 83880; 84100; 84132; 84156; 84300; 84443; 84484; 84550; 85014; 85018; 85025; 85027; 85610; 86850; 86900; 86901; 86920; 87040; 87077; 87086; 87088; 87186; 88305; 88312; 93005; 93971; 94640; 96361; 96365; 96366; 96368; 96375; 97110; 97161; 99285; C9113; J0171; J0360; J0692; J1644; J1815; J2001; J2185; J2354; J2371; J2704; J3475; J7030; J7040; J7050; J7613; P9016; Q9967

== ENCOUNTER 2023-07-05 09:06 | Emergency (ER) | payer OTHER ==
--- OUTSIDE RECORDS SUMMARY | 2023-07-05 09:11 | XMS REPORT | Continuity of Care Document ---
:1945 Author Organization [facility] t Address [address] [place] [address] [address] [place] [address] Care Team Providers Name Role Phone Prema FREITAS Attending Clinician Unavailable LONNY TRIPP NATASHA Attending Clinician Unavailable Juan Trejo Attending Clinician Unavailable Leandra Weiner Attending Clinician Unavailable CRUZ VILLASENOR Attending Clinician Unavailable Peg Huerta Anavella Attending Clinician Unava ilable LONNY TRIPP LONNY Admitting Clinician Unavailable DEBRA TSAI Admitting Clinician Unavailable Melissa Huerta Anav Admitting Clinician Unavailable Payers Payer Name Policy Type Policy Number Effective Date Expiration Date S sven [facility] [id number] [facility] [id number] 2021-01-10 Common Sp vianca ing Medicare 00:00:00 - [facility] [id number] 2021-01-10 Common Sp vianca ing Medicare 00:00:00 - [facility] [id number] 2021-01-10 Common Sp vianca ing [id number] 2021-01-10 Common Sp vianca ing Medicare 00:00:00 - [facility] [employer]a-HealthSpr C1 [id number] 2021-01-10 Common Sp vianca ing Medicare 00:00:00 - [facility] Cigna-HealthSpr C1 [id number] 2021-01-10 Common Sp vianca ing Medicare 00:00:00 [facility] [id number] 2021-01-10 Common Sp vianca ing Medicare 00:00:00 [facility] Cigna-HealthSpr C1 [id number] 2021-01-10 Common Sp vianca ing Medicare 00:00:00 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 Sp vianca [facility] Arthralgia Pain in Problem Active Comm on of the unspecifie [facility] lower leg d knee [facility] Pain in Pain in Problem Active Common both feet both feet Spir it [facility] [id number] Other Problem Active Common chronic Spirit pain [facility] Foot ulcer 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 [facility] Anxiety Anxiety Problem Active Common disorder disorder [facility] Malignant Malignant Problem Active Com mon tumor of neoplasm [facility] prostate of [facility] prostate [facility] History of History of Problem Active C ommon malignant prostate Spiri t neoplasm cancer - [facility] of prostate [facility] Dependence Wheelchair Problem Active C ommon on bound [facility] wheelchair [facility] [id number] Elevated Problem Active Comm on PSA [facility] [id number] Hypospadia Problem Active C ommon [id number] s, balanic [facility] Hypospadia Hypospadia Problem C ommon s s [facility] Lower Benign Problem Common urinary prostatic [facility] tract hyperplasi - [facility] symptoms a with St due to [facility] benign urinary Medical prostatic tract Center hypertroph symptoms y 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 Spirit n of the dysfunctio - I urinary n of [facility] [id number] 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 Spirit n - [facility] [id number] Urethral Problem Common discharge [facility] 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 - [facility] [id number] Foreign Problem Commo n body in [facility] bladder, [facility] initial [facility] Anxiety Anxiety Problem Active Common [facility] 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 - [facility] itis itis of [facility] COPD - COPD Problem Active Common Chronic (chronic Spirit obstructiv obstructiv - [facility] e e pulmonary pulmonary [place] s disease disease) [facility] [place] Prostate Prostate Problem Active Commo n cancer cancer [facility] Hyperlipid Hyperlipid Problem Active C rashaad emia emia [facility] [id number] Chronic Problem Active Commo n pain Spirit syndrome [facility] At risk At risk Problem Active Common for falls for falls Spir it [facility] 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 [facility] [id number] Urinary Problem Active Commo n retention [facility] [id number] History of Problem Active Co mmon decubitus Spirit ulcer - [facility] [id number] Uncontroll Problem Active Co mmon ed type 2 [facility] diabetes - [facility] mellitus with [facility] hyperglyce Medica l [facility] Gastroesop GERD Problem Active Commo n hageal without Spirit reflux esophagiti - [facility] disease s [facility] [id number] Seasonal Problem Active Comm on allergies [facility] [id number] Right-side Problem Active Co mmon d low back Spirit pain - [facility] without St sciatica[facility]ie [facility]ica l [facility] chronicity Benign BPH Problem Active Common prostatic without Spirit hypertroph urinary - [facility] y without obstructio [facility] n [facility] obstructio Medica n Center 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, Spiri t of lumbar lumbosacra - C HI region l region [facility] [id number] Indwelling Problem Active Co mmon urinary [facility] catheter - [facility] present [facility] [id number] Reduced Problem Active Common mobility [facility] Allergies, Adverse Reactions, Alerts Allergy Allergy Status Severity Reaction(s) Onset Inactive Treating Comm ents Source Name Type Date Date Clinician NKA Allergy Active ENCCLR 02-15 12:28: 00 NKA Allergy Active ENCCLR 02-15 12:28: 00 NKA Allergy Active ENCCLR 02-15 12:28: 00 lisinopr lisinopr Active Unknown Commo n il [facility] Social History Social Habit Start Date Stop Date Quantity Comments Source History of Tobacco Use Co mmon [facility] Sex Assigned At Com mon [facility] Smoking Status Start Date Stop Date Source Unknown if ever smoked [facility] Medications Ordered Filled Start Stop Current Ordering Indication Dosage Frequency Signature Comments Components Source Medication Medication Date Date Medication? Clinician (SIG) Name Name Cipro 500 Cipro 500 2022-08 No 1{table BID Cipro 500 MG MG 1-07 t} MG 00:00: 00 Pregabalin Pregabalin No Pregabalin 150 MG 150 MG 4-15 150 MG 00:00: 00 Pregabalin Pregabalin No Pregabalin 150 MG 150 MG 4-15 150 MG 00:00: 00 Nitrofurant Nitrofurant 2020- No BID Nitrofuran oin Monohyd oin Monohyd 5- 06 toin Macro 100 Macro 100 00:00: 00:00 Monohyd MG MG 00 :00 Macro 100 MG Glucometer Glucometer 2020- No Glucometer n/s n/s 3-22 06-20 n/s 00:00: 00:00 00 :00 Albuterol Albuterol No 3{ml_as TID Albuterol Sulfate Sulfate 3-10 _needed Sulfate (2.5 (2.5 00:00: } (2.5 MG/3ML) MG/3ML) 00 MG/3ML) 0.083% 0.083% 0.083% Pepcid Pepcid 2020-0 Yes Leandra 1 tablet Comm on 04-15 [facility] 00:00: - [facility] 00 [facility] Albuterol Albuterol 2020-0 Yes Leandra 2 puffs as Common Sulfate HFA Sulfate HFA 04-15 [facility] needed Spirit 00:00: - [facility] 00 [facility] Trulicity Trulicity 2020-0 2020- No Leandra one C ommon 04-15 01 [facility] injection Spir it 00:00: 00:00 - [facility]I 00 :00 [facility] Blood Blood 2020-0 Yes Leandra as Common Glucose Glucose 7 [facility] directed Spirit Monitor Monitor 00:00: - [facility] System System 00 [facility] Lancets Lancets 2020-0 Yes Leandra as Common - Millender directed Spirit 00:00: - [facility] 00 [facility] Blood Blood 2020-0 No Blood Glucose Glucose 7- Glucose Monitor Monitor 00:00: Monitor System System 00 System w/Device w/Device w/Device Lancets - Lancets - 2020-0 No Lancets - Common 7- Spirit 00:00: - [facility]I 00 [facility] Lancets - Lancets - 2020-0 No Lancets - Common 7-22 Spirit 00:00: - [facility] 00 [facility] Lancets - Lancets - 2020-0 No Lancets - 7-22 00:00: 00 Lancets - Lancets - 2020-0 No Lancets - 7-22 00:00: 00 Lancets - Lancets - 2020-0 No Lancets - 7-22 00:00: 00 Glucose Glucose 2020-0 Yes Leandra as Common testing testing - Millender directed Spirit strips strips 00:00: (dispense - CH I [address] strips for [facility] Glucose Glucose 2020-0 No Glucose Comm on testing testing - testing Spirit strips n/s strips n/s 00:00: strips n/s - [facility]I 00 [facility] Glucose Glucose 2020-0 No Glucose Comm on testing testing 4- testing Spirit strips n/s strips n/s 00:00: strips n/s - [facility]I 00 [facility] Glucose Glucose 2020-0 No Glucose testing testing 4-23 testing strips n/s strips n/s 00:00: strips n/s 00 Glucose Glucose 2020-0 No Glucose testing testing 4-23 testing strips n/s strips n/s 00:00: strips n/s 00 Glucose Glucose 2020-0 No Glucose testing testing 4- testing strips n/s strips n/s 00:00: strips n/s Contour Contour Yes Leandra n/s Common next next 05-08 [facility] Spirit testing testing 00:00: - [facility]I strips strips 00 [facility] Sertraline Sertraline Yes Leandra 1 tablet Common HCl HCl Millender [facility] Contour Contour Yes Leandra as Common Next Test Next Test Millender directed [facility] Losartan Losartan Yes Leandra 1 tablet Co mmon Potassium Potassium [facility] Loratadine Loratadine Yes Leandra 1 tablet Common [facility] Pantoprazol Pantoprazol Yes Leandra TOME ALEX Common e Sodium e Sodium Millender TABLETA [facility] D? [facility] Lyrica Lyrica Yes Leandra 1 capsule Commo n Millender [facility] Fluticasone Fluticasone Yes Leandra 2 sprays Common Propionate Propionate Millender in each [facility] Lovastatin Lovastatin Yes Leandra 1 tablet Common Millender with a [facility] Metformin Metformin Yes Leandra 1 tablet Common HCl HCl Millender with a [facility] Flomax Flomax Yes Leandra 1 capsule Commo n Millender [facility] Xanax Xanax Yes Leandra 1 tablet Common Millender [facility] Furosemide Furosemide Yes Leandra 1 tablet Common Millender [facility] Aspirin Aspirin Yes Leandra tome alex Comm on Millender tableta Spirit [facility] Fluticasone Fluticasone Yes Leandra 1 spray in Common Propionate Propionate Millender each [facility] Aspirin 81 Aspirin 81 Yes Leandra 1 tablet Common Millender [facility] Aspirin 81 Aspirin 81 No 1{table QD Aspirin 81 81 MG 81 MG t} 81 MG Fluticasone Fluticasone No Fluticason Propionate Propionate e 50 MCG/ACT 50 MCG/ACT Propionate 50 MCG/ACT Pantoprazol Pantoprazol No Pantoprazo e Sodium 40 e Sodium 40 le Sodium MG MG 40 MG Flomax 0.4 Flomax 0.4 No 1{capsu QD Flomax 0.4 Common MG MG le} MG [facility] Losartan Losartan No 1{table QD Losartan Common Potassium Potassium t} Potassium Spirit 50 MG 50 MG 50 MG [facility] Anoro Anoro No 1{puff} QD Anoro Common Ellipta Ellipta Ellipta Spirit 62.5mcg/25 62.5mcg/25 62.5mcg/25 - CHI mcg mcg [facility] Furosemide Furosemide No 1{table QD Furosemide Common 20 MG 20 MG t} 20 MG [facility] Albuterol Albuterol No 2{puffs Albuterol Common Sulfate HFA Sulfate HFA _as_nee Sulfate Spirit 108 (90 108 (90 ded} HFA 108 - [facility]I Base) Base) (90 Base) St MCG/ACT MCG/ACT MCG/ACT [facility] Trulicity Trulicity No Trulicity Common 1.5 1.5 1.5 Spirit MG/0.5ML MG/0.5ML MG/0.5ML - C HI [facility] Pantoprazol Pantoprazol No Pantoprazo Common e Sodium 40 e Sodium 40 le Sodium Spirit MG MG 40 MG [facility] Aspirin 81 Aspirin 81 No QD Aspirin 81 Common MG MG MG [facility] Jardiance Jardiance No 1{table QD Jardiance Common 25 mg 25 mg t} 25 mg [facility] Blood Blood No Blood Common Glucose Glucose Glucose [facility] Monitor Monitor Monitor [facility] System System System St w/Device w/Device w/Device [facility] Fluticasone Fluticasone No 2{spray QD Fluticason Common Propionate Propionate s_in_ea e Spirit 50 mcg/act 50 mcg/act ch_nost Propionate - CHI ril} 50 mcg/act [facility] metFORMIN metFORMIN No 1{table BID metFORMIN Common HCl 1000 MG HCl 1000 MG t_with_ HCl 1000 Spirit a_meal} MG [facility] Lovastatin Lovastatin No 1{table QD Lovastatin Common 10 MG 10 MG t_with_ 10 MG Spirit a_meal} [facility] hydrALAZINE hydrALAZINE No 1{table hydrALAZIN Common HCl 25 MG HCl 25 MG t_with_ E HCl 25 Spirit food} MG [facility] Loratadine Loratadine No 1{table QD Loratadine Common 10 MG 10 MG t} 10 MG [facility] Pepcid 20 Pepcid 20 No 1{table QD Pepcid 20 Common MG MG t} MG [facility] Lyrica 75 Lyrica 75 No 1{capsu Lyrica 75 Common MG MG le} MG [facility] Sertraline Sertraline No QD Sertraline Common HCl 50 MG HCl 50 MG HCl 50 MG [facility] Xanax 0.5 Xanax 0.5 No 1{table TID Xanax 0.5 Common MG MG t} MG [facility] Albuterol Albuterol No 3{ml_as TID Albuterol Common Sulfate Sulfate _needed Sulfate Spi rit (2.5 (2.5 } (2.5 - CHI MG/3ML) MG/3ML) MG/3ML) St 0.083% 0.083% 0.083% [facility] Aspirin 81 Aspirin 81 No 1{table QD Aspirin 81 Common 81 MG 81 MG t} 81 MG [facility] Fluticasone Fluticasone No Fluticason Common Propionate Propionate e Spi rit 50 MCG/ACT 50 MCG/ACT Propionate - CHI 50 MCG/ACT [facility] Amoxicillin Amoxicillin No 1{capsu Amoxicilli Common 500 MG 500 MG le} n 500 MG [facility] Flomax 0.4 Flomax 0.4 No 1{capsu QD Flomax 0.4 Common MG MG le} MG [facility] Losartan Losartan No 1{table QD Losartan Common Potassium Potassium t} Potassium Spirit 50 MG 50 MG 50 MG [facility] Anoro Anoro No 1{puff} QD Anoro Common Ellipta Ellipta Ellipta Spirit 62.5mcg/25 62.5mcg/25 62.5mcg/25 - CHI mcg mcg [facility] Furosemide Furosemide No 1{table QD Furosemide Common 20 MG 20 MG t} 20 MG [facility] Albuterol Albuterol No 2{puffs Albuterol Common Sulfate HFA Sulfate HFA _as_nee Sulfate Spirit 108 (90 108 (90 ded} HFA 108 - [facility]I Base) Base) (90 Base) St MCG/ACT MCG/ACT MCG/[facility] Trulicity Trulicity No Trulicity Common 1.5 1.5 1.5 Spirit MG/0.5ML MG/0.5ML MG/0.5ML - C HI [facility] Pantoprazol Pantoprazol No Pantoprazo Common e Sodium 40 e Sodium 40 le Sodium Spirit MG MG 40 MG [facility] Aspirin 81 Aspirin 81 No QD Aspirin 81 Common MG MG MG [facility] Jardiance Jardiance No 1{table QD Jardiance Common 25 mg 25 mg t} 25 mg [facility] Blood Blood No Blood Common Glucose Glucose Glucose [facility] Monitor Monitor Monitor [facility] System System System St w/Device w/Device w/Device [facility] Fluticasone Fluticasone No 2{spray QD Fluticason Common Propionate Propionate s_in_ea e Spirit 50 mcg/act 50 mcg/act ch_nost Propionate - CHI ril} 50 mcg/act [facility] metFORMIN metFORMIN No 1{table BID metFORMIN Common HCl 1000 MG HCl 1000 MG t_with_ HCl 1000 Spirit a_meal} MG [facility] Lovastatin Lovastatin No 1{table QD Lovastatin Common 10 MG 10 MG t_with_ 10 MG Spirit a_meal} [facility] hydrALAZINE hydrALAZINE No 1{table hydrALAZIN Common HCl 25 MG HCl 25 MG t_with_ E HCl 25 Spirit food} [facility] Loratadine Loratadine No 1{table QD Loratadine Common 10 MG 10 MG t} 10 MG [facility] Pepcid 20 Pepcid 20 No 1{table QD Pepcid 20 Common MG MG t} MG [facility] Lyrica 75 Lyrica 75 No 1{capsu Lyrica 75 Common MG MG le} MG [facility] Sertraline Sertraline No QD Sertraline Common HCl 50 MG HCl 50 MG HCl 50 MG [facility] Xanax 0.5 Xanax 0.5 No 1{table TID Xanax 0.5 Common MG MG t} MG [facility] Albuterol Albuterol No 3{ml_as TID Albuterol Common Sulfate Sulfate _needed Sulfate Spi rit (2.5 (2.5 } (2.5 - CHI MG/3ML) MG/3ML) MG/3ML) St 0.083% 0.083% 0.083% [facility] Aspirin 81 Aspirin 81 No 1{table QD Aspirin 81 Common 81 MG 81 MG t} 81 MG [facility] Fluticasone Fluticasone No Fluticason Common Propionate Propionate e Spi rit 50 MCG/ACT 50 MCG/ACT Propionate - CHI 50 MCG/ACT [facility] Amoxicillin Amoxicillin No 1{capsu Amoxicilli Common 500 MG 500 MG le} n 500 MG [facility] Flomax 0.4 Flomax 0.4 No 1{capsu [...] 50 MCG/ACT 50 MCG/ACT Propionate 50 MCG/ACT Losartan Losartan No Losartan Potassium Potassium Potassium 100 MG 100 MG 100 MG Fluticasone Fluticasone No Fluticason Propionate Propionate e 50 MCG/ACT 50 MCG/ACT Propionate 50 MCG/ACT Anoro Anoro No Anoro Ellipta Ellipta Ellipta 62.5-25 62.5-25 62.5-25 MCG/ACT MCG/ACT MCG/ACT hydrALAZINE hydrALAZINE No hydrALAZIN HCl 25 MG HCl 25 MG E HCl 25 MG Sertraline Sertraline No QD Sertraline HCl 50 MG HCl 50 MG HCl 50 MG metFORMIN metFORMIN No 1{table BID metFORMIN HCl 1000 MG HCl 1000 MG t_with_ HCl 1000 a_meal} MG Famotidine Famotidine No Famotidine 20 MG 20 MG 20 MG Jardiance Jardiance No 1{table QD Jardiance 25 mg 25 mg t} 25 mg Xanax 0.5 Xanax 0.5 No 1{table TID [...] 01-10 [facility] 00:00 - [facility]I :00 [facility] Jardiance Jardiance 2020- No Leandra 1 tablet Common 01-10 [facility] 00:00 - [facility]I :00 [facility] Anoro Anoro 2020- No Leandra 1 puff Common Ellipta Ellipta 01-10 [facility]ender Spi rit 00:00 - CHI :00 [facility] Immunizations Ordered Filled Immunization Date Status Comments [facility] e Immunization Name Name Prevnar 13 (PCV13) Prevnar 13 (PCV13) 2020-06-27 Completed Common [facility] 10:51:00 - [facility] Prevnar 13 (PCV13) Prevnar 13 (PCV13) 2020-06-27 Completed Common [facility] 10:51:00 - [facility] Prevnar 13 (PCV13) Prevnar 13 (PCV13) 2020-06-27 Completed Common [facility] 10:51:00 - [facility] Prevnar 13 (PCV13) Prevnar 13 (PCV13) 2020-06-27 Completed Common [facility] 10:51:00 - [facility] Prevnar 13 (PCV13) Prevnar 13 (PCV13) 2020-06-27 Completed Common [facility] 10:51:00 - [facility] Prevnar 13 (PCV13) Prevnar 13 (PCV13) 2020-06-27 Completed Common [facility] 10:51:00 - [facility] Prevnar 13 (PCV13) Prevnar 13 (PCV13) 2020-06-27 Completed [facility] 10:51:00 - [facility] Prevnar 13 (PCV13) Prevnar 13 (PCV13) 2020-06-27 Completed [facility] 10:51:00 - [facility] Prevnar 13 (PCV13) Prevnar 13 (PCV13) 2020-06-27 Completed [facility] 10:51:00 - [facility] Prevnar 13 (PCV13) Prevnar 13 (PCV13) 2020-06-27 Completed [facility] 10:51:00 - [facility] Prevnar 13 (PCV13) Prevnar 13 (PCV13) 2020-06-27 Completed [facility] 10:51:00 - [facility] Prevnar 13 (PCV13) Prevnar 13 (PCV13) 2020-06-27 Completed [facility] 10:51:00 - [facility] FLUZONE HIGH DOSE FLUZONE HIGH DOSE 2020-06-27 Completed [facility] OVER 65 OVER 65 10:50:00 - [facility] FLUZONE HIGH DOSE FLUZONE HIGH DOSE 2020-06-27 Completed [facility] OVER 65 OVER 65 10:50:00 - [facility] FLUZONE HIGH DOSE FLUZONE HIGH DOSE 2020-06-27 Completed [facility] OVER 65 OVER 65 10:50:00 - [facility] FLUZONE HIGH DOSE FLUZONE HIGH DOSE 2020-06-27 Completed [facility] OVER 65 OVER 65 10:50:00 - [facility] FLUZONE HIGH DOSE FLUZONE HIGH DOSE 2020-06-27 Completed [facility] OVER 65 OVER 65 10:50:00 [facility] FLUZONE HIGH DOSE FLUZONE HIGH DOSE 2020-06-27 Completed [facility] OVER 65 OVER 65 10:50:00 - [facility] FLUZONE HIGH DOSE FLUZONE HIGH DOSE 2020-06-27 Completed [facility] OVER 65 OVER 65 10:50:00 [facility] FLUZONE HIGH DOSE FLUZONE HIGH DOSE 2020-06-27 Completed [facility] OVER 65 OVER 65 10:50:00 - [facility] FLUZONE HIGH DOSE FLUZONE HIGH DOSE 2020-06-27 Completed [facility] OVER 65 OVER 65 10:50:00 [facility] FLUZONE HIGH DOSE FLUZONE HIGH DOSE 2020-06-27 Completed [facility] OVER 65 OVER 65 10:50:00 - [facility] FLUZONE HIGH DOSE FLUZONE HIGH DOSE 2020-06-27 Completed [facility] OVER 65 OVER 65 10:50:00 - [facility] FLUZONE HIGH DOSE FLUZONE HIGH DOSE 2020-06-27 Completed [facility] OVER 65 OVER 65 10:50:00 [facility] Prevnar 13 (PCV13) Prevnar 13 (PCV13) 2018-03-17 Completed [facility] 16:12:00 [facility] Prevnar 13 (PCV13) Prevnar 13 (PCV13) 2018-03-17 Completed [facility] 16:12:00 [facility] Prevnar 13 (PCV13) Prevnar 13 (PCV13) 2018-03-17 Completed [facility] 16:12:00 [facility] Prevnar 13 (PCV13) Prevnar 13 (PCV13) 2018-03-17 Completed [facility] 16:12:00 [facility] Prevnar 13 (PCV13) Prevnar 13 (PCV13) 2018-03-17 Completed [facility] 16:12:00 [facility] Prevnar 13 (PCV13) Prevnar 13 (PCV13) 2018-03-17 Completed [facility] 16:12:00 [facility] Prevnar 13 (PCV13) Prevnar 13 (PCV13) 2018-03-17 Completed [facility] 16:12:00 [facility] Prevnar 13 (PCV13) Prevnar 13 (PCV13) 2018-03-17 Completed [facility] 16:12:00 [facility] Prevnar 13 (PCV13) Prevnar 13 (PCV13) 2018-03-17 Completed [facility] 16:12:00 - [facility] Prevnar 13 (PCV13) Prevnar 13 (PCV13) 2018-03-17 Completed [facility] 16:12:00 [facility] Prevnar 13 (PCV13) Prevnar 13 (PCV13) 2018-03-17 Completed [facility] 16:12:00 [facility] Prevnar 13 (PCV13) Prevnar 13 (PCV13) 2018-03-17 Completed [facility] 16:12:00 [facility] PCV13 PCV13 2018-03-17 Completed [facility] 00:00:00 [facility] FLUZONE HIGH DOSE FLUZONE HIGH DOSE Unknown Completed [facility] OVER 65 OVER 65 [facility] Prevnar 13 (PCV13) Prevnar 13 (PCV13) Unknown Completed [facility] Prevnar 13 (PCV13) Unknown Completed [facility] Vital Signs Vital Name Observation Time Observation Value Comments Source height 2022-12-18 13:45:00 67 [in_i] [facility] weight 2022-12-18 13:45:00 182 [lb_av] [facility] temperature 2022-12-18 13:45:00 97.6 [degF] [facility] bmi 2022-12-18 13:45:00 28.5 kg/m2 [facility] oximetry 2022-12-18 13:45:00 96 % [facility] respiratory rate 2022-12-18 13:45:00 18 /min Comm on [facility] blood pressure 2022-12-18 13:45:00 117 mm[Hg] [facility] systolic [facility] blood pressure 2022-12-18 13:45:00 63 mm[Hg] [facility] diastolic [facility] height 2021-12-14 14:30:00 67 [in_i] [facility] [facility] weight 2021-12-14 14:30:00 182 [lb_av] [facility] temperature 2021-12-14 14:30:00 97.6 [degF] Common [facility] bmi 2021-12-14 14:30:00 28.5 kg/m2 Common [facility] oximetry 2021-12-14 14:30:00 99 % Common [facility] respiratory rate 2021-12-14 14:30:00 16 /min Comm on [facility] blood pressure 2021-12-14 14:30:00 130 mm[Hg] Common [facility] - systolic [facility] blood pressure 2021-12-14 14:30:00 60 mm[Hg] Common [facility] diastolic [facility] Procedures This patient has no known procedures. Encounters Start End Encounter Admission Attending Care Care Encounter Source Date/Time Date/Time Type Type Clinicians Facility Department ID 2023-04-09 Outpatient STLMLC STLMLC [id number] Common 08:26:00 [id number] [facility] 2023-03-28 Outpatient FREITAS, Na STLMLC STLMLC [id number] Common 14:37:00 [id number] [facility] 2022-12-06 Outpatient FREITAS, Na STLMLC STLMLC [id number] Common 15:16:01 [id number] [facility] 2022-02-21 Outpatient Freitas, Na STLMLC STLMLC [id number] Common 13:21:00 [id number] [facility] 2022-01-23 Outpatient 3 JOSEE, ENCPL JOHN [id number] [facility] 08:14:53 LONNY [facility] [place] 2021-10-27 Outpatient Freitas, Na STLMLC STLMLC [id number] Common 09:37:01 [id number] [facility] 2021-09-06 Outpatient Freitas, Na STLMLC STLMLC [id number] Common 14:00:39 [id number] [facility] 2021-09-06 Outpatient Freitas, Na STLMLC STLMLC [id number] Common 13:36:43 [id number] [facility] 2021-09-06 Outpatient Freitas, Na STLMLC STLMLC [id number] Common 13:14:46 [id number] [facility] 2021-09-06 Outpatient Freitas, Na STLMLC STLMLC [id number] 2 Common 13:14:19 [id number] [facility] 2021-09-06 Outpatient Freitas, Na STLMLC STLMLC [id number] 2 Common 12:38:22 [id number] [facility] 2021-09-06 Outpatient Freitas, Na STLMLC STLMLC [id number] Common 12:37:04 [id number] [facility] 2021-09-06 Outpatient Freitas, Na STLMLC STLMLC [id number] Common 12:32:00 [id number] [facility] 2021-09-06 Outpatient Freitas, Na STLMLC STLMLC [id number] 2 Common 12:31:32 [id number] [facility] 2021-09-06 Outpatient Freitas, Na STLMLC STLMLC [id number] Common 12:17:07 [id number] [facility] 2021-09-06 Outpatient Neil, Kin STLMLC STLMLC [id number] Common 12:04:40 [id number] [facility] 2021-09-06 Outpatient Neil, Kin STLMLC STLMLC [id number] Common 12:00:30 [id number] [facility] 2021-09-06 Outpatient Millender, STLMLC STLMLC [id number] Common 11:55:17 Leandra 52814 [facility] 2021-09-06 Outpatient Millender, STLMLC STLMLC [id number] Common 11:53:43 Leandra 14987 [facility] 2021-09-06 Outpatient Millender, STLMLC STLMLC [id number] Common 11:43:25 Leandra 72342 [facility] 2021-09-06 Outpatient Millender, STLMLC STLMLC [id number] Common 11:42:20 Leandra 83157 [facility] 2021-09-06 Outpatient Millender, STLMLC STLMLC [id number] Common 11:21:57 Leandra 23902 [facility] 2021-09-06 Outpatient Millender, STLMLC STLMLC [id number] Common 11:12:44 Leandra 31620 [facility] 2021-09-06 Outpatient Millender, STLMLC STLMLC [id number] Common 11:12:25 Leandra 76943 [facility] 2021-09-06 Outpatient Millender, STLMLC STLMLC [id number] Common 11:08:59 Leandra [id number] [facility] 2021-09-06 Outpatient Millender, STLMLC STLMLC [id number] Common 11:08:51 Leandra 23879 [facility] 2022-12-18 2022-12-18 OFFICE STLC STLMLC [id number] Co mmon 00:00:00 00:00:00 VISIT [facility] ESTAB PT - CHI LEVEL 3 [facility] 2022-02-15 2022-08-22 Outpatient RECERTIFIC HAMILTON ENCCLR ENCCLR [id number] ENCCLR 00:00:00 [facility] 2022-02-15 Outpatient RECERTIFIC HAMILTON ENCCLR ENCCLR [id number] ENCCLR 00:00:00 [facility]00:[facility]22-02-15 2022-02-15 Outpatient DONELL VILLASENOR ENCCLR ENCCLR [id number] ENCCLR 00:00:00 00:00:00 N CRUZ 2022-01-24 2022-02-14 Inpatient 3 [place] ENCPL JOHN [id number] [facility] 12:18:00 16:16:00 amanda, 0615 [facility] itation Jesúslan d 2021-12-14 2021-12-14 OFFICE STLMLC STLMLC [id number] Co mmon 00:00:00 00:00:00 VISIT EST Spir it PT LEVEL 3 - CHI [facility] 2021-09-04 2021-09-04 (TEL) STLMLC STLMLC [id number] Co mmon 00:00:00 00:00:00 [facility] 2021-09-04 2021-09-04 (TEL) STLMLC STLMLC [id number] Co mmon 00:00:00 00:00:00 [facility] 2021-04-14 2021-04-14 (TEL) STLMLC STLMLC [id number] Co mmon 00:00:00 00:00:00 [facility] 2021-04-10 2021-04-10 (TEL) STLMLC STLMLC [id number] Co mmon 00:00:00 00:00:00 [facility] 2021-04-06 2021-04-06 (TEL) STLMLC STLMLC [id number] Co mmon 00:00:00 00:00:00 [facility] 2021-03-22 2021-03-22 OFFICE STLMLC STLMLC [id number] Co mmon 00:00:00 00:00:00 VISIT EST Spir it PT LEVEL 3 [facility] 2021-03-09 2021-03-09 (TEL) STLMLC STLMLC [id number] Co mmon 00:00:00 00:00:00 [facility] 2021-02-23 2021-02-23 (TEL) STLMLC STLMLC [id number] Co mmon 00:00:00 00:00:00 [facility] 2021-01-25 2021-01-25 OFFICE STLMLC STLMLC [id number] Co mmon 00:00:00 00:00:00 VISIT [facility] PT - CHI LEVEL 4 [facility] 2021-01-25 2021-01-25 (TEL) STLMLC STLMLC [id number] Co mmon 00:00:00 00:00:00 [facility] 2021-01-05 2021-01-05 (TEL) STLMLC STLMLC [id number] Co mmon 00:00:00 00:00:00 [facility] 2020-12-01 2020-12-01 Outpatient STLMLC STLMLC [id number] Common 00:00:00 00:00:00 [facility] 2020-10-31 2020-10-31 Outpatient STLMLC STLMLC [id number] Common 00:00:00 00:00:00 [facility] 2020-10-19 2020-10-19 Outpatient STLMLC STLMLC [id number] Common 00:00:00 00:00:00 [facility] 2020-08-03 2020-08-03 Outpatient STLMLC STLMLC [id number] Common 00:00:00 00:00:00 [facility] 2020-07-26 2020-07-26 Outpatient STLMLC STLMLC [id number] Common 00:00:00 00:00:00 [facility] 2020-07-26 2020-07-26 Outpatient STLMLC STLMLC [id number] Common 00:00:00 00:00:00 [facility] 2020-07-12 2020-07-12 Outpatient STLMLC STLMLC [id number] Common 00:00:00 00:00:00 [facility] 2020-06-27 2020-06-27 Outpatient STLMLC STLMLC [id number] Common 00:00:00 00:00:00 [facility] 2020-05-11 2020-05-11 Outpatient STLMLC STLMLC [id number] Common 00:00:00 00:00:00 [facility] 2020-04-18 2020-04-18 Outpatient STLMLC STLMLC [id number] Common 00:00:00 00:00:00 [facility] 2020-04-14 2020-04-14 [facility] [id number] Common 10:20:00 10:20:[address] [facility] [address] [facility] 2020-04-08 2020-04-08 [facility] [id number] Common 16:38:00 16:38:[address] [facility] 2020-04-08 2020-04-08 [facility] [id number] Common 16:36:00 16:36:[address] [facility] 2020-04-08 2020-04-08 [facility] [id number] Common 10:50:00 10:50:[address] [facility] [address] [facility] 2020-03-07 2020-03-07 Out[facility] [id number] Common 14:47:00 14:47:00 t [facility] 2020-01-26 2020-01-26 Out[facility] [id number] Common 14:20:00 14:20:00 t Specialty/U Sp vianca Specialty rology - CHI /Urology Clinic [facility] 2020-01-19 2020-01-19 [facility] [id number] Common 14:00:00 14:00:00 t Specialty/U Sp vianca Specialty rology - CHI /[facility] Clinic [facility] 2020-01-18 2020-01-18 [facility] [id number] Common 14:30:00 14:30:00 t Specialty/U Sp vianca Specialty rology - [facility]I /[facility] Clinic [facility] 2020-01-11 2020-01-11 Out[facility] [id number] Common 16:46:00 16:46:00 t [facility] 2019-12-28 2019-12-28 [facility] [id number] Common 14:00:00 14:00:00 t Specialty/U Sp vianca Specialty rology - CHI /[facility]rology Clinic [facility] 2019-12-24 2019-12-24 [facility] [id number] Common 15:13:00 15:13:00 t Specialty/U Sp vianca Specialty rology - CHI /[facility]rology Clinic [facility] 2019-12-14 2019-12-14 [facility] [id number] Common 16:13:00 16:13:00 t [facility] 2019-12-03 2019-12-03 Out[facility] [id number] Common 15:15:00 15:15:[address] [facility] 2019-09-11 2019-09-11 Out[facility] [id number] Common 17:26:00 17:26:[address] [facility] 2019-08-11 2019-08-11 Out[facility] [id number] Common 09:48:00 09:48:[address] [facility] 2019-07-02 2019-07-02 Out[facility] [id number] Common 15:20:00 15:20:[address] [facility] 2019-06-26 2019-06-26 [facility] [id number] Common 16:42:00 16:42:[address] [facility] 2019-06-23 2019-06-23 Outpatient [facility] [id number] Common 09:21:00 09:21:[address] [facility] 2019-06-11 2019-06-11 [facility] [id number] Common 14:59:00 14:59:[address] [facility] 2019-06-08 2019-06-08 Out[facility] [id number] Common 16:45:00 16:45:[address] [facility] 2019-05-25 2019-05-25 Outpatient [facility] [id number] Common 15:30:00 15:30:00 t Specialty/U Sp vianca Specialty rology - [facility]I /[facility]rology Clinic [facility] 2019-05-06 2019-05-06 [facility] [id number] Common 13:24:00 13:24:[address] [facility] 2019-01-29 2019-01-29 Out[facility] [id number] Common 13:15:00 13:15:00 t Specialty/U Sp vianca Specialty rology - [facility]I /[facility]rology Clinic [facility] 2019-01-16 2019-01-16 [facility] [id number] Common 10:05:00 10:05:[address] [facility] 2019-01-02 2019-01-02 Out[facility] [id number] Common 14:10:00 14:10:[address] [facility] [address] [facility] 2018-11-07 2018-11-07 Out[facility] [id number] Common 10:27:00 10:27:[address] [facility] [address] [facility] 2018-11-04 2018-11-04 Outpatient [facility] [id number] Common 15:55:00 15:55:00 t Specialty/U Sp vianca Specialty rology - [facility]I /[facility]rology Clinic [facility] 2018-11-04 2018-11-04 Out[facility] [id number] Common 14:15:00 14:15:00 t Specialty/U Sp vianca Specialty rology [facility] /Urology Clinic [facility] 2018-09-30 2018-09-30 Out[facility] [id number] Common 15:30:00 15:30:[address] [facility] [address] [facility] 2018-09-04 2018-09-04 Out[facility] [id number] Common 17:02:00 17:02:[address] [facility] [address] [facility] 2018-09-03 2018-09-03 Out[facility] [id number] Common 10:12:00 10:12:[address] [facility] [address] [facility] 2018-08-15 2018-08-15 Outpatient [facility] [id number] Common 14:31:00 14:31:[address] [facility] [address] [facility] 2018-08-11 2018-08-11 Outpatient [facility] [id number] Common 09:42:00 09:42:[address] [facility] 2018-07-23 2018-07-23 Outpatient [facility] [id number] Common 11:42:00 11:42:[address] [facility] 2018-05-29 2018-05-29 Outpatient [facility] [id number] Common 12:09:00 12:09:[address] [facility] [address] [facility] 2018-05-08 2018-05-08 Outpatient [facility] [id number] Common 10:57:00 10:57:[address] [facility] [address] [facility] 2018-04-01 2018-04-01 Outpatient [facility] [id number] Common 15:34:00 15:34:[address] [facility] [address] [facility] 2018-03-17 2018-03-17 Outpatient [facility] [id number] Common 15:30:00 15:30:[address] [facility] [address] [facility] 2018-01-30 2018-01-30 Outpatient [facility] [id number] Common 15:00:00 15:00:[address] [facility] [address] [facility] 2018-01-22 2018-01-22 Outpatient [facility] [id number] Common 10:00:00 10:00:00 t Specialty/U Sp vianca Specialty rology - CHI /Urology Clinic [facility] Results This patient has no known results.
[2023-07-05] MEDS ORDERED: NA CHLORIDE 0.9% 1,000 ML ONE (09:44)
[2023-07-05] MEDS ORDERED: ONDANSETRON 4 MG/2 ML VIAL ONE (09:44)
[2023-07-05 09:58] LABS: Absolute Lymphocytes (CBC) 1.5 K/uL (0.7-4.9); Hematocrit 33.1 % (39.6-49.0); Lymphocytes % 11.4 % (15.3-44.8); Platelets 304 thou/uL (152-406); RBC Red Blood Cell Count 3.85 M/uL (4.33-5.43)
[2023-07-05 10:01] LABS: Specific Gravity 1.006 (1.005-1.030); Urine Bacteria <20 /HPF (<20); Urine Bilirubin NEGATIVE (Negative); Urine Blood 1+ (Negative); Urine Clarity Extremely Turbid (Clear); Urine Color Colorless (Yellow); Urine Glucose 4+ (Over) (Negative); Urine Mucus Slight /HPF (None Seen); Urine Protein NEGATIVE (Negative); Urine RBC >50 /HPF (None Seen); Urine Urobilinogen Normal (Normal)
[2023-07-05 10:14] LABS: Albumin 3.5 g/dL (3.4-5.0); Bilirubin Total 0.4 mg/dL (0.2-1.0); Potassium 4.5 mEq/L (3.5-5.1); Protein, Total 7.7 g/dL (6.4-8.2)
[2023-07-05 10:15] LABS: Troponin High Sensitivity 55.7 pg/mL (<58.9)
--- NOTE | 2023-07-05 12:10 | RAD REPORT ---
EXAM DESCRIPTION: CT - Abdomen Pelvis Wo Contrast - 07/05/2023 11:03 am CLINICAL HISTORY: Abdominal pain COMPARISON: June 20, 2023 TECHNIQUE: Computed axial tomography of the abdomen and pelvis was obtained. IV and oral contrast we re not requested. All CT scans are performed using dose optimization technique as appropriate and may include automated exposure control or mA/KV adjustment according to patient size. FINDINGS: The evaluation of solid organs, vessels and bowel is limited secondary to the lack of con trast administration. The liver, spleen, pancreas, and adrenals appear grossly normal. Development of mild to moderate bilateral hydronephrosis. Ureters are dilated. Bladder is distended. Suprapubic catheter in place. Rectum mildly distended with stool Atherosclerosis. No evidence of diverticulitis Prostate gland is mildly to moderately enlarged. Miller catheter is present within a collapsed bladder. Mild anterior subluxation L5 on S1. Spondylolysis L5. Small umbilical hernia Cholecystectomy Nonvisualization appendix. No stranding adjacent to the cecum IMPRESSION: Development of mild to moderate bilateral hydronephrosis and dilatation of the ureters. Perhaps this is secondary to the bladder distention Rectum mildly distended with stool
--- NOTE | 2023-07-05 12:54 | ER ---
Nurse's Notes [facility] Name: Chito Chavira Jr Age: 77 yrs Sex: Male : 1945 Arrival Date: 07/05/2023 Time: 09:06 Bed 16 Private MD: Diagnosis: Abdominal pain, Miller catheter problem, UTI Presentation: 07/05 09:15 Chief complaint: EMS states: toned out to home for weakness and RLQ pain. Coronavirus eh3 screen: Vaccine status: Patient reports being unvaccinated. Ebola Screen: No symptoms or risks identified at this time. Initial Sepsis Screen: Does the patient meet any 2 criteria? Systolic BP < 90 mmHg. No. Patient's initial sepsis screen is negative. Does the patient have a suspected source of infection? No. Patient's initial sepsis screen is negative. Risk Assessment: Do you want to hurt yourself or someone else? Patient reports no desire to harm self or others. Onset of symptoms was July 05, 2023. 09:15 Method Of Arrival: EMS: [facility] 3 09:15 Acuity: TROY 3 eh3 Triage Assessment: 09:21 General: Appears distressed, uncomfortable, Behavior is calm, cooperative, appropriate eh3 for age. Pain: Complains of pain in right lower quadrant. GI: Abdomen is round non-distended, Reports lower abdominal pain, diarrhea, nausea, vomiting. : suprapubic catheter in place to gravity drainage. Historical: - Allergies: 09:21 Benadryl; eh3 09:21 Seroquel; eh3 - PMHx: 09:21 Anxiety; Arthritis; Asthma; Chronic obstructive lung disease; Dementia; Diabetes - eh3 NIDDM; GERD; High Cholesterol; Hypertension; indwelling catheter; Prostate Cancer; - Immunization history:: Adult Immunizations unknown. - Social history:: Smoking status: unknown. Screenin:52 [facility] ED Fall Risk Assessment (Adult) History of falling in the last 3 months, db including since admission No falls in past 3 months (0 pts) Confusion or Disorientation No (0 pts) Intoxicated or Sedated No (0 pts) Impaired Gait Yes (1 pt) Mobility Assist Device Used Yes (1 pt) Altered Elimination Yes (1 pt) Score/Fall Risk Level 3 or more points = High Risk Oriented to surroundings, Maintained a safe environment. Abuse screen: Denies threats or abuse. Denies injuries from another. Nutritional screening: No deficits noted. Tuberculosis screening: No symptoms or risk factors identified. Assessment: 10:25 Reassessment: Patient appears in no apparent distress at this time. Patient and/or db family updated on plan of care and expected duration. Pain level reassessed. Patient is alert, oriented x 3, equal unlabored respirations, skin warm/dry/pink. WEAKNESS. 10:34 Reassessment: Lexi (granddaughter) called, pt gave verbal consent to release doctors hospital information, [phone]. 10:50 Reassessment: PT CLEANED OF URINE NOTED URINE ALL OVER CLOTHES. PT HAS SUPRAPUBIC db CATHETER. 10:58 Reassessment: PT TO CT. db 11:00 Reassessment: Patient appears in no apparent distress at this time. Patient and/or db family updated on plan of care and expected duration. Pain level reassessed. Neuro: Level of Consciousness is awake, obeys commands. 11:00 General: Appears in no apparent distress. comfortable, Behavior is calm, cooperative. db GI: Bowel sounds present X 4 quads. Abd is soft Abdomen is tender to palpation in right lower quadrant and left lower quadrant. 12:00 Neuro: Level of Consciousness is awake, alert, obeys commands, Oriented to person, db place, time, situation. 12:30 Reassessment: PT CATHETER FLUSHED URINE FLOW SEEN. PROVIDER AT BEDSIDE. db 13:00 Reassessment: Patient appears in no apparent distress at this time. Patient and/or db family updated on plan of care and expected duration. Pain level reassessed. Patient is alert, oriented x 3, equal unlabored respirations, skin warm/dry/pink. Neuro: Level of Consciousness is awake, alert, obeys commands, Oriented to person, place, time, situation. Respiratory: Airway is patent Respiratory effort is even, unlabored, Respiratory pattern is regular, symmetrical. 13:40 Reassessment: No changes from previously documented assessment. Patient and/or family ll1 updated on plan of care and expected duration. Pain level reassessed. 14:00 Reassessment: Patient appears in no apparent distress at this time. Patient and/or db family updated on plan of care and expected duration. Pain level reassessed. Patient is alert, oriented x 3, equal unlabored respirations, skin warm/dry/pink. PATIENT HOME VIA AMBULANCE. PT CHECKED FOR INCONTINENCE AND CLEANED. 14:05 Reassessment: CALLED PT DAUGHTER GUSTAVO AND LEFT MESSAGE. PT READY FOR DC. db 14:07 Reassessment: Patient appears in no apparent distress at this time. Patient and/or db family updated on plan of care and expected duration. Pain level reassessed. 14:09 Reassessment: PT SON STATES WILL COME TO BALL HOLDER PT. db Vital Signs: 09:15 BP 85 / 56; Pulse 70; Resp 18; Temp 98.2(O); Pulse Ox 95% on R/A; eh3 09:15 BP 86 / 56; Pulse 69; Resp 22; Pulse Ox 94% on R/A; db 09:45 BP 81 / 56; Pulse 93; Resp 18; Pulse Ox 95% on R/A; db 10:00 BP 90 / 77; Pulse 79; Resp 22; Pulse Ox 95% on R/A; db 11:30 BP 97 / 60; Pulse 77; Resp 18; Pulse Ox 95% on R/A; db 12:30 BP 102 / 49; Pulse 70; Resp 18; Pulse Ox 94% on R/A; db 13:45 BP 105 / 53; Pulse 76; Resp 18; Pulse Ox 97% ; ll1 14:00 BP 97 / 53; Pulse 77; Resp 18; Pulse Ox 95% on R/A; db 14:30 BP 115 / 57; Pulse 75; Resp 18; Pulse Ox 95% on R/A; db 09:[address] ANGELES AWARE. SEE MAR db 09:45 MAP 66. PROVIDER AWARE OF BP db Vitals: 13:00 Cardiac Rhythm Assessment Regular. db ED Course: 09:11 Patient arrived in ED. em1 09:11 Marlen Angeles MD is Attending Physician. sp3 09:17 Arm band placed on Patient placed in an exam room, on a stretcher. ll1 09:20 Triage completed. eh3 09:25 Eda Richard, PEYTON is Primary Nurse. db 09:51 IV Changed dressing on Flushed right with 5 ml normal saline MIDLINE FLUSHED. db 11:05 Abdomen In Process Unspecified. EDMS 12:53 Franklin Lima MD is Referral Physician. sp3 13:46 Patient has correct armband on for positive identification. Bed in low position. Call ll1 light in reach. Side rails up X 1. Client placed on continuous cardiac and pulse oximetry monitoring. NIBP monitoring applied. media monitor on. 14:04 No provider procedures requiring assistance completed. db 14:04 IV discontinued, intact, bleeding controlled, No redness/swelling at site. Pressure db dressing applied. 14:49 Provided Education on: DISCHARGE. db Administered Medications: 09:35 Drug: NS 0.9% IV 1000 ml IV at 1 bolus Per protocol; 1000 mL bolus Route: IV; Rate: 1 db bolus; Site: left upper arm; 13:45 Follow up: Response: No adverse reaction; IV Status: Completed infusion; IV Intake: ll1 1000ml 09:35 Drug: Ondansetron IVP 4 mg IVP once; over 2 minutes Route: IVP; Site: left upper arm; db 13:45 Follow up: Response: No adverse reaction ll1 13:12 Drug: Piperacillin-Tazobactam IVPB 3.375 grams IVPB once over 60 mins; (mix in NS 100 db mL) Route: IVPB; Infused Over: 60 mins; Site: left upper arm; 13:45 Follow up: Response: No adverse reaction; IV Status: Completed infusion; IV Intake: ll1 100ml Medication: 13:46 VIS not applicable for this client. ll1 Intake: 13:45 IV: 100ml; Total: 100ml. ll1 13:45 IV: 1000ml; Total: 1100ml. ll1 Output: 09:30 Urine: 450ml (Voided); Total: 450ml. db 14:04 Urine: 850ml (Miller); Total: 1300ml. db Outcome: 12:53 Discharge ordered by MD. [email or web address] 14:49 Discharged to home via ambulance, db 14:49 Condition: stable 14:49 Discharge instructions given to family, DAUGHTER GUSTAVO GIVEN DISCHARGE INSTRUCTIONS OVER THE PHONE AND PAPERS SENT WITH EMS Instructed on discharge instructions, follow up and referral plans. 14:51 Patient left the ED. db Signatures: Dispatcher [employer] EDMS Sebastián Cote em1 Oskar Hernandez, RN RN ll1 Marlen Angeles MD MD sp3 Yaima Ashraf RN RN 3 Eda Richard RN RN db
--- NOTE | 2023-07-05 12:54 | EDPHYS ---
Physician Documentation [facility] Name: Chito Chavira Jr Age: 77 yrs Sex: Male : 1945 Arrival Date: 07/05/2023 Time: 09:06 Bed 16 Private MD: ED Physician Marlen Angeles HPI: 07/05 09:16 This 77 yrs old Male presents to ER via Unassigned with complaints of sp3 Abdominal Pain, General Weakness. 09:16 77-year-old male with extensive past medical history including prior prostate cancer sp3 with chronic indwelling suprapubic catheter, diabetes, COPD, anxiety now presents to the ED for chief complaint of lower abdominal pain similar to his last episode. Patient on his last visit was seen by me and admitted for urosepsis. After his discharge, he has a PICC line in was supposed to have home health come in with IV antibiotics however he states that none of this occurred and over the last week he has had no antibiotics. He denies any other symptoms including headache, fever, chest pain, shortness of breath, back pain, or any other signs or symptoms on ROS at this time.. Historical: - Allergies: 09:21 Benadryl; eh3 09:21 Seroquel; eh3 - PMHx: 09:21 Anxiety; Arthritis; Asthma; Chronic obstructive lung disease; Dementia; Diabetes - eh3 NIDDM; GERD; High Cholesterol; Hypertension; indwelling catheter; Prostate Cancer; - Immunization history:: Adult Immunizations unknown. - Social history:: Smoking status: unknown. ROS: 09:17 Constitutional: Negative for fever, chills, and weight loss, Eyes: Negative for injury, sp3 pain, redness, and discharge, Neck: Negative for injury, pain, and swelling, Cardiovascular: Negative for chest pain, palpitations, and edema, Respiratory: Negative for shortness of breath, cough, wheezing, and pleuritic chest pain, Back: Negative for injury and pain, MS/Extremity: Negative for injury and deformity, Skin: Negative for injury, rash, and discoloration, 09:17 All other systems are negative, Exam: 09:18 Constitutional: This is a well developed, well nourished patient who is awake, alert, sp3 and in no acute distress. Head/Face: Normocephalic, atraumatic. Eyes: Pupils equal round and reactive to light, extra-ocular motions intact. Lids and lashes normal. Conjunctiva and sclera are non-icteric and not injected. Cornea within normal limits. Periorbital areas with no swelling, redness, or edema. Neck: Trachea midline, no thyromegaly or masses palpated, and no cervical lymphadenopathy. Supple, full range of motion without nuchal rigidity, or vertebral point tenderness. No Meningismus. Chest/axilla: Normal chest wall appearance and motion. Nontender with no deformity. No lesions are appreciated. Cardiovascular: Regular rate and rhythm with a normal S1 and S2. No gallops, murmurs, or rubs. Normal PMI, no JVD. No pulse deficits. Respiratory: Lungs have equal breath sounds bilaterally, clear to auscultation and percussion. No rales, rhonchi or wheezes noted. No increased work of breathing, no retractions or nasal flaring. Back: No spinal tenderness. No costovertebral tenderness. Full range of motion. Skin: Warm, dry with normal turgor. Normal color with no rashes, no lesions, and no evidence of cellulitis. MS/ Extremity: Pulses equal, no cyanosis. Neurovascular intact. Full, normal range of motion. Neuro: Awake and alert, GCS 15, oriented to person, place, time, and situation. Cranial nerves II-XII grossly intact. Motor strength 5/5 in all extremities. Sensory grossly intact. Cerebellar exam normal. Normal gait. Psych: Awake, alert, with orientation to person, place and time. Behavior, mood, and affect are within normal limits. 09:18 Abdomen/GI: Suprapubic catheter in place. Diffuse mild pain on lower abdomen bilaterally. No peritoneal signs, rebound or guarding noted., 11:08 ECG was reviewed by the Attending Physician. EKG demonstrates normal sinus rhythm at 74 sp3 bpm with normal intervals, normal QRS, normal axis, normal axis ST segments without evidence of acute ischemia. Vital Signs: 09:15 BP 85 / 56; Pulse 70; Resp 18; Temp 98.2(O); Pulse Ox 95% on R/A; eh3 09:15 BP 86 / 56; Pulse 69; Resp 22; Pulse Ox 94% on R/A; db 09:45 BP 81 / 56; Pulse 93; Resp 18; Pulse Ox 95% on R/A; db 10:00 BP 90 / 77; Pulse 79; Resp 22; Pulse Ox 95% on R/A; db 11:30 BP 97 / 60; Pulse 77; Resp 18; Pulse Ox 95% on R/A; db 12:30 BP 102 / 49; Pulse 70; Resp 18; Pulse Ox 94% on R/A; db 13:45 BP 105 / 53; Pulse 76; Resp 18; Pulse Ox 97% ; ll1 14:00 BP 97 / 53; Pulse 77; Resp 18; Pulse Ox 95% on R/A; db 14:30 BP 115 / 57; Pulse 75; Resp 18; Pulse Ox 95% on R/A; db 09:[address] ANGELES AWARE. SEE MAR db 09:45 MAP 66. PROVIDER AWARE OF BP db MDM: 09:15 Patient medically screened. sp3 09:18 Data reviewed: vital signs, nurses notes, lab test result(s), EKG, radiologic studies. sp3 ED course: Likely recurrence of UTI spectrum. We will obtain laboratory values, lactate, CT scan and urine analysis. Unknown why home health was not successful. Disposition pending patient work-up and patient course with possible admission and reestablishment of home health care.. 12:50 ED course: CT demonstrates distended bladder. However suprapubic catheter is now sp3 draining without difficulty. Catheter was also flushed without difficulty. Patient's pain is somewhat eased. I reviewed prior sensitivities and patient is also sensitive to Zosyn. Upon further inquiry, it is noted that he did receive all of the cefepime that he needed. Given white blood cells in his urine and no bacteria, we will administer 1 dose of Zosyn prior to discharge. Patient is to follow-up with his urologist and I will also give him another referral. Creatinine is at baseline. No other intervention or admission indicated in the emergency department.. 07/05 09:15 Order name: CBC with Diff; Complete Time: 11: sp3 07/05 09:15 Order name: CMP; Complete Time: 11: sp3 07/05 09:15 Order name: Lipase; Complete Time: 11: sp3 07/05 09:15 Order name: Urinalysis w/ reflexes; Complete Time: 11: sp3 07/05 09:15 Order name: Lactate w/ 2H reflex if indic.; Complete Time: 11:08 sp3 07/05 09:15 Order name: Troponin High Sensitivity; Complete Time: 11:08 sp3 07/05 10:10 Order name: Urine Culture EDMS 07/05 10:35 Order name: Abdomen ; Complete Time: 12:49 EDMS 07/05 09:15 Order name: EKG; Complete Time: 09:16 sp3 07/05 09:15 Order name: IV Saline Lock; Complete Time: 09:50 sp3 07/05 09:15 Order name: Labs collected and sent; Complete Time: 09:50 sp3 07/05 09:15 Order name: EKG - Nurse/Tech; Complete Time: 11:58 sp3 07/05 12:52 Order name: DC IV: DC midline after Zosyn given.; Complete Time: 13:56 sp3 Administered Medications: 09:35 Drug: NS 0.9% IV 1000 ml IV at 1 bolus Per protocol; 1000 mL bolus Route: IV; Rate: 1 db bolus; Site: left upper arm; 13:45 Follow up: Response: No adverse reaction; IV Status: Completed infusion; IV Intake: ll1 1000ml 09:35 Drug: Ondansetron IVP 4 mg IVP once; over 2 minutes Route: IVP; Site: left upper arm; db 13:45 Follow up: Response: No adverse reaction ll1 13:12 Drug: Piperacillin-Tazobactam IVPB 3.375 grams IVPB once over 60 mins; (mix in NS 100 db mL) Route: IVPB; Infused Over: 60 mins; Site: left upper arm; 13:45 Follow up: Response: No adverse reaction; IV Status: Completed infusion; IV Intake: ll1 100ml Disposition Summary: 07/05/23 12:53 Discharge Ordered Notes: Location: Home sp3 Condition: Stable sp3 Diagnosis - Abdominal pain, Miller catheter problem, UTI sp3 Followup: sp3 - With: Franklin Lima MD - When: Upon discharge from the Emergency Department - Reason: Continuance of care Discharge Instructions: - Discharge Summary Sheet sp3 - Urinary Tract Infection, Adult sp3 - Suprapubic Catheter Home Guide sp3 Forms: - SBAR form em1 - Medication Reconciliation Form sp3 - Thank You Letter sp3 - Antibiotic Education sp3 - Prescription Opioid Use sp3 - Patient Portal Instructions sp3 - Leadership Thank You Letter sp3 Signatures: Dispatcher [employer] EDMS Marlen Angeles MD MD sp3 Yaima Ashraf RN RN eh3 Eda Richard RN RN db Oskar Hernandez RN ll1 Corrections: (The following items were deleted from the chart) 10:35 09:16 Abdomen Pelvis W [email or web address] ordered. EDMS EDMS
[2023-07-05] MEDS ORDERED: NA CHLORIDE 0.9% 100 ML ONE (13:21)
[2023-07-05] MEDS ORDERED: PIPERACIL/TAZO 3.375 GM VIAL IV ONE (13:21)
[2023-07-05 14:57] VITALS: TEMP 98.2
[2023-07-05 15:04] VITALS: O2SAT 95
[2023-07-05 15:05] VITALS: BP 115/57
--- NOTE | 2023-07-08 16:55 | EKG ---
Test Date: 2023-07-05 Test Time: 10:03:23 [employer]ter [employer]dn[employer]: PRATIBHA MEASUREMENT RESULTS: Intervals: Rate: 74 UT: 142 QRSD: 76 QT: 400 QTc: 444 [place]: P: 42 UT: 142 QRS: 12 T: 64 INTERPRETIVE STATEMENTS: Normal sinus rhythm Normal ECG Compared to ECG 06/18/2023 10:32:40 No significant changes Electronically Signed On 07-08-23 16:52:39 TECHNICAL DATA ANALYST by Reynold Barreto
== END 2023-07-05 14:51 | disposition home or self-care (01) ==
LOC: ER 09:06
DX: N39.0 Urinary tract infection, site not specified (principal); T83.9XXA Unspecified complication of genitourinary prosthetic device, implant and graft, initial encounter; Z88.8 Allergy status to other drugs, medicaments and biological substances
CPT/HCPCS: 96365; 96361; 93005; 87088; 85025; 81001; 87086; 36415; 83605; 84484; 83690; 80053; 74176; 96375; 99285; Q9967; J2543; J2405; J7030

== ENCOUNTER → 2023-09-18 | Emergency (ER) | payer OTHER ==
[~2023-09-18] MED LIST: HYDROCODONE/APAP 5/325 MG TAB ONE
--- OUTSIDE RECORDS SUMMARY | 2023-09-18 12:03 | XMS REPORT | Continuity of Care Document ---
Author Name Unknown Address [address] [facility] [address] [place] [address] [facility] thconnect Address [address] [facility] [place] [address] Care Team Providers Care Extract Wringer Name Role Phone FREITASPrema Attending Clinician Unavailable LONNY TRIPP NATASHA Attending Clinician Unava ilable Juan Trejo Attending Clinician Unavailable Leandra Weiner Attending Clinician Unavailable CRUZ VILLASENOR Attending Clinician Unavailable Peg Huerta Anavella Attending Cli nician Unavailable LONNY TRIPP NATASHA Admitting Clinician Unava ilable DEBRA TSAI Admitting Clinician Un available Melissa Huerta Anav Admitting Clinician U navailable Payers Payer Name Policy Type Policy Number Effective Date Expirati on Date Source [facility] [id number] [employer] Medicare Replace C1 [id number] 2021 00:00:00 [facility] [employer] Medicare Replace C1 [id number] 2021 00:00:00 [facility] [employer] Medicare Replace C1 [id number] 2021 00:00:00 [facility] [employer] Medicare Replace C1 [id number] 2021 00:00:00 [facility] [employer] Medicare Replace C1 [id number] 2021 00:00:00 [facility] [employer] Medicare Replace C1 [id number] 2021 00:00:00 [facility] [employer] Medicare Replace C1 [id number] 2021 00:00:00 [facility] [employer] Medicare Replace C1 [id number] 2021 00:00:00 [facility] AARP Medicare Complete C1 [id number] [facility] Problems Condition Name Condition Details Condition Category Status Onset Date Resolution Date Last Treatment Date Treating Clinician Comments Source Essential hypertensi on Essential hypertensi on Problem Active [facility] Adult health examinatio n Blood tests for routine general physical examinatio n Problem Active [facility] Peripheral neuropathy Peripheral neuropathy Problem Active [facility] Arthralgia of the lower leg Pain in unspecifie d knee Problem Active [facility] Pain in both feet Pain in both feet Problem Active [facility] [id number] Other chronic pain Problem Active [facility] Foot ulcer due to type 2 diabetes mellitus Type 2 diabetes mellitus with foot ulcer Problem Active [facility] Anxiety disorder Anxiety disorder Problem Active [facility] Malignant tumor of prostate Malignant neoplasm of prostate Problem Active [facility] History of malignant neoplasm of prostate History of prostate cancer Problem Active [facility] Dependence on wheelchair Wheelchair bound Problem Active [facility] [id number] Elevated PSA Problem Active [facility] [id number] Hypospadia s, balanic Problem Active [facility] Hypospadia s Hypospadia s Problem [facility] Lower urinary tract symptoms due to benign prostatic hypertroph y Benign prostatic hyperplasi a with lower urinary tract symptoms Problem [facility] Neurogenic dysfunctio n of the urinary bladder Neuromuscu lar dysfunctio n of bladder Problem [facility] [id number] Detrusor dysfunctio n Problem [facility] [id number] Urethral discharge Problem [facility] Acontracti le detrusor Acontracti le detrusor Problem [facility] [id number] Foreign body in bladder, initial encounter Problem [facility] Anxiety Anxiety Problem Active [facility] Generalize d osteoarthr itis 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 Problem Active [facility] COPD - Chronic obstructiv e pulmonary disease COPD (chronic obstructiv e pulmonary disease) Problem Active [facility] Prostate cancer Prostate cancer Problem Active [facility] Hyperlipid emia Hyperlipid emia Problem Active [facility] [id number] Chronic pain syndrome Problem Active [facility] At risk for falls At risk for falls Problem Active [facility] Neurogenic bladder Neurogenic bladder Problem Active [facility] [id number] Urinary retention Problem Active [facility] [id number] History of decubitus ulcer Problem Active [facility] [id number] Uncontroll ed type 2 diabetes mellitus with hyperglyce john Problem Active [facility] Gastroesop hageal reflux disease GERD without esophagiti s Problem Active [facility] [id number] Seasonal allergies Problem Active [facility] [id number] Right-side d low back pain without sciatica, unspecifie d chronicity Problem Active [facility] Benign prostatic hypertroph y without outflow obstructio n BPH without urinary obstructio n Problem Active [facility] Spinal stenosis of lumbar region Spinal stenosis, lumbosacra l region Problem Active [facility] [id number] Indwelling urinary catheter present Problem Active [facility] [id number] Reduced mobility Problem Active [facility] Allergies, Adverse Reactions, Alerts Allergy Name Allergy Type Status Severity Reaction(s) Onset Date Inactive Date Treating Clinician Comments Source NKA Allergy Active 02-15 12:28: 00 ENCCLR NKA Allergy Active 02-15 12:28: 00 ENCCLR NKA Allergy Active 02-15 12:28: 00 ENCCLR lisinopr il lisinopr il Active Unknown [facility] Social History Social Habit Start Date Stop Date Quantity Comments Source History of Tobacco Use [facility] Sex Assigned At [facility] Smoking Status Start Date Stop Date Source Unknown if ever smoked Commo n [facility] Never Smoker [facility] Medications Ordered Medication Name Filled Medication Name Start Date Stop Date Current Medication? Ordering Clinician Indication Dosage Frequency Signature (SIG) Comments Components Source Cipro 500 MG Cipro 500 MG 2022-08 00:00: 00 No 1{table t} BID Cipro 500 MG Cipro 500 MG Cipro 500 MG 2022-08 00:00: 00 No 1{table t} BID Cipro 500 MG Cipro 500 MG Cipro 500 MG 2022-08 00:00: 00 No 1{table t} BID Cipro 500 MG Cipro 500 MG Cipro 500 MG 2022-08 00:00: 00 No 1{table t} BID Cipro 500 MG Cipro 500 MG Cipro 500 MG 2022-08 00:00: 00 No 1{table t} BID Cipro 500 MG Cipro 500 MG Cipro 500 MG 2022-08 00:00: 00 No 1{table t} BID Cipro 500 MG Cipro 500 MG Cipro 500 MG 2022-08 00:00: 00 No 1{table t} BID Cipro 500 MG Cipro 500 MG Cipro 500 MG 2022-08 00:00: 00 No 1{table t} BID Cipro 500 MG Cipro 500 MG Cipro 500 MG 2022-08 00:00: 00 No 1{table t} BID Cipro 500 MG Cipro 500 MG Cipro 500 MG 1 -07 00:00: 00 No 1{table t} BID Cipro 500 MG Pregabalin 150 MG Pregabalin 150 MG 2-0 4-15 00:00: 00 No Pregabalin 150 MG Pregabalin 150 MG Pregabalin 150 MG 2-0 4-15 00:00: 00 No Pregabalin 150 MG Pregabalin 150 MG Pregabalin 150 MG 2-0 4-15 00:00: 00 No Pregabalin 150 MG Pregabalin 150 MG Pregabalin 150 MG 2-0 4-15 00:00: 00 No Pregabalin 150 MG Pregabalin 150 MG Pregabalin 150 MG 2-0 4-15 00:00: 00 No Pregabalin 150 MG Pregabalin 150 MG Pregabalin 150 MG 2-0 4-15 00:00: 00 No Pregabalin 150 MG Pregabalin 150 MG Pregabalin 150 MG 2-0 4-15 00:00: 00 No Pregabalin 150 MG Pregabalin 150 MG Pregabalin 150 MG 2-0 4-15 00:00: 00 No Pregabalin 150 MG Pregabalin 150 MG Pregabalin 150 MG 2-0 4-15 00:00: 00 No Pregabalin 150 MG Pregabalin 150 MG Pregabalin 150 MG 2-0 4-15 00:00: 00 No Pregabalin 150 MG Pregabalin 150 MG Pregabalin 150 MG 2-0 4-15 00:00: 00 No Pregabalin 150 MG Nitrofurant oin Monohyd Macro 100 MG Nitrofurant oin Monohyd Macro 100 MG 2020-0 5-27 00:00: 00 01-19 00:00 :00 No BID Nitrofuran toin Monohyd Macro 100 MG Glucometer n/s Glucometer n/s - 00:00: 00 01-29 00:00 :00 No Glucometer n/s Albuterol Sulfate (2.5 MG/3ML) 0.083% Albuterol Sulfate (2.5 MG/3ML) 0.083% -10 00:00: 00 No 3{ml_as _needed } TID Albuterol Sulfate (2.5 MG/3ML) 0.083% Pepcid Pepcid 2019-0 9- 00:00: 00 Yes Leandra Weiner 1 tablet [facility] Albuterol Sulfate HFA Albuterol Sulfate HFA 2019-0 9- 00:00: 00 Yes Leandra Weiner 2 puffs as needed [facility] Trulicity Trulicity 2019-0 04-15 00:00: 00 08-13 00:00 :00 No Leandra Weiner one injection [facility] Blood Glucose Monitor System Blood Glucose Monitor System 2019-0 - 00:00: 00 Yes Leandra Weiner as directed [facility] Lancets Lancets 2019-0 7 00:00: 00 Yes Leandra Weiner as directed [facility] Blood Glucose Monitor System w/Device Blood Glucose Monitor System w/Device 2019-0 7- 00:00: 00 No Blood Glucose Monitor System w/Device Lancets - Lancets - 2020-0 7 00:00: 00 No Lancets - [facility] Lancets - Lancets - 2020-0 7-22 00:00: 00 No Lancets - [facility] Lancets - Lancets - 2020-0 7 00:00: 00 No Lancets - Lancets - Lancets - 2020-0 7-22 00:00: 00 No Lancets - Lancets - Lancets - 2020-0 722 00:00: 00 No Lancets - Glucose testing strips Glucose testing strips 0 12-02 00:00: 00 Yes Leandra Weiner as directed (dispense testing strips for Contour Next) [facility] Glucose testing strips n/s Glucose testing strips n/s 2019-0 - 00:00: 00 No Glucose testing strips n/s [facility] Glucose testing strips n/s Glucose testing strips n/s 2019-0 - 00:00: 00 No Glucose testing strips n/s [facility] Glucose testing strips n/s Glucose testing strips n/s 2020-0 4-23 00:00: 00 No Glucose testing strips n/s Glucose testing strips n/s Glucose testing strips n/s 12-02 00:00: 00 No Glucose testing strips n/s Glucose testing strips n/s Glucose testing strips n/s 12-02 00:00: 00 No Glucose testing strips n/s Contour next testing strips Contour next testing strips 05-08 00:00: 00 Yes Leandra Millender n/s [facility] Sertraline HCl Sertraline HCl Yes Leandra Millender 1 tablet [facility] Contour Next Test Contour Next Test Yes Leandra Millender as directed [facility] Losartan Potassium Losartan Potassium Yes Leandra Millender 1 tablet [facility] Loratadine Loratadine Yes Leandra Millender 1 tablet [facility] Pantoprazol e Sodium Pantoprazol e Sodium Yes Leandra Millender TOME ALEX TABLETA TODOS LOS D? [facility] Lyrica Lyrica Yes Leandra Millender 1 capsule [facility] Fluticasone Propionate Fluticasone Propionate Yes Leandra Millender 2 sprays in each nostril [facility] Lovastatin Lovastatin Yes Leandra Millender 1 tablet with a meal [facility] Metformin HCl Metformin HCl Yes Leandra Millender 1 tablet with a meal [facility] Flomax Flomax Yes Leandra Millender 1 capsule [facility] Xanax Xanax Yes Leandra Millender 1 tablet [facility] Furosemide Furosemide Yes Leandra Millender 1 tablet [facility] Aspirin Aspirin Yes Leandra Millender tome alex tableta todos los mcmanus [facility] Fluticasone Propionate Fluticasone Propionate Yes Leandra Millender 1 spray in each nostril [facility] Aspirin 81 Aspirin 81 Yes Leandra Millender 1 tablet [facility] Aspirin 81 81 MG Aspirin 81 81 MG No 1{table t} QD Aspirin 81 81 MG Fluticasone Propionate 50 MCG/ACT Fluticasone Propionate 50 MCG/ACT No Fluticason e Propionate 50 MCG/ACT Pantoprazol e Sodium 40 MG Pantoprazol e Sodium 40 MG No Pantoprazo le Sodium 40 MG Flomax 0.4 MG Flomax 0.4 MG No 1{capsu le} QD Flomax 0.4 MG [facility] Losartan Potassium 50 MG Losartan Potassium 50 MG No 1{table t} QD Losartan Potassium 50 MG [facility] Anoro Ellipta 62.5mcg/25 mcg Anoro Ellipta 62.5mcg/25 mcg No 1{puff} QD Anoro Ellipta 62.5mcg/25 mcg [facility] Furosemide 20 MG Furosemide 20 MG No 1{table t} QD Furosemide 20 MG [facility] Albuterol Sulfate HFA 108 (90 Base) MCG/ACT Albuterol Sulfate HFA 108 (90 Base) MCG/ACT No 2{puffs _as_nee ded} Albuterol Sulfate HFA 108 (90 Base) MCG/ACT [facility] Trulicity 1.5 MG/0.5ML Trulicity 1.5 MG/0.5ML No Trulicity 1.5 MG/0.5ML [facility] Pantoprazol e Sodium 40 MG Pantoprazol e Sodium 40 MG No Pantoprazo le Sodium 40 MG [facility] Aspirin 81 MG Aspirin 81 MG No QD Aspirin 81 MG [facility] Jardiance 25 mg Jardiance 25 mg No 1{table t} QD Jardiance 25 mg [facility] Blood Glucose Monitor System w/Device Blood Glucose Monitor System w/Device No Blood Glucose Monitor System w/Device [facility] Fluticasone Propionate 50 mcg/act Fluticasone Propionate 50 mcg/act No 2{spray s_in_ea ch_nost ril} QD Fluticason e Propionate 50 mcg/act [facility] metFORMIN HCl 1000 MG metFORMIN HCl 1000 MG No 1{table t_with_ a_meal} BID metFORMIN HCl 1000 MG [facility] Lovastatin 10 MG Lovastatin 10 MG No 1{table t_with_ a_meal} QD Lovastatin 10 MG [facility] hydrALAZINE HCl 25 MG hydrALAZINE HCl 25 MG No 1{table t_with_ food} hydrALAZIN E HCl 25 MG [facility] Loratadine 10 MG Loratadine 10 MG No 1{table t} QD Loratadine 10 MG [facility] Pepcid 20 MG Pepcid 20 MG No 1{table t} QD Pepcid 20 MG [facility] Lyrica 75 MG Lyrica 75 MG No 1{capsu le} Lyrica 75 MG [facility] Sertraline HCl 50 MG Sertraline HCl 50 MG No QD Sertraline HCl 50 MG [facility] Xanax 0.5 MG Xanax 0.5 MG No 1{table t} TID Xanax 0.5 MG [facility] Albuterol Sulfate (2.5 MG/3ML) 0.083% Albuterol Sulfate (2.5 MG/3ML) 0.083% No 3{ml_as _needed } TID Albuterol Sulfate (2.5 MG/3ML) 0.083% [facility] Aspirin 81 81 MG Aspirin 81 81 MG No 1{table t} QD Aspirin 81 81 MG [facility] Fluticasone Propionate 50 MCG/ACT Fluticasone Propionate 50 MCG/ACT No Fluticason e Propionate 50 MCG/ACT [facility] Amoxicillin 500 MG Amoxicillin 500 MG No 1{capsu le} Amoxicilli n 500 MG [facility] Flomax 0.4 MG Flomax 0.4 MG No 1{capsu le} QD Flomax 0.4 MG [facility] Losartan Potassium 50 MG Losartan Potassium 50 MG No 1{table t} QD Losartan Potassium 50 MG [facility] Anoro Ellipta 62.5mcg/25 mcg Anoro Ellipta 62.5mcg/25 mcg No 1{puff} QD Anoro Ellipta 62.5mcg/25 mcg [facility] Furosemide 20 MG Furosemide 20 MG No 1{table t} QD Furosemide 20 MG [facility] Albuterol Sulfate HFA 108 (90 Base) MCG/ACT Albuterol Sulfate HFA 108 (90 Base) MCG/ACT No 2{puffs _as_nee ded} Albuterol Sulfate HFA 108 (90 Base) MCG/ACT [facility] Trulicity 1.5 MG/0.5ML Trulicity 1.5 MG/0.5ML No Trulicity 1.5 MG/0.5ML [facility] Pantoprazol e Sodium 40 MG Pantoprazol e Sodium 40 MG No Pantoprazo le Sodium 40 MG [facility] Aspirin 81 MG Aspirin 81 MG No QD Aspirin 81 MG [facility] Jardiance 25 mg Jardiance 25 mg No 1{table t} QD Jardiance 25 mg [facility] Blood Glucose Monitor System w/Device Blood Glucose Monitor System w/Device No Blood Glucose Monitor System w/Device [facility] Fluticasone Propionate 50 mcg/act Fluticasone Propionate 50 mcg/act No 2{spray s_in_ea ch_nost ril} QD Fluticason e Propionate 50 mcg/act [facility] metFORMIN HCl 1000 MG metFORMIN HCl 1000 MG No 1{table t_with_ a_meal} BID metFORMIN HCl 1000 MG [facility] Lovastatin 10 MG Lovastatin 10 MG No 1{table t_with_ a_meal} QD Lovastatin 10 MG [facility] hydrALAZINE HCl 25 MG hydrALAZINE HCl 25 MG No 1{table t_with_ food} hydrALAZIN E HCl 25 MG [facility] Loratadine 10 MG Loratadine 10 MG No 1{table t} QD Loratadine 10 MG [facility] Pepcid 20 MG Pepcid 20 MG No 1{table t} QD Pepcid 20 MG [facility] Lyrica 75 MG Lyrica 75 MG No 1{capsu le} Lyrica 75 MG [facility] Sertraline HCl 50 MG Sertraline HCl 50 MG No QD Sertraline HCl 50 MG [facility] Xanax 0.5 MG Xanax 0.5 MG No 1{table t} TID Xanax 0.5 MG [facility] Albuterol Sulfate (2.5 MG/3ML) 0.083% Albuterol Sulfate (2.5 MG/3ML) 0.083% No 3{ml_as _needed } TID Albuterol Sulfate (2.5 MG/3ML) 0.083% [facility] Aspirin 81 81 MG Aspirin 81 81 MG No 1{table t} QD Aspirin 81 81 MG [facility] Fluticasone Propionate 50 MCG/ACT Fluticasone Propionate 50 MCG/ACT No Fluticason e Propionate 50 MCG/ACT [facility] Amoxicillin 500 MG Amoxicillin 500 MG No 1{capsu le} Amoxicilli n 500 MG [facility] Flomax 0.4 MG Flomax 0.4 MG No 1{capsu le} QD Flomax 0.4 MG Losartan Potassium 50 MG Losartan Potassium 50 MG No 1{table t} QD Losartan Potassium 50 MG Anoro Ellipta 62.5mcg/25 mcg Anoro Ellipta 62.5mcg/25 mcg No 1{puff} QD Anoro Ellipta 62.5mcg/25 mcg Furosemide 20 MG Furosemide 20 MG No 1{table t} QD Furosemide 20 MG Albuterol Sulfate HFA 108 (90 Base) MCG/ACT Albuterol Sulfate HFA 108 (90 Base) MCG/ACT No 2{puffs _as_nee ded} Albuterol Sulfate HFA 108 (90 Base) MCG/ACT Trulicity 1.5 MG/0.5ML Trulicity 1.5 MG/0.5ML No Trulicity 1.5 MG/0.5ML Pantoprazol e Sodium 40 MG Pantoprazol e Sodium 40 MG No Pantoprazo le Sodium 40 MG Aspirin 81 MG Aspirin 81 MG No QD Aspirin 81 MG Jardiance 25 mg Jardiance 25 mg No 1{table t} QD Jardiance 25 mg Blood Glucose Monitor System w/Device Blood Glucose Monitor System w/Device No Blood Glucose Monitor System w/Device Fluticasone Propionate 50 mcg/act Fluticasone Propionate 50 mcg/act No 2{spray s_in_ea ch_nost ril} QD Fluticason e Propionate 50 mcg/act metFORMIN HCl 1000 MG metFORMIN HCl 1000 MG No 1{table t_with_ a_meal} BID metFORMIN HCl 1000 MG Lovastatin 10 MG Lovastatin 10 MG No 1{table t_with_ a_meal} QD Lovastatin 10 MG hydrALAZINE HCl 25 MG hydrALAZINE HCl 25 MG No 1{table t_with_ food} hydrALAZIN E HCl 25 MG Loratadine 10 MG Loratadine 10 MG No 1{table t} QD Loratadine 10 MG Pepcid 20 MG Pepcid 20 MG No 1{table t} QD Pepcid 20 MG Lyrica 75 MG Lyrica 75 MG No 1{capsu le} Lyrica 75 MG Sertraline HCl 50 MG Sertraline HCl 50 MG No QD Sertraline HCl 50 MG Xanax 0.5 MG Xanax 0.5 MG No 1{table t} TID Xanax 0.5 MG Albuterol Sulfate (2.5 MG/3ML) 0.083% Albuterol Sulfate (2.5 MG/3ML) 0.083% No 3{ml_as _needed } TID Albuterol Sulfate (2.5 MG/3ML) 0.083% Aspirin 81 81 MG Aspirin 81 81 MG No 1{table t} QD Aspirin 81 81 MG Fluticasone Propionate 50 MCG/ACT Fluticasone Propionate 50 MCG/ACT No Fluticason e Propionate 50 MCG/ACT Amoxicillin 500 MG Amoxicillin 500 MG No 1{capsu le} Amoxicilli n 500 MG Flomax 0.4 MG Flomax 0.4 MG No 1{capsu le} QD Flomax 0.4 MG Losartan Potassium 50 MG Losartan Potassium 50 MG No 1{table t} QD Losartan Potassium 50 MG Anoro Ellipta 62.5mcg/25 mcg Anoro Ellipta 62.5mcg/25 mcg No 1{puff} QD Anoro Ellipta 62.5mcg/25 mcg Furosemide 20 MG Furosemide 20 MG No 1{table t} QD Furosemide 20 MG Albuterol Sulfate HFA 108 (90 Base) MCG/ACT Albuterol Sulfate HFA 108 (90 Base) MCG/ACT No 2{puffs _as_nee ded} Albuterol Sulfate HFA 108 (90 Base) MCG/ACT Trulicity 1.5 MG/0.5ML Trulicity 1.5 MG/0.5ML No Trulicity 1.5 MG/0.5ML Pantoprazol e Sodium 40 MG Pantoprazol e Sodium 40 MG No Pantoprazo le Sodium 40 MG Aspirin 81 MG Aspirin 81 MG No QD Aspirin 81 MG Jardiance 25 mg Jardiance 25 mg No 1{table t} QD Jardiance 25 mg Blood Glucose Monitor System w/Device Blood Glucose Monitor System w/Device No Blood Glucose Monitor System w/Device Fluticasone Propionate 50 mcg/act Fluticasone Propionate 50 mcg/act No 2{spray s_in_ea ch_nost ril} QD Fluticason e Propionate 50 mcg/act metFORMIN HCl 1000 MG metFORMIN HCl 1000 MG No 1{table t_with_ a_meal} BID metFORMIN HCl 1000 MG Lovastatin 10 MG Lovastatin 10 MG No 1{table t_with_ a_meal} QD Lovastatin 10 MG hydrALAZINE HCl 25 MG hydrALAZINE HCl 25 MG No 1{table t_with_ food} hydrALAZIN E HCl 25 MG Loratadine 10 MG Loratadine 10 MG No 1{table t} QD Loratadine 10 MG Pepcid 20 MG Pepcid 20 MG No 1{table t} QD Pepcid 20 MG Lyrica 75 MG Lyrica 75 MG No 1{capsu le} Lyrica 75 MG Sertraline HCl 50 MG Sertraline HCl 50 MG No QD Sertraline HCl 50 MG Xanax 0.5 MG Xanax 0.5 MG No 1{table t} TID Xanax 0.5 MG Albuterol Sulfate (2.5 MG/3ML) 0.083% Albuterol Sulfate (2.5 MG/3ML) 0.083% No 3{ml_as _needed } TID Albuterol Sulfate (2.5 MG/3ML) 0.083% Aspirin 81 81 MG Aspirin 81 81 MG No 1{table t} QD Aspirin 81 81 MG Fluticasone Propionate 50 MCG/ACT Fluticasone Propionate 50 MCG/ACT No Fluticason e Propionate 50 MCG/ACT Amoxicillin 500 MG Amoxicillin 500 MG No 1{capsu le} Amoxicilli n 500 MG Sertraline HCl 50 MG Sertraline HCl 50 MG No QD Sertraline HCl 50 MG Lyrica 150 MG Lyrica 150 MG No 1{capsu le} BID Lyrica 150 MG Anoro Ellipta 62.5mcg/25 mcg Anoro Ellipta 62.5mcg/25 mcg No 1{puff} QD Anoro Ellipta 62.5mcg/25 mcg Jardiance 25 mg Jardiance 25 mg No 1{table t} QD Jardiance 25 mg Pepcid 20 MG Pepcid 20 MG No 1{table t} QD Pepcid 20 MG Albuterol Sulfate (2.5 MG/3ML) 0.083% Albuterol Sulfate (2.5 MG/3ML) 0.083% No 3{ml_as _needed } TID Albuterol Sulfate (2.5 MG/3ML) 0.083% Losartan Potassium 100 MG Losartan Potassium 100 MG No 1{table t} QD Losartan Potassium 100 MG Trulicity 1.5 MG/0.5ML Trulicity 1.5 MG/0.5ML No Trulicity 1.5 MG/0.5ML metFORMIN HCl 1000 MG metFORMIN HCl 1000 MG No 1{table t_with_ a_meal} BID metFORMIN HCl 1000 MG Fluticasone Propionate 50 mcg/act Fluticasone Propionate 50 mcg/act No 2{spray s_in_ea ch_nost ril} QD Fluticason e Propionate 50 mcg/act hydrALAZINE HCl 25 MG hydrALAZINE HCl 25 MG No 1{table t_with_ food} hydrALAZIN E HCl 25 MG Albuterol Sulfate HFA 108 (90 Base) MCG/ACT Albuterol Sulfate HFA 108 (90 Base) MCG/ACT No 2{puffs _as_nee ded} Albuterol Sulfate HFA 108 (90 Base) MCG/ACT Sertraline HCl 50 MG Sertraline HCl 50 MG No QD Sertraline HCl 50 MG Lyrica 150 MG Lyrica 150 MG No 1{capsu le} BID Lyrica 150 MG Anoro Ellipta 62.5mcg/25 mcg Anoro Ellipta 62.5mcg/25 mcg No 1{puff} QD Anoro Ellipta 62.5mcg/25 mcg Jardiance 25 mg Jardiance 25 mg No 1{table t} QD Jardiance 25 mg Pepcid 20 MG Pepcid 20 MG No 1{table t} QD Pepcid 20 MG Albuterol Sulfate (2.5 MG/3ML) 0.083% Albuterol Sulfate (2.5 MG/3ML) 0.083% No 3{ml_as _needed } TID Albuterol Sulfate (2.5 MG/3ML) 0.083% Losartan Potassium 100 MG Losartan Potassium 100 MG No 1{table t} QD Losartan Potassium 100 MG Trulicity 1.5 MG/0.5ML Trulicity 1.5 MG/0.5ML No Trulicity 1.5 MG/0.5ML metFORMIN HCl 1000 MG metFORMIN HCl 1000 MG No 1{table t_with_ a_meal} BID metFORMIN HCl 1000 MG Fluticasone Propionate 50 mcg/act Fluticasone Propionate 50 mcg/act No 2{spray s_in_ea ch_nost ril} QD Fluticason e Propionate 50 mcg/act hydrALAZINE HCl 25 MG hydrALAZINE HCl 25 MG No 1{table t_with_ food} hydrALAZIN E HCl 25 MG Albuterol Sulfate HFA 108 (90 Base) MCG/ACT Albuterol Sulfate HFA 108 (90 Base) MCG/ACT No 2{puffs _as_nee ded} Albuterol Sulfate HFA 108 (90 Base) MCG/ACT Sertraline HCl 50 MG Sertraline HCl 50 MG No QD Sertraline HCl 50 MG Lyrica 150 MG Lyrica 150 MG No 1{capsu le} BID Lyrica 150 MG Anoro Ellipta 62.5mcg/25 mcg Anoro Ellipta 62.5mcg/25 mcg No 1{puff} QD Anoro Ellipta 62.5mcg/25 mcg Jardiance 25 mg Jardiance 25 mg No 1{table t} QD Jardiance 25 mg Pepcid 20 MG Pepcid 20 MG No 1{table t} QD Pepcid 20 MG Albuterol Sulfate (2.5 MG/3ML) 0.083% Albuterol Sulfate (2.5 MG/3ML) 0.083% No 3{ml_as _needed } TID Albuterol Sulfate (2.5 MG/3ML) 0.083% Losartan Potassium 100 MG Losartan Potassium 100 MG No 1{table t} QD Losartan Potassium 100 MG Trulicity 1.5 MG/0.5ML Trulicity 1.5 MG/0.5ML No Trulicity 1.5 MG/0.5ML metFORMIN HCl 1000 MG metFORMIN HCl 1000 MG No 1{table t_with_ a_meal} BID metFORMIN HCl 1000 MG Fluticasone Propionate 50 mcg/act Fluticasone Propionate 50 mcg/act No 2{spray s_in_ea ch_nost ril} QD Fluticason e Propionate 50 mcg/act hydrALAZINE HCl 25 MG hydrALAZINE HCl 25 MG No 1{table t_with_ food} hydrALAZIN E HCl 25 MG Albuterol Sulfate HFA 108 (90 Base) MCG/ACT Albuterol Sulfate HFA 108 (90 Base) MCG/ACT No 2{puffs _as_nee ded} Albuterol Sulfate HFA 108 (90 Base) MCG/ACT Sertraline HCl 50 MG Sertraline HCl 50 MG No QD Sertraline HCl 50 MG Lyrica 150 MG Lyrica 150 MG No 1{capsu le} BID Lyrica 150 MG Anoro Ellipta 62.5mcg/25 mcg Anoro Ellipta 62.5mcg/25 mcg No 1{puff} QD Anoro Ellipta 62.5mcg/25 mcg Jardiance 25 mg Jardiance 25 mg No 1{table t} QD Jardiance 25 mg Pepcid 20 MG Pepcid 20 MG No 1{table t} QD Pepcid 20 MG Albuterol Sulfate (2.5 MG/3ML) 0.083% Albuterol Sulfate (2.5 MG/3ML) 0.083% No 3{ml_as _needed } TID Albuterol Sulfate (2.5 MG/3ML) 0.083% Losartan Potassium 100 MG Losartan Potassium 100 MG No 1{table t} QD Losartan Potassium 100 MG Trulicity 1.5 MG/0.5ML Trulicity 1.5 MG/0.5ML No Trulicity 1.5 MG/0.5ML metFORMIN HCl 1000 MG metFORMIN HCl 1000 MG No 1{table t_with_ a_meal} BID metFORMIN HCl 1000 MG Fluticasone Propionate 50 mcg/act Fluticasone Propionate 50 mcg/act No 2{spray s_in_ea ch_nost ril} QD Fluticason e Propionate 50 mcg/act hydrALAZINE HCl 25 MG hydrALAZINE HCl 25 MG No 1{table t_with_ food} hydrALAZIN E HCl 25 MG Albuterol Sulfate HFA 108 (90 Base) MCG/ACT Albuterol Sulfate HFA 108 (90 Base) MCG/ACT No 2{puffs _as_nee ded} Albuterol Sulfate HFA 108 (90 Base) MCG/ACT Famotidine 20 MG Famotidine 20 MG No Famotidine 20 MG Jardiance 25 mg Jardiance 25 mg No 1{table t} QD Jardiance 25 mg Anoro Ellipta 62.5mcg/25 mcg Anoro Ellipta 62.5mcg/25 mcg No 1{puff} QD Anoro Ellipta 62.5mcg/25 mcg Losartan Potassium 100 MG Losartan Potassium 100 MG No Losartan Potassium 100 MG Albuterol Sulfate HFA 108 (90 Base) MCG/ACT Albuterol Sulfate HFA 108 (90 Base) MCG/ACT No 2{puffs _as_nee ded} Albuterol Sulfate HFA 108 (90 Base) MCG/ACT Albuterol Sulfate (2.5 MG/3ML) 0.083% Albuterol Sulfate (2.5 MG/3ML) 0.083% No 3{ml_as _needed } TID Albuterol Sulfate (2.5 MG/3ML) 0.083% Lyrica 150 MG Lyrica 150 MG No 1{capsu le} BID Lyrica 150 MG Sertraline HCl 50 MG Sertraline HCl 50 MG No QD Sertraline HCl 50 MG metFORMIN HCl 1000 MG metFORMIN HCl 1000 MG No 1{table t_with_ a_meal} BID metFORMIN HCl 1000 MG Fluticasone Propionate 50 MCG/ACT Fluticasone Propionate 50 MCG/ACT No Fluticason e Propionate 50 MCG/ACT Trulicity 1.5 MG/0.5ML Trulicity 1.5 MG/0.5ML No Trulicity 1.5 MG/0.5ML hydrALAZINE HCl 25 MG hydrALAZINE HCl 25 MG No hydrALAZIN E HCl 25 MG Famotidine 20 MG Famotidine 20 MG No Famotidine 20 MG Jardiance 25 mg Jardiance 25 mg No 1{table t} QD Jardiance 25 mg Anoro Ellipta 62.5mcg/25 mcg Anoro Ellipta 62.5mcg/25 mcg No 1{puff} QD Anoro Ellipta 62.5mcg/25 mcg Losartan Potassium 100 MG Losartan Potassium 100 MG No Losartan Potassium 100 MG Albuterol Sulfate HFA 108 (90 Base) MCG/ACT Albuterol Sulfate HFA 108 (90 Base) MCG/ACT No 2{puffs _as_nee ded} Albuterol Sulfate HFA 108 (90 Base) MCG/ACT Albuterol Sulfate (2.5 MG/3ML) 0.083% Albuterol Sulfate (2.5 MG/3ML) 0.083% No 3{ml_as _needed } TID Albuterol Sulfate (2.5 MG/3ML) 0.083% Lyrica 150 MG Lyrica 150 MG No 1{capsu le} BID Lyrica 150 MG Sertraline HCl 50 MG Sertraline HCl 50 MG No QD Sertraline HCl 50 MG metFORMIN HCl 1000 MG metFORMIN HCl 1000 MG No 1{table t_with_ a_meal} BID metFORMIN HCl 1000 MG Fluticasone Propionate 50 MCG/ACT Fluticasone Propionate 50 MCG/ACT No Fluticason e Propionate 50 MCG/ACT Trulicity 1.5 MG/0.5ML Trulicity 1.5 MG/0.5ML No Trulicity 1.5 MG/0.5ML hydrALAZINE HCl 25 MG hydrALAZINE HCl 25 MG No hydrALAZIN E HCl 25 MG Jardiance 25 mg Jardiance 25 mg No 1{table t} QD Jardiance 25 mg Sertraline HCl 50 MG Sertraline HCl 50 MG No QD Sertraline HCl 50 MG hydrALAZINE HCl 25 MG hydrALAZINE HCl 25 MG No hydrALAZIN E HCl 25 MG Losartan Potassium 100 MG Losartan Potassium 100 MG No Losartan Potassium 100 MG Famotidine 20 MG Famotidine 20 MG No Famotidine 20 MG Anoro Ellipta 62.5mcg/25 mcg Anoro Ellipta 62.5mcg/25 mcg No 1{puff} QD Anoro Ellipta 62.5mcg/25 mcg metFORMIN HCl 1000 MG metFORMIN HCl 1000 MG No 1{table t_with_ a_meal} BID metFORMIN HCl 1000 MG Fluticasone Propionate 50 MCG/ACT Fluticasone Propionate 50 MCG/ACT No Fluticason e Propionate 50 MCG/ACT Losartan Potassium 100 MG Losartan Potassium 100 MG No Losartan Potassium 100 MG Fluticasone Propionate 50 MCG/ACT Fluticasone Propionate 50 MCG/ACT No Fluticason e Propionate 50 MCG/ACT Anoro Ellipta 62.5-25 MCG/ACT Anoro Ellipta 62.5-25 MCG/ACT No Anoro Ellipta 62.5-25 MCG/ACT hydrALAZINE HCl 25 MG hydrALAZINE HCl 25 MG No hydrALAZIN E HCl 25 MG Sertraline HCl 50 MG Sertraline HCl 50 MG No QD Sertraline HCl 50 MG metFORMIN HCl 1000 MG metFORMIN HCl 1000 MG No 1{table t_with_ a_meal} BID metFORMIN HCl 1000 MG Famotidine 20 MG Famotidine 20 MG No Famotidine 20 MG Jardiance 25 mg Jardiance 25 mg No 1{table t} QD Jardiance 25 mg Losartan Potassium 100 MG Losartan Potassium 100 MG No Losartan Potassium 100 MG Fluticasone Propionate 50 MCG/ACT Fluticasone Propionate 50 MCG/ACT No Fluticason e Propionate 50 MCG/ACT Anoro Ellipta 62.5-25 MCG/ACT Anoro Ellipta 62.5-25 MCG/ACT No Anoro Ellipta 62.5-25 MCG/ACT hydrALAZINE HCl 25 MG hydrALAZINE HCl 25 MG No hydrALAZIN E HCl 25 MG Sertraline HCl 50 MG Sertraline HCl 50 MG No QD Sertraline HCl 50 MG metFORMIN HCl 1000 MG metFORMIN HCl 1000 MG No 1{table t_with_ a_meal} BID metFORMIN HCl 1000 MG Famotidine 20 MG Famotidine 20 MG No Famotidine 20 MG Jardiance 25 mg Jardiance 25 mg No 1{table t} QD Jardiance 25 mg Losartan Potassium 100 MG Losartan Potassium 100 MG No Losartan Potassium 100 MG Fluticasone Propionate 50 MCG/ACT Fluticasone Propionate 50 MCG/ACT No Fluticason e Propionate 50 MCG/ACT Anoro Ellipta 62.5-25 MCG/ACT Anoro Ellipta 62.5-25 MCG/ACT No Anoro Ellipta 62.5-25 MCG/ACT hydrALAZINE HCl 25 MG hydrALAZINE HCl 25 MG No hydrALAZIN E HCl 25 MG Sertraline HCl 50 MG Sertraline HCl 50 MG No QD Sertraline HCl 50 MG metFORMIN HCl 1000 MG metFORMIN HCl 1000 MG No 1{table t_with_ a_meal} BID metFORMIN HCl 1000 MG Famotidine 20 MG Famotidine 20 MG No Famotidine 20 MG Jardiance 25 mg Jardiance 25 mg No 1{table t} QD Jardiance 25 mg Losartan Potassium 100 MG Losartan Potassium 100 MG No Losartan Potassium 100 MG Fluticasone Propionate 50 MCG/ACT Fluticasone Propionate 50 MCG/ACT No Fluticason e Propionate 50 MCG/ACT Anoro Ellipta 62.5-25 MCG/ACT Anoro Ellipta 62.5-25 MCG/ACT No Anoro Ellipta 62.5-25 MCG/ACT hydrALAZINE HCl 25 MG hydrALAZINE HCl 25 MG No hydrALAZIN E HCl 25 MG Sertraline HCl 50 MG Sertraline HCl 50 MG No QD Sertraline HCl 50 MG metFORMIN HCl 1000 MG metFORMIN HCl 1000 MG No 1{table t_with_ a_meal} BID metFORMIN HCl 1000 MG Famotidine 20 MG Famotidine 20 MG No Famotidine 20 MG Jardiance 25 mg Jardiance 25 mg No 1{table t} QD Jardiance 25 mg Losartan Potassium 100 MG Losartan Potassium 100 MG No Losartan Potassium 100 MG Fluticasone Propionate 50 MCG/ACT Fluticasone Propionate 50 MCG/ACT No Fluticason e Propionate 50 MCG/ACT Anoro Ellipta 62.5-25 MCG/ACT Anoro Ellipta 62.5-25 MCG/ACT No Anoro Ellipta 62.5-25 MCG/ACT hydrALAZINE HCl 25 MG hydrALAZINE HCl 25 MG No hydrALAZIN E HCl 25 MG Sertraline HCl 50 MG Sertraline HCl 50 MG No QD Sertraline HCl 50 MG metFORMIN HCl 1000 MG metFORMIN HCl 1000 MG No 1{table t_with_ a_meal} BID metFORMIN HCl 1000 MG Famotidine 20 MG Famotidine 20 MG No Famotidine 20 MG Jardiance 25 mg Jardiance 25 mg No 1{table t} QD Jardiance 25 mg Losartan Potassium 100 MG Losartan Potassium 100 MG No Losartan Potassium 100 MG Fluticasone Propionate 50 MCG/ACT Fluticasone Propionate 50 MCG/ACT No Fluticason e Propionate 50 MCG/ACT Anoro Ellipta 62.5-25 MCG/ACT Anoro Ellipta 62.5-25 MCG/ACT No Anoro Ellipta 62.5-25 MCG/ACT hydrALAZINE HCl 25 MG hydrALAZINE HCl 25 MG No hydrALAZIN E HCl 25 MG Sertraline HCl 50 MG Sertraline HCl 50 MG No QD Sertraline HCl 50 MG metFORMIN HCl 1000 MG metFORMIN HCl 1000 MG No 1{table t_with_ a_meal} BID metFORMIN HCl 1000 MG Famotidine 20 MG Famotidine 20 MG No Famotidine 20 MG Jardiance 25 mg Jardiance 25 mg No 1{table t} QD Jardiance 25 mg Losartan Potassium 100 MG Losartan Potassium 100 MG No Losartan Potassium 100 MG Fluticasone Propionate 50 MCG/ACT Fluticasone Propionate 50 MCG/ACT No Fluticason e Propionate 50 MCG/ACT Anoro Ellipta 62.5-25 MCG/ACT Anoro Ellipta 62.5-25 MCG/ACT No Anoro Ellipta 62.5-25 MCG/ACT hydrALAZINE HCl 25 MG hydrALAZINE HCl 25 MG No hydrALAZIN E HCl 25 MG Sertraline HCl 50 MG Sertraline HCl 50 MG No QD Sertraline HCl 50 MG metFORMIN HCl 1000 MG metFORMIN HCl 1000 MG No 1{table t_with_ a_meal} BID metFORMIN HCl 1000 MG Famotidine 20 MG Famotidine 20 MG No Famotidine 20 MG Jardiance 25 mg Jardiance 25 mg No 1{table t} QD Jardiance 25 mg Losartan Potassium 100 MG Losartan Potassium 100 MG No Losartan Potassium 100 MG Fluticasone Propionate 50 MCG/ACT Fluticasone Propionate 50 MCG/ACT No Fluticason e Propionate 50 MCG/ACT Anoro Ellipta 62.5-25 MCG/ACT Anoro Ellipta 62.5-25 MCG/ACT No Anoro Ellipta 62.5-25 MCG/ACT hydrALAZINE HCl 25 MG hydrALAZINE HCl 25 MG No hydrALAZIN E HCl 25 MG Sertraline HCl 50 MG Sertraline HCl 50 MG No QD Sertraline HCl 50 MG metFORMIN HCl 1000 MG metFORMIN HCl 1000 MG No 1{table t_with_ a_meal} BID metFORMIN HCl 1000 MG Famotidine 20 MG Famotidine 20 MG No Famotidine 20 MG Jardiance 25 mg Jardiance 25 mg No 1{table t} QD Jardiance 25 mg Losartan Potassium 100 MG Losartan Potassium 100 MG No Losartan Potassium 100 MG Fluticasone Propionate 50 MCG/ACT Fluticasone Propionate 50 MCG/ACT No Fluticason e Propionate 50 MCG/ACT Anoro Ellipta 62.5-25 MCG/ACT Anoro Ellipta 62.5-25 MCG/ACT No Anoro Ellipta 62.5-25 MCG/ACT hydrALAZINE HCl 25 MG hydrALAZINE HCl 25 MG No hydrALAZIN E HCl 25 MG Sertraline HCl 50 MG Sertraline HCl 50 MG No QD Sertraline HCl 50 MG metFORMIN HCl 1000 MG metFORMIN HCl 1000 MG No 1{table t_with_ a_meal} BID metFORMIN HCl 1000 MG Famotidine 20 MG Famotidine 20 MG No Famotidine 20 MG Jardiance 25 mg Jardiance 25 mg No 1{table t} QD Jardiance 25 mg Losartan Potassium 100 MG Losartan Potassium 100 MG No Losartan Potassium 100 MG Fluticasone Propionate 50 MCG/ACT Fluticasone Propionate 50 MCG/ACT No Fluticason e Propionate 50 MCG/ACT Anoro Ellipta 62.5-25 MCG/ACT Anoro Ellipta 62.5-25 MCG/ACT No Anoro Ellipta 62.5-25 MCG/ACT hydrALAZINE HCl 25 MG hydrALAZINE HCl 25 MG No hydrALAZIN E HCl 25 MG Sertraline HCl 50 MG Sertraline HCl 50 MG No QD Sertraline HCl 50 MG metFORMIN HCl 1000 MG metFORMIN HCl 1000 MG No 1{table t_with_ a_meal} BID metFORMIN HCl 1000 MG Famotidine 20 MG Famotidine 20 MG No Famotidine 20 MG Jardiance 25 mg Jardiance 25 mg No 1{table t} QD Jardiance 25 mg Xanax 0.5 MG Xanax 0.5 MG No 1{table t} TID Xanax 0.5 MG Lyrica 75 MG Lyrica 75 MG No 1{capsu le} Lyrica 75 MG Losartan Potassium 50 MG Losartan Potassium 50 MG No 1{table t} QD Losartan Potassium 50 MG Furosemide 20 MG Furosemide 20 MG No 1{table t} QD Furosemide 20 MG Loratadine 10 MG Loratadine 10 MG No 1{table t} QD Loratadine 10 MG Pepcid 20 MG Pepcid 20 MG No 1{table t} QD Pepcid 20 MG Sertraline HCl 50 MG Sertraline HCl 50 MG No QD Sertraline HCl 50 MG Metformin HCl 1000 MG Metformin HCl 1000 MG No 1{table t_with_ a_meal} BID Metformin HCl 1000 MG Albuterol Sulfate HFA 108 (90 Base) MCG/ACT Albuterol Sulfate HFA 108 (90 Base) MCG/ACT No 2{puffs _as_nee ded} Albuterol Sulfate HFA 108 (90 Base) MCG/ACT Amoxicillin 500 MG Amoxicillin 500 MG No 1{capsu le} Amoxicilli n 500 MG Anoro Ellipta 62.5mcg/25 mcg Anoro Ellipta 62.5mcg/25 mcg No 1{puff} QD Anoro Ellipta 62.5mcg/25 mcg Aspirin 81 MG Aspirin 81 MG No QD Aspirin 81 MG Fluticasone Propionate 50 mcg/act Fluticasone Propionate 50 mcg/act No 2{spray s_in_ea ch_nost ril} QD Fluticason e Propionate 50 mcg/act Lovastatin 10 MG Lovastatin 10 MG No 1{table t_with_ a_meal} QD Lovastatin 10 MG Flomax 0.4 MG Flomax 0.4 MG No 1{capsu le} QD Flomax 0.4 MG Jardiance 25 mg Jardiance 25 mg No 1{table t} QD Jardiance 25 mg Trulicity 1.5 MG/0.5ML Trulicity 1.5 MG/0.5ML No Trulicity 1.5 MG/0.5ML Aspirin Low Dose Aspirin Low Dose 01-10 00:00 :00 No Leandra Millender 1 tablet [facility] Jardiance Jardiance 01-10 00:00 :00 No Leandra Millender 1 tablet [facility] Anoro Ellipta Anoro Ellipta 01-10 00:00 :00 No Leandra Millender 1 puff [facility] Immunizations Ordered Immunization Name Filled Immunization Name Date Status Comments Source Prevnar 13 (PCV13) Prevnar 13 (PCV13) 2020-06-27 10:51:00 Completed [facility] Prevnar 13 (PCV13) Prevnar 13 (PCV13) 2020-06-27 10:51:00 Completed [facility] Prevnar 13 (PCV13) Prevnar 13 (PCV13) 2020-06-27 10:51:00 Completed [facility] Prevnar 13 (PCV13) Prevnar 13 (PCV13) 2020-06-27 10:51:00 Completed [facility] Prevnar 13 (PCV13) Prevnar 13 (PCV13) 2020-06-27 10:51:00 Completed [facility] Prevnar 13 (PCV13) Prevnar 13 (PCV13) 2020-06-27 10:51:00 Completed [facility] Prevnar 13 (PCV13) Prevnar 13 (PCV13) 2020-06-27 10:51:00 Completed [facility] Prevnar 13 (PCV13) Prevnar 13 (PCV13) 2020-06-27 10:51:00 Completed [facility] Prevnar 13 (PCV13) Prevnar 13 (PCV13) 2020-06-27 10:51:00 Completed [facility] Prevnar 13 (PCV13) Prevnar 13 (PCV13) 2020-06-27 10:51:00 Completed [facility] Prevnar 13 (PCV13) Prevnar 13 (PCV13) 2020-06-27 10:51:00 Completed [facility] Prevnar 13 (PCV13) Prevnar 13 (PCV13) 2020-06-27 10:51:00 Completed [facility] FLUZONE HIGH DOSE OVER 65 FLUZONE HIGH DOSE OVER 65 2020-06-27 10:50:00 Completed [facility] FLUZONE HIGH DOSE OVER 65 FLUZONE HIGH DOSE OVER 65 2020-06-27 10:50:00 Completed [facility] FLUZONE HIGH DOSE OVER 65 FLUZONE HIGH DOSE OVER 65 2020-06-27 10:50:00 Completed [facility] FLUZONE HIGH DOSE OVER 65 FLUZONE HIGH DOSE OVER 65 2020-06-27 10:50:00 Completed [facility] FLUZONE HIGH DOSE OVER 65 FLUZONE HIGH DOSE OVER 65 2020-06-27 10:50:00 Completed [facility] FLUZONE HIGH DOSE OVER 65 FLUZONE HIGH DOSE OVER 65 2020-06-27 10:50:00 Completed [facility] FLUZONE HIGH DOSE OVER 65 FLUZONE HIGH DOSE OVER 65 2020-06-27 10:50:00 Completed [facility] FLUZONE HIGH DOSE OVER 65 FLUZONE HIGH DOSE OVER 65 2020-06-27 10:50:00 Completed [facility] FLUZONE HIGH DOSE OVER 65 FLUZONE HIGH DOSE OVER 65 2020-06-27 10:50:00 Completed [facility] FLUZONE HIGH DOSE OVER 65 FLUZONE HIGH DOSE OVER 65 2020-06-27 10:50:00 Completed [facility] FLUZONE HIGH DOSE OVER 65 FLUZONE HIGH DOSE OVER 65 2020-06-27 10:50:00 Completed [facility] FLUZONE HIGH DOSE OVER 65 FLUZONE HIGH DOSE OVER 65 2020-06-27 10:50:00 Completed [facility] Prevnar 13 (PCV13) Prevnar 13 (PCV13) 2018-03-17 16:12:00 Completed [facility] Prevnar 13 (PCV13) Prevnar 13 (PCV13) 2018-03-17 16:12:00 Completed [facility] Prevnar 13 (PCV13) Prevnar 13 (PCV13) 2018-03-17 16:12:00 Completed [facility] Prevnar 13 (PCV13) Prevnar 13 (PCV13) 2018-03-17 16:12:00 Completed [facility] Prevnar 13 (PCV13) Prevnar 13 (PCV13) 2018-03-17 16:12:00 Completed [facility] Prevnar 13 (PCV13) Prevnar 13 (PCV13) 2018-03-17 16:12:00 Completed [facility] Prevnar 13 (PCV13) Prevnar 13 (PCV13) 2018-03-17 16:12:00 Completed [facility] Prevnar 13 (PCV13) Prevnar 13 (PCV13) 2018-03-17 16:12:00 Completed [facility] Prevnar 13 (PCV13) Prevnar 13 (PCV13) 2018-03-17 16:12:00 Completed [facility] Prevnar 13 (PCV13) Prevnar 13 (PCV13) 2018-03-17 16:12:00 Completed [facility] Prevnar 13 (PCV13) Prevnar 13 (PCV13) 2018-03-17 16:12:00 Completed [facility] Prevnar 13 (PCV13) Prevnar 13 (PCV13) 2018-03-17 16:12:00 Completed [facility] PCV13 PCV13 2018-03-17 00:00:00 Completed [facility] FLUZONE HIGH DOSE OVER 65 FLUZONE HIGH DOSE OVER 65 Unknown Completed [facility] Prevnar 13 (PCV13) Prevnar 13 (PCV13) Unknown Completed [facility] Prevnar 13 (PCV13) Prevnar 13 (PCV13) Unknown Completed [facility] FLUZONE HIGH DOSE OVER 65 FLUZONE HIGH DOSE OVER 65 Unknown Completed [facility] Prevnar 13 (PCV13) Prevnar 13 (PCV13) Unknown Completed [facility] [facility] Prevnar 13 (PCV13) Prevnar 13 (PCV13) Unknown Completed [facility] FLUZONE HIGH DOSE OVER 65 FLUZONE HIGH DOSE OVER 65 Unknown Completed [facility] Prevnar 13 (PCV13) Prevnar 13 (PCV13) Unknown Completed [facility] Prevnar 13 (PCV13) Prevnar 13 (PCV13) Unknown Completed [facility] FLUZONE HIGH DOSE OVER 65 FLUZONE HIGH DOSE OVER 65 Unknown Completed [facility] Prevnar 13 (PCV13) Prevnar 13 (PCV13) Unknown Completed [facility] Prevnar 13 (PCV13) Prevnar 13 (PCV13) Unknown Completed [facility] FLUZONE HIGH DOSE OVER 65 FLUZONE HIGH DOSE OVER 65 Unknown Completed [facility] Prevnar 13 (PCV13) Prevnar 13 (PCV13) Unknown Completed [facility] Prevnar 13 (PCV13) Prevnar 13 (PCV13) Unknown Completed [facility] FLUZONE HIGH DOSE OVER 65 FLUZONE HIGH DOSE OVER 65 Unknown Completed [facility] Prevnar 13 (PCV13) Prevnar 13 (PCV13) Unknown Completed [facility] Prevnar 13 (PCV13) Prevnar 13 (PCV13) Unknown Completed [facility] FLUZONE HIGH DOSE OVER 65 FLUZONE HIGH DOSE OVER 65 Unknown Completed [facility] Prevnar 13 (PCV13) Prevnar 13 (PCV13) Unknown Completed [facility] Prevnar 13 (PCV13) Prevnar 13 (PCV13) Unknown Completed [facility] FLUZONE HIGH DOSE OVER 65 FLUZONE HIGH DOSE OVER 65 Unknown Completed [facility] Prevnar 13 (PCV13) Prevnar 13 (PCV13) Unknown Completed [facility] Prevnar 13 (PCV13) Prevnar 13 (PCV13) Unknown Completed [facility] FLUZONE HIGH DOSE OVER 65 FLUZONE HIGH DOSE OVER 65 Unknown Completed [facility] Prevnar 13 (PCV13) Prevnar 13 (PCV13) Unknown Completed [facility] Prevnar 13 (PCV13) Prevnar 13 (PCV13) Unknown Completed [facility] FLUZONE HIGH DOSE OVER 65 FLUZONE HIGH DOSE OVER 65 Unknown Completed [facility] Prevnar 13 (PCV13) Prevnar 13 (PCV13) Unknown Completed [facility] Prevnar 13 (PCV13) Prevnar 13 (PCV13) Unknown Completed [facility] Vital Signs Vital Name Observation Time Observation Value Comments S ource height 2023-06-12 13:15:00 67 [in_i] Commo n [facility] weight 2023-06-12 13:15:00 182 [lb_av] Comm on [facility] temperature 2023-06-12 13:15:00 97.6 [degF] Com [facility] bmi 2023-06-12 13:15:00 28.5 kg/m2 Commo n [facility] oximetry 2023-06-12 13:15:00 99 % Commo n [facility] respiratory rate 2023-06-12 13:15:00 18 /min [facility] blood pressure systolic 2023-06-12 13:15:00 120 mm[Hg] Common [facility] blood pressure diastolic 2023-06-12 13:15:00 67 mm[Hg] Common [facility] height 2023-05-09 09:15:00 67 [in_i] Commo n [facility] weight 2023-05-09 09:15:00 182 [lb_av] Comm on [facility] temperature 2023-05-09 09:15:00 98.6 [degF] Com [facility] bmi 2023-05-09 09:15:00 28.5 kg/m2 Commo n [facility] oximetry 2023-05-09 09:15:00 99 % Commo n [facility] respiratory rate 2023-05-09 09:15:00 18 /min [facility] blood pressure systolic 2023-05-09 09:15:00 146 mm[Hg] Common [facility] blood pressure diastolic 2023-05-09 09:15:00 78 mm[Hg] Common [facility] height 2023-04-12 09:30:00 67 [in_i] Commo n [facility] weight 2023-04-12 09:30:00 182 [lb_av] Comm on [facility] temperature 2023-04-12 09:30:00 98.6 [degF] Com mon [facility] bmi 2023-04-12 09:30:00 28.5 kg/m2 Commo n [facility] oximetry 2023-04-12 09:30:00 99 % Commo n [facility] respiratory rate 2023-04-12 09:30:00 18 /min Common [facility] blood pressure systolic 2023-04-12 09:30:00 153 mm[Hg] Common [facility] blood pressure diastolic 2023-04-12 09:30:00 70 mm[Hg] Common [facility] height 2023-03-28 17:45:00 67 [in_i] Commo n [facility] weight 2023-03-28 17:45:00 180 [lb_av] Comm on [facility] temperature 2023-03-28 17:45:00 98.5 [degF] Com mon [facility] bmi 2023-03-28 17:45:00 28.19 kg/m2 Comm on [facility] oximetry 2023-03-28 17:45:00 97 % Commo n [facility] respiratory rate 2023-03-28 17:45:00 18 /min Common [facility] blood pressure systolic 2023-03-28 17:45:00 154 mm[Hg] Common [facility] blood pressure diastolic 2023-03-28 17:45:00 70 mm[Hg] Common [facility] height 2023-02-13 15:45:00 67 [in_i] Commo n [facility] weight 2023-02-13 15:45:00 180 [lb_av] Comm on [facility] temperature 2023-02-13 15:45:00 98.6 [degF] Com mon [facility] bmi 2023-02-13 15:45:00 28.19 kg/m2 Comm on [facility] oximetry 2023-02-13 15:45:00 99 % Commo n [facility] respiratory rate 2023-02-13 15:45:00 18 /min Common [facility] blood pressure systolic 2023-02-13 15:45:00 117 mm[Hg] [facility] diastolic 2023-02-13 15:45:00 80 mm[Hg] [facility] height 2022-12-18 13:45:00 67 [in_i] Commo n [facility] weight 2022-12-18 13:45:00 182 [lb_av] Comm on [facility] temperature 2022-12-18 13:45:00 97.6 [degF] Com [facility] bmi 2022-12-18 13:45:00 28.5 kg/m2 Commo n [facility] oximetry 2022-12-18 13:45:00 96 % Commo n [facility] respiratory rate 2022-12-18 13:45:00 18 /min Common [facility] blood pressure systolic 2022-12-18 13:45:00 117 mm[Hg] Common [facility] blood pressure diastolic 2022-12-18 13:45:00 63 mm[Hg] [facility] height 2021-12-14 14:30:00 67 [in_i] Commo n [facility] weight 2021-12-14 14:30:00 182 [lb_av] Comm on [facility] temperature 2021-12-14 14:30:00 97.6 [degF] Com [facility] bmi 2021-12-14 14:30:00 28.5 kg/m2 Commo n [facility] oximetry 2021-12-14 14:30:00 99 % Commo n [facility] respiratory rate 2021-12-14 14:30:00 16 /min [facility] blood pressure systolic 2021-12-14 14:30:00 130 mm[Hg] [facility] blood pressure diastolic 2021-12-14 14:30:00 60 mm[Hg] [facility] Encounters Start Date/Time End Date/Time Encounter Type Admission Type Attending [facility] Care Facility Care Department Encounter ID Source 2023-04-09 08:26:00 Outpatient STLMLC STLMLC [id number] [facility] 2023-03-28 14:37:00 Outpatient FREITAS, Na STLMLC STLMLC [id number] [facility] 2022-12-06 15:16:01 Outpatient FREITAS, Na STLMLC STLMLC [id number] [facility] 2022-02-21 13:21:00 Outpatient Freitas, Na STLMLC STLMLC [id number] [facility] 2022-01-23 08:14:53 Outpatient 3 LONNY TRIPP ENCPL JOHN [id number] [facility] [place] [facility] 2021-10-27 09:37:01 Outpatient Freitas, Na STLMLC STLMLC [id number] [facility] 2021-09-06 14:00:39 Outpatient Freitas, Na STLMLC STLMLC [id number] [facility] 2021-09-06 13:36:43 Outpatient Freitas, Na STLMLC STLMLC [id number] [facility] 2021-09-06 13:14:46 Outpatient Freitas, Na STLMLC STLMLC [id number] [facility] 2021-09-06 13:14:19 Outpatient Freitas, Na STLMLC STLMLC [id number] [facility] 2021-09-06 12:38:22 Outpatient Freitas, Na STLMLC STLMLC [id number] [facility] 2021-09-06 12:37:04 Outpatient Kylie, Na STLMLC STLMLC [id number] [facility] 2021-09-06 12:32:00 Outpatient Kylie Na STLMLC STLMLC [id number] [facility] 2021-09-06 12:31:32 Outpatient Kylie Na STLMLC STLMLC [id number] [facility] 2021-09-06 12:17:07 Outpatient Kylie Na STLMLC STLMLC [id number] [facility] 2021-09-06 12:04:40 Outpatient Juan Trejo STLMLC STLMLC [id number] [facility] 2021-09-06 12:00:30 Outpatient Juan Trejo STLMLC STLMLC [id number] [facility] 2021-09-06 11:55:17 Outpatient Kristian Weineren STLMLC STLMLC [id number] [facility] 2021-09-06 11:53:43 Outpatient Leandra Weiner STLMLC STLMLC [id number] [facility] 2021-09-06 11:43:25 Outpatient Kristian Weineren STLMLC STLMLC [id number] [facility] 2021-09-06 11:42:20 Outpatient Leandra Weiner STLMLC STLMLC [id number] [facility] 2021-09-06 11:21:57 Outpatient Leandra Weiner STLMLC STLMLC [id number] [facility] 2021-09-06 11:12:44 Outpatient Leandra Weiner STLMLC STLMLC [id number] [facility] 2021-09-06 11:12:25 Outpatient Kristian Weineren STLMLC STLMLC [id number] [facility] 2021-09-06 11:08:59 Outpatient Leandra Weiner STLMLC STLMLC [id number] [facility] 2021-09-06 11:08:51 Outpatient Leandra Weiner STLMLC STLMLC [id number] [facility] 2023-07-31 00:00:00 2023-07-31 00:00:00 (TEL) STLMLC STLMLC [id number] [facility] 2023-07-09 00:00:00 2023-07-09 00:00:00 (TEL) STLMLC STLMLC [id number] [facility] 2023-06-18 00:00:00 2023-06-18 00:00:00 (TEL) STLMLC STLMLC [id number] [facility] 2023-06-12 00:00:00 2023-06-12 00:00:00 OFFICE VISIT ESTAB PT LEVEL 4 STLMLC STLMLC [id number] [facility] 2023-05-09 00:00:00 2023-05-09 00:00:00 (ESTPT) Establishe d Patient STLMLC STLMLC [id number] [facility] 2023-04-24 00:00:00 2023-04-24 00:00:00 (TEL) STLMLC STLMLC [id number] [facility] 2023-04-12 00:00:00 2023-04-12 00:00:00 OFFICE VISIT ESTAB PT LEVEL 4 STLMLC STLMLC [id number] [facility] 2023-03-28 00:00:00 2023-03-28 00:00:00 OFFICE VISIT ESTAB PT LEVEL 4 STLMLC STLMLC [id number] [facility] 2023-02-13 00:00:00 2023-02-13 00:00:00 OFFICE VISIT ESTAB PT LEVEL 2 STLMLC STLMLC [id number] [facility] 2022-12-18 00:00:00 2022-12-18 00:00:00 OFFICE VISIT ESTAB PT LEVEL 3 STLMLC STLMLC [id number] [facility] 2022-02-15 00:00:00 2022-08-22 00:00:00 Outpatient RECERTIFIC ATCRUZ JULES ENCCLR ENCCLR [id number] ENCCLR 2022-02-15 00:00:00 2022-02-15 00:00:00 Outpatient RECERTIFIC ATHERSON JULESI ENCCLR ENCCLR [id number] ENCCLR 2022-02-15 00:00:00 2022-02-15 00:00:00 Outpatient READMIKATALINA VILLASENOR CRUZ ENCCLR ENCCLR [id number] ENCCLR 2022-01-24 12:18:00 2022-02-14 16:16:00 Inpatient 3 [facility] amanda Debramarnie ENCPL JOHN [id number] [facility] 2021-12-14 00:00:00 2021-12-14 00:00:00 OFFICE VISIT EST PT LEVEL 3 STLMLC STLMLC [id number] [facility] 2021-09-04 00:00:00 2021-09-04 00:00:00 (TEL) STLMLC STLMLC [id number] [facility] 2021-09-04 00:00:00 2021-09-04 00:00:00 (TEL) STLMLC STLMLC [id number] [facility] 2021-04-14 00:00:00 2021-04-14 00:00:00 (TEL) STLMLC STLMLC [id number] [facility] 2021-04-10 00:00:00 2021-04-10 00:00:00 (TEL) STLMLC STLMLC [id number] [facility] 2021-04-06 00:00:00 2021-04-06 00:00:00 (TEL) STLMLC STLMLC [id number] [facility] 2021-03-22 00:00:00 2021-03-22 00:00:00 OFFICE VISIT EST PT LEVEL 3 STLMLC STLMLC [id number] [facility] 2021-03-09 00:00:00 2021-03-09 00:00:00 (TEL) STLMLC STLMLC [id number] [facility] 2021-02-23 00:00:00 2021-02-23 00:00:00 (TEL) STLMLC STLMLC [id number] [facility] 2021-01-25 00:00:00 2021-01-25 00:00:00 (TEL) STLMLC STLMLC [id number] [facility] 2021-01-25 00:00:00 2021-01-25 00:00:00 OFFICE VISIT ESTAB PT LEVEL 4 STLMLC STLMLC [id number] [facility] 2021-01-05 00:00:00 2021-01-05 00:00:00 (TEL) STLMLC STLMLC [id number] [facility] 2020-12-01 00:00:00 2020-12-01 00:00:00 Outpatient STLMLC STLMLC [id number] [facility] 2020-10-31 00:00:00 2020-10-31 00:00:00 Outpatient STLMLC STLMLC [id number] [facility] 2020-10-19 00:00:00 2020-10-19 00:00:00 Outpatient STLMLC STLMLC [id number] [facility] 2020-08-03 00:00:00 2020-08-03 00:00:00 Outpatient STLMLC STLMLC [id number] [facility] 2020-07-26 00:00:00 2020-07-26 00:00:00 Outpatient STLMLC STLMLC [id number] [facility] 2020-07-26 00:00:00 2020-07-26 00:00:00 Outpatient STLMLC STLMLC [id number] [facility] 2020-07-12 00:00:00 2020-07-12 00:00:00 Outpatient STLMLC STLMLC [id number] [facility] 2020-06-27 00:00:00 2020-06-27 00:00:00 Outpatient STLMLC STLMLC [id number] [facility] 2020-05-11 00:00:00 2020-05-11 00:00:00 Outpatient STLMLC STLMLC [id number] [facility] 2020-04-18 00:00:00 2020-04-18 00:00:00 Outpatient STLMLC STLMLC [id number] [facility] 2020-04-14 10:20:00 2020-04-14 10:20:00 [facility] [id number] [facility] 2020-04-08 16:38:00 2020-04-08 16:38:00 [facility] [id number] [facility] 2020-04-08 16:36:00 2020-04-08 16:36:00 [facility] [id number] [facility] 2020-04-08 10:50:00 2020-04-08 10:50:00 [facility] [id number] [facility] 2020-03-07 14:47:00 2020-03-07 14:47:00 [facility] [id number] [facility] 2020-01-26 14:20:00 2020-01-26 14:20:00 [facility] [id number] [facility] 2020-01-19 14:00:00 2020-01-19 14:00:00 [facility] [id number] [facility] 2020-01-18 14:30:00 2020-01-18 14:30:00 [facility] [id number] [facility] 2020-01-11 16:46:00 2020-01-11 16:46:[address] [facility] [id number] [facility] 2019-12-28 14:00:00 2019-12-28 14:00:00 [facility] [id number] [facility] 2019-12-24 15:13:00 2019-12-24 15:13:00 [facility] [id number] [facility] 2019-12-14 16:13:00 2019-12-14 16:13:[address] [facility] [id number] [facility] 2019-12-03 15:15:00 2019-12-03 15:15:[address] [facility] [id number] [facility] 2019-09-11 17:26:00 2019-09-11 17:26:[address] [facility] [id number] [facility] 2019-08-11 09:48:00 2019-08-11 09:48:[address] [facility] [id number] [facility] 2019-07-02 15:20:00 2019-07-02 15:20:[address] [facility] [id number] [facility] 2019-06-26 16:42:00 2019-06-26 16:42:[address] [facility] [id number] [facility] 2019-06-23 09:21:00 2019-06-23 09:21:[address] [facility] [id number] [facility] 2019-06-11 14:59:00 2019-06-11 14:59:[address] [facility] [id number] [facility] 2019-06-08 16:45:00 2019-06-08 16:45:00 [facility] [address] [facility] [id number] [facility] 2019-05-25 15:30:00 2019-05-25 15:30:00 [facility] [id number] [facility] 2019-05-06 13:24:00 2019-05-06 13:24:00 [facility] [id number] [facility] 2019-01-29 13:15:00 2019-01-29 13:15:00 [facility] [id number] [facility] 2019-01-16 10:05:00 2019-01-16 10:05:00 [facility] [id number] [facility] 2019-01-02 14:10:00 2019-01-02 14:10:00 [facility] [id number] [facility] 2018-11-07 10:27:00 2018-11-07 10:27:00 [facility] [address] [facility] [id number] [facility] 2018-11-04 15:55:00 2018-11-04 15:55:00 [facility] [id number] [facility] 2018-11-04 14:15:00 2018-11-04 14:15:00 [facility] [facility] [id number] [facility] 2018-09-30 15:30:00 2018-09-30 15:30:[address] [facility] [id number] [facility] 2018-09-04 17:02:00 2018-09-04 17:02:00 [facility] [facility] [id number] [facility] 2018-09-03 10:12:00 2018-09-03 10:12:00 [facility] [id number] [facility] 2018-08-15 14:31:00 2018-08-15 14:31:00 [facility] [facility] [id number] [facility] 2018-08-11 09:42:00 2018-08-11 09:42:00 [facility] [id number] [facility] 2018-07-23 11:42:00 2018-07-23 11:42:00 [facility] [id number] [facility] 2018-05-29 12:09:00 2018-05-29 12:09:00 [facility] [id number] [facility] 2018-05-08 10:57:00 2018-05-08 10:57:00 [facility] [id number] [facility] 2018-04-01 15:34:00 2018-04-01 15:34:00 [facility] [id number] [facility] 2018-03-17 15:30:00 2018-03-17 15:30:00 [facility] [id number] [facility] 2018-01-30 15:00:00 2018-01-30 15:00:00 [facility] [id number] [facility] 2018-01-22 10:00:00 2018-01-22 10:00:00 [facility] [id number] [facility]
--- NOTE | 2023-09-18 13:12 | ER ---
Nurse's Notes [facility] Name: Chito Chavira Jr Age: 78 yrs Sex: Male : 1945 Arrival Date: 09/18/2023 Time: 11:57 Bed 7 Private MD: Diagnosis: Pain in left foot;Pain in left ankle and joints of left foot;Nondisplaced fracture of lateral malleolus of left fibula Presentation: 09/18 12:00 Chief complaint: EMS states: pt fell about 2 weeks ago. states his knee and hip gave kc6 out on him. pt reports continued left ankle pain. Coronavirus screen: At this time, the client does not indicate any symptoms associated with coronavirus-19. Ebola Screen: No symptoms or risks identified at this time. Initial Sepsis Screen: Does the patient meet any 2 criteria? No. Patient's initial sepsis screen is negative. Does the patient have a suspected source of infection? No. Patient's initial sepsis screen is negative. Risk Assessment: Do you want to hurt yourself or someone else? Patient reports no desire to harm self or others. Onset of symptoms was September 18, 2023. 12:00 Method Of Arrival: EMS: [facility] kc6 12:00 Acuity: TROY 4 kc6 Historical: - Allergies: 12:03 Benadryl; kc6 12:03 Seroquel; kc6 - PMHx: 12:03 Anxiety; Arthritis; Asthma; Chronic obstructive lung disease; Dementia; Diabetes - kc6 NIDDM; GERD; High Cholesterol; Hypertension; indwelling catheter; Prostate Cancer; - PSHx: 12:03 right knee and right hip replacement; kc6 - Immunization history:: Adult Immunizations up to date. - Social history:: Smoking status: Patient denies any tobacco usage or history of. - Family history:: not pertinent. Screenin:16 [facility] ED Fall Risk Assessment (Adult) History of falling in the last 3 months, kc6 including since admission Yes- single mechanical fall (1 pt) Confusion or Disorientation No (0 pts) Intoxicated or Sedated No (0 pts) Impaired Gait Yes (1 pt) Mobility Assist Device Used Yes (1 pt) Altered Elimination Yes (1 pt) Score/Fall Risk Level 0 - 2 = Low Risk. Abuse screen: Denies threats or abuse. Denies injuries from another. Nutritional screening: No deficits noted. Tuberculosis screening: No symptoms or risk factors identified. Assessment: 12:17 General: Appears in no apparent distress. comfortable, well groomed, well developed, kc6 Behavior is calm, cooperative, appropriate for age. Pain: Complains of pain in left foot. Neuro: Level of Consciousness is awake, alert, obeys commands, Oriented to person, place, time, situation, Appropriate for age. Cardiovascular: Capillary refill < 3 seconds Pulses are all present. Respiratory: Airway is patent Trachea midline Respiratory effort is even, unlabored, Respiratory pattern is regular, symmetrical. GI: No signs and/or symptoms were reported involving the gastrointestinal system. : No signs and/or symptoms were reported regarding the genitourinary system. Miller in place to gravity drainage clamped Urine is cloudy. EENT: No signs and/or symptoms were reported regarding the EENT system. Derm: No signs and/or symptoms reported regarding the dermatologic system. Skin is intact, is healthy with good turgor, Skin is pink, warm \T\ dry. Bruising that is dark purple, on left foot. 13:53 Reassessment: Patient appears in no apparent distress at this time. No changes from kc previously documented assessment. Patient and/or family updated on plan of care and expected duration. Pain level reassessed. Patient is alert, oriented x 3, equal unlabored respirations, skin warm/dry/pink. d/c pending transport home. attempted to call patients daughter twice. voice mail left at this time. Vital Signs: 12:00 BP 158 / 68; Pulse 74; Resp 16 S; Pulse Ox 100% on R/A; Weight 82.55 kg (R); Height 5 kc6 ft. 9 in. (R); 13:54 BP 156 / 73; Pulse 65; Resp 16 S; Pulse Ox 100% on R/A; kc6 12:00 Body Mass Index 26.88 (82.55 kg, 175.26 cm) 6 ED Course: 11:58 Patient arrived in ED. ko1 11:59 Justin Altman MD is Attending Physician. [facility] 12:00 Charo Hernandez RN is Primary Nurse. kc6 12:02 Triage completed. kc6 12:03 Arm band placed on. kc6 12:16 Patient maintains SpO2 saturation greater than 95% on room air. kc6 12:17 Patient has correct armband on for positive identification. Bed in low position. Call kc6 light in reach. Side rails up X2. Client placed on continuous cardiac and pulse oximetry monitoring. NIBP monitoring applied. 12:48 Ankle Left 3 View XRAY In Process Unspecified. EDMS 12:48 Foot Left 3 View XRAY In Process Unspecified. EDMS 13:10 Gerardo Bernstein MD is Referral Physician. nataly Administered Medications: 13:39 Drug: HYDROcodone-acetaminophen PO 5 mg-325 mg 1 tabs PO once Route: PO; me1 Outcome: 13:11 Discharge ordered by . nataly 14:29 Patient left the ED. kc6 Signatures: Dispatcher [employer] Justin Penn MD MD cha Campbell, Kaitlyn RN RN kc6 Karen Capone RN RN ko1 Sugar Samson RN RN me1
--- NOTE | 2023-09-18 13:12 | EDPHYS ---
Physician Documentation [facility] Name: Chito Chavira Jr Age: 78 yrs Sex: Male : 1945 Arrival Date: 09/18/2023 Time: 11:57 Bed 7 Private MD: SOHAIL Physician Justin Altman HPI: 09/18 12:29 This 78 yrs old Male presents to ER via EMS with complaints of left foot and nataly ankle pain , sprain x 2 weeks. 12:29 The patient presents with decreased range of motion, pain, that is acute. The nataly complaints affect the left ankle. Onset: The symptoms/episode began/occurred 2 week(s) ago. Context: The problem was sustained at home, resulted from a mis-step by the patient, The mechanism of injury involved inversion of the affected ankle. The patient can partially bear weight on the affected extremity. Associated signs and symptoms: The patient has no apparent associated signs or symptoms. The patient presents with decreased range of motion, an injury. The complaints affect the left foot. Context: The problem was sustained at home, resulted from a mis-step by the patient, the patient can partially bear weight. Modifying factors: The symptoms are alleviated by elevation of extremity, the symptoms are aggravated by movement. Historical: - Allergies: 12:03 Benadryl; kc6 12:03 Seroquel; kc6 - PMHx: 12:03 Anxiety; Arthritis; Asthma; Chronic obstructive lung disease; Dementia; Diabetes - kc6 NIDDM; GERD; High Cholesterol; Hypertension; indwelling catheter; Prostate Cancer; - PSHx: 12:03 right knee and right hip replacement; kc6 - Immunization history:: Adult Immunizations up to date. - Social history:: Smoking status: Patient denies any tobacco usage or history of. - Family history:: not pertinent. ROS: 12:29 Constitutional: Negative for fever, chills, and weight loss, Eyes: Negative for injury, nataly pain, redness, and discharge, ENT: Negative for injury, pain, and discharge, Neck: Negative for injury, pain, and swelling, Cardiovascular: Negative for chest pain, palpitations, and edema, Respiratory: Negative for shortness of breath, cough, wheezing, and pleuritic chest pain, Abdomen/GI: Negative for abdominal pain, nausea, vomiting, diarrhea, and constipation, Back: Negative for injury and pain, : Negative for injury, bleeding, discharge, and swelling, Skin: Negative for injury, rash, and discoloration, Neuro: Negative for headache, weakness, numbness, tingling, and seizure, Psych: Negative for depression, anxiety, suicide ideation, homicidal ideation, and hallucinations, Allergy/Immunology: Negative for hives, rash, and allergies, Endocrine: Negative for neck swelling, polydipsia, polyuria, polyphagia, and marked weight changes, Hematologic/Lymphatic: Negative for swollen nodes, abnormal bleeding, and unusual bruising, 12:29 MS/extremity: Positive for injury or acute deformity, decreased range of motion, pain, swelling, tenderness, of the left foot, left lateral ankle, left medial ankle and anterior aspect of left ankle, Exam: 12:29 Constitutional: This is a well developed, well nourished patient who is awake, alert, nataly and in no acute distress. Head/Face: Normocephalic, atraumatic. Eyes: Pupils equal round and reactive to light, extra-ocular motions intact. Lids and lashes normal. Conjunctiva and sclera are non-icteric and not injected. Cornea within normal limits. Periorbital areas with no swelling, redness, or edema. ENT: Nares patent. No nasal discharge, no septal abnormalities noted. Tympanic membranes are normal and external auditory canals are clear. Oropharynx with no redness, swelling, or masses, exudates, or evidence of obstruction, uvula midline. Mucous membranes moist. Neck: Trachea midline, no thyromegaly or masses palpated, and no cervical lymphadenopathy. Supple, full range of motion without nuchal rigidity, or vertebral point tenderness. No Meningismus. Chest/axilla: Normal chest wall appearance and motion. Nontender with no deformity. No lesions are appreciated. Cardiovascular: Regular rate and rhythm with a normal S1 and S2. No gallops, murmurs, or rubs. Normal PMI, no JVD. No pulse deficits. Respiratory: Lungs have equal breath sounds bilaterally, clear to auscultation and percussion. No rales, rhonchi or wheezes noted. No increased work of breathing, no retractions or nasal flaring. Abdomen/GI: Soft, non-tender, with normal bowel sounds. No distension or tympany. No guarding or rebound. No evidence of tenderness throughout. Back: No spinal tenderness. No costovertebral tenderness. Full range of motion. Male : Normal genitalia with no discharge or lesions. Skin: Warm, dry with normal turgor. Normal color with no rashes, no lesions, and no evidence of cellulitis. Neuro: Awake and alert, GCS 15, oriented to person, place, time, and situation. Cranial nerves II-XII grossly intact. Motor strength 5/5 in all extremities. Sensory grossly intact. Cerebellar exam normal. Normal gait. Psych: Awake, alert, with orientation to person, place and time. Behavior, mood, and affect are within normal limits. 12:29 Musculoskeletal/extremity: ROM: limited active range of motion, limited passive range of motion, limited active range of motion due to pain, limited passive range of motion due to pain, Circulation is intact in all extremities. Sensation intact. Compartment Syndrome exam of affected extremity: is normal. DVT Exam: negative Homans' sign noted on exam, no appreciated bluish discoloration, no erythema, no increased warmth, pain, swelling, tenderness, Vital Signs: 12:00 BP 158 / 68; Pulse 74; Resp 16 S; Pulse Ox 100% on R/A; Weight 82.55 kg (R); Height 5 kc6 ft. 9 in. (R); 13:54 BP 156 / 73; Pulse 65; Resp 16 S; Pulse Ox 100% on R/A; kc6 12:00 Body Mass Index 26.88 (82.55 kg, 175.26 cm) kc6 Procedures: 12:29 Splinting: Splint applied to lateral aspect of left calf, left lateral ankle, lateral nataly aspect of left foot, left Achilles, left medial ankle, medial aspect of left foot, left maravilla, anterior aspect of left ankle and dorsum of left foot. MDM: 11:59 Patient medically screened. [facility] 12:29 Differential diagnosis: fracture, sprain, gout, cellulitis. Data reviewed: vital signs, [facility] nurses notes, EMS record, radiologic studies. Consideration of Admission/Observation Escalation of care including admission/observation considered. I considered the following discharge prescriptions or medication management in the emergency department Medications were administered in the Emergency Department. See MAR. Independent interpretation of the following test(s) in the Emergency Department X-Ray: My interpretation is left foot and ankle. Test considered but Not performed: Labs: no labs. Care significantly affected by the following chronic conditions: Diabetes, Chronic Obstructive Pulmonary Disease, anxiety , asthma, arthritis. 09/18 12:00 Order name: Ankle Left 3 View XRAY [facility] 09/18 12:00 Order name: Foot Left 3 View XRAY [facility] 09/18 13:10 Order name: Walking boot; Complete Time: 13:50 nataly Administered Medications: 13:39 Drug: HYDROcodone-acetaminophen PO 5 mg-325 mg 1 tabs PO once Route: PO; me1 Disposition Summary: 09/18/23 13:11 Discharge Ordered Notes: Location: Home [facility] Problem: new nataly Symptoms: have improved nataly Condition: Stable nataly Diagnosis - Pain in left foot nataly - Pain in left ankle and joints of left foot nataly - Nondisplaced fracture of lateral malleolus of left fibula nataly Followup: nataly - With: Private Physician - When: 2 - 3 days - Reason: Recheck today's complaints, Continuance of care, Re-evaluation by your physician Followup: nataly - With: Gerardo Bernstein MD - When: 2 - 3 days - Reason: Recheck today's complaints, Re-evaluation by your physician Discharge Instructions: - Discharge Summary Sheet nataly - Joint Pain nataly - Musculoskeletal Pain nataly - Tibial and Fibular Fractures nataly - Arthritis, [id number] nataly - Ankle Pain nataly - Foot Pain [facility] Forms: - Medication Reconciliation Form [facility] - Thank You Letter [facility] - Antibiotic Education nataly - Prescription Opioid Use nataly - Patient Portal Instructions [facility] - Leadership Thank You Letter [facility] Prescriptions: - Tylenol 325 mg Oral tablet - take 2 tablets ORAL route every 6 hours as needed; 60 tablet; Refills: 0, nataly Product Selection Permitted Signatures: Dispatcher [employer] Justin Penn MD MD cha Campbell, Kaitlyn RN RN kc6 Sugar Samson RN RN me1
--- NOTE | 2023-09-18 14:10 | RAD REPORT ---
EXAM DESCRIPTION: RAD - Ankle Left 3 View - 09/18/2023 12:46 pm CLINICAL HISTORY: PAIN COMPARISON: No comparisons TECHNIQUE: Left ankle, 3 views. FINDINGS: Mildly displaced fracture of the distal fibula. No dislocation or periosteal reaction. No joint effusion seen. No joint space narrowing. No soft tissue abnormality. IMPRESSION: Mildly displaced fracture of the distal fibula.
--- NOTE | 2023-09-18 14:18 | RAD REPORT ---
EXAM DESCRIPTION: RAD - Foot Left 3 View - 09/18/2023 12:46 pm CLINICAL HISTORY: PAIN COMPARISON: FOOT W OBLIQUES dated 11/03/2007 TECHNIQUE: Left foot, 3 views. FINDINGS: No fracture, dislocation or periosteal reaction. Vascular calcifications. No air or foreign body in the soft tissues. IMPRESSION: Negative left foot radiographs.
[2023-09-19 22:20] VITALS: BP 156/73; O2SAT 100
== END ==
LOC: ER 11:57
DX: S82.65XA Nondisplaced fracture of lateral malleolus of left fibula, initial encounter for closed fracture (principal); Z88.8 Allergy status to other drugs, medicaments and biological substances